=== PATIENT | female | born 1975 | race Caucasian/White ===

== ENCOUNTER 2018-09-11 06:26 | Day surgery (SDC) | payer MEDICAID, SELFPAY ==
--- NOTE | 2018-09-10 23:38 | HP.PCM_ITS ---
History and Physical Date of Admission: 09/11/18 HISTORY OF PRESENT ILLNESS 43 year old woman presents with complaints of recent flare ups of her hidradenitis in her bilateral axillary areas, worse on the right. She has been on Doxycycline recently. She denies any fever. She denies any drainage. She is also concerned about hidradenitis in her abdominal wall skin crease with an overhanging panniculus with panniculitis. She would develop bumps mostly on the right side of the skin crease with spontaneous drainage. She denies trauma. She has had previous excision of hidradenitis in her left inguinal area and right perineal/gluteal area She presents at this time for further evaluation and treatment. PAST MEDICAL HISTORY Arthritis Asthma Back problem Carpal tunnel syndrome Chronic sinus complaints Depression Fibromyalgia Frequent headaches Hidradenitis Multiple allergies Recurrent infections Rheumatoid arthritis Vision problems Vitamin deficiency High blood pressure PAST SURGICAL HISTORY Carpal tunnel surgery on both sides Hidradenitis surgery 3 sections hysterectomy tonsillectomy MEDICATIONS Cholecalciferol (Vitamin D3) Lisinopril/Hydrochlorothiazide [Zestoretic 20/25 Tablet] Metoprolol Tartrate [Lopressor] Montelukast [Singulair] Sertraline HCl [Zoloft] Albuterol IH (ProAir) [Proair Hfa] Cetirizine HCl [Zyrtec] Fluticasone/Salmeterol [Advair 250/50 Mcg Diskus] Ascorbic Acid [Vitamin C] Meloxicam Ranitidine [Zantac] buPROPion tablets [Wellbutrin] doxycycline ALLERGIES Sulfa FAMILY HISTORY Mother - Anxiety, Asthma, Depression (emotion), Diabetes, Heart disease, Hypertension, COPD (chronic obstructive pulmonary disease), Osteoporosis, Cancer Father - Bleeding disorder, Kidney disease, Cancer Grandmother - Ovarian cancer Sister - defect SOCIAL HISTORY Smoking Status: Current some day smoker alcohol intake: current substance use type: does not use REVIEW OF SYSTEMS General - Denies fever and weight loss. Has fatigue. Eyes - Denies cataracts and glaucoma. ENT - Denies nasal congestion and sore throat. Endocrine - Denies excessive thirst and urination. Skin - Has flare ups of hidradenitis in her bilateral axillary areas and abdominal wall skin crease. Has family history of skin cancer. Musculoskeletal - Has joint pain, weakness of muscles and joints, back pain. Denies joint stiffness and arthritis. Neuro - Has headaches. Cardiovascular - Denies chest pain, fatigue, and shortness of breath with exertion. Psych - Denies anxiety. Has depression. Respiratory - Has chronic cough and shortness of breath. Patient is a smoker. Gastrointestinal - Denies nausea, vomiting, diarrhea, and constipation. Hematologic - Denies bleeding. Has abnormal bruising. Has history of blood clot. Genitourinary - Denies hematuria and urinary frequency. PHYSICAL EXAMINATION General - Alert and Oriented HEENT - PERRL. EOMI. Throat is clear. Neck - Supple and nontender. No cervical adenopathy. Lungs - Clear to auscultation. Heart - Regular rate and rhythm. Abdomen - Soft and nondistended. Has abdominal wall panniculus with some panniculitis. There is some overhang of the panniculus. There is evidence of abdominal wall skin crease intertrigo mostly on the right side. No purulent drainage noted. Extremities - FROM. No axillary adenopathy. Hard to palpate because of the pr esence of overlying pain and induration and swelling. No purulent drainage noted. On the right measures 7 cm. On the left measures 5 cm. Just below the left axillary hidradenitis is an isolated lesion that measures 1 cm. Slightly erythematous. Mild tenderness to palpation. No purulent drainage. There is tenderness to palpation on the right axilla. Radial pulses are palpable. Neuro - CN II-XII grossly intact. Psych - Normal mood and affect. ASSESSMENT 1. Painful right axillary hidradenitis. 2. Left axillary hidradenitis, stable. 3. Abdominal wall skin crease intertrigo with hidradenitis. 4. Abdominal panniculus. 5. Abdominal panniculitis. 6. Smoker. 7. History of JURGEN. PLAN Recommend excision of her hidradenitis right axilla since it is more symptomatic than on the left axilla at this time. Will send tissue to Pathology for analysis to rule out carcinoma and to Microbiology for culture. A positive culture will necessitate antibiotic therapy. Will leave the wound open and proceed with wound care with the VAC or with daily Silver dressings. After discharge she can followup at the Wound Center. If there is a plateau in the healing process, can proceed with delayed closure with skin grafting. After healing has occurred, can then address the left axilla if symptomatic in the future. Also an abdominal panniculectomy will need to be done after the axillary hidradenitis has been surgically treated. Patient was informed of the risks and complications of the procedure including alternatives to surgery. These were discussed with the patient personally. Patient voices understanding and wishes to proceed. Some of the risks and complications were included in a form from the [employer]. Surgery would be done under general anesthesia with a surgical observation overnight stat in the hospital. Encouraged patient to stop smoking as it may have deleterious effects on wound healing.
[2018-09-11] VITALS (14 sets, daily range): BP systolic 108–141; BP diastolic 63–91; PULSE 79–111; RESP 14–20; TEMP 36.3–37.4; O2SAT 92–100; BMI 52.3; BMI 40.8
[2018-09-11] MEDS: Cefazolin 2 GM in 0.9% Normal Saline 100 ML IV (07:56)
--- NOTE | 2018-09-11 08:00 | HID_PTH ---
PATIENT: RAVI VALDEZ LOC: [facility] [place] U#:[id number] AGE/SX: 43/F ROOM: RE09/11/[address]: Dr. Rambo Man MD : 1975 BED: DIS: 09/12/2018 SPEC #: [id number] RECD: 09/11/18 09:17 STATUS: CHRISTINE ARISTIDES #: [id number] JANKI: 09/11/18 08:[address]: Rambo Man DEPT: SURGICAL PATHOLOGY RECD BY: Demarcus Ward ENTERED: 09/11/18 09:28 SP TYPE: Darleneenit PRIYANK DR: Dr. Ceasar Okeefe DO Tissues: Axilla, NOS Procedures: Surgery Specimen Level III HEADER OPERATION: Excision hidradenitis, axilla PRE-OP DIAGNOSIS: Painful right axilla hidradenitis TISSUE SUBMITTED: Right axilla hidradenitis MICROSCOPIC DIAGNOSIS Skin and soft tissue of right axilla, excision: Consistent with hidradenitis. AM:brendan 09/12/18 MICROSCOPIC DESCRIPTION Slides are reviewed. GROSS DESCRIPTION Received in fixative is one container labeled with the patient's name and designated right axilla hidradenitis. The specimen consists of a piece of skin with underlying tissue measuring 10.5 x 8 x 2.8 cm. Sections do not reveal any mass lesion. Diesel Motor Mechanic sections are submitted in two cassettes. / SJ:brendan 09/11/18 TC:3 CPT: 80680
--- NOTE | 2018-09-11 08:39 | OP.PN_ITS ---
Immediate Post-Op Note Date of Procedure: 09/11/18 Primary Surgeon/Physician: Rambo Man MD document preparation specialist: None Pre-Operative Diagnosis: 1. Painful right axillary hidradenitis. 2. Smoker. 3. History of MRSE. Post-Operative Diagnosis: Same. Surgery/Procedure Performed:: Surgical preparation right axilla with excision hidradenitis (130 cm2). Description of Surgical Findings:: 43 year old woman presents with complaints of recent flare ups of her hidradenitis in her bilateral axillary areas, worse on the right. She has been on Doxycycline recently. She denies any fever. She denies any drainage. She is also concerned about hidradenitis in her abdominal wall skin crease with an overhanging panniculus with panniculitis. She would develop bumps mostly on the right side of the skin crease with spontaneous drainage. She denies trauma. She has had previous excision of hidradenitis in her left inguinal area and right perineal/gluteal area Today the patient underwent surgical preparation right axilla with excision hidradenitis (130 cm2). Size of defect right axilla - 10 x 13 x 3 cm. Estimated Blood Loss: 50 ml. Specimen's removed: Right axillary hidradenitis tissue to Pathology and Microbiology. Drains: None. Type of Anesthesia:: General - Admit VTE Documentation VTE Present on Admission: No VTE Mechan Device Prophylaxis: SCD's VTE Pharm Prophylaxis ordered?: No
[2018-09-11] MEDS: Lactated Ringers 1,000 ML 60 ML IV (09:40)
[2018-09-11] MEDS: 0.9% NaCl Peripheral Flush Adult/Peds IV ×2 (10:41→14:37)
[2018-09-11] MEDS: HYDROmorphone 1 MG/ML Syringe IV ×3 (10:45→18:19)
[2018-09-11] MEDS: oxyCODONE 5 MG Tablet 10 MG PO ×3 (12:43→21:08)
[2018-09-11] MEDS: buPROPion (XL) 300 MG TABLET.XL PO (12:48)
[2018-09-11] MEDS: hydroCHLOROthiazide 25 MG Tablet PO (12:48)
[2018-09-11] MEDS: Lisinopril 20 MG Tablet PO (12:48)
[2018-09-11] MEDS: Ferrous Sulfate 325 MG Tablet PO (12:49)
[2018-09-11] MEDS: Ascorbic Acid 500 MG Tablet PO (12:49)
[2018-09-11] MEDS: DULoxetine Hcl 60 MG Capsule PO (12:49)
[2018-09-11] MEDS: Loratadine 10 MG Tablet PO (12:49)
--- NOTE | 2018-09-11 12:50 | OP.PCM_ITS ---
Report of Operation Date of Procedure: 09/11/18 Pre-Operative Diagnosis: 1. Painful right axillary hidradenitis. 2. Smoker. 3. History of MRSE. Post-Operative Diagnosis: Same. Surgery/Procedure Performed:: Surgical preparation right axilla with excision hidradenitis (130 cm2). Description of Surgical Findings:: 43 year old woman presents with complaints of recent flare ups of her hidradenitis in her bilateral axillary areas, worse on the right. She has been on Doxycycline recently. She denies any fever. She denies any drainage. She is also concerned about hidradenitis in her abdominal wall skin crease with an overhanging panniculus with panniculitis. She would develop bumps mostly on the right side of the skin crease with spontaneous drainage. She denies trauma. She has had previous excision of hidradenitis in her left inguinal area and right perineal/gluteal area Patient was informed of the risks and complications of the procedure including alternatives to surgery. These were discussed with the patient personally. Patient voices understanding and wishes to proceed. Some of the risks and complications were included in a form from the [employer]. Encouraged patient to stop smoking as it may have deleterious effects on wound healing. Size of defect right axilla - 10 x 13 x 3 cm. clinical lab assistant: None Type of Anesthesia:: General Specimen's removed: Right axillary hidradenitis tissue to Pathology and Microbiology. Drains: None. Estimated Blood Loss (mL): 50 ml. Description of Procedure: Patient was taken to OR in supine position and was placed under general anesthesia. The right axilla was prepped and draped in the usual fashion. SCD's were placed for DVT prophylaxis. Perioperative antibiotics were given intravenously. Using xylocaine with epinephrine, the right axilla was infiltrated. After waiting 5 minutes for the anesthetic to take effect, I proceeded with surgical preparation of the right axilla with excision of her chronic hidradenitis in a circular fashion to encompass the indurated tender areas. Dissection was carried through the subcutaneous tissue until the underlying muscle was seen. A lot of fat necrosis was seen. A lot of scar tissue was seen. No gross pus was seen. Some of the tissue was sent to Microbiology for culture. A positive culture would necessitate antibiotic therapy. The rest of the tissue was sent to Pathology for analysis to rule out carcinoma. Hemostasis was obtained with electrocautery. The wound was irrigated with saline. The dimensions of the right axillary wound after excision of hidradenitis was 10 x 13 x 3 cm. The right axillary wound was then dressed with Mepitel nonadherent dressing followed by Kerlix gauze and Betadine followed by dry Kerlix gauze followed by ABD pads compression dressing. This was followed by a compression zonia wrap. Patient tolerated the procedure well and was sent to PACU in satisfactory condition. Patient will be sent upstairs for continued postop care. She will have the VAC placed tomorrow. Grafts/Implants Used: None. - Complications None. - Admit VTE Documentation VTE Present on Admission: No VTE Mechan Device Prophylaxis: SCD's VTE Pharm Prophylaxis ordered?: No Code Visit Surgery Charges CPT - 10615 ICD-10 - S41.101A, L73.2, Z86.19, F17.200 47902 S41.101A, L73.2, Z86.19, F17.200
--- NOTE | 2018-09-11 12:54 | NURSING ---
Up to bathroom with this nurse assistance. voided and back to bed. had lunch. gave meds that didnt have prior to surgery that she normally takes on a daily basis. pt took lopressor and protonix at home prior to surgery.
[2018-09-11] MEDS: Albuterol 2.5 MG/3 ML VIAL.NEB. INHALATION ×2 (13:58→18:59)
--- NOTE | 2018-09-11 14:45 | CASEMGMT ---
JOSÉ MIGUEL CONNELL ASSESSMENT Face to Face with patient for initial transition planning/care coordination assessment. JOSÉ MIGUEL CONNELL introduced self and role at [facility]. Pt voices understanding and consents to assessment at this time. Pt resting in bed in no distress at this time. Pt is A/O at this time and answers all questions appropriately. Care providers, pharmacy, and demographics verified/updated at this time. PCP: Ceasar Okeefe Specialists: [facility] ([facility] Dr in [place]), Magda Escamilla Pharmacy: [facility], [place]. [facility] Retail on day of d/c only. Insurance: [facility] Prescription Benefit: Yes Living Will/HPOA: does not have LW or HCPOA . Interested in more information but does not want to talk with SW at this time to complete paperwork. Provided information on advanced directives and given Social Service rac card with number to call if chooses in the future to utilize [facility] social work for advanced directive completion. Educated patient that, if patient so chooses, can come back to [facility] and meet with a SW as an outpatient to complete health care advanced directives. Patient expresses understanding. LNOK: 3 sons and a daughter. Living Arrangements: Lives with her significant other, Magdy, and her 17-yr-old daughter. Lives in a 2-story home. 12-14 steps to enter. Ground floor is the basement and this is where the laundry room is located. 2nd floor is the main living area with kitchen, bath, and bedrooms. States able to navigate the stairs, she just takes them slowly. Transportation: Pt states drives self and states no transportation concerns at this time. States her daughter or Magdy can assist with transportation if needed. DME: has the following DME: Shower chair, hand held shower, cane. Pt states no need for further DME at this time. HHC: has used [facility] in the past but that they are no longer in network with [facility]. just recently used [facility] after knee surgery in June and wishes to use them again on discharge. Pt wishes to return home and states has no concerns with going home at time of discharge. CM to follow for any further discharge planning/needs. Pt voices no further concerns/needs at this time. Advised pt to ask for CM if any further questions/concerns/needs arise. Voices understanding. Plan: Home with [facility] for Wound Vac Care/dressing changes. DGiauque BSN RN CM
--- NOTE | 2018-09-11 15:25 | CASEMGMT ---
RN CM NOTE: Call placed to [facility] in [facility] and spoke to Bibi in the Intake Dep't. She states they are in Network with [facility] and they are able to provide retirement for Wound Vac care. Bibi was made aware anticipated discharge is tomorrow 09/12 or 09/13. Referral packet faxed. Awaiting acceptance and approval. [facility] PH: [phone] Chetna SMALL RN CM
[2018-09-11] MEDS: Cefazolin 1 GM/50 ML BAG IV (16:20)
[2018-09-11] MEDS: Budesonide Respules 0.5 MG/2 ML AMPUL.NEB. INHALATION (18:59)
[2018-09-11] MEDS: Metoprolol Tartrate 50 MG Tablet PO (21:07)
[2018-09-11] MEDS: Montelukast 10 MG Tablet PO (21:07)
[2018-09-11] MEDS: Docusate Sodium 100 MG Capsule PO (21:07)
[2018-09-12] MEDS: Lactated Ringers 1,000 ML 60 ML IV (00:34)
[2018-09-12] MEDS: Cefazolin 1 GM/50 ML BAG IV ×3 (00:34→16:06)
[2018-09-12] MEDS: Ondansetron 4 MG/2 ML Vial IV (00:40)
[2018-09-12 03:20] VITALS: BP 140/85; PULSE 97; RESP 16; TEMP 36.4; O2SAT 100
[2018-09-12 06:44] LABS: Anion Gap 10 (5-15); BUN 13 mg/dL (7-18); Calcium,Total 9.2 mg/dL (8.5-10.1); Chloride 102 mmol/L (98-107); Creatinine, Serum 0.81 mg/dL (0.55-1.02); EST Glomerular Filtration Rate 82 mL/min (>60); Est Glom Filt Rate - Afr Amer 100 mL/min (>60); Estimated Creatinine Clearance 94.56 ml/min; Glucose 107 mg/dL (74-106); Potassium 3.6 mmol/L (3.5-5.1); Prealbumin 23.8 mg/dL (20.0-40.0); Sodium Level 138 mmol/L (136-145)
[2018-09-12 06:57] LABS: Hematocrit 34.8 % (37-47); Hemoglobin 11.3 g/dl (12.0-15.0); Mean Corp Hgb Conc 32.5 g/gl (32-36); Mean Corpuscular Hgb 29.5 pg (27.0-32.0); Mean Corpuscular Volume 90.9 fL (81-99); Mean Platelet Vol. 11.3 fl (6.2-12.0); Platelet Count 277 K/mm3 (150-450); RBC Distribution Width CV 13.1 % (11.6-14.6); RBC Distribution Width SD 43.1 fl (35.1-43.9); Red Blood Count 3.83 M/mm3 (4.2-5.4); White Blood Count 15.9 K/mm3 (4.4-11.0)
[2018-09-12 06:58] LABS: Scan Indicated on CBC? Y/N NO
[2018-09-12 07:09] VITALS: PULSE 90; RESP 19
[2018-09-12] MEDS: Budesonide Respules 0.5 MG/2 ML AMPUL.NEB. INHALATION (07:09)
[2018-09-12] MEDS: Albuterol 2.5 MG/3 ML VIAL.NEB. INHALATION ×2 (07:09→13:43)
[2018-09-12] MEDS: oxyCODONE 5 MG Tablet 10 MG PO ×2 (07:26→14:45)
[2018-09-12] MEDS: Ferrous Sulfate 325 MG Tablet PO (07:26)
[2018-09-12] MEDS: Ascorbic Acid 500 MG Tablet PO (07:26)
--- NOTE | 2018-09-12 08:26 | CASEMGMT ---
JOSÉ MIGUEL CONNELL NOTE: Call received from Rowena @ [facility]. She is requesting a signed copy of Dr Man's signature on H/P be faxed to them and states once they receive that, then they are able to take pt. She was made aware plans are for Wound Vac to be placed today and probable d/c is today 09/12. Chetna SMALL RN, CM
[2018-09-12 09:25] VITALS: BP 148/87; PULSE 95; RESP 18; TEMP 36.6; O2SAT 95
[2018-09-12] MEDS: HYDROmorphone 1 MG/ML Syringe IV (09:32)
[2018-09-12 09:35] VITALS: PULSE 95
[2018-09-12] MEDS: Metoprolol Tartrate 50 MG Tablet PO (09:35)
[2018-09-12] MEDS: hydroCHLOROthiazide 25 MG Tablet PO (09:35)
[2018-09-12] MEDS: Pantoprazole Sodium 40 MG Tablet PO (09:36)
[2018-09-12] MEDS: buPROPion (XL) 300 MG TABLET.XL PO (09:36)
[2018-09-12] MEDS: Lisinopril 20 MG Tablet PO (09:36)
[2018-09-12] MEDS: Docusate Sodium 100 MG Capsule PO (09:36)
[2018-09-12] MEDS: Loratadine 10 MG Tablet PO (09:37)
[2018-09-12] MEDS: DULoxetine Hcl 60 MG Capsule PO (09:37)
--- NOTE | 2018-09-12 10:24 | NURSING ---
wound photo: right axilla
[2018-09-12 13:43] VITALS: RESP 18
[2018-09-12 14:50] VITALS: BP 131/74; PULSE 95; RESP 18; TEMP 36.3; O2SAT 99
--- NOTE | 2018-09-12 15:29 | PCM.PN.SRG ---
Subjective: Postop #1 Patient is resting comfortably. VAC applied today. - Physical Exam General: Alert, Oriented x3 HEENT: PERRLA, EOMI Oral: Moist Mucosa Neck: Supple Abdomen: Soft, Non-Distended Skin: Ulcer/ Wound - right axillary wound stable. No active bleeding noted. VAC applied today. Neurological: Cranial nerves II-XII grossly intact Psych/Mental Status: Normal Affect, Appropriate Vital Signs Temp Pulse Resp BP Pulse Ox 97.4 F L 95 18 131/74 H 99 09/12/18 14:50 09/12/18 14:50 09/12/18 14:50 09/12/18 14:50 09/12/18 14:50 Oxygen Flow Rate (L/min) 2 Oxygen Delivery Method Room Air Weight: 276 lb 14.409 oz Body Mass Index (BMI) 40.8 Intake and Output for Last 24 Hours 09/10/18 09/11/18 09/12/18 23:59 23:59 23:59 Intake Total 2120 / 2120 1810 / 1810 Output Total 1100 / 1100 1700 / 1700 Balance 1020 / 1020 110 / 110 Microbiology Past 72 Hours 09/11/18 Unknown Gram Stain - Final Tissue - Other Wound Culture - Preliminary Laboratory Tests Past 24 Hrs 09/12/18 09/12/18 05:48 05:48 WBC 15.9 H RBC 3.83 L Hgb 11.3 L Hct 34.8 L MCV 90.9 MCH 29.5 MCHC 32.5 RDW 13.1 RDW Differential 43.1 Plt Count 277 MPV 11.3 Sodium 138 Potassium 3.6 Chloride 102 Carbon Dioxide 26.0 Anion Gap 10 BUN 13 Creatinine 0.81 Estim Creat Clear Calc 94.56 Est GFR (MDRD) Af Amer 100 Est GFR (MDRD) Non-Af 82 BUN/Creatinine Ratio 16.0 Glucose 107 H Calcium 9.2 Prealbumin 23.8 Medical Necessity - Tobacco Use Smoking Status: Current some day smoker Tobacco Use: Cigarettes Assessment/Plan All Active Problems (Last Updated 06/12/18 @ 10:03 by Arcelia Schmidt) Open wound of right axillary region (Acute) 1. Painful right axillary hidradenitis. 2. Open surgical hidradenitis wound right axilla. 3. Smoker. 4. History of MRSE. 5. s/p surgical preparation right axilla with excision hidradenitis (130 cm2). VAC applied today. Wound is stable. No active bleeding noted. VAC has been approved. Prealbumin 23.8. Encourage nutritional supplementation with protein to help the healing process. Operative culture is pending. Will send home on Doxycycline. A positive culture may necessitate antibiotic modification. Discharge home today. Followup Wound Center in 2-3 weeks. If there is a plateau in the healing process, can proceed with delayed closure with skin grafting. Wrote script for Doxycycline for 30 days and a refill. To also be used for future flare ups. Wrote scripts for Percocet for pain (60 tabs) and for Valium for spasm (30 tabs). Wrote scripts for Phenergan for nausea (30 tabs) and a refill and for Colace for constipation (60 tabs). Encouraged patient to stop smoking as it may have deleterious effects on wound healing. Code Visit Inpatient E&M: 66804 Subs Hosp L1 - ICD-10 -L73.2, S41.101A, Z86.19, F17.200
--- NOTE | 2018-09-12 15:29 | CASEMGMT ---
Updated clinicals sent to [facility]. Patient accepted and updated.
--- NOTE | 2018-09-12 15:38 | DCINST_ITS ---
You will use the following diet at home:: No restrictions, Other - encourage nutritional supplementation with protein to help the healing process. Discharge Activity: May not drive while taking narcotic pain medications., - - no heavy lifting. elevate right arm when sitting. May shower in (days): 2 - may shower on the days the vac is changed. May resume sexual activity in: No Restrictions Weight Bearing Status: Weight bearing as tolerated Lifting Restrictions: 20 lbs. Keep extremity elevated above heart level: Right Arm Call your doctor if your incision/area has: Continuous Slow Oozing, Sudden Increased Bleeding, Increased Pain/ Swelling, Increased Redness, Foul Smelling Discharge, Swelling at the incision site Call your doctor if you observe: Fever of 101 or Higher, Coldness, Increased Pain, Shortness of breath, Chest pain, Calf discomfort, Uncontrolled pain Suture Line Care: - - vac changes three times per week at 150 mmHg continuous suction. Change Dressing in (Days):: 2 - vac changes three times per week. Cleanse incision/area with: Soap & Water - may cleanse the wound with soap and water at the time of the VAC change., - - may take a shower on the days the vac is changed. Additional Dressing/Incision Instructions:: Home Health to assist with the vac to the right axilla three times per week at 150 mmHg continuous suction. May cleanse the wound with soap and water at the time of the vac dressing change. Allergies/Adverse Reactions: Allergies Sulfa (Sulfonamide Antibiotics) Adverse Reaction (Verified 09/11/18 10:44) Nausea Medications to take at Discharge Cholecalciferol (Vitamin D3) [Vitamin D3] 5,000 unit PO DAILY 12/10/14 Lisinopril/Hydrochlorothiazide [Zestoretic 20/25 Tablet] 1 tablet PO DAILY 12/10/14 Metoprolol Tartrate [Lopressor (beta rainer)] 50 mg PO BID 12/10/14 Montelukast [Singulair] 10 mg PO QHS 12/10/14 Albuterol IH (ProAir) [Proair Hfa] 1 puff INHALATION Q6H PRN PRN 11/10/15 Cetirizine HCl [Zyrtec] 10 mg PO DAILY 11/10/15 Ascorbic Acid [Vitamin C] 500 mg PO DAILY@0800 04/04/16 buPROPion tablets [Wellbutrin tablets] 300 mg PO DAILY 05/22/17 Duloxetine Hcl [Cymbalta] 60 mg PO DAILY 09/05/18 Iron Carbonyl [Feosol] 65 mg PO DAILYCM 09/05/18 Mometasone/Formoterol [Dulera 100 Mcg/5 Mcg Inhaler] 2 puff IH BID 09/05/18 Omeprazole 40 mg PO DAILY 09/05/18 Albuterol Aerosols [Ventolin Aerosols] 2.5 mg INHALATION Q4H PRN PRN vial.neb. 09/12/18 Albuterol Aerosols [Ventolin Aerosols] 2.5 mg INHALATION Q6HWA.RT vial.neb. 09/12/18 Budesonide Aerosol [Pulmicort Respules] 0.5 mg INHALATION BID.RT ampul.neb. 09/12/18 Diazepam [Valium] 5 mg PO 4X/DAY PRN PRN #30 tab 09/12/18 Docusate Sodium [Colace] 100 mg PO BID #60 cap 09/12/18 Doxycycline [Vibramycin] 100 mg PO BID #60 cap 09/12/18 Hydrochlorothiazide [Hctz] 25 mg PO DAILY tablet 09/12/18 Lisinopril [Zestril] 20 mg PO DAILY tablet 09/12/18 Oxycodone HCl/Acetaminophen [Percocet 5/325] 1 - 2 tab PO 4X/DAY PRN PRN 7 Days #60 tab 09/12/18 proMETHazine tablet [Phenergan tablet] 25 mg PO 4X/DAY PRN PRN #30 tab 09/12/18 The following prescriptions were given: Diazepam [Valium] 5 mg PO 4X/DAY PRN PRN #30 tab PRN Reason: Spasms Oxycodone HCl/Acetaminophen [Percocet 5/325] 1 - 2 tab PO 4X/DAY PRN PRN 7 Days #60 tab PRN Reason: Pain proMETHazine tablet [Phenergan tablet] 25 mg PO 4X/DAY PRN PRN #30 tab PRN Reason: NAUSEA/VOMITING Docusate Sodium [Colace] 100 mg PO BID #60 cap Doxycycline [Vibramycin] 100 mg PO BID #60 cap Primary Care Physician: Ceasar Okeefe DO [Primary Care Provider] - Test Results: Test results from this visit will be discussed in further detail at your follow- up appointment, if applicable. Please Follow Up With: Rambo Man MD When: 2-3 weeks at the wound center. call [phone] for appt. Proposed Discharge Date: 09/12/18
== END 2018-09-12 17:30 | disposition home or self-care (01) ==
LOC: SDC 06:26 → AC 06:27 → MS3 06:29
PROVIDERS: Family Provider Student in an Organized Health Care Education/Training Program; PCP Student in an Organized Health Care Education/Training Program; Referring Provider Surgery; Visit Provider Surgery
PROC: (CPT 11450; principal; 2018-09-11 07:45)
DX: L73.2 Hidradenitis suppurativa (principal); E65 Localized adiposity; L30.4 Erythema intertrigo; M19.90 Unspecified osteoarthritis, unspecified site; J45.909 Unspecified asthma, uncomplicated; F32.9 Major depressive disorder, single episode, unspecified; M06.9 Rheumatoid arthritis, unspecified; I10 Essential (primary) hypertension; M79.7 Fibromyalgia; E56.9 Vitamin deficiency, unspecified; G47.00 Insomnia, unspecified; K21.9 Gastro-esophageal reflux disease without esophagitis; D64.9 Anemia, unspecified; F41.9 Anxiety disorder, unspecified; F17.200 Nicotine dependence, unspecified, uncomplicated; Z86.19 Personal history of other infectious and parasitic diseases; Z79.51 Long term (current) use of inhaled steroids; Z79.899 Other long term (current) drug therapy
CPT/HCPCS: 11450; 36415; 80048; 84134; 85027; 87070; 87075; 87077; 87102; 87186; 87205; 87206; 88304; 94640; J7120; A4216; J2405

== ENCOUNTER 2018-10-07 11:19 | Outpatient (RCR) | payer MEDICAID, SELFPAY ==
[2018-09-11 10:11] VITALS: BMI 40.8
[2018-10-07 11:31] VITALS: BP 148/96; PULSE 100; RESP 18; TEMP 35.9; BMI 52.7
--- NOTE | 2018-10-07 21:45 | PCM.WC.PN ---
Type of Wound Date of Service: 10/07/18 Chief Complaint: Open surgical hidradenitis wound right axilla. History of Wound: Surgery 09/11/18 - Surgical preparation right axilla with excision hidradenitis (130 cm2). Wound care - Silver. Initially after surgery she tried the VAC and couldn't tolerate it. Operative culture - Coag negative Staph. She was on Doxycycline perioperatively and has finished them. Prealbumin from 09/12/18 was 23.8. Encouraged nutritional supplementation with protein to help the healing process. Today she denies fever. Her appetite is ok. Progress of Wound: Improved. - Physical Exam Vital Signs Temp Pulse Resp BP 96.6 F L 100 18 148/96 H 10/07/18 11:31 10/07/18 11:31 10/07/18 11:31 10/07/18 11:31 Wound Measurements and Assessment WC - Nurse 1 - General Ulcer Measurement Start: 10/07/18 11:27 Freq: Status: Active Protocol: Activity Type Activity Date Activity User E-Sign Co-Sign Detail Recorded Client Recorded Date Recorded By Document 10/07/18 11:31 [id number] 10/07/18 11:38 10/07/18 11:31 Wound Center Nurse 1 [Ulcer Assessment] #3 RIGHT ARMPIT -Combined with other wound No -Current Size (cm) - Length 4.7 -Current Size (cm) - Width 5.5 -Current Size (cm) - Depth 0.1 -Total Square Cm 25.85 -Date of Last Picture (Recall this 10/07/18 field) -Photo Taken Yes -Epithelialization Small 1-33% -Tunneling No -Undermining/Tunneling No -Circular Undermining No -Exudate Amt Small -Exudate Type Yellow/Green -Wound Margin Distinct, Outline Attached -Granulation Amt Large (67-100%) -Granulation Quality Red -Slough/Fibrin Yes -Necrosis Amt None Present (0 %) -Necrotic Tissue Type Adherent Slough -Structure Exposed None/Limited to Skin Breakdown -Texture (Clair-wound Skin Appearance) No Abnormality Assessed -Moisture (Clair-wound Skin Appearance No Abnormality ) Assessed -Color (Clair-wound Skin Appearance) No Abnormality Assessed -Temperature (Clair-wound Skin No Abnormality Appearance) (Pt Warm) -Tenderness on Palpation (Clair-wound Yes Skin Appearance) -Ulcer Cleansing Rinsed/ Irrigated with Saline -Foul Odor after Cleansing No -Anesthetic Used 4% Lidocaine Solution [Edema Assessment] -Lower Limb Edema Present NA - Nurse 2 - General Ulcer CM Notes Start: 10/07/18 11:27 Freq: Status: Active Protocol: Activity Type Activity Date Activity User E-Sign Co-Sign Detail Recorded Client Recorded Date Recorded By Document 10/07/18 12:23 [id number] 10/07/18 12:25 10/07/18 12:23 Wound Center Nurse 2 [Procedure/Treatment] #3 RIGHT ARMPIT -Time 12:24 -Correct Patient Yes -Correct Side, Site, Position Yes -Correct Procedure Yes -Procedure Performed Yes -Type of Procedure Debridement -Clinical Debridement Subcutaneous -Post Debridement Size (cm) - Length 4.8 -Post Debridement Size (cm) - Width 5.5 -Post Debridement Size (cm) - Depth 0.1 -Total Square Cm 26.40 -Wound/Ulcer Outcome Not Healed -Bioengineered Tissue No -Bleeding Controlled with Pressure -Offloading No -Treatment Response Procedure Tolerated Well [See Physician Procedure note for Specifics] Pain Scale: 0-10 Numeric [Pain] -Is Patient Pain Free? Yes Debridement Note Post-Debridement Measurements/Treatment - Nurse 2 - General Ulcer CM Notes Start: 10/07/18 11:27 Freq: Status: Active Protocol: Activity Type Activity Date Activity User E-Sign Co-Sign Detail Recorded Client Recorded Date Recorded By Document 10/07/18 12:23 [id number] 10/07/18 12:25 10/07/18 12:23 Wound Center Nurse 2 #3 RIGHT ARMPIT -Time 12:24 -Correct Patient Yes -Correct Side, Site, Position Yes -Correct Procedure Yes -Procedure Performed Yes -Type of Procedure Debridement -Clinical Debridement Subcutaneous -Post Debridement Size (cm) - Length 4.8 -Post Debridement Size (cm) - Width 5.5 -Post Debridement Size (cm) - Depth 0.1 -Total Square Cm 26.40 -Wound/Ulcer Outcome Not Healed -Bioengineered Tissue No -Bleeding Controlled with Pressure -Offloading No -Treatment Response Procedure Tolerated Well Pain Scale: 0-10 Numeric Is Patient Pain Free? Yes Wound debrided: #3 Right axila. Laterality: Right Wound Grade/Stage: 2. Type of Debridement: Excisional debridement Anesthesia Used: 4% Lidocaine Solution Depth: Down to and including healthy tissue, in the subcutaneous layer Percentage of wound debrided: 100 Instrument Used: 7mm curette Tissue Removed: subcutaneous tissue. Severity: Fat Layer Exposed Amount of bleeding with debridement: Mild Bleeding Controlled with: Pressure Patient tolerated procedure well Assessment/Plan Assessment: 1. Right axillary hidradenitis. 2. Open surgical hidradenitis wound right axillary area. 3. History of MRSE. 4. Family history of skin cancer. 5. Smoker. 6. s/p surgical preparation right axilla with excision hidradenitis (130 cm2). Plan: Continue Silver dressing changes daily to the right axilla. The hidradenitis wound is ready for skin grafting at this time. The patient will think about further surgery and let me know. Right now she wants to continue the wound care. Encourage range of motion exercises to minimize stiffness. Today she shows good range of motion of her right shoulder. Prealbumin from 09/12/18 was 23.8. Encourage nutritional supplementation with protein to help the healing process. She is finished with the Doxycycline that was taken perioperatively. Operative culture showe Coag negative. Renewed her Percocet for pain (30 tabs). Followup one week. Encouraged the patient to stop smoking as it may have deleterious effects on wound healing.
--- OUTSIDE RECORDS SUMMARY | 2018-12-09 22:14 | XMS RPT_ITS | Summary of Care ---
:1975 Author Organization [facility] Address [address] [place] [address] Care Team Providers Name Role Phone [place] Ceasar Glenn HIDALGO Primary Care Provider Manuel Genao MD Unavailable Reason for Visit Reason Comments Knee Pain Auth/Cert Status Reason Specialty Diagnoses / Procedures Referred By Contact Referred To Contact Encounter Details Date Type Department Care Team Description 07/03/2018 Home Care Visit [facility] Kirk Ivan PTA ROUTINE VISIT [address] [place] [address] Allergies No Known Allergiesas of this encounter Medications Prescription Sig. Disp. Refills Start Date End Date Status leg brace (KNEE BRACE 1 Device by 1 each 0 10/04/2016 Active LARGE-XLARGE) Miscellaneous route MiscIndications: daily as needed. Primary osteoarthritis of left knee nystatin (MYCOSTATIN) Apply 1 application 06/29/2018 Active creamIndications: topically 3 (three) skin infection due to times a day as a Jayda yeast needed for irritation. omeprazole (PRILOSEC) Take 1 capsule by 06/29/2018 Active 40 MG mouth daily. capsuleIndications: Heartburn potassium chloride Take 20 mEq by 06/29/2018 Active (K-DUR) 10 MEQ CR mouth 2 (two) times tabletIndications: a day. prevention of low potassium in the blood SUMAtriptan (IMITREX) Take 100 mg by 06/29/2018 Active 100 MG mouth daily as tabletIndications: needed for Migraine Headache migraine. albuterol 90 Inhale 2 puffs 06/29/2018 Active mcg/actuation every 6 (six) hours inhalerIndications: as needed for Asthma Attack shortness of breath. ascorbic acid, Take 500 mg by 06/29/2018 Active vitamin C, (VITAMIN mouth daily. C) 500 MG tabletIndications: Inadequate Vitamin C aspirin 325 MG Take 325 mg by 06/29/2018 Active tabletIndications: mouth 2 (two) times Treatment to Prevent a day. Peripheral Artery Thromboembolism betamethasone Apply 1 application 06/29/2018 Active valerate (VALISONE) topically 2 (two) 0.1 % times a day as creamIndications: needed (itching). itching buPROPion (WELLBUTRIN Take 300 mg by 06/29/2018 Active XL) 300 MG 24 hr mouth daily. tabletIndications: major depressive disorder busPIRone (BUSPAR) 5 Take 5-10 mg by 06/29/2018 Active MG tabletIndications: mouth 3 (three) Repeated Episodes of times a day. Anxiety cetirizine (ZYRTEC) Take 10 mg by mouth 06/29/2018 Active 10 MG daily. tabletIndications: Seasonal Runny Nose cholecalciferol, Take 5,000 Units by 06/29/2018 Active vitamin D3, 5,000 mouth daily. unit capsuleIndications: Prevention of Vitamin D Deficiency dicyclomine (BENTYL) Take 10 mg by mouth 06/29/2018 Active 10 MG 4 (four) times a capsuleIndications: day before meals Irritable Colon and nightly. DULoxetine (CYMBALTA) Take 60 mg by mouth 06/29/2018 Active 20 MG daily. capsuleIndications: major depressive disorder estrogens, Take 0.3 mg by 06/29/2018 Active conjugated, mouth daily. (PREMARIN) 0.3 MG tabletIndications: Post-Menopausal Osteoporosis Prevention lisinopril-hydrochlor Take 1 tablet by 06/29/2018 Active othiazide mouth daily. (PRINZIDE,ZESTORETIC) 20-25 mg per tabletIndications: high blood pressure meloxicam (MOBIC) 15 Take 15 mg by mouth 06/29/2018 Active MG tabletIndications: daily. Joint Damage causing Pain and Loss of Function metoprolol tartrate Take 50 mg by mouth 06/29/2018 Active (LOPRESSOR) 50 MG 2 (two) times a tabletIndications: day. high blood pressure montelukast Take 10 mg by mouth 06/29/2018 Active (SINGULAIR) 10 mg daily. tabletIndications: Inflammation of the Nose due to an Allergy mometasone-formoterol Inhale 2 puffs 2 06/29/2018 Active 100-5 mcg/actuation (two) times a day. HFAAIndications: Controller Medication for Asthma iron,carbonyl (IRON Take 65 mg by mouth 06/29/2018 Active CHEWS daily. ORAL)Indications: anemia acetaminophen Take 650 mg by 06/29/2018 Active (TYLENOL) 325 MG mouth every 4 tabletIndications: (four) hours as Pain needed for pain. oxyCODONE Take 5 mg by mouth 06/29/2018 Active (ROXICODONE) 5 MG every 4 (four) immediate release hours as needed for tabletIndications: pain. Pain oxyCODONE Take one pill every 28 tablet 0 07/02/2018 Active (ROXICODONE) 5 MG 4-6 hours prn pain. immediate release tabletIndications: Status post knee replacement, unspecified laterality as of this encounter Active Problems No known active problems Social History Tobacco Use Types Packs/Day Years Used Date Never Smoker Smokeless Tobacco: Never Used Alcohol Use Drinks/Week oz/Week Comments No Sex Assigned at Date Recorded Not on file as of this encounter Last Filed Vital Signs Vital Sign Reading Time Taken Blood Pressure 134/80 07/03/2018 9:45 AM EDT Pulse 89 07/03/2018 9:45 AM EDT Temperature - - Respiratory Rate 18 07/03/2018 9:45 AM EDT Oxygen Saturation 97% 07/03/2018 9:45 AM EDT Inhaled Oxygen Concentration - - Weight - - Height - - Body Mass Index - - in this encounter Plan of Treatment Upcoming Encounters Date Type Specialty Care Team Description 07/04/2018 Office Visit Home Health Services Kirk Ivan, ENRIQUE 07/05/2018 Office Visit Home Health Services Agus Cardoza RN 07/08/2018 Office Visit Home Health Services Kirk Ivan, ENRIQUE 07/09/2018 Office Visit Home Health Services Agus Cardoza RN 07/10/2018 Office Visit Home Health Services Kirk Ivan, [employer] 07/12/2018 Office Visit Home Health Services Agus Cardoza RN 07/15/2018 Follow-Up Sports Medicine Manuel Genao MD [address] [place] [address] [phone] 07/16/2018 Office Visit Home Health Agus Rhoades, RN 07/19/2018 Office Visit Home Health Services Agus Cardoza, RN 07/23/2018 Office Visit Home Health Agus Rhoades, RN 07/26/2018 Office Visit Home Health Agus Rhoades RN 07/30/2018 Office Visit Home Health Agus Rhoades, RN 08/02/2018 Office Visit Home Health Agus Rhoades, RN 08/06/2018 Office Visit Home Health Agus Rhoades, RN 08/09/2018 Office Visit Home Health Agus Rhoades RN 08/13/2018 Office Visit Home Health Agus Rhoades, RN 08/16/2018 Office Visit Home Health Agus Rhoades, RN 08/20/2018 Office Visit Home Health Agus Rhoades, RN 08/23/2018 Office Visit Home Health Services Agus Cardoza, RN Health Maintenance Due Date Last Done Comments PAP SMEAR 1975 SEQUENTIAL INFLUENZA VACCINE (#1) 2018 TETANUS EVERY 10 YR 12/30/2021 12/31/2011 as of this encounter
--- OUTSIDE RECORDS SUMMARY | 2018-12-09 22:14 | XMS RPT_ITS | Summary of Care ---
:1975 Author Organization [facility] Address [address] [place] [address] Care Team Providers Name Role Phone Ceasar Okeefe DO Primary Care Provider Manuel Genao MD Unavailable Reason for Visit Auth/Cert Status Reason Specialty Diagnoses / Procedures Referred By Contact Referred To Contact Encounter Details Date Type Department Care Team Description 10/04/2018 Home Care Visit [facility] Agus Cardoza ROUTINE VISIT Health E, RN [facility] [place] [address] Allergies Active Allergy Reactions Severity Noted Date Comments Sulfa (Sulfonamide Antibiotics) Rash Low 09/13/2018 as of this encounter Medications Medication Sig Dispensed Refills Start Date End Date Status leg brace (KNEE BRACE 1 Device by 1 each 0 10/04/2016 Active LARGE-XLARGE) Miscellaneous route MiscIndications: daily as needed. Primary osteoarthritis of left knee nystatin (MYCOSTATIN) Apply 1 application 0 06/29/2018 Active creamIndications: topically 3 (three) skin infection due to times a day as a Jayda yeast needed for irritation. omeprazole (PRILOSEC) Take 1 capsule by 0 06/29/2018 Active 40 MG mouth daily. capsuleIndications: Heartburn potassium chloride Take 20 mEq by 0 06/29/2018 Active (K-DUR) 10 MEQ CR mouth 2 (two) times tabletIndications: a day. prevention of low potassium in the blood SUMAtriptan (IMITREX) Take 100 mg by 0 06/29/2018 Active 100 MG mouth daily as tabletIndications: needed for Migraine Headache migraine. albuterol 90 Inhale 2 puffs 0 06/29/2018 Active mcg/actuation every 6 (six) hours inhalerIndications: as needed for Asthma Attack shortness of breath. ascorbic acid, Take 500 mg by 0 06/29/2018 Active vitamin C, (VITAMIN mouth daily. C) 500 MG tabletIndications: Inadequate Vitamin C aspirin 325 MG Take 325 mg by 0 06/29/2018 Active tabletIndications: mouth 2 (two) times Treatment to Prevent a day. Peripheral Artery Thromboembolism betamethasone Apply 1 application 0 06/29/2018 Active valerate (VALISONE) topically 2 (two) 0.1 % times a day as creamIndications: needed (itching). itching buPROPion (WELLBUTRIN Take 300 mg by 0 06/29/2018 Active XL) 300 MG 24 hr mouth daily. tabletIndications: major depressive disorder busPIRone (BUSPAR) 5 Take 5-10 mg by mouth 3 (three) times a day as needed (Anxiety and panic attacks). Take for anxiety and panic attacks 0 06/29/2018 Active MG tabletIndications: Repeated Episodes of Anxiety cetirizine (ZYRTEC) Take 10 mg by mouth 0 06/29/2018 Active 10 MG daily. tabletIndications: Seasonal Runny Nose cholecalciferol, Take 5,000 Units by 0 06/29/2018 Active vitamin D3, 5,000 mouth daily. unit capsuleIndications: Prevention of Vitamin D Deficiency dicyclomine (BENTYL) Take 10 mg by mouth 0 06/29/2018 Active 10 MG 4 (four) times a capsuleIndications: day before meals Irritable Colon and nightly. estrogens, Take 0.3 mg by 0 06/29/2018 Active conjugated, mouth daily. (PREMARIN) 0.3 MG tabletIndications: Post-Menopausal Osteoporosis Prevention lisinopril-hydrochlor Take 1 tablet by 0 06/29/2018 Active othiazide mouth daily. (PRINZIDE,ZESTORETIC) 20-25 mg per tabletIndications: high blood pressure meloxicam (MOBIC) 15 Take 15 mg by mouth 0 06/29/2018 Active MG tabletIndications: daily. Joint Damage causing Pain and Loss of Function metoprolol tartrate Take 50 mg by mouth 0 06/29/2018 Active (LOPRESSOR) 50 MG 2 (two) times a tabletIndications: day. high blood pressure montelukast Take 10 mg by mouth 0 06/29/2018 Active (SINGULAIR) 10 mg daily. tabletIndications: Inflammation of the Nose due to an Allergy mometasone-formoterol Inhale 2 puffs 2 0 06/29/2018 Active 100-5 mcg/actuation (two) times a day. HFAAIndications: Controller Medication for Asthma iron,carbonyl (IRON Take 65 mg by mouth 0 06/29/2018 Active CHEWS daily. ORAL)Indications: anemia acetaminophen Take 650 mg by 0 06/29/2018 Active (TYLENOL) 325 MG mouth every 4 tabletIndications: (four) hours as Pain needed for pain. oxyCODONE Take one pill every 28 tablet 0 07/15/2018 Active (ROXICODONE) 5 MG 4-6 hours prn pain. immediate release tabletIndications: Status post knee replacement, unspecified laterality DULoxetine (CYMBALTA) Take 60 mg by mouth 0 08/10/2018 Active 60 MG capsule daily . doxycycline hyclate Take 100 mg by 0 09/13/2018 Active (VIBRA-TABS) 100 MG mouth 2 (two) times tablet a day. docusate sodium Take 100 mg by 0 09/13/2018 Active (COLACE) 100 MG mouth 2 (two) times capsule a day. diazePAM (VALIUM) 5 Take 5 mg by mouth 0 09/13/2018 Active MG tablet 4 (four) times a day as needed for muscle spasms. as of this encounter Active Problems No known active problemsas of this encounter Social History Tobacco Use Types Packs/Day Years Used Date Never Smoker Smokeless Tobacco: Never Used Alcohol Use Drinks/Week oz/Week Comments No Sex Assigned at Date Recorded Not on file Job Start Date Occupation Industry Not on file Not on file Not on file Travel History Travel Start Travel End No recent travel history available. as of this encounter Last Filed Vital Signs Vital Sign Reading Time Taken Blood Pressure 142/82 10/04/2018 8:59 AM EST Pulse 87 10/04/2018 8:59 AM EST Temperature 36.9 ??C (98.5 ??F) 10/04/2018 8:59 AM EST Respiratory Rate 16 10/04/2018 8:59 AM EST Oxygen Saturation 96% 10/04/2018 8:59 AM EST Inhaled Oxygen Concentration - - Weight - - Height - - Body Mass Index - - in this encounter Plan of Treatment Upcoming Encounters Date Type Specialty Care Team Description 10/07/2018 Home Care Visit Home Health Services Agus Cardoza, RN 10/09/2018 Home Care Visit Home Health Services Agus Cardoza, RN 10/11/2018 Home Care Visit Home Health Services Agus Cardoza, RN 10/14/2018 Home Care Visit Home Health Services Agus Cardoza, RN 10/16/2018 Home Care Visit Home Health Services Agus Cardoza, RN 10/18/2018 Home Care Visit Home Health Services Agus Cardoza, RN 10/21/2018 Home Care Visit Home Health Services Agus Cardoza, RN 10/23/2018 Home Care Visit Home Health Services Agus Cardoza, RN 10/25/2018 Home Care Visit Home Health Services Agus Cardoza, RN 10/28/2018 Home Care Visit Home Health Services Agus Cardoza, RN 10/30/2018 Home Care Visit Home Health Services Agus Cardoza, RN 11/01/2018 Home Care Visit Home Health Services Agus Cardoza, RN 11/04/2018 Home Care Visit Home Health Services Agus Cardoza, RN 11/06/2018 Home Care Visit Home Health Services Agus Cardoza, RN 11/08/2018 Home Care Visit Home Health Services Agus Cardoza, RN Health Maintenance Due Date Last Done Comments PAP SMEAR 1975 SEQUENTIAL INFLUENZA VACCINE (#1) 2018 TETANUS EVERY 10 YR 12/30/2021 12/31/2011 as of this encounter Insurance Payer Benefit Plan / Subscriber ID Effective Dates Phone Address Type Group [facility] MEDICAID xxxxxxxxx 2017-Present MEDICAID COMMUNITY PLAN as of this encounter
--- OUTSIDE RECORDS SUMMARY | 2018-12-09 22:14 | XMS RPT_ITS | Summary of Care ---
:1975 Author Organization [facility] Address [address] [place] [address] Care Team Providers Name Role Phone Ceasar Okeefe Primary Care Provider Reason for Referral Physical Therapy (Routine) Status Reason Specialty Diagnoses / Referred By Referred To Procedures Contact Contact Authorized Physical Therapy / Diagnoses S/P left knee arthroscopy [place] Tara Singh MD [address] [place] [address] Reason for Visit Reason Comments Follow-up Suture / Staple Removal Encounter Details Date Type Department Care Team Description 01/14/2018 Follow-Up [facility] Orthopedic Tara Genao S/P left knee & Sports Medicine MD [place] arthroscopy (Primary Physicians [address] [facility] Dx) [address] [place], [place] [id number] [place] [address] [phone] Allergies No Known Allergiesas of this encounter Medications Prescription Sig. Disp. Refills Start Date End Date Status SUMAtriptan Take 100 mg by 12/06/2015 Active (IMITREX) 100 MG mouth. tablet sertraline (ZOLOFT) 100mg in the 04/18/2016 Active 100 MG tablet morning and 50 mg at night omeprazole Take 1 capsule by 08/15/2016 Active (PriLOSEC) 40 MG mouth. capsule nystatin Apply 1 application 04/18/2016 Active (MYCOSTATIN) cream topically. montelukast Take 10 mg by 04/18/2016 Active (SINGULAIR) 10 mg mouth. tablet metoprolol tartrate Take 50 mg by mouth 04/18/2016 Active (LOPRESSOR) 50 MG 2 (two) times a day tablet . lisinopril-hydrochlo Take 1 tablet by 04/18/2016 Active rothiazide mouth daily . (PRINZIDE,ZESTORETIC ) 20-25 mg per tablet dicyclomine (BENTYL) Take 10 mg by 04/18/2016 Active 10 MG capsule mouth. cholecalciferol, Take 5,000 Units by 08/15/2016 Active vitamin D3, 5,000 mouth. unit capsule cetirizine (ZyrTEC) Take 10 mg by 04/18/2016 Active 10 MG tablet mouth. betamethasone Apply 1 application 04/18/2016 Active valerate (VALISONE) topically. 0.1 % cream ascorbic acid, Take 500 mg by 07/10/2014 Active vitamin C, (ascorbic mouth. acid with germania hips) 500 MG tablet albuterol (PROAIR Inhale 2 puffs 04/18/2016 Active HFA) 90 every 4 (four) mcg/actuation hours as needed . inhaler estrogens, Take 0.3 mg by Active conjugated, mouth daily. (PREMARIN) 0.3 MG tablet leg brace (KNEE 1 Device by 1 each 0 10/04/2016 Active BRACE LARGE-XLARGE) Miscellaneous route MiscIndications: daily as needed. Primary osteoarthritis of left knee busPIRone (BUSPAR) 5 Take 5-10 mg by 10/20/2016 Active MG tablet mouth. mometasone-formotero Inhale 2 puffs. 10/06/2016 Active l 100-5 mcg/actuation HFAA meloxicam (MOBIC) Take 1 tablet (7.5 30 tablet 2 02/16/2017 02/16/2018 Active 7.5 MG tablet mg total) by mouth daily. potassium chloride 11/01/2017 Active (K-DUR) 10 MEQ CR tablet buPROPion 10/22/2017 Active (WELLBUTRIN XL) 300 MG 24 hr tablet DULoxetine Take 20 mg by 10/31/2017 Active (CYMBALTA) 20 MG mouth. capsule IRON,CARBONYL (IRON Take by mouth. Active CHEWS ORAL) aspirin 325 MG 12/27/2017 Active tablet HYDROcodone-acetamin 12/27/2017 Active ophen (NORCO) 5-325 mg per tablet as of this encounter Social History Tobacco Use Types Packs/Day Years Used Date Never Smoker Smokeless Tobacco: Never Used Alcohol Use Drinks/Week oz/Week Comments No Sex Assigned at Date Recorded Not on file as of this encounter Progress Notes Tara Genao MD - 01/14/2018 5:21 PM EDT Dictation on: 01/14/2018 5:22 PM by: TARA GENAO [[id number]] in this encounter Plan of Treatment Scheduled Referrals Name Priority Associated Diagnoses Order Schedule Ambulatory ref to Therapy Routine S/P left knee arthroscopy 1 Occurrences starting (PT/OT/ST) 01/14/2018 until 01/14/2019 Health Maintenance Due Date Last Done Comments PAP SMEAR 1975 SEQUENTIAL INFLUENZA VACCINE (#1) 2017 TETANUS EVERY 10 YR 12/30/2021 12/31/2011 as of this encounter Visit Diagnoses Diagnosis S/P left knee arthroscopy - Primary
--- OUTSIDE RECORDS SUMMARY | 2018-12-09 22:14 | XMS RPT_ITS | Summary of Care ---
:1975 Author Organization [facility] Address [address] [place] [address] Care Team Providers Name Role Phone Okeefe Ceasar Glenn HIDALGO Primary Care Provider Manuel Genao MD Unavailable Reason for Visit Auth/Cert Status Reason Specialty Diagnoses / Procedures Referred By Contact Referred To Contact Encounter Details Date Type Department Care Team Description 07/02/2018 Home Care Visit [facility] Agus Cardoza ROUTINE VISIT Health E, RN [facility] [place] [address] Allergies No Known Allergiesas of this encounter Medications Prescription Sig. Disp. Refills Start Date End Date Status leg brace (KNEE BRACE 1 Device by 1 each 0 10/04/2016 Active LARGE-XLARGE) Miscellaneous route MiscIndications: daily as needed. Primary osteoarthritis of left knee nystatin (MYCOSTATIN) Apply 1 application 06/29/2018 Active creamIndications: skin topically 3 (three) infection due to a times a day as Jayda yeast needed for irritation. omeprazole (PRILOSEC) Take 1 capsule by 06/29/2018 Active 40 MG mouth daily. capsuleIndications: Heartburn potassium chloride Take 20 mEq by mouth 06/29/2018 Active (K-DUR) 10 MEQ CR 2 (two) times a day. tabletIndications: prevention of low potassium in the blood SUMAtriptan (IMITREX) Take 100 mg by mouth 06/29/2018 Active 100 MG daily as needed for tabletIndications: migraine. Migraine Headache albuterol 90 Inhale 2 puffs every 06/29/2018 Active mcg/actuation 6 (six) hours as inhalerIndications: needed for shortness Asthma Attack of breath. ascorbic acid, vitamin Take 500 mg by mouth 06/29/2018 Active C, (VITAMIN C) 500 MG daily. tabletIndications: Inadequate Vitamin C aspirin 325 MG Take 325 mg by mouth 06/29/2018 Active tabletIndications: 2 (two) times a day. Treatment to Prevent Peripheral Artery Thromboembolism betamethasone valerate Apply 1 application 06/29/2018 Active (VALISONE) 0.1 % topically 2 (two) creamIndications: times a day as itching needed (itching). buPROPion (WELLBUTRIN Take 300 mg by mouth 06/29/2018 Active XL) 300 MG 24 hr daily. tabletIndications: major depressive disorder busPIRone (BUSPAR) 5 MG Take 5-10 mg by 06/29/2018 Active tabletIndications: mouth 3 (three) Repeated Episodes of times a day. Anxiety cetirizine (ZYRTEC) 10 Take 10 mg by mouth 06/29/2018 Active MG tabletIndications: daily. Seasonal Runny Nose cholecalciferol, Take 5,000 Units by 06/29/2018 Active vitamin D3, 5,000 unit mouth daily. capsuleIndications: Prevention of Vitamin D Deficiency dicyclomine (BENTYL) 10 Take 10 mg by mouth 06/29/2018 Active MG capsuleIndications: 4 (four) times a day Irritable Colon before meals and nightly. DULoxetine (CYMBALTA) Take 60 mg by mouth 06/29/2018 Active 20 MG daily. capsuleIndications: major depressive disorder estrogens, conjugated, Take 0.3 mg by mouth 06/29/2018 Active (PREMARIN) 0.3 MG daily. tabletIndications: Post-Menopausal Osteoporosis Prevention lisinopril-hydrochlorot Take 1 tablet by 06/29/2018 Active hiazide mouth daily. (PRINZIDE,ZESTORETIC) 20-25 mg per tabletIndications: high blood pressure meloxicam (MOBIC) 15 MG Take 15 mg by mouth 06/29/2018 Active tabletIndications: daily. Joint Damage causing Pain and Loss of Function metoprolol tartrate Take 50 mg by mouth 06/29/2018 Active (LOPRESSOR) 50 MG 2 (two) times a day. tabletIndications: high blood pressure montelukast (SINGULAIR) Take 10 mg by mouth 06/29/2018 Active 10 mg daily. tabletIndications: Inflammation of the Nose due to an Allergy mometasone-formoterol Inhale 2 puffs 2 06/29/2018 Active 100-5 mcg/actuation (two) times a day. HFAAIndications: Controller Medication for Asthma iron,carbonyl (IRON Take 65 mg by mouth 06/29/2018 Active CHEWS ORAL)Indications: daily. anemia acetaminophen (TYLENOL) Take 650 mg by mouth 06/29/2018 Active 325 MG every 4 (four) hours tabletIndications: Pain as needed for pain. oxyCODONE (ROXICODONE) Take 5 mg by mouth 06/29/2018 Active 5 MG immediate release every 4 (four) hours tabletIndications: Pain as needed for pain. as of this encounter Active Problems No known active problems Social History Tobacco Use Types Packs/Day Years Used Date Never Smoker Smokeless Tobacco: Never Used Alcohol Use Drinks/Week oz/Week Comments No Sex Assigned at Date Recorded Not on file as of this encounter Last Filed Vital Signs Vital Sign Reading Time Taken Blood Pressure 164/92 07/02/2018 12:02 PM EDT Pulse 89 07/02/2018 12:02 PM EDT Temperature 36.7 ??C (98 ??F) 07/02/2018 12:02 PM EDT Respiratory Rate 16 07/02/2018 12:02 PM EDT Oxygen Saturation 97% 07/02/2018 12:02 PM EDT Inhaled Oxygen Concentration - - Weight - - Height - - Body Mass Index - - in this encounter Plan of Treatment Upcoming Encounters Date Type Specialty Care Team Description 07/05/2018 Office Visit Home Health Services Agus Cardoza RN 07/09/2018 Office Visit Home Health Services Agus Cardoza RN 07/12/2018 Office Visit Home Health Services Agus Cardoza RN 07/15/2018 Follow-Up Sports Medicine Manuel Genao MD [address] [place] [address] [phone] 07/16/2018 Office Visit Home Health Services Agus Cardoza RN 07/19/2018 Office Visit Home Health Services Agus Cardoza RN 07/23/2018 Office Visit Home Health Services Agus Cardoza RN 07/26/2018 Office Visit Home Health Services Agus Cardoza RN 07/30/2018 Office Visit Home Health Services Agus Cardoza RN 08/02/2018 Office Visit Home Health Services Agus Cardoza RN 08/06/2018 Office Visit Home Health Agus Rhoades RN 08/09/2018 Office Visit Home Health Agus Rhoades RN 08/13/2018 Office Visit Home Health Agus Rhoades RN 08/16/2018 Office Visit Home Health Agus Rhoades RN 08/20/2018 Office Visit Home Health Services Agus Cardoza RN 08/23/2018 Office Visit Home Health Services Agus Cardoza, RN Health Maintenance Due Date Last Done Comments PAP SMEAR 1975 SEQUENTIAL INFLUENZA VACCINE (#1) 2018 TETANUS EVERY 10 YR 12/30/2021 12/31/2011 as of this encounter
--- OUTSIDE RECORDS SUMMARY | 2018-12-09 22:14 | XMS RPT_ITS | Summary of Care ---
:1975 Author Organization [facility] Address [address] [place] [address] Care Team Providers Name Role Phone OkeefeCeasar pop Glenn HIDALGO Primary Care Provider Manuel Genao MD Unavailable Reason for Visit Reason Comments Knee Pain Auth/Cert Status Reason Specialty Diagnoses / Procedures Referred By Contact Referred To Contact Encounter Details Date Type Department Care Team Description 07/11/2018 Home Care Visit [facility] Home Flora Clark, PT PT Health NON-OASIS/DISCIPLINE [address] [phone] Allergies No Known Allergiesas of this encounter [...] Vital Sign Reading Time Taken Blood Pressure 142/84 07/11/2018 9:33 AM EDT Pulse 91 07/11/2018 9:33 AM EDT Temperature 36.5 ??C (97.7 ??F) 07/11/2018 9:33 AM EDT Respiratory Rate - - Oxygen Saturation 95% 07/11/2018 9:33 AM EDT Inhaled Oxygen Concentration - - Weight - - Height - - Body Mass Index - - in this encounter Plan of Treatment Upcoming Encounters Date Type Specialty Care Team Description 07/12/2018 Office Visit Home Health Services Agus Cardoza RN 07/15/2018 Follow-Up Sports Medicine Manuel Genao MD [address] [place] [address] [phone] 07/16/2018 Office Visit Home Health Services Agus Cardoza RN 07/19/2018 Office Visit Home Health Services Agus Cardoza RN 07/23/2018 Office Visit Home Health Services Agus Cardoza RN 07/26/2018 Office Visit Home Health Agus Rhoades RN 07/30/2018 Office Visit Home Health Services Agus Cardoza RN 08/02/2018 Office Visit Home Health Services Agus Cardoza JOSÉ MIGUEL 08/06/2018 Office Visit Home Health Services Agus Cardoza, RN 08/09/2018 Office Visit Home Health Services Agus Cardoza, RN 08/13/2018 Office Visit Home Health Agus Rhoades, JOSÉ MIGUEL 08/16/2018 Office Visit Home Health Services Agus Cardoza, JOSÉ MIGUEL 08/20/2018 Office Visit Home Health Services Agus Cardoza, RN 08/23/2018 Office Visit Home Health Services Agus Cardoza, RN Health Maintenance Due Date Last Done Comments PAP SMEAR 1975 SEQUENTIAL INFLUENZA VACCINE (#1) 2018 TETANUS EVERY 10 YR 12/30/2021 12/31/2011 as of this encounter
--- OUTSIDE RECORDS SUMMARY | 2018-12-09 22:14 | XMS RPT_ITS | Summary of Care ---
:1975 Author Organization [facility] Address [address] [place] [address] Care Team Providers Name Role Phone Ceasar Okeefe DO Primary Care Provider Manuel Genao MD Unavailable Reason for Visit Auth/Cert Status Reason Specialty Diagnoses / Procedures Referred By Contact Referred To Contact Encounter Details Date Type Department Care Team Description 10/02/2018 Home Care Visit [facility] Agus Cardoza ROUTINE VISIT Health E, RN [facility] [place] [address] Allergies Active Allergy Reactions Severity Noted Date [...] Vital Sign Reading Time Taken Blood Pressure 144/88 10/02/2018 9:42 AM EST Pulse 88 10/02/2018 9:42 AM EST Temperature 36.7 ??C (98 ??F) 10/02/2018 9:42 AM EST Respiratory Rate 16 10/02/2018 9:42 AM EST Oxygen Saturation 96% 10/02/2018 9:42 AM EST Inhaled Oxygen Concentration - - Weight - - Height - - Body Mass Index - - in this encounter Plan of Treatment Upcoming Encounters Date Type Specialty Care Team Description 10/04/2018 Home Care Visit Home Health Services Agus Cardoza, RN 10/07/2018 Home Care Visit Home Health Services [...] ID Effective Dates Phone Address Type Group [facility] MEDICAID xxxxxxxxx 2017-Present MEDICAID COMMUNITY PLAN as of this encounter
--- OUTSIDE RECORDS SUMMARY | 2018-12-09 22:14 | XMS RPT_ITS | Summary of Care ---
:1975 Author Organization [facility] Address [address] [place] [address] Care Team Providers Name Role Phone Ceasar Okeefe DO Primary Care Provider Manuel Genao MD Unavailable Reason for Visit Auth/Cert Status Reason Specialty Diagnoses / Procedures Referred By Contact Referred To Contact Encounter Details Date Type Department Care Team Description 06/28/2018 Home Health Admission [facility] [address] [place] [address] Allergies No Known Allergiesas of this encounter Medications Prescription Sig. Disp. Refills Start Date End Date Status leg brace (KNEE BRACE 1 Device by 1 each 0 10/04/2016 Active LARGE-XLARGE) Miscellaneous route MiscIndications: daily as needed. Primary osteoarthritis of left knee as of this encounter Active Problems No known active problems Social History Tobacco Use Types Packs/Day Years Used Date Never Smoker Smokeless Tobacco: Never Used Alcohol Use Drinks/Week oz/Week Comments No Sex Assigned at Date Recorded Not on file as of this encounter Plan of Treatment Upcoming Encounters Date Type Specialty Care Team Description 08/12/2018 Follow-Up Sports Medicine Manuel Genao MD [address] [place] [phone] Health Maintenance Due Date Last Done Comments PAP SMEAR 1975 SEQUENTIAL INFLUENZA VACCINE (#1) 2018 TETANUS EVERY 10 YR 12/30/2021 12/31/2011 as of this encounter
--- OUTSIDE RECORDS SUMMARY | 2018-12-09 22:14 | XMS RPT_ITS | Summary of Care ---
:1975 Author Organization [facility] Address [address] [place] [address] Care Team Providers Name Role Phone Okeefe Ceasar Glenn HIDALGO Primary Care Provider Tara Genao MD Unavailable Reason for Referral Physical Therapy (Routine) Status Reason Specialty Diagnoses / Referred By Referred To Procedures Contact Contact Authorized Rehabilitation Diagnoses Status post total left knee replacement Tara Genao MD [address] [place] [address] Reason for Visit Reason Comments Suture / Staple Removal Wound Check Encounter Details Date Type Department Care Team Description 07/15/2018 Follow-Up [facility] Orthopedic Tara Genao Status post total left knee replacement (Primary Dx); & Sports Medicine MD Francisco Status post knee replacement, unspecified laterality Physicians [address] [facility] [address] [place] [address] [place] [address] [phone] Allergies No Known Allergiesas of this encounter Medications Prescription Sig. Disp. Refills Start End Date Status Date leg brace (KNEE 1 Device by 1 each 0 Active BRACE LARGE-XLARGE) Miscellaneous 7 MiscIndications: route daily as Primary needed. osteoarthritis of left knee nystatin Apply 1 Active (MYCOSTATIN) application 8 creamIndications: topically 3 skin infection due (three) times a to a Jayda yeast day as needed for irritation. omeprazole Take 1 capsule by Active (PRILOSEC) 40 MG mouth daily. 8 capsuleIndications: Heartburn potassium chloride Take 20 mEq by Active (K-DUR) 10 MEQ CR mouth 2 (two) 8 tabletIndications: times a day. prevention of low potassium in the blood SUMAtriptan Take 100 mg by Active (IMITREX) 100 MG mouth daily as 8 tabletIndications: needed for Migraine Headache migraine. albuterol 90 Inhale 2 puffs Active mcg/actuation every 6 (six) 8 inhalerIndications: hours as needed Asthma Attack for shortness of breath. ascorbic acid, Take 500 mg by Active vitamin C, (VITAMIN mouth daily. 8 C) 500 MG tabletIndications: Inadequate Vitamin C aspirin 325 MG Take 325 mg by Active tabletIndications: mouth 2 (two) 8 Treatment to Prevent times a day. Peripheral Artery Thromboembolism betamethasone Apply 1 Active valerate (VALISONE) application 8 0.1 % topically 2 (two) creamIndications: times a day as itching needed (itching). buPROPion Take 300 mg by Active (WELLBUTRIN XL) 300 mouth daily. 8 MG 24 hr tabletIndications: major depressive disorder busPIRone (BUSPAR) 5 Take 5-10 mg by Active MG mouth 3 (three) 8 tabletIndications: times a day. Repeated Episodes of Anxiety cetirizine (ZYRTEC) Take 10 mg by Active 10 MG mouth daily. 8 tabletIndications: Seasonal Runny Nose cholecalciferol, Take 5,000 Units Active vitamin D3, 5,000 by mouth daily. 8 unit capsuleIndications: Prevention of Vitamin D Deficiency dicyclomine (BENTYL) Take 10 mg by Active 10 MG mouth 4 (four) 8 capsuleIndications: times a day Irritable Colon before meals and nightly. DULoxetine Take 60 mg by Active (CYMBALTA) 20 MG mouth daily. 8 capsuleIndications: major depressive disorder estrogens, Take 0.3 mg by Active conjugated, mouth daily. 8 (PREMARIN) 0.3 MG tabletIndications: Post-Menopausal Osteoporosis Prevention lisinopril-hydrochlo Take 1 tablet by Active rothiazide mouth daily. 8 (PRINZIDE,ZESTORETIC ) 20-25 mg per tabletIndications: high blood pressure meloxicam (MOBIC) 15 Take 15 mg by Active MG mouth daily. 8 tabletIndications: Joint Damage causing Pain and Loss of Function metoprolol tartrate Take 50 mg by Active (LOPRESSOR) 50 MG mouth 2 (two) 8 tabletIndications: times a day. high blood pressure montelukast Take 10 mg by Active (SINGULAIR) 10 mg mouth daily. 8 tabletIndications: Inflammation of the Nose due to an Allergy mometasone-formotero Inhale 2 puffs 2 Active l 100-5 (two) times a 8 mcg/actuation day. HFAAIndications: Controller Medication for Asthma iron,carbonyl (IRON Take 65 mg by Active CHEWS mouth daily. 8 ORAL)Indications: anemia acetaminophen Take 650 mg by Active (TYLENOL) 325 MG mouth every 4 8 tabletIndications: (four) hours as Pain needed for pain. oxyCODONE Take one pill 28 tablet 0 Active (ROXICODONE) 5 MG every 4-6 hours 8 immediate release prn pain. tabletIndications: Status post knee replacement, unspecified laterality oxyCODONE Take one pill 28 tablet 0 07/15/20 Discontinued (ROXICODONE) 5 MG every 4-6 hours 8 18 immediate release prn pain. tabletIndications: Status post knee replacement, unspecified laterality as of this encounter Active Problems No known active problems Social History Tobacco Use Types Packs/Day Years Used Date Never Smoker Smokeless Tobacco: Never Used Alcohol Use Drinks/Week oz/Week Comments No Sex Assigned at Date Recorded Not on file as of this encounter Progress Notes Tara Genao MD - 07/15/2018 11:03 AM EDT Dictation on: 07/15/2018 11:04 AM by: TARA GENAO [[id number]] in this encounter Plan of Treatment Upcoming Encounters Date Type Specialty Care Team Description 08/12/2018 Follow-Up Sports Medicine Tara Genao MD [address] [place] [address] [phone] Scheduled Referrals Name Priority Associated Diagnoses Order Schedule Ambulatory ref to Therapy Routine Status post total left 1 Occurrences starting (PT/OT/ST) knee replacement 07/15/2018 until 07/15/2019 Health Maintenance Due Date Last Done Comments PAP SMEAR 1975 SEQUENTIAL INFLUENZA VACCINE (#1) 2018 TETANUS EVERY 10 YR 12/30/2021 12/31/2011 as of this encounter Visit Diagnoses Diagnosis Status post total left knee replacement - Primary Status post knee replacement, unspecified laterality
--- OUTSIDE RECORDS SUMMARY | 2018-12-09 22:15 | XMS RPT_ITS | Summary of Care ---
:1975 Author Organization [facility] Address [address] [place] [address] Care Team Providers Name Role Phone Ceasar Okeefe DO Primary Care Provider Manuel Genao MD Unavailable Reason for Visit Auth/Cert Status Reason Specialty Diagnoses / Procedures Referred By Contact Referred To Contact Encounter Details Date Type Department Care Team Description 09/30/2018 Home Care Visit [facility] Agus Cardoza ROUTINE VISIT Health E, RN [facility] [place] [address] Allergies Active Allergy Reactions Severity Noted Date [...] Vital Sign Reading Time Taken Blood Pressure 128/70 09/30/2018 8:47 AM EST Pulse - - Temperature 36.4 ??C (97.5 ??F) 09/30/2018 8:47 AM EST Respiratory Rate 16 09/30/2018 8:47 AM EST Oxygen Saturation - - Inhaled Oxygen Concentration - - Weight - - Height - - Body Mass Index - - in this encounter Plan of Treatment Upcoming Encounters Date Type Specialty Care Team Description 10/02/2018 Home Care Visit Home Health Services Agus Cardoza, RN 10/04/2018 Home Care Visit Home Health Services [...] ID Effective Dates Phone Address Type Group [facility] MEDICAID xxxxxxxxx 2017-Present MEDICAID COMMUNITY PLAN as of this encounter
--- OUTSIDE RECORDS SUMMARY | 2018-12-09 22:15 | XMS RPT_ITS | Summary of Care ---
:[address] [facility] Address [address] [place] [address] Care Team Providers Name Role Phone Ceasar Okeefe DO Primary Care Provider Manuel Genao MD Unavailable Reason for Visit Auth/Cert Status Reason Specialty Diagnoses / Procedures Referred By Contact Referred To Contact Encounter Details Date Type Department Care Team Description 09/18/2018 Home Care Visit [facility] Agus Cardoza ROUTINE VISIT Health E, RN [facility] [place] [address] Allergies Active Allergy Reactions Severity Noted Date Comments Sulfa (Sulfonamide Antibiotics) Rash Low 09/13/2018 as of this encounter Medications Prescription Sig. Disp. [...] attacks). Take for anxiety and panic attacks 06/29/2018 Active MG tabletIndications: Repeated Episodes of [...] and nightly. estrogens, Take 0.3 mg by 06/29/2018 Active [...] DULoxetine (CYMBALTA) Take 60 mg by mouth 08/10/2018 Active 60 MG capsule daily . doxycycline hyclate Take 100 mg by 09/13/2018 Active (VIBRA-TABS) 100 MG mouth 2 (two) times tablet a day. docusate sodium Take 100 mg by 09/13/2018 Active (COLACE) 100 MG mouth 2 (two) times capsule a day. diazePAM (VALIUM) 5 Take 5 mg by mouth 09/13/2018 Active MG tablet 4 (four) times [...] Vital Sign Reading Time Taken Blood Pressure 142/86 09/18/2018 10:27 AM EST Pulse 97 09/18/2018 10:27 AM EST Temperature 36.9 ??C (98.4 ??F) 09/18/2018 10:27 AM EST Respiratory Rate 16 09/18/2018 10:27 AM EST Oxygen Saturation 97% 09/18/2018 10:27 AM EST Inhaled Oxygen Concentration - - Weight - - Height - - Body Mass Index - - in this encounter Plan of Treatment Upcoming Encounters Date Type Specialty Care Team Description 09/20/2018 Office Visit Home Health Services Agus Cardoza RN 09/23/2018 Office Visit Home Health Services Agus Cardoza RN 09/25/2018 Office Visit Home Health Services Agus Cardoza, RN 09/27/2018 Office Visit Home Health Services Agus Cardoza, RN 09/30/2018 Office Visit Home Health Services Agus Cardoza, RN 10/02/2018 Office Visit Home Health Services Agus Cardoza, RN 10/04/2018 Office Visit Home Health Services Agus Cardoza, RN 10/07/2018 Office Visit Home Health Services Agus Cardoza, RN 10/09/2018 Office Visit Home Health Services Agus Cardoza, RN 10/11/2018 Office Visit Home Health Services Agus Cardoza, RN 10/14/2018 Office Visit Home Health Services Agus Cardoza, RN 10/16/2018 Office Visit Home Health Services Agus Cardoza, RN 10/18/2018 Office Visit Home Health Agus Rhoades, RN 10/21/2018 Office Visit Home Health Services Agus Cardoza, RN 10/23/2018 Office Visit Home Health Services Agus Cardoza, RN 10/25/2018 Office Visit Home Health Agus Rhoades, RN 10/28/2018 Office Visit Home Health Services Agus Cardoza, RN 10/30/2018 Office Visit Home Health Services Agus Cardoza, RN 11/01/2018 Office Visit Home Health Services Agus Cardoza, RN 11/04/2018 Office Visit Home Health Agus Rhoades, RN 11/06/2018 Office Visit Home Health Services Agus Cardoza, RN 11/08/2018 Office Visit Home Health Services Agus Cardoza, RN Health Maintenance Due Date Last Done Comments PAP SMEAR 1975 SEQUENTIAL INFLUENZA VACCINE (#1) 2018 TETANUS EVERY 10 YR 12/30/2021 12/31/2011 as of this encounter
--- OUTSIDE RECORDS SUMMARY | 2018-12-09 22:15 | XMS RPT_ITS | Summary of Care ---
:1975 Author Organization [facility] Address [address] [place] [address] Care Team Providers Name Role Phone Ceasar Okeefe DO Primary Care Provider Manuel Genao MD Unavailable Reason for Visit Auth/Cert Status Reason Specialty Diagnoses / Procedures Referred By Contact Referred To Contact Encounter Details Date Type Department Care Team Description 09/27/2018 Home Care Visit [facility] Agus Cardoza ROUTINE VISIT Health E, RN [facility] [place] [address] Allergies Active Allergy Reactions Severity Noted Date [...] Vital Sign Reading Time Taken Blood Pressure 152/86 09/27/2018 9:08 AM EST Pulse 101 09/27/2018 9:08 AM EST Temperature 36.9 ??C (98.4 ??F) 09/27/2018 9:08 AM EST Respiratory Rate 16 09/27/2018 9:08 AM EST Oxygen Saturation 99% 09/27/2018 9:08 AM EST Inhaled Oxygen Concentration - - Weight - - Height - - Body Mass Index - - in this encounter Plan of Treatment Upcoming Encounters Date Type Specialty Care Team Description 09/30/2018 Office Visit Home Health Services Agus Cardoza RN 10/02/2018 Office Visit Home Health Services Agus Cardoza RN 10/04/2018 Office Visit Home Health Services Nani, Agus E, RN 10/07/2018 Office Visit Home Health Services Agus Cardoza, RN 10/09/2018 Office Visit Home Health Services Agus Cardoza, RN 10/11/2018 Office Visit Home Health Agus Rhoades, RN 10/14/2018 Office Visit Home Health Agus Rhoades, RN 10/16/2018 Office Visit Home Health Agus Rhoades, RN 10/18/2018 Office Visit Home Health Services Agus Cardoza, JOSÉ MIGUEL 10/21/2018 Office Visit Home Health Services Agus Cardoza, JOSÉ MIGUEL 10/23/2018 Office Visit Home Health Services Agus Cardoza, RN 10/25/2018 Office Visit Home Health Agus Rhoades, RN 10/28/2018 Office Visit Home Health Agus Rhoades, RN 10/30/2018 Office Visit Home Health Services Agus Cardoza, RN 11/01/2018 Office Visit Home Health Agus Rhoades, RN 11/04/2018 Office Visit Home Health Agus Rhoades, RN 11/06/2018 Office Visit Home Health Services Agus Cardoza, RN 11/08/2018 Office Visit Home Health Services Agus Cardoza, RN Health Maintenance Due Date Last Done Comments PAP SMEAR 1975 SEQUENTIAL INFLUENZA VACCINE (#1) 2018 TETANUS EVERY 10 YR 12/30/2021 12/31/2011 as of this encounter
--- OUTSIDE RECORDS SUMMARY | 2018-12-09 22:15 | XMS RPT_ITS | Summary of Care ---
:1975 Author Organization [facility] Address [address] [place] [address] Care Team Providers Name Role Phone Ceasar Okeefe DO Primary Care Provider Manuel Genao MD Unavailable Reason for Visit Auth/Cert Status Reason Specialty Diagnoses / Procedures Referred By Contact Referred To Contact Encounter Details Date Type Department Care Team Description 10/07/2018 Home Care Visit [facility] Agus Cardoza SN MISSED VISIT [address] [place] [address] Allergies Active Allergy Reactions Severity Noted Date [...] travel history available. as of this encounter Plan of Treatment Upcoming Encounters Date Type Specialty Care Team Description 10/09/2018 Home Care Visit Home Health Services Agus Cardoza RN 10/11/2018 Home Care Visit Home Health Services Agus Cardoza RN 10/14/2018 Home Care Visit Home Health Services Agus Cardoza RN 10/16/2018 Home Care Visit Home Health Services Agus Cardoza RN 10/18/2018 Home Care Visit Home Health Services Agus Cardoza RN 10/21/2018 Home Care Visit Home Health Services Agus Cardoza, JOSÉ MIGUEL 10/23/2018 Home Care Visit Home Health Services Agus Cardoza, RN 10/25/2018 Home Care Visit Home Health Services Agus Cardoza, RN 10/28/2018 Home Care Visit Home Health Services Agus Cardoza, RN 10/30/2018 Home Care Visit Home Health Services Agus Cardoza, RN 11/01/2018 Home Care Visit Home Health Services Agus Cardoza, RN 11/04/2018 Home Care Visit Home Health Services Agus Cardoza, JOSÉ MIGUEL 11/06/2018 Home Care Visit Home Health Services Agus Cardoza RN 11/08/2018 Home Care Visit Home Health Services Agus Cardoza, RN Health Maintenance Due Date Last Done Comments PAP SMEAR 1975 SEQUENTIAL INFLUENZA VACCINE (#1) 2018 TETANUS EVERY 10 YR 12/30/2021 12/31/2011 as of this encounter Insurance Payer Benefit Plan / Subscriber ID Effective Dates Phone Address Type Group [facility] MEDICAID xxxxxxxxx 2017-Present MEDICAID COMMUNITY PLAN as of this encounter
--- OUTSIDE RECORDS SUMMARY | 2018-12-09 22:15 | XMS RPT_ITS | Summary of Care ---
:1975 Author Organization [facility] Address [address] [place] [address] Care Team Providers Name Role Phone Okeefe Ceasar Glenn HIDALGO Primary Care Provider Manuel Genao MD Unavailable Reason for Visit Auth/Cert Status Reason Specialty Diagnoses / Procedures Referred By Contact Referred To Contact Encounter Details Date Type Department Care Team Description 09/23/2018 Home Care Visit [facility] Ester Lundberg LPN ROUTINE [address] [place] [address] Allergies Active Allergy Reactions Severity Noted Date [...] Vital Sign Reading Time Taken Blood Pressure 128/82 09/23/2018 12:48 PM EST Pulse 98 09/23/2018 12:48 PM EST Temperature 36.4 ??C (97.5 ??F) 09/23/2018 12:48 PM EST Respiratory Rate - - Oxygen Saturation 98% 09/23/2018 12:48 PM EST Inhaled Oxygen Concentration - - Weight - - Height - - Body Mass Index - - in this encounter Plan of Treatment Upcoming Encounters Date Type Specialty Care Team Description 09/25/2018 Office Visit Home Health Services Agus Cardoza RN 09/27/2018 Office Visit Home Health Services Agus Cardoza RN 09/30/2018 Office Visit Home Health Services Agus Cardoza RN 10/02/2018 Office Visit Home Health Services Agus Cardoza, RN 10/04/2018 Office Visit Home Health Services Agus Cardoza, RN 10/07/2018 Office Visit Home Health Agus Rhoades, RN 10/09/2018 Office Visit Home Health Services Agus Cardoza, RN 10/11/2018 Office Visit Home Health Services Agus Cardoza, RN 10/14/2018 Office Visit Home Health Services Agus Cardoza, RN 10/16/2018 Office Visit Home Health Agus Rhoades, RN 10/18/2018 Office Visit Home Health Services Agus Cardoza, RN 10/21/2018 Office Visit Home Health Services Agus Cardoza, RN 10/23/2018 Office Visit Home Health Agus Rhoades, RN 10/25/2018 Office Visit Home Health Services Agus Cardoza, RN 10/28/2018 Office Visit Home Health Services Agus Cardoza, RN 10/30/2018 Office Visit Home Health Agus Rhoades, RN 11/01/2018 Office Visit Home Health Agus [...]
--- OUTSIDE RECORDS SUMMARY | 2018-12-09 22:15 | XMS RPT_ITS | Summary of Care ---
:1975 Author Organization [facility] Address [address] [place] [address] Care Team Providers Name Role Phone Ceasar Okeefe DO Primary Care Provider Manuel Genao MD Unavailable Reason for Visit Auth/Cert Status Reason Specialty Diagnoses / Procedures Referred By Contact Referred To Contact Encounter Details Date Type Department Care Team Description 09/20/2018 Home Care Visit [facility] Agus Cardoza ROUTINE VISIT Health E, RN [facility] [place] [address] Allergies Active Allergy Reactions Severity Noted Date [...] Vital Sign Reading Time Taken Blood Pressure 124/82 09/20/2018 9:04 AM EST Pulse 96 09/20/2018 9:04 AM EST Temperature 36.7 ??C (98 ??F) 09/20/2018 9:04 AM EST Respiratory Rate 165 09/20/2018 9:04 AM EST Oxygen Saturation 97% 09/20/2018 9:04 AM EST Inhaled Oxygen Concentration - - Weight - - Height - - Body Mass Index - - in this encounter Plan of Treatment Upcoming Encounters Date Type Specialty Care Team Description 09/23/2018 Office Visit Home Health Services Agus Cardoza RN 09/25/2018 Office Visit Home Health Services Agus Cardoza RN 09/27/2018 Office Visit Home Health Services Nani Agus E, RN 09/30/2018 Office Visit Home Health Services Agus Cardoza, RN 10/02/2018 Office Visit Home Health Services Agus Cardoza, RN 10/04/2018 Office Visit Home Health Services Agus Cardoza, RN 10/07/2018 Office Visit Home Health Services Agus Cardoza, RN 10/09/2018 Office Visit Home Health Agus Rhoades, RN 10/11/2018 Office Visit Home Health Services Agus Cardoza, RN 10/14/2018 Office Visit Home Health Services Agus Cardoza, RN 10/16/2018 Office Visit Home Health Services Agus Cardoza, RN 10/18/2018 Office Visit Home Health Services Agus Cardoza, RN 10/21/2018 Office Visit Home Health Agus Rhoades, RN 10/23/2018 Office Visit Home Health Services Agus Cardoza, RN 10/25/2018 Office Visit Home Health Agus Rhoades, RN 10/28/2018 Office Visit Home Health Agus Rhoades, RN 10/30/2018 Office Visit Home Health Agus Rhoades, RN 11/01/2018 Office Visit Home Health Services Agus Cardoza, RN 11/04/2018 Office Visit Home Health Services Agus Cardoza, RN 11/06/2018 Office Visit Home Health Services Agus Cardoza, RN 11/08/2018 Office Visit Home Health Services Agus Cardoza, RN Health Maintenance Due Date Last Done Comments PAP SMEAR 1975 SEQUENTIAL INFLUENZA VACCINE (#1) 2018 TETANUS EVERY 10 YR 12/30/2021 12/31/2011 as of this encounter
--- OUTSIDE RECORDS SUMMARY | 2018-12-09 22:15 | XMS RPT_ITS | Summary of Care ---
:1975 Author Organization [facility] Address [address] [place] [address] Care Team Providers Name Role Phone Ceasar Okeefe DO Primary Care Provider Manuel Genao MD Unavailable Reason for Visit Auth/Cert Status Reason Specialty Diagnoses / Procedures Referred By Contact Referred To Contact Encounter Details Date Type Department Care Team Description 09/25/2018 Home Care Visit [facility] Agus Cardoza ROUTINE VISIT Health E, RN [facility] [place] [address] Allergies Active Allergy Reactions Severity Noted Date [...] Vital Sign Reading Time Taken Blood Pressure 156/88 09/25/2018 10:42 AM EST Pulse 100 09/25/2018 10:42 AM EST Temperature 36.4 ??C (97.6 ??F) 09/25/2018 10:42 AM EST Respiratory Rate 18 09/25/2018 10:42 AM EST Oxygen Saturation 96% 09/25/2018 10:42 AM EST Inhaled Oxygen Concentration - - Weight - - Height - - Body Mass Index - - in this encounter Plan of Treatment Upcoming Encounters Date Type Specialty Care Team Description 09/27/2018 Office Visit Home Health Services Agus Cardoza RN 09/30/2018 Office Visit Home Health Services Agus Cardoza RN 10/02/2018 Office Visit Home Health Services Nani, Agus E, RN 10/04/2018 Office Visit Home Health Services Agus Cardoza, RN 10/07/2018 Office Visit Home Health Services Agus Cardoza, RN 10/09/2018 Office Visit Home Health Agus Rhoades, RN 10/11/2018 Office Visit Home Health Agus Rhoades, RN 10/14/2018 Office Visit Home Health Agus Rhoades, RN 10/16/2018 Office Visit Home Health Services [...]
--- OUTSIDE RECORDS SUMMARY | 2018-12-09 22:15 | XMS RPT_ITS | Summary of Care ---
:1975 Author Organization [facility] Address [address] [place] [address] Care Team Providers Name Role Phone Ceasar Okeefe DO Primary Care Provider Manuel Genao MD Unavailable Encounter Details Date Type Department Care Team Description 09/12/2018 Home Health Admission [facility] [place] Day Glenn, [facility] [place] [id number] Allergies No Known Allergiesas of this encounter [...] post knee replacement, unspecified laterality DULoxetine (CYMBALTA) 08/10/2018 Active 60 MG capsule as of this encounter Active Problems No known active problems Social History Tobacco Use Types Packs/Day Years Used Date Never Smoker Smokeless Tobacco: Never Used Alcohol Use Drinks/Week oz/Week Comments No Sex Assigned at Date Recorded Not on file as of this encounter Plan of Treatment Health Maintenance Due Date Last Done Comments PAP SMEAR 1975 SEQUENTIAL INFLUENZA VACCINE (#1) 2018 TETANUS EVERY 10 YR 12/30/2021 12/31/2011 as of this encounter
--- OUTSIDE RECORDS SUMMARY | 2018-12-09 22:15 | XMS RPT_ITS | Summary of Care ---
:1975 Author Organization [facility] Address [address] [place] [address] Care Team Providers Name Role Phone Ceasar Okeefe Primary Care Provider Reason for Visit Reason Comments Follow-up Encounter Details Date Type Department Care Team Description 11/12/2017 Office Visit [facility] [place] Tara Chondromalacia patellae, left knee (Primary Dx); Orthopedic & Sports MD Francisco Meniscus degeneration, left Medicine Physicians [address] [place] [address] [place] [address] [phone] Allergies No Known Allergiesas of this encounter [...] (IRON Take by mouth. Active CHEWS ORAL) as of this encounter Social History Tobacco Use Types Packs/Day Years Used Date Never Smoker Smokeless Tobacco: Never Used Alcohol Use Drinks/Week oz/Week Comments No Sex Assigned at Date Recorded Not on file as of this encounter Progress Notes Tara Genao MD - 11/12/2017 10:23 AM EST Dictation on: 11/12/2017 10:24 AM by: TARA GENAO [[id number]] in this encounter Plan of Treatment Health Maintenance Due Date Last Done Comments PAP SMEAR 1975 SEQUENTIAL INFLUENZA VACCINE (#1) 2017 TETANUS EVERY 10 YR 12/30/2021 12/31/2011 as of this encounter Visit Diagnoses Diagnosis Chondromalacia patellae, left knee - Primary Meniscus degeneration, left
--- OUTSIDE RECORDS SUMMARY | 2018-12-09 22:15 | XMS RPT_ITS | Summary of Care ---
:1975 Author Organization [facility] Address [address] [place] [address] Care Team Providers Name Role Phone OkeefeCeasar pop Glenn HIDALGO Primary Care Provider Manuel Genao MD Unavailable Reason for Visit Auth/Cert Status Reason Specialty Diagnoses / Procedures Referred By Contact Referred To Contact Encounter Details Date Type Department Care Team Description 09/13/2018 Home Care Visit [facility] Diane Faustin SN [facility] [place] [id number] Allergies Active Allergy Reactions Severity Noted Date [...] Vital Sign Reading Time Taken Blood Pressure 146/90 09/13/2018 2:48 PM EST Pulse 84 09/13/2018 2:48 PM EST Temperature 36.7 ??C (98 ??F) 09/13/2018 2:48 PM EST Respiratory Rate 16 09/13/2018 2:48 PM EST Oxygen Saturation 98% 09/13/2018 2:48 PM EST Inhaled Oxygen Concentration - - Weight 125.2 kg (276 lb) 09/13/2018 2:48 PM EST Height 154.9 cm (5' 1) 09/13/2018 2:48 PM EST Body Mass Index 52.15 09/13/2018 2:48 PM EST in this encounter Plan of Treatment Upcoming Encounters Date Type Specialty Care Team Description 09/16/2018 Office Visit Home Health Agus Rhoades, RN 09/18/2018 Office Visit Home Health Services Agus Cardoza, RN 09/20/2018 Office Visit Home Health Agus Rhoades, RN 09/23/2018 Office Visit Home Health Services Agus Cardoza, RN 09/25/2018 Office Visit Home Health Services [...] Cardoza, RN 10/25/2018 Office Visit Home Health Services [...]
--- OUTSIDE RECORDS SUMMARY | 2018-12-09 22:15 | XMS RPT_ITS | Summary of Care ---
:1975 Author Organization [facility] Address [address] [place] [address] Care Team Providers Name Role Phone Ceasar Okeefe DO Primary Care Provider Manuel Genao MD Unavailable Reason for Visit Auth/Cert Status Reason Specialty Diagnoses / Procedures Referred By Contact Referred To Contact Encounter Details Date Type Department Care Team Description 09/16/2018 Home Care Visit [facility] Agus Cardoza ROUTINE VISIT Health E, RN [facility] [place] [address] Allergies Active Allergy Reactions Severity Noted Date [...] Vital Sign Reading Time Taken Blood Pressure 138/86 09/16/2018 12:01 PM EST Pulse 78 09/16/2018 12:01 PM EST Temperature 37.1 ??C (98.7 ??F) 09/16/2018 12:01 PM EST Respiratory Rate 16 09/16/2018 12:01 PM EST Oxygen Saturation 97% 09/16/2018 12:01 PM EST Inhaled Oxygen Concentration - - Weight - - Height - - Body Mass Index - - in this encounter Plan of Treatment Upcoming Encounters Date Type Specialty Care Team Description 09/18/2018 Office Visit Home Health Services Agus Cardoza RN 09/20/2018 Office Visit Home Health Services Agus [...] Rhoades, RN 11/04/2018 Office Visit Home Health Services Agus Cardoza, RN 11/06/2018 Office Visit Home Health Services Agus Cardoza, RN 11/08/2018 Office Visit Home Health Services Agus Cardoza, RN Health Maintenance Due Date Last Done Comments PAP SMEAR 1975 SEQUENTIAL INFLUENZA VACCINE (#1) 2018 TETANUS EVERY 10 YR 12/30/2021 12/31/2011 as of this encounter
--- OUTSIDE RECORDS SUMMARY | 2018-12-09 22:15 | XMS RPT_ITS | Summary of Care ---
:1975 Author Organization [facility] Address [address] [place] [address] Care Team Providers Name Role Phone Ceasar Okeefe DO Primary Care Provider Manuel Genao MD Unavailable Reason for Visit Auth/Cert Status Reason Specialty Diagnoses / Procedures Referred By Contact Referred To Contact Encounter Details Date Type Department Care Team Description 09/17/2018 Home Care Visit [facility] Ester Lundberg LPN PRN VISIT [address] [place] [address] Allergies Active Allergy Reactions Severity Noted Date [...] Vital Sign Reading Time Taken Blood Pressure 146/80 09/17/2018 1:03 PM EST Pulse 84 09/17/2018 1:03 PM EST Temperature 36.6 ??C (97.9 ??F) 09/17/2018 1:03 PM EST Respiratory Rate - - Oxygen Saturation 98% 09/17/2018 1:03 PM EST Inhaled Oxygen Concentration - - [...]
--- OUTSIDE RECORDS SUMMARY | 2018-12-09 22:16 | XMS RPT_ITS | Summary of Care ---
:1975 Author Organization [facility] Address [address] [place] [address] Care Team Providers Name Role Phone Ceasar Okeefe Glenn DO Primary Care Provider Manuel Genao MD Unavailable Encounter Details Date Type Department Care Team Description 07/04/2018 Documentation [facility] Orthopedic & Carley Ritchie, Sports Medicine Physicians [employer] [address] [place] [address] Allergies No Known Allergiesas of this encounter [...] file as of this encounter Progress Notes Carley Ritchie LPN - 07/04/2018 11:24 AM EDTI spoke w Jony today and she says she is doing ok, she has good days and bad days. The swelling is going down w elevation and ice. She denies any constipation/n but does have some loose stools and shetells me she needs to drink more. She is taking her ASA bid and her Prilosec qd. Therapy is helping but causes increased pain, then the pain pill helps thatin this encounter Plan of Treatment Upcoming Encounters Date Type Specialty Care Team Description 07/05/2018 Office Visit Home Health Services Agus Cardoza, JOSÉ MIGUEL 07/08/2018 Office Visit Home Health Services Kirk Ivan, PHOSPHORIC ACID OPERATOR 07/09/2018 Office Visit Home Health Services Agus Cardoza RN 07/10/2018 Office Visit Home Health Services Kirk Ivan, ENRIQUE 07/12/2018 Office Visit Home Health Services Agus Cardoza, RN 07/15/2018 Follow-Up Sports Medicine Manuel Genao MD [address] [place] [address] [phone] 07/16/2018 Office Visit Home Health Services Nani, Agus E, RN 07/19/2018 Office Visit Home Health Services Agus Cardoza, RN 07/23/2018 Office Visit Home Health Agus Rhoades, RN 07/26/2018 Office Visit Home Health Agus Rhoades, RN 07/30/2018 Office Visit Home Health Agus Rhoades, RN 08/02/2018 Office Visit Home Health Agus Rhoades, JOSÉ MIGUEL 08/06/2018 Office Visit Home Health Agus Rhoades RN 08/09/2018 Office Visit Home Health Agus Rhoades, JOSÉ MIGUEL 08/13/2018 Office Visit Home Health Agus Rhoades, [...]
--- OUTSIDE RECORDS SUMMARY | 2018-12-09 22:16 | XMS RPT_ITS | Summary of Care ---
:1975 [address] [facility] Address [address] [place] [address] Care Team Providers Name Role Phone OkeefeCeasar pop Glenn HIDALGO Primary Care Provider Manuel Genao MD Unavailable Reason for Visit Auth/Cert Status Reason Specialty Diagnoses / Procedures Referred By Contact Referred To Contact Encounter Details Date Type Department Care Team Description 07/09/2018 Home Care Visit [facility] Agus Cardoza ROUTINE VISIT Health E, RN [facility] [place] [address] Allergies No Known Allergiesas of this encounter [...] Vital Sign Reading Time Taken Blood Pressure 140/78 07/09/2018 12:52 PM EDT Pulse 96 07/09/2018 12:52 PM EDT Temperature 36.7 ??C (98 ??F) 07/09/2018 12:52 PM EDT Respiratory Rate 16 07/09/2018 12:52 PM EDT Oxygen Saturation 98% 07/09/2018 12:52 PM EDT Inhaled Oxygen Concentration - - Weight - - Height - - Body Mass Index - - in this encounter Plan of Treatment Upcoming Encounters Date Type Specialty Care Team Description 07/10/2018 Office Visit Home Health Services Kirk Ivan, AUTO CUSTOMIZE PAINTER 07/11/2018 Office Visit Home Health Services Flora Clark, PT 07/12/2018 Office Visit Home Health Services Agus Cardoza, RN 07/15/2018 Follow-Up Sports Medicine Manuel Genao MD [address] [place] [address] [phone] 07/16/2018 Office Visit Home Health Services Agus Cardoza, RN 07/19/2018 Office Visit Home Health Services Agus Cardoza, RN 07/23/2018 Office Visit Home Health Services Agus Cardoza RN 07/26/2018 Office Visit Home Health Services Agus Cardoza, RN 07/30/2018 Office Visit Home Health Services Agus Cardoza, RN 08/02/2018 Office Visit Home Health Agus Rhoades, RN 08/06/2018 Office Visit Home Health Agus Rhoades, JOSÉ MIGUEL 08/09/2018 Office Visit Home Health Agus Rhoades, JOSÉ MIGUEL 08/13/2018 Office Visit Home Health Agus Rhoades, RN 08/16/2018 Office Visit Home Health Agus Rhoades, RN 08/20/2018 Office Visit Home Health Services Agus Cardoza, RN 08/23/2018 Office Visit Home Health Services Agus Cardoza, RN Health Maintenance Due Date Last Done Comments PAP SMEAR 1975 SEQUENTIAL INFLUENZA VACCINE (#1) 2018 TETANUS EVERY 10 YR 12/30/2021 12/31/2011 as of this encounter
--- OUTSIDE RECORDS SUMMARY | 2018-12-09 22:16 | XMS RPT_ITS | Summary of Care ---
:1975 Author Organization [facility] Address [address] [place] [address] Care Team Providers Name Role Phone Ceasar Okeefe Primary Care Provider Encounter Details Date Type Department Care Team Description 06/07/2018 Documentation [facility] Orthopedic Carley Ritchie, Surgeons TOBACCO BALER [address] [place] [address] Allergies No Known Allergiesas of this encounter Medications Prescription Sig. Disp. Refills Start Date End Date Status SUMAtriptan (IMITREX) Take 100 mg by mouth. 12/06/2015 Active 100 MG tablet sertraline (ZOLOFT) 100mg in the morning 04/18/2016 Active 100 MG tablet and 50 mg at night omeprazole (PriLOSEC) Take 1 capsule by 08/15/2016 Active 40 MG capsule mouth. nystatin (MYCOSTATIN) Apply 1 application 04/18/2016 Active cream topically. montelukast Take 10 mg by mouth. 04/18/2016 Active (SINGULAIR) 10 mg tablet metoprolol tartrate Take 50 mg by mouth 2 04/18/2016 Active (LOPRESSOR) 50 MG (two) times a day . tablet lisinopril-hydrochloro Take 1 tablet by 04/18/2016 Active thiazide mouth daily . (PRINZIDE,ZESTORETIC) 20-25 mg per tablet dicyclomine (BENTYL) Take 10 mg by mouth. 04/18/2016 Active 10 MG capsule cholecalciferol, Take 5,000 Units by 08/15/2016 Active vitamin D3, 5,000 unit mouth. capsule cetirizine (ZyrTEC) 10 Take 10 mg by mouth. 04/18/2016 Active MG tablet betamethasone valerate Apply 1 application 04/18/2016 Active (VALISONE) 0.1 % cream topically. ascorbic acid, vitamin Take 500 mg by mouth. 07/10/2014 Active C, (ascorbic acid with germania hips) 500 MG tablet albuterol (PROAIR HFA) Inhale 2 puffs every 04/18/2016 Active 90 mcg/actuation 4 (four) hours as inhaler needed . estrogens, conjugated, Take 0.3 mg by mouth Active (PREMARIN) 0.3 MG daily. tablet leg brace (KNEE BRACE 1 Device by 1 each 0 10/04/2016 Active LARGE-XLARGE) Miscellaneous route MiscIndications: daily as needed. Primary osteoarthritis of left knee busPIRone (BUSPAR) 5 Take 5-10 mg by 10/20/2016 Active MG tablet mouth. mometasone-formoterol Inhale 2 puffs. 10/06/2016 Active 100-5 mcg/actuation HFAA potassium chloride 11/01/2017 Active (K-DUR) 10 MEQ CR tablet buPROPion (WELLBUTRIN 10/22/2017 Active XL) 300 MG 24 hr tablet DULoxetine (CYMBALTA) Take 20 mg by mouth. 10/31/2017 Active 20 MG capsule IRON,CARBONYL (IRON Take by mouth. Active CHEWS ORAL) aspirin 325 MG tablet 12/27/2017 Active HYDROcodone-acetaminop 12/27/2017 Active hen (NORCO) 5-325 mg per tablet as of this encounter Social History Tobacco Use Types Packs/Day Years Used Date Never Smoker Smokeless Tobacco: Never Used Alcohol Use Drinks/Week oz/Week Comments No Sex Assigned at Date Recorded Not on file as of this encounter Progress Notes Carley Ritchie LPN - 06/07/2018 4:24 PM Robbie had a low potassium level of 3.3. I did speak w Jony does take 10meq of potassium qd and will increase this to bid per Dr Genao.in this encounter Plan of Treatment Upcoming Encounters Date Type Specialty Care Team Description 06/18/2018 Surgical Consult Sports Medicine Manuel Genao MD [address] [place], [place] [id number] 06/27/2018 Scanned Document Sports Medicine Manuel Genao MD [address] [place] [address] [phone] 06/28/2018 Hospital Encounter Manuel Genao MD [address] [place], [place] [id number] Health Maintenance Due Date Last Done Comments PAP SMEAR 1975 SEQUENTIAL INFLUENZA VACCINE (#1) 2018 TETANUS EVERY 10 YR 12/30/2021 12/31/2011 as of this encounter
--- OUTSIDE RECORDS SUMMARY | 2018-12-09 22:16 | XMS RPT_ITS | Summary of Care ---
:1975 Author Organization [facility] Address [address] [place] [address] Care Team Providers Name Role Phone Okeefe Ceasar Glenn HIDALGO Primary Care Provider Manuel Genao MD Unavailable Reason for Visit Reason Comments Knee Pain Auth/Cert Status Reason Specialty Diagnoses / Procedures Referred By Contact Referred To Contact Encounter Details Date Type Department Care Team Description 07/08/2018 Home Care Visit [facility] Kirk Iavn PTA ROUTINE VISIT [address] [place] [address] Allergies No Known Allergiesas of this encounter [...] Vital Sign Reading Time Taken Blood Pressure 143/83 07/08/2018 11:31 AM EDT Pulse 87 07/08/2018 11:31 AM EDT Temperature - - Respiratory Rate 18 07/08/2018 11:31 AM EDT Oxygen Saturation 96% 07/08/2018 11:31 AM EDT Inhaled Oxygen Concentration - - Weight - - Height - - Body Mass Index - - in this encounter Plan of Treatment Upcoming Encounters Date Type Specialty Care Team Description 07/09/2018 Office Visit Home Health Services Agus Cardoza RN 07/10/2018 Office Visit Home Health Services Kirk Ivan, ADJUNCT PHILOSOPHY FACULTY 07/11/2018 Office Visit Home Health Services Flora Clark, PT 07/12/2018 Office Visit Home Health Services Agus Cardoza, RN 07/15/2018 Follow-Up Sports Medicine Manuel Genao MD [address] [place] [address] [phone] 07/16/2018 Office Visit Home Health Services Agus [...] JOSÉ MIGUEL 08/16/2018 Office Visit Home Health Agus Rhoades RN 08/20/2018 Office Visit Home Health Services Agus Cardoza RN 08/23/2018 Office Visit Home Health Services Agsu Cardoza, RN Health Maintenance Due Date Last Done Comments PAP SMEAR 1975 SEQUENTIAL INFLUENZA VACCINE (#1) 2018 TETANUS EVERY 10 YR 12/30/2021 12/31/2011 as of this encounter
--- OUTSIDE RECORDS SUMMARY | 2018-12-09 22:16 | XMS RPT_ITS | Summary of Care ---
:1975 Author Organization [facility] Address [address] [place] [address] Care Team Providers Name Role Phone Ceasar Okeefe Glenn HIDALGO Primary Care Provider Manuel Genao MD Unavailable Reason for Visit Auth/Cert Status Reason Specialty Diagnoses / Procedures Referred By Contact Referred To Contact Encounter Details Date Type Department Care Team Description 07/12/2018 Home Care Visit [facility] Agus Cardoza [facility], RN [facility] [place] [address] Allergies No Known Allergiesas of this encounter [...] Vital Sign Reading Time Taken Blood Pressure 150/86 07/12/2018 9:03 AM EDT Pulse 90 07/12/2018 9:03 AM EDT Temperature 37 ??C (98.6 ??F) 07/12/2018 9:03 AM EDT Respiratory Rate 16 07/12/2018 9:03 AM EDT Oxygen Saturation 95% 07/12/2018 9:03 AM EDT Inhaled Oxygen Concentration - - Weight - - Height - - Body Mass Index - - in this encounter Plan of Treatment Upcoming Encounters Date Type Specialty Care Team Description 07/15/2018 Follow-Up Sports Medicine Manuel Genao MD [address] [place] [address] [phone] Health Maintenance Due Date Last Done Comments PAP SMEAR 1975 SEQUENTIAL INFLUENZA VACCINE (#1) 2018 TETANUS EVERY 10 YR 12/30/2021 12/31/2011 as of this encounter
--- OUTSIDE RECORDS SUMMARY | 2018-12-09 22:16 | XMS RPT_ITS | Summary of Care ---
:1975 Author Organization [facility] Address [address] [place] [address] Care Team Providers Name Role Phone Okeefe Ceasar Glenn HIDALGO Primary Care Provider Manuel Genao MD Unavailable Reason for Visit Reason Comments Knee Pain Auth/Cert Status Reason Specialty Diagnoses / Procedures Referred By Contact Referred To Contact Encounter Details Date Type Department Care Team Description 07/04/2018 Home Care Visit [facility] Kirk Ivan PTA ROUTINE VISIT [address] [place] [address] Allergies No Known Allergiesas of this encounter [...] Sign Reading Time Taken Blood Pressure 140/78 07/04/2018 9:57 PM EDT Pulse 78 07/04/2018 9:57 PM EDT Temperature - - Respiratory Rate 16 07/04/2018 9:57 PM EDT Oxygen Saturation 94% 07/04/2018 9:57 PM EDT Inhaled Oxygen Concentration - - Weight - - Height - - Body Mass Index - - in this encounter Plan of Treatment Upcoming Encounters Date Type Specialty Care Team Description 07/05/2018 Office Visit Home Health Services Agus Cardoza, JOSÉ MIGUEL 07/08/2018 Office Visit Home Health Services Kirk Ivan, PALLIATIVE SENIOR NP 07/09/2018 Office Visit Home Health Services Agus Cardoza RN 07/10/2018 Office Visit Home Health Services Kirk Ivan, PALLIATIVE SENIOR NP 07/11/2018 Office Visit Home Health Services Flora Clark, PT 07/12/2018 Office Visit Home Health Services Agus Cardoza, RN 07/15/2018 Follow-Up Sports Medicine Manuel Genao MD [address] [place] [address] [phone] 07/16/2018 Office Visit Home Health Agus Rhoades, RN 07/19/2018 Office Visit Home Health Services Agus Cardoza, RN 07/23/2018 Office Visit Home Health Agus Rhoades, RN 07/26/2018 Office Visit Home Health Agus Rhoades, RN 07/30/2018 Office Visit Home Health Agus Rhoades, JOSÉ MIGUEL 08/02/2018 Office Visit Home Health Agus Rhoades, RN 08/06/2018 Office Visit Home Health Agus Rhoades, JOSÉ MIGUEL 08/09/2018 Office Visit Home Health Services Agus Cardoza RN 08/13/2018 Office Visit Home Health Agus [...]
--- OUTSIDE RECORDS SUMMARY | 2018-12-09 22:16 | XMS RPT_ITS | Summary of Care ---
:1975 Author Organization [facility] Address [address] [place] [address] Care Team Providers Name Role Phone Ceasar Okeefe DO Primary Care Provider Manuel Genao MD Unavailable Reason for Visit Auth/Cert Status Reason Specialty Diagnoses / Procedures Referred By Contact Referred To Contact Encounter Details Date Type Department Care Team Description 07/05/[address] [facility] Agus Cardoza ROUTINE VISIT Health E, RN [facility] [place] [address] Allergies No Known Allergiesas of this encounter [...] post knee replacement, unspecified laterality oxyCODONE Take 5 mg by 07/05/20 Discontinued (ROXICODONE) 5 MG mouth every 4 8 18 immediate release (four) hours as tabletIndications: needed for pain. Pain as of this encounter Active Problems No known active problems Social History Tobacco Use Types Packs/Day Years Used Date Never Smoker Smokeless Tobacco: Never Used Alcohol Use Drinks/Week oz/Week Comments No Sex Assigned at Date Recorded Not on file as of this encounter Last Filed Vital Signs Vital Sign Reading Time Taken Blood Pressure 164/92 07/05/2018 9:53 AM EDT Pulse 82 07/05/2018 9:53 AM EDT Temperature 36.8 ??C (98.2 ??F) 07/05/2018 9:53 AM EDT Respiratory Rate 16 07/05/2018 9:53 AM EDT Oxygen Saturation 98% 07/05/2018 9:53 AM EDT Inhaled Oxygen Concentration - - Weight - - Height - - Body Mass Index - - in this encounter Plan of Treatment Upcoming Encounters Date Type Specialty Care Team Description 07/08/2018 Office Visit Home Health Services Kirk Ivan, HOME CARE NURSE 07/09/2018 Office Visit Home Health Services Agus Cardoaz RN 07/10/2018 Office Visit Home Health Services Kirk Ivan, HOME CARE NURSE 07/11/2018 Office Visit Home Health Services Flora Clakr, PT 07/12/2018 Office Visit Home Health Services Agus Cardoza RN 07/15/2018 Follow-Up Sports Medicine Manuel Genao MD [address] [place] [address] [phone] 07/16/2018 Office Visit Home Health Agus Rhoades, JOSÉ MIGUEL 07/19/2018 Office Visit Home Health Agus Rhoades RN 07/23/2018 Office Visit Home Health Agus Rhoades RN 07/26/2018 Office Visit Home Health Agus Rhoades RN 07/30/2018 Office Visit Home Health Services Agus Cardoza RN 08/02/2018 Office Visit Home Health Agus Rhoades RN 08/06/2018 Office Visit Home Health Agus Rhoades, JOSÉ MIGUEL 08/09/2018 Office Visit Home Health Agus Rhoades, JOSÉ MIGUEL 08/13/2018 Office Visit Home Health Agus Rhoades RN 08/16/2018 Office Visit Home Health Agus Rhoades, RN 08/20/2018 Office Visit Home Health Agus Rhoades, JOSÉ MIGUEL 08/23/2018 Office Visit Home Health Services Agus Cardoza, RN Health Maintenance Due Date Last Done Comments PAP SMEAR 1975 SEQUENTIAL INFLUENZA VACCINE (#1) 2018 TETANUS EVERY 10 YR 12/30/2021 12/31/2011 as of this encounter
--- OUTSIDE RECORDS SUMMARY | 2018-12-09 22:16 | XMS RPT_ITS | Summary of Care ---
:1975 Author Organization [facility] Address [address] [place] [address] Care Team Providers Name Role Phone Maldonado Ceasar Glenn HIDALGO Primary Care Provider Tara Genao MD Unavailable Reason for Visit Reason Comments Follow-up Encounter Details Date Type Department Care Team Description 08/19/2018 Follow-Up [facility] Orthopedic Tara Genao Status post total left & Sports Medicine MD [place] knee replacement Physicians [address] (Primary Dx) [address] [place] [address] [place] [address] [phone] Allergies No Known Allergiesas of this encounter [...] day Irritable Colon before meals and nightly. estrogens, Take 0.3 mg by Active conjugated, [...] Status post knee replacement, unspecified laterality DULoxetine Active (CYMBALTA) 60 MG 8 capsule DULoxetine Take 60 mg by 08/19/20 Discontinued (CYMBALTA) 20 MG mouth daily. 8 18 capsuleIndications: major depressive disorder as of this encounter Active Problems No known active problems Social History Tobacco Use Types Packs/Day Years Used Date Never Smoker Smokeless Tobacco: Never Used Alcohol Use Drinks/Week oz/Week Comments No Sex Assigned at Date Recorded Not on file as of this encounter Progress Notes Tara Genao MD - 08/19/2018 5:32 PM EST Dictation on: 08/19/2018 5:32 PM by: TARA GENAO [[id number]] in this encounter Plan of Treatment Health Maintenance Due Date Last Done Comments PAP SMEAR 1975 SEQUENTIAL INFLUENZA VACCINE (#1) 2018 TETANUS EVERY 10 YR 12/30/2021 12/31/2011 as of this encounter Procedures Procedure Name Priority Date/Time Associated Diagnosis Comments XR KNEE LEFT 3 Routine 08/19/2018 5:32 PM Status post total Results for this VIEWS (SPECIFY EST left knee procedure are in VIEWS IN COMMENTS) replacement the results section. in this encounter Results XR Knee Left 3 Views (Specify Views in Comments) (08/19/2018 5:32 PM) Narrative Performed At X-ray of the left knee 3 views for postop reveals normal-appearing left GE RIS total knee replacement Performing Organization Address City/State/Zipcode Phone Number [facility] in this encounter Visit Diagnoses Diagnosis Status post total left knee replacement - Primary
--- OUTSIDE RECORDS SUMMARY | 2018-12-09 22:16 | XMS RPT_ITS | Summary of Care ---
:1975 Author Organization [facility] Address [address] [place] [address] Care Team Providers Name Role Phone Ceasar Okeefe Primary Care Provider Encounter Details Date Type Department Care Team Description 06/04/2018 Hospital Encounter [facility] Manuel Genao [address] MD [place], [place] [address] [facility] [facility] [address] [address] [place] [address] Allergies No Known Allergiesas of this encounter [...] Consult Sports Medicine Manuel Genao MD [address] [place] [id number] 06/28/2018 Hospital Encounter Manuel Genao MD [address] [place], [place] [id number] 06/28/2018 Scanned Document Sports Medicine Manuel Genao MD [address] [place] [address] [phone] Health Maintenance Due Date Last Done Comments PAP SMEAR 1975 SEQUENTIAL INFLUENZA VACCINE (#1) 2018 TETANUS EVERY 10 YR 12/30/2021 12/31/2011 as of this encounter Procedures Procedure Name Priority Date/Time Associated Comments Diagnosis CBC AND DIFFERENTIAL Routine 06/04/2018 10:45 Results for this AM EDT procedure are in the results section. BASIC METABOLIC PANEL Routine 06/04/2018 10:45 Results for this AM EDT procedure are in the results section. in this encounter Results Basic Metabolic Panel (06/04/2018 10:45 AM) Glucose 82 70 - 99 mg/dL [facility] Comment: HOSPITAL This test result might be falsely depressed or falsely elevated on samples drawn from patients taking Sulfasalazine and Sulfapyridine. Venipuncture should occur prior to taking either of these drugs. BUN 12 8 - 25 mg/dL [facility] Creatinine 0.78 0.40 - 1.10 mg/dL [facility] eGFR >=60 ml/min/1.73sq.m [facility] Comment: [facility] Non- GFR Calc eGFR is an estimated Glomerular Filtration Rate based on the value of the patient's serum creatinine. In outpatients, eGFR should be used as a helpful tool in screening for CKD. In inpatients or patients with acute renal failure, eGFR represents the GFR at the moment of the draw and should be used with caution. eGFR >=60Comment: ml/min/1.73sq.m [facility] Palauan GFR Calc [facility] Calcium 9.2 8.4 - 10.2 mg/dL [facility] Sodium 137 135 - 145 mmol/L [facility] Potassium 3.3 (L) 3.5 - 5.1 mmol/L [facility] Chloride 98 98 - 108 mmol/L [facility] CO2 31 21 - 32 mmol/L [facility] Specimen Blood Performing Organization Address City/State/Zipcode Phone Number [facility] [address] [place] [address] CBC and Differential (06/04/2018 10:45 AM) WBC 10.4 3.4 - 10.6 K/mcL [facility] RBC 4.26 3.7 - 5.0 M/[facility] Hemoglobin 12.8 11.6 - 15.4 g/dL [facility] Hematocrit 38.5 34.4 - 44.8 % [facility] MCV 90.4 82.6 - 98.9 [facility] MCH 30.1 27.9 - 33.9 pg [facility] MCHC 33.3 33.1 - 35.1 g/dL [facility] RDW 13.3 10.0 - 14.4 % [facility] Platelets 329 162 - 402 K/[facility] MPV 10.2 7.0 - 10.6 [facility] Absolute Neutrophils 6.8 1.2 - 6.9 /[facility] Absolute Lymphocytes 2.7 1.0 - 3.7 [facility] Absolute Monocytes 0.5 0.1 - 0.6 [facility] Absolute Eosinophils 0.3 0 - 0.5 [facility] Absolute Basophils 0.1 0 - 0.2 /[facility] Segmented Neut 65.3 % [facility] Lymphocytes 25.8 % [facility] Monocytes 5.0 % [facility] Eosinophils 2.8 % [facility] Basophils 1.1 % [facility] Specimen Blood Performing Organization Address City/State/Zipcode Phone Number [facility] [address] [place] [address] in this encounter
--- OUTSIDE RECORDS SUMMARY | 2018-12-09 22:16 | XMS RPT_ITS | Summary of Care ---
:1975 Author Organization [facility] Address [address] [place] [address] Care Team Providers Name Role Phone OkeefeCeasar pop Glenn HIDALGO Primary Care Provider Manuel Genao MD Unavailable Reason for Visit Reason Comments Wound Check Auth/Cert Status Reason Specialty Diagnoses / Procedures Referred By Contact Referred To Contact Encounter Details Date Type Department Care Team Description 06/29/[address] [facility] Eulogio Garza [facility] D, RN CARE [address] [place] [address] Allergies No Known Allergiesas of this encounter Medications Prescription Sig. Disp. Refills Start Date End Date Status leg brace (KNEE 1 Device by 1 each 0 10/04/2016 Active BRACE LARGE-XLARGE) Miscellaneous MiscIndications: route daily as Primary needed. osteoarthritis of left knee nystatin Apply 1 06/29/2018 Active (MYCOSTATIN) application creamIndications: topically 3 skin infection due (three) times a to a Jayda yeast day as needed for irritation. omeprazole Take 1 capsule by 06/29/2018 Active (PRILOSEC) 40 MG mouth daily. capsuleIndications: Heartburn potassium chloride Take 20 mEq by 06/29/2018 Active (K-DUR) 10 MEQ CR mouth 2 (two) tabletIndications: times a day. prevention of low potassium in the blood SUMAtriptan Take 100 mg by 06/29/2018 Active (IMITREX) 100 MG mouth daily as tabletIndications: needed for Migraine Headache migraine. albuterol 90 Inhale 2 puffs 06/29/2018 Active mcg/actuation every 6 (six) inhalerIndications: hours as needed Asthma Attack for shortness of breath. ascorbic acid, Take 500 mg by 06/29/2018 Active vitamin C, (VITAMIN mouth daily. C) 500 MG tabletIndications: Inadequate Vitamin C aspirin 325 MG Take 325 mg by 06/29/2018 Active tabletIndications: mouth 2 (two) Treatment to Prevent times a day. Peripheral Artery Thromboembolism betamethasone Apply 1 06/29/2018 Active valerate (VALISONE) application 0.1 % topically 2 (two) creamIndications: times a day as itching needed (itching). buPROPion Take 300 mg by 06/29/2018 Active (WELLBUTRIN XL) 300 mouth daily. MG 24 hr tabletIndications: major depressive disorder busPIRone (BUSPAR) 5 Take 5-10 mg by 06/29/2018 Active MG mouth 3 (three) tabletIndications: times a day. Repeated Episodes of Anxiety cetirizine (ZYRTEC) Take 10 mg by 06/29/2018 Active 10 MG mouth daily. tabletIndications: Seasonal Runny Nose cholecalciferol, Take 5,000 Units 06/29/2018 Active vitamin D3, 5,000 by mouth daily. unit capsuleIndications: Prevention of Vitamin D Deficiency dicyclomine (BENTYL) Take 10 mg by 06/29/2018 Active 10 MG mouth 4 (four) capsuleIndications: times a day before Irritable Colon meals and nightly. DULoxetine Take 60 mg by 06/29/2018 Active (CYMBALTA) 20 MG mouth daily. capsuleIndications: major depressive disorder estrogens, Take 0.3 mg by 06/29/2018 Active conjugated, mouth daily. (PREMARIN) 0.3 MG tabletIndications: Post-Menopausal Osteoporosis Prevention lisinopril-hydrochlo Take 1 tablet by 06/29/2018 Active rothiazide mouth daily. (PRINZIDE,ZESTORETIC ) 20-25 mg per tabletIndications: high blood pressure meloxicam (MOBIC) 15 Take 15 mg by 06/29/2018 Active MG mouth daily. tabletIndications: Joint Damage causing Pain and Loss of Function metoprolol tartrate Take 50 mg by 06/29/2018 Active (LOPRESSOR) 50 MG mouth 2 (two) tabletIndications: times a day. high blood pressure montelukast Take 10 mg by 06/29/2018 Active (SINGULAIR) 10 mg mouth daily. tabletIndications: Inflammation of the Nose due to an Allergy mometasone-formotero Inhale 2 puffs 2 06/29/2018 Active l 100-5 (two) times a day. mcg/actuation HFAAIndications: Controller Medication for Asthma iron,carbonyl (IRON Take 65 mg by 06/29/2018 Active CHEWS mouth daily. ORAL)Indications: anemia acetaminophen Take 650 mg by 06/29/2018 Active (TYLENOL) 325 MG mouth every 4 tabletIndications: (four) hours as Pain needed for pain. oxyCODONE Take 5 mg by mouth 06/29/2018 Active (ROXICODONE) 5 MG every 4 (four) immediate release hours as needed tabletIndications: for pain. Pain SUMAtriptan Take 100 mg by 12/06/2015 Discontinued (IMITREX) 100 MG mouth. 8 tablet omeprazole Take 1 capsule by 08/15/2016 Discontinued (PriLOSEC) 40 MG mouth. 8 capsule nystatin Apply 1 04/18/2016 Discontinued (MYCOSTATIN) cream application 8 topically. montelukast Take 10 mg by 04/18/2016 Discontinued (SINGULAIR) 10 mg mouth. 8 tablet metoprolol tartrate Take 50 mg by 04/18/2016 Discontinued (LOPRESSOR) 50 MG mouth 2 (two) 8 tablet times a day . lisinopril-hydrochlo Take 1 tablet by 04/18/2016 Discontinued rothiazide mouth daily . 8 (PRINZIDE,ZESTORETIC ) 20-25 mg per tablet dicyclomine (BENTYL) Take 10 mg by 04/18/2016 Discontinued 10 MG capsule mouth. 8 cholecalciferol, Take 5,000 Units 08/15/2016 Discontinued vitamin D3, 5,000 by mouth. 8 unit capsule cetirizine (ZyrTEC) Take 10 mg by 04/18/2016 Discontinued 10 MG tablet mouth. 8 betamethasone Apply 1 04/18/2016 Discontinued valerate (VALISONE) application 8 0.1 % cream topically. ascorbic acid, Take 500 mg by 07/10/2014 Discontinued vitamin C, (ascorbic mouth. 8 acid with germania hips) 500 MG tablet albuterol (PROAIR Inhale 2 puffs 04/18/2016 Discontinued HFA) 90 every 4 (four) 8 mcg/actuation hours as needed . inhaler estrogens, Take 0.3 mg by Discontinued conjugated, mouth daily. 8 (PREMARIN) 0.3 MG tablet busPIRone (BUSPAR) 5 Take 5-10 mg by 10/20/2016 Discontinued MG tablet mouth. 8 mometasone-formotero Inhale 2 puffs. 10/06/2016 Discontinued l 100-5 8 mcg/actuation HFAA potassium chloride 11/01/2017 Discontinued (K-DUR) 10 MEQ CR 8 tablet buPROPion 10/22/2017 Discontinued (WELLBUTRIN XL) 300 8 MG 24 hr tablet DULoxetine Take 60 mg by 10/31/2017 Discontinued (CYMBALTA) 20 MG mouth daily . 8 capsule IRON,CARBONYL (IRON Take by mouth. Discontinued CHEWS ORAL) 8 aspirin 325 MG 12/27/2017 Discontinued tablet 8 HYDROcodone-acetamin 12/27/2017 Discontinued ophen (NORCO) 5-325 8 mg per tablet meloxicam (MOBIC) 15 04/09/2018 Discontinued MG tablet 8 as of this encounter Social History Tobacco Use Types Packs/Day Years Used Date Never Smoker Smokeless Tobacco: Never Used Alcohol Use Drinks/Week oz/Week Comments No Sex Assigned at Date Recorded Not on file as of this encounter Last Filed Vital Signs Vital Sign Reading Time Taken Blood Pressure 122/80 06/29/2018 2:47 PM EDT Pulse 85 06/29/2018 2:47 PM EDT Temperature 36.4 ??C (97.5 ??F) 06/29/2018 2:47 PM EDT Respiratory Rate 10 06/29/2018 2:47 PM EDT Oxygen Saturation 97% 06/29/2018 2:47 PM EDT Inhaled Oxygen Concentration - - Weight 122.9 kg (271 lb) 06/29/2018 2:47 PM EDT Height 154.9 cm (5' 1) 06/29/2018 2:47 PM EDT Body Mass Index 51.21 06/29/2018 2:47 PM EDT in this encounter Plan of Treatment Upcoming Encounters Date Type Specialty Care Team Description 07/01/2018 Office Visit Home Health Services Eduardo Flora, PT 07/02/2018 Office Visit Home Health Services Agus Cardoza, JOSÉ MIGUEL 07/05/2018 Office Visit Home Health Services Agus Cardoza, RN 07/09/2018 Office Visit Home Health Services Agus Cardoza, RN 07/12/2018 Office Visit Home Health Services Agus Cardoza, RN 07/15/2018 Follow-Up Sports Medicine Manuel Genao MD [address] [place] [address] [phone] 07/16/2018 Office Visit Home Health Agus Rhoades RN 07/19/2018 Office Visit Home Health Agus Rhoades RN 07/23/2018 Office Visit Home Health Agus Rhoades RN 07/26/2018 Office Visit Home Health Agus Rhoades RN 07/30/2018 Office Visit Home Health Agus Rhoades RN 08/02/2018 Office Visit Home Health Agus Rhoades, RN 08/06/2018 Office Visit Home Health Agus Rhoades RN 08/09/2018 Office Visit Home Health Agus Rhoades, JOSÉ MIGUEL 08/13/2018 Office Visit Home Health Agus Rhoades, RN 08/16/2018 Office Visit Home Health Agus Rhoades, RN 08/20/2018 Office Visit Home Health Agus Rhoades RN 08/23/2018 Office Visit Home Health Services Agus Cardoza, RN Health Maintenance Due Date Last Done Comments PAP SMEAR 1975 SEQUENTIAL INFLUENZA VACCINE (#1) 2018 TETANUS EVERY 10 YR 12/30/2021 12/31/2011 as of this encounter
--- OUTSIDE RECORDS SUMMARY | 2018-12-09 22:16 | XMS RPT_ITS | Summary of Care ---
:1975 Author Organization [facility] Address [address] [place] [address] Care Team Providers Name Role Phone Ceasar Okeefe Primary Care Provider Encounter Details Date Type Department Care Team Description 06/04/2018 Hospital Encounter [facility] Manuel Genao [address] Yan[address] Singh MD [place], [place] [address] [id number] [place] [address] Allergies No Known Allergiesas of [...] Consult Sports Medicine Manuel Genao MD [address] [place] [id number] 06/28/2018 Hospital Encounter Manuel Genao MD [address] [place], [place] [id number] 06/28/2018 Scanned Document Sports Medicine Manuel Genao MD [address] [address] [phone] Health Maintenance Due Date Last Done Comments PAP SMEAR 1975 SEQUENTIAL INFLUENZA VACCINE (#1) 2018 TETANUS EVERY 10 YR 12/30/2021 12/31/2011 as of this encounter
--- OUTSIDE RECORDS SUMMARY | 2018-12-09 22:16 | XMS RPT_ITS | Summary of Care ---
:1975 Author Organization [facility] Address [address] [place] [address] Care Team Providers Name Role Phone Ceasar Okeefe Glenn HIDALGO Primary Care Provider Manuel Genao MD Unavailable Reason for Visit Reason Comments Knee Pain Auth/Cert Status Reason Specialty Diagnoses / Procedures Referred By Contact Referred To Contact Encounter Details Date Type Department Care Team Description 07/01/2018 Home Care Visit [facility] Flora Clark, PT [place] [address] Allergies No Known Allergiesas of this encounter [...] Vital Sign Reading Time Taken Blood Pressure 144/84 07/01/2018 10:52 AM EDT Pulse 98 07/01/2018 10:52 AM EDT Temperature 36.6 ??C (97.9 ??F) 07/01/2018 10:52 AM EDT Respiratory Rate - - Oxygen Saturation 97% 07/01/2018 10:52 AM EDT Inhaled Oxygen Concentration - - Weight - - Height - - Body Mass Index - - in this encounter Plan of Treatment Upcoming Encounters Date Type Specialty Care Team Description 07/02/2018 Office Visit Home Health Services Agus Cardoza RN 07/05/2018 Office Visit Home Health Services Agus Cardoza RN 07/09/2018 Office Visit Home Health Services Agus Cardoza RN 07/12/2018 Office Visit Home Health Services Agus Cardoza RN 07/15/2018 Follow-Up Sports Medicine Manuel Genao MD [address] [place] [address] [phone] 07/16/2018 Office Visit Home Health Services Agus Cardoza RN 07/19/2018 Office Visit Home Health Services Agus Cardoza RN 07/23/2018 Office Visit Home Health Services Agus Cardoza RN 07/26/2018 Office Visit Home Health Services Agus Cardoza RN 07/30/2018 Office Visit Home Health Services Agus Cardoza, JOSÉ MIGUEL 08/02/2018 Office Visit Home Health Agus Rhoades, JOSÉ MIGUEL 08/06/2018 Office Visit Home Health Agus Rhoades, JOSÉ MIGUEL 08/09/2018 Office Visit Home Health Agus Rhoades RN 08/13/2018 Office Visit Home Health Agus Rhoades, JOSÉ MIGUEL 08/16/2018 Office Visit Home Health Agus Rhoades RN 08/20/2018 Office Visit Home Health Agus Rhoades RN 08/23/2018 Office Visit Home Health Services Agus Cardoza, RN Health Maintenance Due Date Last Done Comments PAP SMEAR 1975 SEQUENTIAL INFLUENZA VACCINE (#1) 2018 TETANUS EVERY 10 YR 12/30/2021 12/31/2011 as of this encounter
--- OUTSIDE RECORDS SUMMARY | 2018-12-09 22:17 | XMS RPT_ITS ---
:1975 Author Organization OHIP Support Name Relationship Address Phone LIONEL EVANS Unavailable [address] + [place] [address] UE Unavailable Unavailable Unavailable SHANEL, TEMITOPE Unavailable [address] [place] [address] LIONEL EVANS Unavailable Unavailable Unavailable SHANEL, TEMITOPE Unavailable Unavailable Unavailable SHANEL, TEMITOPE Unavailable Unavailable Unavailable LIONEL EVANS Unavailable [address] + [place] [address] UE Unavailable Unavailable Unavailable SHANEL, TEMITOPE Unavailable [address] [place] [address] LIONEL EVANS Unavailable Unavailable Unavailable SHANEL, TEMITOPE Unavailable Unavailable Unavailable SHANEL, TEMITOPE Unavailable Unavailable Unavailable LIONEL EVANS Unavailable [address] + [place] [address] UE Unavailable Unavailable Unavailable SHANEL, TEMITOPE Unavailable [address] [place] [address] LIONEL EVANS Unavailable [address] + [place] [address] UE Unavailable Unavailable Unavailable SHANEL, TEMITOPE Unavailable [address] [place] [address] LIONEL EVANS Unavailable [address] + [place] [address] UE Unavailable Unavailable Unavailable SHANEL, TEMITOPE Unavailable [address] [place] [address] LIONEL EVANS Unavailable Unavailable Unavailable SHANEL, TEMITOPE Unavailable Unavailable Unavailable SHANEL, TEMITOPE Unavailable Unavailable Unavailable LIONEL EVANS Unavailable Unavailable Unavailable SHANEL, TEMITOPE Unavailable Unavailable Unavailable SHANEL, TEMITOPE Unavailable Unavailable Unavailable CRISTINA, LIONEL Unavailable Unavailable Unavailable SHANEL, TEMITOPE Unavailable Unavailable Unavailable HSANEL, TEMITOPE Unavailable Unavailable Unavailable CRISTINA, LIONEL Unavailable Unavailable Unavailable SHANEL, TEMITOPE Unavailable Unavailable Unavailable SHANEL, TEMITOPE Unavailable Unavailable Unavailable CRISTINA, LIONEL Unavailable Unavailable + SHANEL, TEMITOPE Unavailable Unavailable + SHANEL, TEMITOPE Unavailable Unavailable Unavailable SHANEL, TEMITOPE Unavailable Unavailable Unavailable CRISTINA, LIONEL Unavailable [address] [facility] + [place] [address] [employer] Unavailable . + [place] [address] SHANEL, TEMITOPE Unavailable [address] [place] [address] CRISTINA, LIONEL Unavailable Unavailable + SHANEL, TEMITOPE Unavailable Unavailable + CRISTINA, LIONEL Unavailable Unavailable + SHANEL, TEMITOPE Unavailable Unavailable + SHANEL, TEMITOPE Unavailable Unavailable Unavailable SHANEL, TEMITOPE Unavailable Unavailable Unavailable SHANEL, TEMITOPE Unavailable Unavailable Unavailable SHANEL, TEMITOPE Unavailable Unavailable Unavailable [employer] Unavailable . + [place] [address] SHANEL, TEMITOPE Unavailable [address] [place] [address] SHANEL, TEMITOPE Unavailable Unavailable Unavailable SHANEL, TEMITOPE Unavailable Unavailable Unavailable SHANEL, TEMITOPE Unavailable Unavailable + SHANEL, TEMITOPE Unavailable Unavailable Unavailable SHANEL, TEMITOPE Unavailable Unavailable Unavailable SHANEL, TEMITOPE Unavailable Unavailable Unavailable SHANEL, TEMITOPE Unavailable Unavailable Unavailable SHANEL, TEMITOPE Unavailable Unavailable Unavailable SHANEL, TEMITOPE Unavailable Unavailable Unavailable Care Team Providers Name Role Phone Rambo Man Attending Unavailable Rambo Man Referring Unavailable Baez, Ceasar Primary Care Unavailable Rambo Man Attending Unavailable Baez, Ceasar Primary Care Unavailable Rambo Man Consulting Unavailable Baez, Ceasar Referring Unavailable Rambo Man Attending Unavailable Baez, Ceasar Primary Care Unavailable Rambo Man Consulting Unavailable Baez, Ceasar Referring Unavailable Slaby, Rambo Attending Unavailable Baez, Ceasar Primary Care Unavailable Slaby, Rambo Consulting Unavailable Baez, Ceasar Referring Unavailable Slaby, Rambo Attending Unavailable Baez, Ceasar Primary Care Unavailable Slaby, Rambo Attending Unavailable Baez, Ceasar Referring Unavailable Slaby, Rambo Attending Unavailable Baez, Ceasar Referring Unavailable CORNIELLO, CHLOE L (ESCALATOR CONSTRUCTOR) Attending Unavailable BAEZ, CEASAR L Referring Unavailable BAEZ, CEASAR L Referring Unavailable BAEZ, CEASAR L Referring Unavailable BAEZ, CEASAR L Referring Unavailable CORNIELLO, CHLOE L (ESCALATOR CONSTRUCTOR) Referring Unavailable CORNIELLO, CHLOE L (ESCALATOR CONSTRUCTOR) Attending Unavailable CORNIELLO, CHLOE L (ESCALATOR CONSTRUCTOR) Referring Unavailable CORNIELLO, CHLOE L (ESCALATOR CONSTRUCTOR) Referring Unavailable JERED ARCEO (CARLOS) Attending Unavailable JERED ARCEO (PA) Referring Unavailable BAEZ, CEASAR L Referring Unavailable BAEZ, CEASAR L Attending Unavailable BAEZ, CEASAR L Referring Unavailable CORNIELLO, CHLOE L (ESCALATOR CONSTRUCTOR) Referring Unavailable CORNIELLO, CHLOE L (ESCALATOR CONSTRUCTOR) Referring Unavailable TARA GENAO Attending Unavailable BAEZ, CEASAR L Primary Care Unavailable TARA GENAO Attending Unavailable BAEZ, CEASAR L Primary Care Unavailable TARA GENAO Attending Unavailable BAEZ, CEASAR L Primary Care Unavailable TARA GENAO Attending Unavailable BAEZ, CEASAR L Primary Care Unavailable TARA GENAO Attending Unavailable BAEZ, CEASAR L Primary Care Unavailable TARA GENAO Attending Unavailable BAEZ, CEASAR L Primary Care Unavailable TARA GENAO Referring Unavailable BAEZ, CEASAR L Primary Care Unavailable BAEZ, CEASAR L Referring Unavailable BAEZ, CEASAR L Primary Care Unavailable ANABELLA OLSEN Attending Unavailable BAEZ, CEASAR L Primary Care Unavailable TARA GENAO Attending Unavailable BAEZ, CEASAR L Primary Care Unavailable TARA GENAO Attending Unavailable BAEZ, CEASAR L Primary Care Unavailable TARA GENAO Attending Unavailable BAEZ, CESAAR L Primary Care Unavailable TARA GENAO Attending Unavailable BAEZ, CEASAR L Primary Care Unavailable Tara Genao Admitting Unavailable Tara Genao Attending Unavailable Baez, Ceasar L Primary Care Unavailable Dr. Tara Genao Admitting Unavailable Franci, Dr. Tara Carrero Attending Unavailable Franci, Dr. Tara Carrero Admitting Unavailable Franci, Dr. Tara Carrero Attending Unavailable Franci, Dr. Tara Carrero Admitting Unavailable Franci, Dr. Tara Carrero Attending Unavailable Franci, Dr. Tara Carrero Admitting Unavailable Franci, Dr. Tara Carrero Attending Unavailable PROBLEMS PROBLEMS DATE TYPE CONDITION / CODE ATTENDING STATUS SOURCE 09/12/2018 Admitting Hidradenitis Active [facility] diagnosis suppurativa / Three L73.2(ICD-10) Repository 09/23/2018 Unknown S41.101A - Rambo Man Active [place] Unspecified open [facility] wound of right upper Hospital arm, initial Repository encounter / S41.101A(ICD-10) 09/23/2018 Unknown L73.2 - Hidradenitis Rambo Man Active [facility] suppurativa / Community L73.2(ICD-10) Hospital Repository 09/23/2018 Unknown Z86.19 - Personal Rambo Man Active [facility] history of other Community infectious and Hospital parasitic diseases / Repository Z86.19(ICD-10) 09/23/2018 Unknown F17.200 - Nicotine Rambo Man Active [facility] dependence, Community unspecified, Hospital uncomplicated / Repository F17.200(ICD-10) 09/23/2018 Unknown G89.18 - Other acute Rambo Man Active [facility] postprocedural pain Community / G89.18(ICD-10) Hospital Repository 07/23/2018 Active Other abnormal and NA Active [place] inconclusive [facility] Main findings on [place] diagnostic imaging Repository of breast / R92.8(ICD-10) 07/15/2018 Admitting Presence of left FRANCI, Active [facility] diagnosis artificial knee TARA SOPHIA Three joint / Repository Z96.652(ICD-10) 06/28/2018 Admitting Unilateral primary NA [facility] diagnosis osteoarthritis, left Three knee / Repository M17.12(ICD-10) 07/10/2014 Active Impaired fasting NA [facility] glucose / Clinic Main R73.01(ICD-10) [place] Repository 06/21/2018 Active Encounter for NA Active [place] screening mammogram Clinic Main for malignant [place] neoplasm of breast / Repository Z12.31(ICD-10) 05/29/2018 Active Fibromyalgia / NA Active [place] M79.7(ICD-10) Clinic Main [place] Repository 05/29/2018 Active Other fatigue / NA Active [facility] R53.83(ICD-10) Clinic Main [place] Repository 01/14/2018 Admitting Other specified FRANCI, Active [facility] diagnosis postprocedural TARA Head states / Repository Z98.890(ICD-10) 12/24/2017 Admitting Other meniscus FRANCI, Active [facility] diagnosis derangements, TARA Head unspecified Repository meniscus, left knee / M23.307(ICD-10) 11/20/2017 Active Hypokalemia / NA Active [facility] E87.6(ICD-10) Clinic Main [place] Repository 11/20/2017 Active Unknown / NA Active [facility] UNK(Unknown) Clinic Main [place] Repository 11/12/2017 Admitting Chondromalacia FRANCI, 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, left knee TARA Head / M22.42(ICD-10) Repository 04/13/2015 Active Essential (primary) NA Active [place] hypertension / Clinic Main I10(ICD-10) [place] Repository 10/31/2017 Active Iron deficiency NA Active [place] anemia, unspecified Clinic Main / D50.9(ICD-10) [place] Repository 10/31/2017 Active Generalized NA Active [facility] abdominal pain / Clinic Main R10.84(ICD-10) [place] Repository 10/31/2017 Active Diarrhea, NA Active [facility] unspecified / Clinic Main R19.7(ICD-10) [place] Repository 10/31/2017 Active Nausea / NA Active [facility] R11.0(ICD-10) Clinic Main [place] Repository 10/31/2017 Active Other roasterman NA Active [place] (current) drug Clinic Main therapy / [place] Z79.899(ICD-10) Repository 10/31/2017 Active Irritable bowel NA Active [facility] syndrome with Clinic Main diarrhea / [place] K58.0(ICD-10) Repository 10/31/2017 Active Generalized anxiety NA Active [facility] disorder / [facility] Main F41.1(ICD-10) [place] Repository PROCEDURES PROCEDURES No Procedure Records FoundRESULTS RESULTS OPERATIVE REPORT Observed: 09/14/2018 Status: F Source: [facility] 7:04 PM [facility] REPOSITORY [facility] Medical Records Department [address] [place] [address] Operative Report 09/11/18 1250 MR#: [id number] Acct: [id number] Name: RAVI VALDEZ Rep #: [id number] : 1975 43 From: Rambo Man MD PCP: Ceasar Persaud, DO Status: [facility] Y Location: [facility] Report of Operation Date of Procedure: 09/11/18 Pre-Operative Diagnosis: 1. Painful right axillary hidradenitis. 2. Smoker. 3. History of MRSE. Post-Operative Diagnosis: Same. Surgery/Procedure Performed:: Surgical preparation right axilla with excision hidradenitis (130 cm2). Description of Surgical Findings:: 43 year old woman presents with complaints of recent flare ups of her hidradenitis in her bilateral axillary areas, worse on the right. She has been on Doxycycline recently. She denies any fever. She denies any drainage. She is also concerned about hidradenitis in her abdominal wall skin crease with an overhanging panniculus with panniculitis. She would develop bumps mostly on the right side of the skin crease with spontaneous drainage. She denies trauma. She has had previous excision of hidradenitis in her left inguinal area and right perineal/gluteal area Patient was informed of the risks and complications of the procedure including alternatives to surgery. These were discussed with the patient personally. Patient voices understanding and wishes to proceed. Some of the risks and complications were included in a form from the [employer]. Encouraged patient to stop smoking as it may have deleterious effects on wound healing. Size of defect right axilla - 10 x 13 x 3 cm. tentering machine off bearer: None Type of Anesthesia:: General Specimen's removed: Right axillary hidradenitis tissue to Pathology and Microbiology. Drains: None. Estimated Blood Loss (mL): 50 ml. Description of Procedure: Patient was taken to OR in supine position and was placed under general anesthesia. The right axilla was prepped and draped in the usual fashion. SCD's were placed for DVT prophylaxis. Perioperative antibiotics were given intravenously. Using xylocaine with epinephrine, the right axilla was infiltrated. After waiting 5 minutes for the anesthetic to take effect, I proceeded with surgical preparation of the right axilla with excision of her chronic hidradenitis in a circular fashion to encompass the indurated tender areas. Dissection was carried through the subcutaneous tissue until the underlying muscle was seen. A lot of fat necrosis was seen. A lot of scar tissue was seen. No gross pus was seen. Some of the tissue was sent to Microbiology for culture. A positive culture would necessitate antibiotic therapy. The rest of the tissue was sent to Pathology for analysis to rule out carcinoma. Hemostasis was obtained with electrocautery. The wound was irrigated with saline. The dimensions of the right axillary wound after excision of hidradenitis was 10 x 13 x 3 cm. The right axillary wound was then dressed with Mepitel nonadherent dressing followed by Kerlix gauze and Betadine followed by dry Kerlix gauze followed by ABD pads compression dressing. This was followed by a compression zonia wrap. Patient tolerated the procedure well and was sent to PACU in satisfactory condition. Patient will be sent upstairs for continued postop care. She will have the VAC placed tomorrow. Grafts/Implants Used: None. - Complications None. - Admit VTE Documentation VTE Present on Admission: No VTE Mechan Device Prophylaxis: SCD's VTE Pharm Prophylaxis ordered?: No Code Visit Surgery Charges CPT - 07839 ICD-10 - S41.101A, L73.2, Z86.19, F17.200 06194 S41.101A, L73.2, Z86.19, F17.200 09/14/18 1904 <Electronically signed by Rambo Man MD> Date Rambo Man MD CC: Rambo Man MD; Ceasar Persaud DO; [facility] Signed HISTORY AND PHYSICAL Observed: 09/13/2018 Status: F Source: [place] EXAM 10:53 PM [facility] REPOSITORY [facility] Medical Records Department [address] [place] [address] History and Physical 09/10/18 2337 MR#: [id number] Acct: [id number] Name: JOSÉ MIGUELRAVI Glenn Rep #: [id number] : 1975 43 From: Rambo Man MD PCP: Ceasar Persaud DO Status: [facility] Y Location: [facility] History and Physical Date of Admission: 09/11/18 HISTORY OF PRESENT ILLNESS 43 year old woman presents with complaints of recent flare ups of her hidradenitis in her bilateral axillary areas, worse on the right. She has been on Doxycycline recently. She denies any fever. She denies any drainage. She is also concerned about hidradenitis in her abdominal wall skin crease with an overhanging panniculus with panniculitis. She would develop bumps mostly on the right side of the skin crease with spontaneous drainage. She denies trauma. She has had previous excision of hidradenitis in her left inguinal area and right perineal/gluteal area She presents at this time for further evaluation and treatment. PAST MEDICAL HISTORY Arthritis Asthma Back problem Carpal tunnel syndrome Chronic sinus complaints Depression Fibromyalgia Frequent headaches Hidradenitis Multiple allergies Recurrent infections Rheumatoid arthritis Vision problems Vitamin deficiency High blood pressure PAST SURGICAL HISTORY Carpal tunnel surgery on both sides Hidradenitis surgery 3 sections hysterectomy tonsillectomy MEDICATIONS Cholecalciferol (Vitamin D3) Lisinopril/Hydrochlorothiazide [Zestoretic 20/25 Tablet] Metoprolol Tartrate [Lopressor] Montelukast [Singulair] Sertraline HCl [Zoloft] Albuterol IH (ProAir) [Proair Hfa] Cetirizine HCl [Zyrtec] Fluticasone/Salmeterol [Advair 250/50 Mcg Diskus] Ascorbic Acid [Vitamin C] Meloxicam Ranitidine [Zantac] buPROPion tablets [Wellbutrin] doxycycline ALLERGIES Sulfa FAMILY HISTORY Mother - Anxiety, Asthma, Depression (emotion), Diabetes, Heart disease, Hypertension, COPD (chronic obstructive pulmonary disease), Osteoporosis, Cancer Father - Bleeding disorder, Kidney disease, Cancer Grandmother - Ovarian cancer Sister - defect SOCIAL HISTORY Smoking Status: Current some day smoker alcohol intake: current substance use type: does not use REVIEW OF SYSTEMS General - Denies fever and weight loss. Has fatigue. Eyes - Denies cataracts and glaucoma. ENT - Denies nasal congestion and sore throat. Endocrine - Denies excessive thirst and urination. Skin - Has flare ups of hidradenitis in her bilateral axillary areas and abdominal wall skin crease. Has family history of skin cancer. Musculoskeletal - Has joint pain, weakness of muscles and joints, back pain. Denies joint stiffness and arthritis. Neuro - Has headaches. Cardiovascular - Denies chest pain, fatigue, and shortness of breath with exertion. Psych - Denies anxiety. Has depression. Respiratory - Has chronic cough and shortness of breath. Patient is a smoker. Gastrointestinal - Denies nausea, vomiting, diarrhea, and constipation. Hematologic - Denies bleeding. Has abnormal bruising. Has history of blood clot. Genitourinary - Denies hematuria and urinary frequency. PHYSICAL EXAMINATION General - Alert and Oriented HEENT - PERRL. EOMI. Throat is clear. Neck - Supple and nontender. No cervical adenopathy. Lungs - Clear to auscultation. Heart - Regular rate and rhythm. Abdomen - Soft and nondistended. Has abdominal wall panniculus with some panniculitis. There is some overhang of the panniculus. There is evidence of abdominal wall skin crease intertrigo mostly on the right side. No purulent drainage noted. Extremities - FROM. No axillary adenopathy. Hard to palpate because of the presence of overlying pain and induration and swelling. No purulent drainage noted. On the right measures 7 cm. On the left measures 5 cm. Just below the left axillary hidradenitis is an isolated lesion that measures 1 cm. Slightly erythematous. Mild tenderness to palpation. No purulent drainage. There is tenderness to palpation on the right axilla. Radial pulses are palpable. Neuro - CN II-XII grossly intact. Psych - Normal mood and affect. ASSESSMENT 1. Painful right axillary hidradenitis. 2. Left axillary hidradenitis, stable. 3. Abdominal wall skin crease intertrigo with hidradenitis. 4. Abdominal panniculus. 5. Abdominal panniculitis. 6. Smoker. 7. History of JURGEN. PLAN Recommend excision of her hidradenitis right axilla since it is more symptomatic than on the left axilla at this time. Will send tissue to Pathology for analysis to rule out carcinoma and to Microbiology for culture. A positive culture will necessitate antibiotic therapy. Will leave the wound open and proceed with wound care with the VAC or with daily Silver dressings. After discharge she can followup at the Wound Center. If there is a plateau in the healing process, can proceed with delayed closure with skin grafting. After healing has occurred, can then address the left axilla if symptomatic in the future. Also an abdominal panniculectomy will need to be done after the axillary hidradenitis has been surgically treated. Patient was informed of the risks and complications of the procedure including alternatives to surgery. These were discussed with the patient personally. Patient voices understanding and wishes to proceed. Some of the risks and complications were included in a form from the [employer] [employer]. Surgery would be done under general anesthesia with a surgical observation overnight stat in the hospital. Encouraged patient to stop smoking as it may have deleterious effects on wound healing. 09/13/18 2253 <Electronically signed by Rambo Man MD> Date Rambo Man MD Cosigner Signature: Date (if applicable) CC: Rambo Man MD; Ceasar Persaud DO; [facility] Signed DISCHARGE INSTRUCTION Observed: 09/12/2018 Status: F Source: [place] 3:39 PM [facility] REPOSITORY [facility] Medical Records Department [address] [place] [id number] Instructions for Home/Discharge Instructions 09/12/18 1534 MR#: [id number] Acct: [id number] Name: RAVI VALDEZ Glenn Rep #: [id number] : 1975 43 From: Rambo Man MD PCP: Ceasar Persaud DO Status: [facility] You will use the following diet at home:: No restrictions, Other - encourage nutritional supplementation with protein to help the healing process. Discharge Activity: May not drive while taking narcotic pain medications., - - no heavy lifting. elevate right arm when sitting. May shower in (days): 2 - may shower on the days the vac is changed. May resume sexual activity in: No Restrictions Weight Bearing Status: Weight bearing as tolerated Lifting Restrictions: 20 lbs. Keep extremity elevated above heart level: Right Arm Call your doctor if your incision/area has: Continuous Slow Oozing, Sudden Increased Bleeding, Increased Pain/ Swelling, Increased Redness, Foul Smelling Discharge, Swelling at the incision site Call your doctor if you observe: Fever of 101 or Higher, Coldness, Increased Pain, Shortness of breath, Chest pain, Calf discomfort, Uncontrolled pain Suture Line Care: - - vac changes three times per week at 150 mmHg continuous suction. Change Dressing in (Days):: 2 - vac changes three times per week. Cleanse incision/area with: Soap AND Water - may cleanse the wound with soap and water at the time of the VAC change., - - may take a shower on the days the vac is changed. Additional Dressing/Incision Instructions:: Home Health to assist with the vac to the right axilla three times per week at 150 mmHg continuous suction. May cleanse the wound with soap and water at the time of the vac dressing change. Allergies/Adverse Reactions: Allergies Sulfa (Sulfonamide Antibiotics) Adverse Reaction (Verified 09/11/18 10:44) Nausea Medications to take at Discharge Cholecalciferol (Vitamin D3) [Vitamin D3] 5,000 unit PO DAILY 12/10/14 Lisinopril/Hydrochlorothiazide [Zestoretic Tablet] 1 tablet PO DAILY 12/10/14 Metoprolol Tartrate [Lopressor (beta rainer)] 50 mg PO BID 12/10/14 Montelukast [Singulair] 10 mg PO QHS 12/10/14 Albuterol IH (ProAir) [Proair Hfa] 1 puff INHALATION Q6H PRN PRN 11/10/15 Cetirizine HCl [Zyrtec] 10 mg PO DAILY 11/10/15 Ascorbic Acid [Vitamin C] 500 mg PO DAILY@0800 04/04/16 buPROPion tablets [Wellbutrin tablets] 300 mg PO DAILY 05/22/17 Duloxetine Hcl [Cymbalta] 60 mg PO DAILY 09/05/18 Iron Carbonyl [Feosol] 65 mg PO DAILYCM 09/05/18 Mometasone/Formoterol [Dulera 100 Mcg/5 Mcg Inhaler] 2 puff IH BID 09/05/18 Omeprazole 40 mg PO DAILY 09/05/18 Albuterol Aerosols [Ventolin Aerosols] 2.5 mg INHALATION Q4H PRN PRN vial.neb. 09/12/18 Albuterol Aerosols [Ventolin Aerosols] 2.5 mg INHALATION Q6HWA.RT vial.neb. 09/12/18 Budesonide Aerosol [Pulmicort Respules] 0.5 mg INHALATION BID.RT ampul.neb. 09/12/18 Diazepam [Valium] 5 mg PO 4X/DAY PRN PRN #30 tab 09/12/18 Docusate Sodium [Colace] 100 mg PO BID #60 cap 09/12/18 Doxycycline [Vibramycin] 100 mg PO BID #60 cap 09/12/18 Hydrochlorothiazide [Hctz] 25 mg PO DAILY tablet 09/12/18 Lisinopril [Zestril] 20 mg PO DAILY tablet 09/12/18 Oxycodone HCl/Acetaminophen [Percocet 5/325] 1 - 2 tab PO 4X/DAY PRN PRN 7 Days #60 tab 09/12/18 proMETHazine tablet [Phenergan tablet] 25 mg PO 4X/DAY PRN PRN #30 tab 09/12/18 The following prescriptions were given: Diazepam [Valium] 5 mg PO 4X/DAY PRN PRN #30 tab PRN Reason: Spasms Oxycodone HCl/Acetaminophen [Percocet 5/325] 1 - 2 tab PO 4X/DAY PRN PRN 7 Days #60 tab PRN Reason: Pain proMETHazine tablet [Phenergan tablet] 25 mg PO 4X/DAY PRN PRN #30 tab PRN Reason: NAUSEA/VOMITING Docusate Sodium [Colace] 100 mg PO BID #60 cap Doxycycline [Vibramycin] 100 mg PO BID #60 cap Primary Care Physician: Ceasar Baez DO [Primary Care Provider] - Test Results: Test results from this visit will be discussed in further detail at your follow-up appointment, if applicable. Please Follow Up With: Rambo Man MD When: 2-3 weeks at the wound center. call [phone] for appt. Proposed Discharge Date: 09/12/18 09/12/18 1539 <Electronically signed by Rambo Man MD> Date Rambo Man MD CC: Ceasar Persaud DO; [facility] Signed BASIC METABOLIC Collected: 09/12/2018 Status: F Source: [place] PROFILE (BMP) 5:48 AM [facility] REPOSITORY TYPE CODE TESTS RESULT OUT OF RANGE REFERENCE UNITS LAB L501.0100 74-106 mg/dL High GLU 107 Result Comment: Fasting Glucose result from 100 to 125 mg/dL suggests IMPAIRED HOMEOSTASIS per A.D.A. criteria. Please note revised GLUCOSE reference range effective 2017. LAB L501.1000 7-18 mg/dL Normal BUN 13 LAB L501.1100 0.55-1.02 mg/dL Normal CREAT,SERUM 0.81 Result Comment: The validity of the calculated GFR AND GFRAA in patients over 70 years has not been determined. Clinical correlation is essential. LAB L501.1110 >60 mL/min Normal EST GFR 82 Result Comment: Non- GFR Calc LAB L501.1115 >60 mL/min Normal EST GFR - AA 100 Result Comment: GFR Calc LAB L501.1255 ml/min Normal Estimated CRCL 94.56 LAB L501.1300 10-20 RATIO Normal BUN/CRE 16.0 LAB L501.2200 8.5-10 mg/dL Normal .1 CA 9.2 LAB L501.5300 136-14 mmol/L Normal 5 NA 138 LAB L501.5600 3.5-5. mmol/L Normal 1 K 3.6 Result Comment: Slight Hemolysis, Result may be falsely increased. LAB L501.5900 98-107 mmol/L Normal CL 102 LAB L501.6100 21.0-32.0 mmol/L Normal CO2 26.0 LAB L501.6200 5-15 Normal GAP 10 Performed By: #### L500.2500, L506.0500 #### [facility] [address] [place], [place], [address] PREALBUMIN Collected: 09/12/2018 Status: F Source: NICOL 5:48 AM [facility] REPOSITORY TYPE CODE TESTS RESULT OUT OF RANGE REFERENCE UNITS LAB L506.0500 20.0-40.0 mg/dL Normal PREALBUMIN 23.8 Performed By: #### L500.2500, L506.0500 #### [facility] [address] [place], [place], [address] CBC-COMPLETE BLOOD CNT Collected: 09/12/2018 Status: F Source: [place] NO DIFF 5:48 AM [facility] REPOSITORY TYPE CODE TESTS RESULT OUT OF RANGE REFERENCE UNITS LAB L100.1000 4.4-11.0 K/mm3 High WBC 15.9 LAB L100.1200 4.2-5.4 M/mm3 Low RBC 3.83 LAB L100.1300 12.0-15.0 g/dl Low HGB 11.3 LAB L100.1400 37-47 % Low HCT 34.8 LAB L100.1500 81-99 fL Normal MCV 90.9 LAB L100.1600 27.0-32.0 pg Normal MCH 29.5 LAB L100.1700 32-36 g/gl Normal MCHC 32.5 LAB L100.1810 11.6-14.6 % Normal RDW CV 13.1 LAB L100.1820 35.1-43.9 fl Normal RDW SD 43.1 LAB L100.1900 150-450 K/mm3 Normal PLT 277 LAB L100.2000 6.2-12.0 fl Normal MPV 11.3 Performed By: #### L100.0500 #### [facility] [address] [place], [address] HIDRADENITIS (CHOOSE Observed: 09/11/2018 Status: F Source: [facility]) 8:00 [facility] REPOSITORY Patient: RAVI VALDEZ : 1975 (43/F) Acct Num: [id number] Phys: Rambo Man MD Unit Num: [id number] Loc: MS3 [id number] Specimen: [id number] Received: 09/11/18916 Spec Type: Hidradenit TISSUES 1 TISSUES: Axilla, NOS GROSS DESCRIPTION Received in fixative is one container labeled with the patient's name and designated right axilla hidradenitis. The specimen consists of a piece of skin with underlying tissue measuring 10.5 x 8 x 2.8 cm. Sections do not reveal any mass lesion. Rental Car Deliverer sections are submitted in two cassettes. / SALVADOR cardona 09/11/18 TC:3 CPT: 52613 HEADER OPERATION: Excision hidradenitis, axilla PRE-OP DIAGNOSIS: Painful right axilla hidradenitis TISSUE SUBMITTED: Right axilla hidradenitis MICROSCOPIC DESCRIPTION Slides are reviewed. MICROSCOPIC DIAGNOSIS Skin and soft tissue of right axilla, excision: Consistent with hidradenitis. AM:rg 09/12/18 Signed Brain Fair, DO 09/12/18 <signature on file> Performed By: #### PHID #### [facility] [address] [place], [place], [address] Observed: 09/11/2018 Status: F Source: [place] CULTURE, DEEP WOUND 12:00 AM [facility] REPOSITORY Order Date: 04/18/17 List Antibiotics Last 48 Hours? CEFAZOLIN, DOXICYCLINE Has pt arrived? Y Comments: RIGHT AXILLA HYDRADENITIS Gram Stain Gram Stain 4+ Red Blood Cells 1+ White Blood Cells Rare Gram positive cocci Wound Culture ORGANISM 1: Coag Negative Staph Amount Growth Rare Coag Negative Staph: REACTION Benzylpenicillin NF >=0.5 R Cefoxitin *NF - Clindamycin $$ <=0.25 S Inducable Clindamycin Resistan - Erythromycin $ <=0.25 S Gentamicin $ <=0.5 S Levofloxacin $ 0.25 S Oxacillin NF 0.5 S Tigecycline $$$$ <=0.12 S Rifampin $$ <=0.5 S Tetracycline NF <=1 S Vancomycin $ <=0.5 S (NF) indicates non-formulary drug at [facility]. Approval by Infectious Disease Specialist required before non-formulary drugs may be ordered and/or dispensed. * CLSI guidelines does not recommend testing of cephalosporins. This interpretation is deduced from Beta-lactam/penicillin results. Cult, Anaerobic No anaerobic bacteria isolated. Performed By: #### M100.1500 #### [facility] [address] [place], [place], [address] Observed: 09/11/2018 Status: P Source: [place] CULTURE, FUNGUS W/ 12:00 AM [facility] [id number] REPOSITORY Comments: RIGHT AXILLA HYDRADENITIS Has pt arrived? Y Is this test to exclude patient from TB Isolation? [address] TESTING PERFORMED AT [facility]. ORIGINAL REPORT ON FILE IN LAB CONTAINS ADDITIONAL TEST SITE INFORMATION. Fungus Stain No yeast or mold observed. Performed By: #### M600.1900 #### [facility] [address] [place], [address] XR KNEE LEFT 3 VIEWS Observed: 08/19/2018 Status: F Source: [facility] (SPECIFY VIEWS IN 12:00 AM THREE REPOSITORY COMMENTS) X-ray of the left knee 3 views for postop reveals normal-appearing left total knee replacement Dictated by: TARA GENAO on SunAug 19, 2018 5:32:33 PM EST Transcribed by: TARA GENAO on SunAug 19, 2018 5:32:33 PM EST Finalized by: TARA GENAO on SunAug 19, 2018 5:32:33 PM EST CNCO Observed: 07/30/2018 Status: COMPLETED Source: [place] 4:59 PM [facility] REPOSITORY HNO ID: [id number] Author: Mammography Coordinator Service: (none) Author Type: Physician Type: Letter Filed: 07/31/2018 11:33 PM Note Text: July 30, 2018 PID: [id number] Ravi Valdez [address] [place] [address] Dear Ms. Valdez, We are pleased to inform you that the results of your recent breast imaging exam on 07/30/2018 are normal and we recommend that you return to your annual screening Mammography schedule. Early detection of cancer is very important. We also understand recommendations regarding breast cancer screening are controversial. Please discuss with your primary care provider which strategy is best for you and whether a mammogram is right for you. Your imaging studies and report will be kept on file at [facility] as part of your permanent medical record and are available for your continuing care. Thank you for allowing us to help in meeting your health care needs. Sincerely, Dr. Gilbert Interpreting Radiologist [facility] (Return to Annual Mammogram schedule) [facility] Observed: 07/30/2018 Status: F Source: [place] 9:56 AM [facility] REPOSITORY * * *Final Report* * * DATE OF EXAM: Jul 30 2018 9:56AM WRW 0621 - [facility] / PROCEDURE REASON: Abnormal mammogram * * * * Physician Interpretation * * * * RESULT: #[id number] - [facility] UNILATERAL LEFT DIGITAL DIAGNOSTIC MAMMOGRAM WITH CAD: 07/30/2018 HISTORY: Abnormal Mammogram/call back left /priors available for comparison. RESULT: TECHNIQUE: The study was acquired using full field digital technology and interpreted from soft copy. Current study was also evaluated with a Computer Aided Detection (CAD). Comparison is made to exams dated: 06/21/2018 mammogram, 05/22/2017 ultrasound - [facility], and 05/03/2017 mammogram - [facility]. There are scattered fibroglandular elements in left breast. Prior asymmetry is no longer seen in the left breast. No significant masses, calcifications, or other findings are seen in the breast. IMPRESSION: There is no mammographic evidence of malignancy. A 1 year screening mammogram is recommended. Salazar gan/ita:07/30/2018 16:59:45 Operating Table Assembler(s): RT Jayson(R)(M), [facility] letter sent: Return to Annual Mammogram BI-RADS: 1 Negative Multiple national specialty organizations have released breast cancer screening guidelines for women at average risk for developing breast cancer - guidelines that are based on both evidence and opinion, yet differ on when to start and how often to screen for breast cancer. With representation from Breast Imaging, Internal Medicine, Women's Health, Family Medicine, and Medical/Surgical Oncology, the [facility] has carefully reviewed the data and reached the following consensus: 1) All women should engage in shared decision-making with their providers to decide when to start and how often to screen; 2) All women should have the opportunity to start screening mammography at age 40; 3) For women ages 45-55, we recommend annual screening mammograms; 4) For women ages 55 and over, we support both the transition from an annual to a biennial interval if this aligns more with patient's values and preferences, or continuation with annual screening; 5) All women should discuss with their providers when to stop screening mammograms. Bereavement Program Coordinator: Ita Transcribe Date/Time: Jul 30 2018 9:41A Dictated by: SALAZAR GILBERT DO This examination was interpreted and the report reviewed and electronically signed by: SALAZAR GILBERT DO on Jul 30 2018 4:59PM EST [id number] Observed: 07/30/2018 Status: COMPLETED Source: [place] 9:41 AM [facility] [place] REPOSITORY [facility] ID: [id number] Author: Camila Wakefield Service: (none) Author Type: (none) Type: Progress Notes Filed: 07/30/2018 10:08 AM Note Text: Radiology Service Progress Note PATIENT NAME: Ravi Valdez DATE OF SERVICE: July 30, 2018 TIME: 9:41 AM PATIENT IDENTITY VERIFICATION COMPLETED USING TWO (2) METHODS: Patient confirmed name verbally and Date of . PATIENT GENDER DATA: Female. status: : No status: NO. PATIENT RELEVANT IMPLANT DATA REVIEWED: Not Applicable RADIOLOGY DEPARTMENT: [facility] diag mammogram PERIPHERAL IV DATA: Not applicable SIGNED BY: Camila Wakefield July 30, 2018 9:41 AM HISTORY AND Observed: 06/28/2018 Status: F Source: [facility] PHYSICAL-DICTATED 11:56 AM [facility] REPOSITORY [address] [place] [address] NAME RAVI VALDEZ [facility] [id number] 1975 DATE PRE-SURGICAL HISTORY AND PHYSICAL HISTORY Ravi is a 43-year-old patient with severe left knee degenerative arthrosis presenting for a left total knee replacement. Ravi is a patient who already had a previous left knee arthroscopy, lateral release. At that time, we found severe tricompartmental degenerative arthritic changes, severe degenerative changes throughout the patellofemoral articulation, and despite arthroscopy with lateral release, she has had recurrent effusions, pain, discomfort, popping, cracking, swelling, giving out on her to the point where she cannot do the simplest activities of daily living. She has been battling this for over 3 years now and she is now presenting for a left total knee replacement. ALLERGIES None. MEDICATIONS Include ProAir, vitamin C, aspirin, Valisone cream, Wellbutrin, BuSpar, Zyrtec, vitamins, Bentyl, Cymbalta, Premarin, iron, lisinopril/hydrochlorothiazide p.r.n., Mobic, Lopressor, mometasone, formoterol, nystatin, Prilosec, potassium p.r.n., Imitrex. ILLNESSES Hypertension, fibromyalgia, depression, asthma, anxiety. SURGERIES Tonsillectomy, hysterectomy, excisional hydradenitis, bilateral carpal tunnel release. FAMILY HISTORY Heart disease, diabetes, asthma, cancer, kidney disease. SOCIAL HISTORY Does not smoke, does not drink. ALLERGIES None. X-ray examination shows significant medial joint narrowing. Patellofemoral joint arthritic changes are noted. Arthroscopy findings as above. PHYSICAL EXAM General: She is awake, alert and oriented x3. Chest: Clear. Heart: Regular rate and rhythm. Abdomen: Benign. Neck: No carotid bruits are noted. Extremities: Left lower extremity grossly neurologically intact with 2+ pulses. Full range of motion of the ankle and hip. Left knee full extension and 10 degrees of flexion. Severe crepitus, mild knee effusion. No ligamentous instability. Arthroscopic portals well-healed with no signs of infection. Skin: Intact without lesions. Head: Normocephalic. IMPRESSION Left knee degenerative arthrosis. PLAN We will proceed with left total knee replacement. All risks and complications were discussed including the potential addictive nature of postoperative narcotic use as well as the potential need to exceed a 7-day supply 30 morphine equivalency dose. Last presurgical visit: 06/18/2018. MD Vibha DIETZ 06/25/2018 06:41 [id number] T 06/25/2018 07:16 MCB/MODL Electronically Signed By Tara Genao M.D. on 26 Jun 2018 12:49:04 GMT HISTORY AND Observed: 06/28/2018 Status: F Source: [facility] PHYSICAL-DICTATED 11:56 AM [facility] REPOSITORY [facility] [address] [place] [address] NAME RAVI VALDEZ [facility] [id number] N [id number] 1975 DATE 06/27/2018 OPERATIVE REPORT / PROCEDURE NOTE SURGEON TARA GENAO MD PREOPERATIVE DIAGNOSIS Left knee degenerative arthrosis. POSTOPERATIVE DIAGNOSIS Left knee degenerative arthrosis. PROCEDURE Minimally-invasive robotic-assisted left total knee replacement. ANESTHESIA Spinal anesthetic. COMPLICATIONS No intraoperative complications. SPECIMENS Bone, aerobic and anaerobic cultures x2, synovium for WBCs per high-powered field. TOURNIQUET Was not used. ESTIMATED BLOOD LOSS 250 cc. SPECIMENS Bone. HISTORY Ravi is a patient with severe left knee degenerative arthrosis unresponsive to conservative measures including knee arthroscopy. Explained all the risks and complications of surgery including, but not limited to, the risks of infection, bleeding, neurologic or vascular injury, possibility of deep venous thrombosis, pulmonary embolism, myocardial infarction, stroke, or even with surgery. Explained the possibility of continued pain, stiffness, loss of range of motion, as well as the need for future surgery. Given all the options of anesthetic per the anesthesia team and elected for a general anesthetic. PROCEDURE IN DETAIL The patient was met in the preoperative holding where the left knee was confirmed to be the appropriate site and marked by myself. Patient was taken to the operative suite and given preoperative Kefzol per protocol, as well as a general anesthetic. At this point in time, the left lower extremity was then sterilely prepped and draped using ChloraPrep solution as well as InteguSeal. After sterilization of the left lower extremity, we did our final time-out to confirm that the left knee was in fact the appropriate site and marked by myself. At this time, we then went ahead and proceeded forward with elevation of the left leg tourniquet. A 10 cm incision was made along the medial border of the patella, medial arthrotomy was performed, suprapatellar synovectomy was performed, patella fat pad was debulked. The tourniquet was nonfunctional; we therefore let the tourniquet down. At this point time, we then proceeded forward with placing our distal femoral checkpoints and proximal tibial checkpoints. We placed our distal femoral array and our proximal tibial array. We then went ahead and proceeded forward with doing mapping of the distal femur and the proximal tibia in the usual and standard fashion. After the mapping was completed, I removed osteophytes from the medial compartment. We then proceeded with flexion-extension gap balancing. After this, we then did robotic-assisted distal femoral and proximal tibial cuts. We then removed medial and lateral redundant menisci, posterior femoral capsule, posterior femoral osteophytes, and sized the proximal tibia to be a size 2 proximal tibial baseplate. After the size 2 proximal tibial baseplate was felt to be the appropriate size, we then went ahead and proceeded forward with sequential reductions and settled on a size 2 femoral component, a size 9 mm cruciate-retaining tibial insert. After all components were in fact selected, we then went ahead and injected our local anesthetic around the distal femur and the proximal tibia in the usual standard fashion. We then went ahead and proceeded forward with doing antibiotic impregnated irrigation. We then placed a 2 proximal tibial component, 9 mm cruciate- retaining tibial insert, a 2 femoral component, A29 patella. After all components were in, we then ranged the knee throughout a range of motion, there was full extension, full flexion, with excellent varus and valgus stability, good patellar tracking. No lateral release was performed. After this, we then went ahead and proceeded forward with final copious amounts of antibiotic-impregnated irrigation throughout the left knee. Medial arthrotomy was closed using #2 Vicryl, 2-0 Vicryl and skin ivy used on skin. Exofin was placed on the wound as well as a sterile Mepilex dressing. Patient was then extubated and taken to PACU without intraoperative complications. MD Vibha DIETZ 06/27/2018 14:37 [id number] T 06/27/2018 15:17 MCB/MODL Electronically Signed By Tara Genao M.D. on 27 Jun 2018 21:01:21 GMT HISTORY AND Observed: 06/28/2018 Status: F Source: [facility] PHYSICAL-DICTATED 11:56 AM [facility] REPOSITORY [place] [address] [place] [address] NAME RAVI VALDEZ [facility] [id number] 1975 ADMIT 06/27/2018 DISCH 06/28/2018 DISCHARGE SUMMARY ADMITTING DIAGNOSIS Left knee degenerative arthrosis. DISCHARGE DIAGNOSIS Status post left total knee replacement. HISTORY Ravi is a patient with significant history of severe left knee degenerative arthrosis unresponsive to conservative measures. On the day of admission, underwent left total knee replacement. Postoperatively, an uncomplicated postoperative course. [place] stable and ready for discharge to home on postoperative day #1. She was to have home therapy, home nursing. Instructed on wound care, aspirin protocol, and to see me 2 weeks after discharge. For further detailed discharge instructions and departure procedure, see [facility] Departure Procedure. MD Vibha DIETZ 06/28/2018 11:56 [id number] T 06/28/2018 12:12 MCB/MODL Electronically Signed By Tara Genao M.D. on 28 Jun 2018 16:35:39 GMT HGB AND HCT Collected: 06/28/2018 Status: F Source: [facility] 3:53 [facility] REPOSITORY TYPE CODE TESTS RESULT OUT OF REFERENCE UNITS RANGE LAB HGB 11.6-15.4 g/dL Low Hemoglobin 10.1 LAB HCT 34.4-44.8 % Low Hematocrit 31.0 Performed By: #### CHEM8, #### Unless otherwise noted, all testing performed by [place] [address] [facility] [address] [place], [place] [address] CLIA: [id number] Social Service Worker: Rizwan Redding M.D. BASIC METABOLIC PANEL Collected: 06/28/2018 Status: F Source: [facility] 3:[address] [facility] TYPE CODE TESTS RESULT OUT OF REFERENCE UNITS RANGE LAB GLU 70-99 mg/dL High Glucose 100 Result Comment: This test result might be falsely depressed or falsely elevated on samples drawn from patients taking Sulfasalazine and Sulfapyridine. Venipuncture should occur prior to taking either of these drugs. LAB BUN 8-25 mg/dL BUN 10 LAB CREA 0.40-1.10 mg/dL Creatinine 0.88 LAB eGFR ml/min/1.73sq .m eGFR,NonAfrican-Am erican >=60 Result Comment: Non- GFR Calc eGFR is an estimated Glomerular Filtration Rate based on the value of the patient's serum creatinine. In outpatients, eGFR should be used as a helpful tool in screening for CKD. In inpatients or patients with acute renal failure, eGFR represents the GFR at the moment of the draw and should be used with caution. LAB eGFRB ml/min/1.73sq.m eGFR, -Andorran >=60 Result Comment: GFR Calc LAB CALCM 8.4-10.2 mg/dL Calcium 8.7 LAB NA 135-145 mmol/L Sodium 137 LAB K 3.5-5.1 mmol/L Low Potassium 3.2 LAB CL 98-108 mmol/L Chloride 100 LAB CO2 21-32 mmol/L CO2 28 Performed By: #### CHEM8, #### Unless otherwise noted, all testing performed by [place] [address] CLIA: [id number] Social Service Worker: Rizwan Redding M.D. HGB AND HCT Collected: 06/27/2018 Status: F Source: [facility] 11:15 AM [facility] REPOSITORY TYPE CODE TESTS RESULT OUT OF RANGE REFERENCE UNITS LAB HGB 11.6-15.4 g/dL Normal Hemoglobin 11.7 LAB HCT 34.4-44.8 % Normal Hematocrit 34.7 Performed By: #### HH #### Unless otherwise noted, all testing performed by [place] [address] CLIA: [id number] Social Service Worker: Rizwan Redding M.D. KNEE, 1 OR 2 VIEWS Observed: 06/27/2018 Status: F Source: [facility] 11:12 AM [facility] REPOSITORY Final Report Accession No: [id number] Performed: Jun 27 2018 11:12AM Examination: LEFT KNEE, 1 OR 2 VIEWS ONLY EXAM TYPE: KNEE, 1 OR 2 VIEWS ONLY LEFT EXAM DATE AND TIME: 06/27/2018 11:12 AM EDT INDICATION: 43-year-old female with knee arthroplasty. COMPARISON: None. TECHNIQUE: 2 views of the left knee. FINDINGS: Postoperative changes of total knee arthroplasty. Patellar, tibial and femoral components are well seated with appropriate alignment. Surrounding osseous structures are intact. Expected postoperative changes of joint effusion and interarticular emphysema. Superficial surgical ivy are in place at the anterior knee. IMPRESSION: Left total knee arthroplasty without apparent complications. Interpreting Physician: SHANTHAN TUMU, D.O. Trans: dw : cc: Observed: 06/27/2018 Status: F Source: [facility] CULTURE,BACTERIAL 9:35 AM [facility] REPOSITORY Test Name: Culture,Bacterial Site: Left Knee #1 Culture Status: Final Culture Report: No Growth - Day 5 Gram Stain: Rare WBC's No Organisms Seen Micro Source: Synovial Fluid Performed By: #### CULT #### Unless otherwise noted, all testing performed by [place] [address] CLIA: [id number] Social Service Worker: Rizwan Redding M.D. Observed: 06/27/2018 Status: F Source: [facility] CULTURE,BACTERIAL 9:35 AM [facility] REPOSITORY Test Name: Culture,Bacterial Site: Left Knee #2 Culture Status: Final Culture Report: No Growth - Day 5 Gram Stain: No WBC's No Organisms Seen Micro Source: Synovial Fluid Performed By: #### CULT #### Unless otherwise noted, all testing performed by [place] [address] CLIA: [id number] Social Service Worker: Rizwan Redding M.D. Observed: 06/27/2018 Status: F Source: [facility] CULTURE, ANAEROBIC 9:35 AM [facility] REPOSITORY Test Name: Culture, Anaerobic Site: CMT: Left Knee #1 Culture Status: Final Culture Report: No anaerobes isolated. Micro Source: Synovial Fluid Performed By: #### ANCUL #### Unless otherwise noted, all testing performed by [place] [address] CLIA: [id number] Social Service Worker: Rizwan Redding M.D. Observed: 06/27/2018 Status: F Source: [facility] CULTURE, ANAEROBIC 9:35 AM [facility] REPOSITORY Test Name: Culture, Anaerobic Site: CMT: Left Knee #2 Culture Status: Final Culture Report: No anaerobes isolated. Micro Source: Synovial Fluid Performed By: #### ANCUL #### Unless otherwise noted, all testing performed by [facility] [address] [place], [place] [address] CLIA: [id number] Social Service Worker: Rizwan Redding M.D. SURG Observed: 06/27/2018 Status: F Source: [facility] 12:00 AM [facility] REPOSITORY Patient Name: RAVI VALDEZ Source A. Synovium, Left B. Total Arthroplasty, Knee, Left Clinical History Left knee arthrosis Diagnosis A. 1. Synovium with non-specific degenerative changes. 2. No evidence of significant acute inflammation, favor not infected. B. Total knee arthroplasty with pathologic findings consistent with degenerative joint disease. HW Gross Description A. The specimen is received fresh designated lt knee synovium and consists of two fragments of rubbery, [id number] tissue measuring 2.7 x 1.9 x 0.7 cm in aggregate. Rental [employer]ive[employer] sections are submitted in cassette 1 for frozen section. B. The specimen is received in formalin designated lt knee bone and soft tissue and consists of pieces of kuhn hyperemic bone and soft tissue measuring 9.7 x 7.6 x 3.2 cm in aggregate. A portion of tibial plateau is identified, and the articular surface is coarsely granular. A portion of femoral condyle is identified, and the articular surface is diffusely granular and focally eroded. Numerous osteophytes are present. The underlying cancellous bone appears unremarkable. The specimen is submitted for decalcification. Cassettes 1 and 2 contain sales representative malt liquors sections. (ICT/arj) Frozen Section Diagnosis No neutrophils seen. Results reported to Dr. Genao. One block submitted for frozen section. The frozen section diagnosis is written and signed on the original requisition. IT/arj Electronically Signed By Raji Bull MD , Pathologist (Case signed 06/28/2018) PROGRESS Observed: 06/22/2018 Status: COMPLETED Source: [place] 9:27 AM [facility] [place] REPOSITORY HNO ID: [id number] Author: Cesaar Baez Service: (none) Author Type: Physician Type: Progress Notes Filed: 06/22/2018 9:38 AM Note Text: CC: Ravi Valdez is a 43 year old female who presents to the office for 6 months follow up HPI: Allergies, taking singulair medication, use of Flonase in the past, has had some left >right ear pressure. No fevers or chills or drainage Asthma, stable, no new wheezing or chronic change in cough. Anxiety, improved with Cymbalta and prn Buspirone medications, no SI or HI. Denies depressed mood. PAST MEDICAL HISTORY Diagnosis Date - Allergic rhinitis - Anxiety - Arthritis - Asthma - Depression - Fibromyalgia - GERD (gastroesophageal reflux disease) - Hidradenitis suppurativa Dr. Man, skin excision - Hypercholesteremia - Hypertension - Irritable bowel syndrome - Migraine - JAN (obstructive sleep apnea) 07/2016 - Vitamin D deficiency PAST SURGICAL HISTORY Procedure Laterality Date - SECTION HX x2 - EX SKIN HIDRA/PERIANL SMPLE/INTERMED 03/2016, 10/2015 right abdomen/groin - HYSTERECTOMY HX only uterus/cervix - REVISE MEDIAN N/CARPAL TUNNEL SURG Bilateral 2011 Carpal tunnel decomp - TONSILLECTOMY AND ADENOIDECTOMY HX - TUBAL LIGATION HX Current Outpatient Prescriptions: montelukast (SINGULAIR) 10 mg tablet Take 1 tablet by mouth daily at bedtime. metoprolol tartrate, short acting, (LOPRESSOR) 50 mg tablet Take 1 tablet by mouth twice daily. lisinopril-hydrochlorothiazide (PRINZIDE, ZESTORETIC) 20-25 mg per tablet Take 1 tablet by mouth once daily. DULoxetine (CYMBALTA) 60 mg capsule Take 1 capsule by mouth once daily. busPIRone (BUSPAR) 5 mg tablet Take 1-2 tablets by mouth three times daily as needed. fluticasone-salmeterol HFA (ADVAIR) 45-21 mcg/actuation inhaler Inhale 2 Puffs as instructed twice daily. buPROPion XL (WELLBUTRIN XL) 300 mg 24 hr tablet Take 1 tablet by mouth once daily. potassium chloride ER (K-DUR, KLOR-CON) 20 mEq tablet Take 1 tablet by mouth twice daily. SUMAtriptan (IMITREX) 100 mg tablet Take 1 tablet by mouth as needed. cetirizine (ZYRTEC) 10 mg tablet Take 1 tablet by mouth once daily. Cholecalciferol, Vitamin D3, 5,000 unit cap Take 1 capsule by mouth once daily. Omeprazole (PRILOSEC) 40 mg capsule Take 1 capsule by mouth once daily. albuterol HFA (PROAIR HFA) 90 mcg/actuation inhaler Inhale 2 Puffs as instructed every 4 hours as needed for Wheezing/Shortness of Breath. dicyclomine (BENTYL) 10 mg capsule Take 1 capsule by mouth before meals and at bedtime. meloxicam (MOBIC) 15 mg tablet Take 1 tablet by mouth once daily. estrogens conjugated (PREMARIN) 0.625 mg tablet Take 0.625 mg by mouth once daily. betamethasone valerate 0.1 % cream Apply 1 application to affected area twice daily as needed. nystatin (MYCOSTATIN) cream Apply 1 application to affected area twice daily as needed. nystatin, bulk, 100 million unit powd 1 application three times daily as needed. ascorbic acid (VITAMIN C) 500 mg tablet Take 1 tablet by mouth once daily. Blood Pressure Monitor (BLOOD PRESSURE KIT) kit 1 Device as directed. fluticasone (FLONASE) 50 mcg/actuation nasal spray Use 2 Sprays in each nostril once daily. No current facility-administered medications for this visit. ALLERGIES Allergen Reactions - Seasonal Allergies Other: See Comments Sneezing, runny nose Social History Marital status: Legally Spouse name: Years of education: Number of children: 3 Social History Main Topics Smoking status: Former Smoker Packs/day: 0.10 Years: 0.00 Smokeless tobacco: Never Used Comment: intermittently for years Alcohol use: Yes Comment: Occasionally Drug use: No ROS: See HPI PE: BP 134/80 Pulse 64 Resp 16 Wt 274 lb (124.3kg) Gen: AANDOX3, NAD, non-toxic appearing HEENT: PERRLA, EOMs intact b/l, nares without drainage, pharynx without erythema, exudate, lesions, or drainage. Uvula midline. Neck: No LAD, no thyromegaly, no meningismus. CV: RRR, no murmur Lungs: CTA b/l, no wheezing Skin: No rashes, lesions, or wounds on exposed skin. No edema, normal pulses ASSESSMENT/PLAN: 1. Impaired fasting glucose - ICD9: 790.21, ICD10: R73.01 (primary diagnosis) - recheck labs as ordered, need to lose weight and work on decrease carbs - HGB A1C - CBC 2. Need for vaccination - ICD9: V05.9, ICD10: Z23 - INFLUENZA VACCINE QUADRIVALENT AGE 3 YRS PLUS + IM 3. Screening for breast cancer - ICD9: V76.10, ICD10: Z12.31 - Set up for mammogram, yearly mammogram recommended - Encouraged monthly BSE - GIUSEPPE SCREENING 4. Essential hypertension - ICD9: 401.9, ICD10: I10 - good control - Continue current medication(s) - Check BMP - Recommended regular aerobic exercise. - Recommend home blood pressure monitoring, to bring results in on next visit - Goal of BP <130/80 - BLOOD PRESSURE MONITOR KIT 5. Primary osteoarthritis of left knee - ICD9: 715.16, ICD10: M17.12 - f/u with Orthopedics 6. Hypokalemia - ICD9: 276.8, ICD10: E87.6 - recheck labs - BASIC METABOLIC PNL 7. Bilateral acute serous otitis media, recurrence not specified - ICD9: 381.01, ICD10: H65.03 - continue Singulair medication, add on Flonase - FLUTICASONE 50 MCG/ACTUATION NASAL SPRAY,SUSPENSION 8. Chronic seasonal allergic rhinitis due to pollen - ICD9: 477.0, ICD10: J30.1 - see above Ceasar Baez DO Return if no improvement. Follow up with Ceasar Baez DO. Discussed risks, benefits, alternatives, and potential side effects of medications. Patient/Guardian expressed understanding and agreed with the plan. See patient instructions. Ceasar Baez DO [address] [place] [address] CNCO Observed: 06/21/2018 Status: COMPLETED Source: [place] 11:40 AM [facility] REPOSITORY HNO ID: [id number] Author: Mammography Coordinator Service: (none) Author Type: Physician Type: Letter Filed: 06/24/2018 11:32 PM Note Text: June 21, 2018 PID: [id number] Ravi Valdez [address] [place] [address] Dear Ms. Valdez, Your recent breast imaging exam on 06/21/2018 showed a possible finding that requires additional imaging studies for a complete evaluation. Most such findings are probably benign (not cancer). Please call [phone] or [phone]: [phone] to schedule an appointment for your additional imaging if you have not already done so. Your breast images and report will be kept on file here as part of your permanent medical record and are available for your continuing care. Thank you for allowing us to help in meeting your health care needs. Sincerely, Dr. Mckeon Interpreting Radiologist [facility] (Additional imaging) CBC Collected: 06/21/2018 Status: F Source: [place] 10:25 AM [facility] REPOSITORY TYPE CODE TESTS RESULT OUT OF REFERENCE UNITS RANGE LAB WBC 3.70-11.00 k/uL WBC 10.11 LAB RBC 3.90-5.20 m/uL RBC 4.25 LAB HGB 11.5-15.5 g/dL Hemoglobin 12.8 LAB HCT 36.0-46.0 % Hematocrit 40.0 LAB MCV 80.0-100.0 fL MCV 94.1 LAB MCH 26.0-34.0 pG MCH 30.1 LAB MCHC 30.5-36.0 g/dL MCHC 32.0 LAB RDWCV 11.5-15.0 % RDW-CV 13.0 LAB PLTCT 150-400 k/uL Platelet Count 298 LAB MPV 9.0-12.7 fL MPV 11.7 LAB ABSNUC <0.01 k/uL Absolute nRBC <0.01 Performed By: #### CBC, BMP #### [facility] [address] [place], [place] [address] BASIC METABOLIC PANL Collected: 06/21/2018 Status: F Source: [place] 10:25 AM [facility] REPOSITORY TYPE CODE TESTS RESULT OUT OF REFERENCE UNITS RANGE LAB GLU 74-99 mg/dL Glucose 76 Result Comment: The [place] Diabetes Association (ADA) provides guidance for cutoff values for fasting glucose and random glucose. The ADA defines fasting as no caloric intake for at least 8 hours. Fas ting plasma glucose results between 100 to 125 mg/dL indicate increased risk for diabetes (prediabetes). Fasting plasma glucose results greater than or equal to 126 mg/dL meet the criteria for diagnosis of diabetes. In the absence of unequivocal hyperglycemia, results should be confirmed by repeat testing. In a patient with classic symptoms of hyperglycemia or hyperglycemic crisis, random plasma glucose results greater than or equal to 200 mg/dL meet the criteria for diagnosis of diabetes. Reference: Standards of Medical Care in Diabetes 2016, [place] Diabetes Association. Diabetes Care. 2016.39(Suppl 1). LAB BUN 7-21 mg/dL BUN 12 LAB CRET 0.58-0.96 mg/dL Creatinine 0.73 LAB NA 136-144 mmol/L Sodium 138 LAB K 3.7-5.1 mmol/L Potassium 3.8 LAB CL 97-105 mmol/L Chloride 100 LAB CO2 22-30 mmol/L CO2 26 LAB AGAP 9-18 mmol/L Anion Gap 12 LAB CA 8.5-10.2 mg/dL Calcium, Total 9.8 LAB GFRAA eGFR- Amer. >60 LAB GFRNAA . eGFR-All Other Races >60 Result Comment: eGFR (Estimated GFR) Units of measure: mL/min/1.73 meters squared eGFR is derived from the reexpressed MDRD Study equation using the following parameters: serum creatinine, age, gender and race. The creatinine assay has been calibrated to be traceable to IDMS. An eGFR <60 mL/min/1.73m2 for >3 months is consistent with chronic kidney disease. Refer to KDOQI guidelines for clinical interpretation. In patients with unstable renal function, e.g. those with acute kidney injury, the eGFR may not accurately reflect actual GFR. Performed By: #### CBC, BMP #### [facility] [address] [place] [id number] HEMOGLOBIN A1C Collected: 06/21/2018 Status: F Source: [place] 10:25 [facility] REPOSITORY TYPE CODE TESTS RESULT OUT OF REFERENCE UNITS RANGE LAB HGBA1C 4.3-5.6 % Hemoglobin A1c 4.8 LAB HBA0 mg/dL Est. Average Glucose 91 Result Comment: eAG: (Estimated average glucose) is a calculated value from HgbA1c and is sales representative malt liquors of the average blood glucose level in the last 2-3 month period. Performed By: #### HBA1C, LIPB #### [facility] [address] [place], [place] [address] LIPID PANEL, BASIC Collected: 06/21/2018 Status: F Source: [place] 10:25 AM [facility] REPOSITORY TYPE CODE TESTS RESULT OUT OF REFERENCE UNITS RANGE LAB CHOL <200 mg/dL Cholesterol 168 Result Comment: <200 mg/dL, Desirable 200-239 mg/dL, Borderline high >239 mg/dL, High LAB TRIGLY <150 mg/dL Triglyceride 138 Result Comment: <150 mg/dL, Normal 150-199 mg/dL, Borderline high 200-499 mg/dL, High >499 mg/dL, Very high LAB HDL >39 mg/dL HDL-Cholesterol 49 Result Comment: 40-59 mg/dL, Acceptable >59 mg/dL, High: Negative risk factor for coronary heart disease <40 mg/dL, Low: Positive risk factor for coronary heart disease LAB LDL <100 mg/dL LDL-Cholesterol 91 Result Comment: <100 mg/dL, Optimal 100-129 mg/dL, Near optimal/above optimal 130-159 mg/dL, Borderline high 160-189 mg/dL, High >189 mg/dL, Very high Secondary prevention optimal LDL Cholesterol levels are recommended to be < 70 mg/dL LAB NONHDL <130 mg/dL Non HDL Cholesterol 119 Result Comment: <130 mg/dL, Optimal 130-159 mg/dL, Near optimal/above optimal 160-189 mg/dL, Borderline high 190-219 mg/dL, High >219 mg/dL, Very high Secondary prevention optimal non HDL Cholesterol levels are recommended to be < 100 mg/dL LAB FT hrs Fasting Time 12 LAB VLDL <30 mg/dL VLDL Cholesterol 28 LAB TCHDL <5.10 TC:HDL Ratio 3.43 LAB LDLHDL <2.54 LDL:HDL Ratio 1.86 Result Comment: Reference: 1. National Cholesterol Education Program ATP III Guideline At-A-Glance Quick Desk Reference: National Heart, Lung, and Blood [place]. National Institutes of Health. 2001: NIH Publication No. 01-3305. 2. An International Atherosclerosis Society position paper: global recommendations for the management of dyslipidemia: executive summary, Atherosclerosis. 2014: 232(2):410-413. Performed By: #### HBA1C, LIPB #### [facility] [address] [place] [address] JAMES Observed: 06/21/2018 Status: COMPLETED Source: [place] 9:40 AM [facility] REPOSITORY Office Visit (FAMPWS) RAVI VALDEZ ([id number]) 1975 F Date Time Provider Department 06/21/18 9:40 AM CEASAR BAEZ During your visit today, we recorded the following information about you: Pulse Respiration Blood pressure Weight 64/minute 16/minute 134/80 124.3 kg Arcelia Davidson LPN, LPN 06/22/2018 9:38 AM Signed 43 year old female here for INACTIVATED INFLUENZA VACCINE. 2941-7303 Season Patient is identified by name and date of : Yes [] CONTRAINDICATIONS color enhanced section Age less than 6 months? No Allergy to eggs, chicken, chicken feathers, or chicken dander? No Allergy to thimerosal (a preservative) or formaldehyde, gelatin? No History of severe reaction to any vaccine component or a previous dose of influenza vaccination? No History of Guillain-[place] Syndrome within 6 weeks after a previous influenza vaccine? No Patient is not moderately or severely ill? No Current temperature greater or equal to 100.4F? No History of Bone Marrow Transplant prior 6 months or solid organ transplant in the past 3 months ? No History of fainting after a prior injection or medical procedure? No- ? If patient has fainted in the past, the CDC recommends sitting or lying down for 15 minutes after the vaccination. [] VERIFICATION color enhanced section Was the answer Yes for any of the above contraindications? No contraindications present. Acceptable to proceed with vaccine. Patient/guardian agrees the above answers are true to the best of their knowledge? Yes Flu vaccine information sheet given? Yes See immunization activity in [facility] for details of immunizations adminstered today. Patient age: [age] year old For The 8766-1389 Flu Season 6-35 months old: Fluzone 0.25 ml - IM (Preservative Free) 3 years of age: Fluzone 0.5 ml - IM (Preservative Free) 3 years and older: Fluzone 0.5 ml- IM-(with Preservatives) 65+ years old: 2-49 years old Fluzone High-Dose 0.5 ml - IM (Preservative Free) FLUMIST- intranasal REMEMBER: If patient is less than 9 years of age and this is the first vaccine of Influenza to be received in any flu season, they should receive a second dose in one months time. Ceasar Baez DO 06/22/2018 9:38 AM Signed CC: Ravi Valdez is a 43 year old female who presents to the office for 6 months follow up HPI: Allergies, taking singulair medication, use of Flonase in the past, has had some left >right ear pressure. No fevers or chills or drainage Asthma, stable, no new wheezing or chronic change in cough. Anxiety, improved with Cymbalta and prn Buspirone medications, no SI or HI. Denies depressed mood. PAST MEDICAL HISTORY Diagnosis Date - Allergic rhinitis - Anxiety - Arthritis - Asthma - Depression - Fibromyalgia - GERD (gastroesophageal reflux disease) - Hidradenitis suppurativa Dr. Man, skin excision - Hypercholesteremia - Hypertension - Irritable bowel syndrome - Migraine - JAN (obstructive sleep apnea) 07/2016 - Vitamin D deficiency PAST SURGICAL HISTORY Procedure Laterality Date - SECTION HX x2 - EX SKIN HIDRA/PERIANL SMPLE/INTERMED 03/2016, 10/2015 right abdomen/groin - HYSTERECTOMY HX only uterus/cervix - REVISE MEDIAN N/CARPAL TUNNEL SURG Bilateral 2011 Carpal tunnel decomp - TONSILLECTOMY AND ADENOIDECTOMY HX - TUBAL LIGATION HX Current Outpatient Prescriptions: montelukast (SINGULAIR) 10 mg tablet Take 1 tablet by mouth daily at bedtime. metoprolol tartrate, short acting, (LOPRESSOR) 50 mg tablet Take 1 tablet by mouth twice daily. lisinopril-hydrochlorothiazide (PRINZIDE, ZESTORETIC) 20-25 mg per tablet Take 1 tablet by mouth once daily. DULoxetine (CYMBALTA) 60 mg capsule Take 1 capsule by mouth once daily. busPIRone (BUSPAR) 5 mg tablet Take 1-2 tablets by mouth three times daily as needed. fluticasone-salmeterol HFA (ADVAIR) 45-21 mcg/actuation inhaler Inhale 2 Puffs as instructed twice daily. buPROPion XL (WELLBUTRIN XL) 300 mg 24 hr tablet Take 1 tablet by mouth once daily. potassium chloride ER (K-DUR, KLOR-CON) 20 mEq tablet Take 1 tablet by mouth twice daily. SUMAtriptan (IMITREX) 100 mg tablet Take 1 tablet by mouth as needed. cetirizine (ZYRTEC) 10 mg tablet Take 1 tablet by mouth once daily. Cholecalciferol, Vitamin D3, 5,000 unit cap Take 1 capsule by mouth once daily. Omeprazole (PRILOSEC) 40 mg capsule Take 1 capsule by mouth once daily. albuterol HFA (PROAIR HFA) 90 mcg/actuation inhaler Inhale 2 Puffs as instructed every 4 hours as needed for Wheezing/Shortness of Breath. dicyclomine (BENTYL) 10 mg capsule Take 1 capsule by mouth before meals and at bedtime. meloxicam (MOBIC) 15 mg tablet Take 1 tablet by mouth once daily. estrogens conjugated (PREMARIN) 0.625 mg tablet Take 0.625 mg by mouth once daily. betamethasone valerate 0.1 % cream Apply 1 application to affected area twice daily as needed. nystatin (MYCOSTATIN) cream Apply 1 application to affected area twice daily as needed. nystatin, bulk, 100 million unit powd 1 application three times daily as needed. ascorbic acid (VITAMIN C) 500 mg tablet Take 1 tablet by mouth once daily. Blood Pressure Monitor (BLOOD PRESSURE KIT) kit 1 Device as directed. fluticasone (FLONASE) 50 mcg/actuation nasal spray Use 2 Sprays in each nostril once daily. No current facility-administered medications for this visit. ALLERGIES Allergen Reactions - Seasonal Allergies Other: See Comments Sneezing, runny nose Social History Marital status: Legally Spouse name: Years of education: Number of children: 3 Social History Main Topics Smoking status: Former Smoker Packs/day: 0.10 Years: 0.00 Smokeless tobacco: Never Used Comment: intermittently for years Alcohol use: Yes Comment: Occasionally Drug use: No ROS: See HPI PE: BP 134/80 Pulse 64 Resp 16 Wt 274 lb (124.3kg) Gen: AANDOX3, NAD, non-toxic appearing HEENT: PERRLA, EOMs intact b/l, nares without drainage, pharynx without erythema, exudate, lesions, or drainage. Uvula midline. Neck: No LAD, no thyromegaly, no meningismus. CV: RRR, no murmur Lungs: CTA b/l, no wheezing Skin: No rashes, lesions, or wounds on exposed skin. No edema, normal pulses ASSESSMENT/PLAN: 1. Impaired fasting glucose - ICD9: 790.21, ICD10: R73.01 (primary diagnosis) - recheck labs as ordered, need to lose weight and work on decrease carbs - HGB A1C - CBC 2. Need for vaccination - ICD9: V05.9, ICD10: Z23 - INFLUENZA VACCINE QUADRIVALENT AGE 3 YRS PLUS + IM 3. Screening for breast cancer - ICD9: V76.10, ICD10: Z12.31 - Set up for mammogram, yearly mammogram recommended - Encouraged monthly BSE - GIUSEPPE SCREENING 4. Essential hypertension - ICD9: 401.9, ICD10: I10 - good control - Continue current medication(s) - Check BMP - Recommended regular aerobic exercise. - Recommend home blood pressure monitoring, to bring results in on next visit - Goal of BP <130/80 - BLOOD PRESSURE MONITOR KIT 5. Primary osteoarthritis of left knee - ICD9: 715.16, ICD10: M17.12 - f/u with Orthopedics 6. Hypokalemia - ICD9: 276.8, ICD10: E87.6 - recheck labs - BASIC METABOLIC PNL 7. Bilateral acute serous otitis media, recurrence not specified - ICD9: 381.01, ICD10: H65.03 - continue Singulair medication, add on Flonase - FLUTICASONE 50 MCG/ACTUATION NASAL SPRAY,SUSPENSION 8. Chronic seasonal allergic rhinitis due to pollen - ICD9: 477.0, ICD10: J30.1 - see above Ceasar Baez DO Return if no improvement. Follow up with Ceasar Baez DO. Discussed risks, benefits, alternatives, and potential side effects of medications. Patient/Guardian expressed understanding and agreed with the plan. See patient instructions. Ceasar Baez DO [address] [place] [address] Referring Provider: CEASAR BAEZ [[id number]] Allergies As of Date: 06/21/2018 Noted Allergy Reaction SEASONAL ALLERGIES 10/15/2014 14 - Other: See Comments Comments: Sneezing, runny nose Date Reviewed: 06/21/2018 Reviewed by: Arcelia Burnett (Ashvin) ASHVIN Davidson - Fully Assessed Reason for Visit: Recheck [92] Cmt: 6 month Imm/Inj [58] Cmt: Flu Vaccine Reason For Visit History Recorded Primary Visit Diagnosis:Impaired fasting glucose [R73.01] Other Visit Diagnoses:Need for vaccination [Z23] Screening for breast cancer [Z12.31] Essential hypertension [I10] Primary osteoarthritis of left knee [M17.12] Hypokalemia [E87.6] Bilateral acute serous otitis media, recurrence not specified [H65.03] Chronic seasonal allergic rhinitis due to pollen [J30.1] Order(s):INFLUENZA VACCINE QUADRIVALENT AGE 3 YRS PLUS + IM [[id number]] Order #: [id number] GIUSEPPE SCREENING [[id number]] Order #: [id number] FUTURE HGB A1C [[id number]] Order #: [id number] FUTURE BASIC METABOLIC PNL [SQBMP] Order #: [id number] FUTURE CBC [SQCBC] Order #: [id number] FUTURE Blood Pressure Monitor (BLOOD PRESSURE KIT) kit1 Device as directed.Disp: 1 KitRfl: 0 fluticasone (FLONASE) 50 mcg/actuation nasal sprayUse 2 Sprays in each nostril once daily.Disp: 1 BottleRfl: 0 Prescriptions as of 06/21/2018 Sig: MONTELUKAST 10 MG TABLET Take 1 tablet by mouth daily * METOPROLOL TARTRATE 50 MG TAB* Take 1 tablet by mouth twice * LISINOPRIL 20 MG-HYDROCHLOROT* Take 1 tablet by mouth once d* DULOXETINE 60 MG CAPSULE,ERNESTO* Take 1 capsule by mouth once * BUSPIRONE 5 MG TABLET Take 1-2 tablets by mouth thr* FLUTICASONE-SALMETEROL 45 MCG* Inhale 2 Puffs as instructed * BUPROPION XL 300 MG 24 HR TAB Take 1 tablet by mouth once d* POTASSIUM CHLORIDE ER 20 MEQ * Take 1 tablet by mouth twice * SUMATRIPTAN 100 MG TABLET Take 1 tablet by mouth as nee* CETIRIZINE 10 MG TABLET Take 1 tablet by mouth once d* CHOLECALCIFEROL (VITAMIN D3) * Take 1 capsule by mouth once * OMEPRAZOLE 40 MG CAPSULE,ERNESTO* Take 1 capsule by mouth once * ALBUTEROL SULFATE HFA 90 MCG/* Inhale 2 Puffs as instructed * DICYCLOMINE 10 MG CAPSULE Take 1 capsule by mouth befor* MELOXICAM 15 MG TABLET Take 1 tablet by mouth once d* CONJUGATED ESTROGENS 0.625 MG* Take 0.625 mg by mouth once d* BETAMETHASONE VALERATE 0.1 % * Apply 1 application to affect* NYSTATIN 100,000 UNIT/GRAM TO* Apply 1 application to affect* NYSTATIN (BULK) 100 MILLION U* 1 application three times idalia* ASCORBIC ACID (VITAMIN C) 500* Take 1 tablet by mouth once d* BLOOD PRESSURE MONITOR KIT 1 Device as directed. FLUTICASONE 50 MCG/ACTUATION * Use 2 Sprays in each nostril * Problem List As Of Date 06/21/2018 Noted Resolved Hypertension [I10] INVALID FOR* Impaired fasting glucose [R73.01] INVALID FOR* Obesity, Class III, BMI 40-49.9 (morbid obesity*INVALID FOR* Vitamin D deficiency [E55.9] INVALID FOR* Pure hypercholesterolemia [E78.00] INVALID FOR* Essential hypertension [I10] INVALID FOR* Obstructive sleep apnea syndrome [G47.33] INVALID FOR* Fibromyalgia [M79.7] INVALID FOR* Prescriptions ordered this encounter Disp Refills Start End BLOOD PRESSURE MONITOR KIT 1 Kit 0 06/21/2018 Class: Print RX Route: Misc Si Device as directed. FLUTICASONE 50 MCG/ACTUATION NASAL S* 1 Héctor* 0 06/21/2018 Route: EACH NOSTRIL Sig: Use 2 Sprays in each nostril once daily. Medications Discontinued During This Encounter potassium chloride 20 mEq/15 mL solu* 473 * 0 03/26/2018 06/21/2018 Route: ORAL Sig: Take 15 mL by mouth twice daily. Disc: Reason for discontinue is not on file. Encounter Status:Closed by CEASAR BAEZ DO on 06/22/18 PROGRESS Observed: 06/21/2018 Status: COMPLETED Source: [place] 9:12 AM [facility] [place] REPOSITORY O ID: [id number] Author: Arcelia Burnett (Ashvin) ASHVIN Davidson Service: (none) Author Type: LICENSED NURSE Type: Progress Notes Filed: 06/22/2018 9:38 AM Note Text: 43 year old female here for INACTIVATED INFLUENZA VACCINE. 8935-7927 Season Patient is identified by name and date of : Yes [] CONTRAINDICATIONS color enhanced section Age less than 6 months? No Allergy to eggs, chicken, chicken feathers, or chicken dander? No Allergy to thimerosal (a preservative) or formaldehyde, gelatin? No History of severe reaction to any vaccine component or a previous dose of influenza vaccination? No History of Guillain-[place] Syndrome within 6 weeks after a previous influenza vaccine? No Patient is not moderately or severely ill? No Current temperature greater or equal to 100.4F? No History of Bone Marrow Transplant prior 6 months or solid organ transplant in the past 3 months ? No History of fainting after a prior injection or medical procedure? No- ? If patient has fainted in the past, the CDC recommends sitting or lying down for 15 minutes after the vaccination. [] VERIFICATION color enhanced section Was the answer Yes for any of the above contraindications? No contraindications present. Acceptable to proceed with vaccine. Patient/guardian agrees the above answers are true to the best of their knowledge? Yes Flu vaccine information sheet given? Yes See immunization activity in [facility] for details of immunizations adminstered today. Patient age: [age] year old For The 3671-2665 Flu Season 6-35 months old: Fluzone 0.25 ml - IM (Preservative Free) 3 years of age: Fluzone 0.5 ml - IM (Preservative Free) 3 years and older: Fluzone 0.5 ml- IM-(with Preservatives) 65+ years old: 2-49 years old Fluzone High-Dose 0.5 ml - IM (Preservative Free) FLUMIST- intranasal REMEMBER: If patient is less than 9 years of age and this is the first vaccine of Influenza to be received in any flu season, they should receive a second dose in one months time. [facility] SCREENING Observed: 06/21/2018 Status: F Source: [place] 8:25 AM [facility] REPOSITORY * * *Final Report* * * DATE OF EXAM: Jun 21 2018 8:25AM [facility] [id number] - [facility] SCREENING / PROCEDURE REASON: Encounter for screening mammogram for malignant neoplasm of breast * * * * Physician Interpretation * * * * RESULT: #[id number] - [facility] SCREENING BILATERAL DIGITAL SCREENING MAMMOGRAM WITH CAD: 06/21/2018 HISTORY: Screening Mammogram - patient reports NO breast symptoms /priors available for comparison. RESULT: TECHNIQUE: The study was acquired using full field digital technology and interpreted from soft copy. Current study was also evaluated with a Computer Aided Detection (CAD). Comparison is made to exams dated: 11/20/2017 mammogram, 05/22/2017 mammogram - [facility], 05/03/2017 mammogram - [facility], 11/16/2016 mammogram, 05/09/2016 mammogram, and 05/01/2016 mammogram - [facility]. There are scattered fibroglandular elements in both breasts. There is a biopsy clip in the left breast. There is a focal asymmetry in the left breast upper outer aspect middle depth. No other significant masses, calcifications, or other findings are seen in either breast. IMPRESSION: INCOMPLETE: NEEDS ADDITIONAL IMAGING EVALUATION The focal asymmetry in the left breast is indeterminate. Additional views are recommended. Noreen gorman/ita:06/21/2018 11:40:15 Operating Table Assembler: Nicole KRISHNAMURTHY)(Lex), [facility] letter sent: Additional Imaging Needed Mammogram BI-RADS: 0 Incomplete: needs additional imaging evaluation If this report indicates you need additional imaging, and it has NOT yet been performed, please call , to schedule. We sincerely thank you for choosing the [facility] for your breast imaging needs. Multiple national specialty organizations have released breast cancer screening guidelines for women at average risk for developing breast cancer - guidelines that are based on both evidence and opinion, yet differ on when to start and how often to screen for breast cancer. With representation from Breast Imaging, Internal Medicine, Women's Health, Family Medicine, and Medical/Surgical Oncology, the [facility] has carefully reviewed the data and reached the following consensus: 1) All women should engage in shared decision-making with their providers to decide when to start and how often to screen; 2) All women should have the opportunity to start screening mammography at age 40; 3) For women ages 45-55, we recommend annual screening mammograms; 4) For women ages 55 and over, we support both the transition from an annual to a biennial interval if this aligns more with patient's values and preferences, or continuation with annual screening; 5) All women should discuss with their providers when to stop screening mammograms. Bereavement Program Coordinator: Ita Transcribe Date/Time: Jun 21 2018 8:07A Dictated by: NOREEN MCKEON MD This examination was interpreted and the report reviewed and electronically signed by: NOREEN MCKEON MD on Jun 21 2018 11:40AM EST [id number] Observed: 06/21/2018 Status: COMPLETED Source: [place] 8:02 AM [facility] REPOSITORY HNO ID: [id number] Author: Meliza Wakefield Service: (none) Author Type: (none) Type: Progress Notes Filed: 06/21/2018 8:03 AM Note Text: Radiology Service Progress Note PATIENT NAME: Ravi Valdez DATE OF SERVICE: June 21, 2018 TIME: 8:02 AM PATIENT IDENTITY VERIFICATION COMPLETED USING TWO (2) METHODS: Patient confirmed name verbally and Date of . PATIENT GENDER DATA: Female. status: : No status: NO. PATIENT RELEVANT IMPLANT DATA REVIEWED: Not Applicable RADIOLOGY DEPARTMENT: [facility] DATA: Not applicable SIGNED BY: Meliza Wakefield June 21, 2018 8:02 AM PLASTIC SURGERY Observed: 06/14/2018 Status: F Source: [place] VISIT REPORT 2:18 PM [facility] REPOSITORY [facility] [address] [place] [address] OFFICE VISIT Date of Service: 06/12/18 MR#: [id number] Acct: [id number] Name: RAVI VALDEZ Rep #: [id number] : 1975 Provider: Rambo Man MD Age/Sex: 43/F Location: [facility] Status: Signed Intake Vital Signs06/12/18 Height 5 ft 1 in 06/12/18 Weight: 273 lb 6 oz Intake Visit Reasons: evaluation hidradenitis Sack Keeper Required: No Accompanied by: Is patient in pain?: No Allergies Sulfa (Sulfonamide Antibiotics) Adverse Reaction (Verified 06/12/18 10:16) Nausea Medications Cholecalciferol (Vitamin D3) [Vitamin D3] 5,000 unit PO DAILY 12/10/14 [History Confirmed 05/22/17] Lisinopril/Hydrochlorothiazide [Zestoretic 20/25 Tablet] 1 tab PO DAILY 12/10/14 [History Confirmed 05/22/17] Metoprolol Tartrate [Lopressor (beta rainer)] 50 mg PO BID 12/10/14 [History Confirmed 05/22/17] Montelukast [Singulair] 10 mg PO QHS 12/10/14 [History Confirmed 04/04/16] Sertraline HCl [Zoloft] 50 mg PO DAILY 12/10/14 [History Confirmed 05/22/17] Sertraline HCl [Zoloft] 100 mg PO QHS 11/02/15 [History Confirmed 04/04/16] Albuterol IH (ProAir) [Proair Hfa] 1 puff INHALATION Q6H PRN PRN 11/10/15 [History Confirmed 05/22/17] Cetirizine HCl [Zyrtec] 10 mg PO DAILY 11/10/15 [History Confirmed 05/22/17] Fluticasone/Salmeterol [Advair 250/50 Mcg Diskus] 1 puff INHALATION DAILY 11/10/15 [History Confirmed 05/22/17] Ascorbic Acid [Vitamin C] 500 mg PO DAILY@0800 04/04/16 [History Confirmed 05/22/17] Meloxicam 15 mg PO DAILY #30 tab 05/22/17 [Rx] Ranitidine [Zantac] 75 mg PO DAILY 05/22/17 [History Confirmed 05/22/17] buPROPion tablets [Wellbutrin] 75 mg PO DAILY 05/22/17 [History Confirmed 05/22/17] doxycycline hyclate 100 mg capsule 100 mg PO BID #28 cap 05/01/18 [Rx] Is last menstrual period known: No Post menopausal: Yes Patient : No PFSH Medical History Arthritis (Acute) Asthma (Acute) Back problem (Acute) Carpal tunnel syndrome (Acute) Chronic sinus complaints (Acute) Depression (emotion) (Acute) Fibromyalgia (Acute) Frequent headaches (Acute) Hidradenitis (Acute) Multiple allergies (Acute) Recurrent infections (Acute) Rheumatoid arthritis (Acute) Vision problems (Acute) Vitamin deficiency (Acute) High blood pressure (Chronic) Surgical History Carpal tunnel syndrome on both sides (Acute) Hidradenitis (Acute) History of 3 sections (Acute) History of hysterectomy (Acute) History of tonsillectomy (Acute) Family History Mother Anxiety Asthma Depression (emotion) Diabetes Heart disease Hypertension COPD (chronic obstructive pulmonary disease) Osteoporosis Cancer Father Bleeding disorder Kidney disease Cancer Grandmother Ovarian cancer Sister defect Social History Smoking Status: Current some day smoker alcohol intake: current substance use type: does not use additional social history: DOES NOT USE ASPIRIN DOES NOT USE IBUPROFEN HPI evaluation hidradenitis: Details: HISTORY OF PRESENT ILLNESS 43 year old woman presents with complaints of recent flare ups of her hidradenitis in her bilateral axillary areas, worse on the right. She has been on Doxycycline recently. She denies any fever. She denies any drainage. She is also concerned about hidradenitis in her abdominal wall skin crease with an overhanging panniculus with panniculitis. She would develop bumps mostly on the right side of the skin crease with spontaneous drainage. She denies trauma. She has had previous excision of hidradenitis in her left inguinal area and right perineal/gluteal area She presents at this time for further evaluation and treatment. REVIEW OF SYSTEMS General - Denies fever and weight loss. Has fatigue. Eyes - Denies cataracts and glaucoma. ENT - Denies nasal congestion and sore throat. Endocrine - Denies excessive thirst and urination. Skin - Has flare ups of hidradenitis in her bilateral axillary areas and abdominal wall skin crease. Has family history of skin cancer. Musculoskeletal - Has joint pain, weakness of muscles and joints, back pain. Denies joint stiffness and arthritis. Neuro - Has headaches. Cardiovascular - Denies chest pain, fatigue, and shortness of breath with exertion. Psych - Denies anxiety. Has depression. Respiratory - Has chronic cough and shortness of breath. Patient is a smoker. Gastrointestinal - Denies nausea, vomiting, diarrhea, and constipation. Hematologic - Denies bleeding. Has abnormal bruising. Has history of blood clot. Genitourinary - Denies hematuria and urinary frequency. PHYSICAL EXAMINATION General - Alert and Oriented HEENT - PERRL. EOMI. Throat is clear. Neck - Supple and nontender. No cervical adenopathy. Lungs - Clear to auscultation. Heart - Regular rate and rhythm. Abdomen - Soft and nondistended. Has abdominal wall panniculus with some panniculitis. There is some overhang of the panniculus. There is evidence of abdominal wall skin crease intertrigo mostly on the right side. No purulent drainage noted. Extremities - FROM. No axillary adenopathy. Hard to palpate because of the presence of overlying pain and induration and swelling. No purulent drainage noted. On the right measures 7 cm. On the left measures 5 cm. Just below the left axillary hidradenitis is an isolated lesion that measures 1 cm. Slightly erythematous. Mild tenderness to palpation. No purulent drainage. There is tenderness to palpation on the right axilla. Radial pulses are palpable. Neuro - CN II-XII grossly intact. Psych - Normal mood and affect. ASSESSMENT 1. Painful right axillary hidradenitis. 2. Left axillary hidradenitis, stable. 3. Abdominal wall skin crease intertrigo with hidradenitis. 4. Abdominal panniculus. 5. Abdominal panniculitis. 6. Smoker. 7. History of JURGEN. PLAN Recommend excision of her hidradenitis right axilla since it is more symptomatic than on the left axilla at this time. Will send tissue to Pathology for analysis to rule out carcinoma and to Microbiology for culture. A positive culture will necessitate antibiotic therapy. Will leave the wound open and proceed with wound care with the VAC or with daily Silver dressings. After discharge she can followup at the [facility]. If there is a plateau in the healing process, can proceed with delayed closure with skin grafting. After healing has occurred, can then address the left axilla if symptomatic in the future. Also an abdominal panniculectomy will need to be done after the axillary hidradenitis has been surgically treated. Patient was informed of the risks and complications of the procedure including alternatives to surgery. These were discussed with the patient personally. Patient voices understanding and wishes to proceed. Some of the risks and complications were included in a form from the [place] [employer]. Surgery would be done under general anesthesia with a surgical observation overnight stat in the hospital. Encouraged patient to stop smoking as it may have deleterious effects on wound healing. In the meantime, she is scheduled for a left knee replacement on 06/27/18. Her hidradenitis at the present time is stable, and she should be able to proceed with her knee surgery. In the meantime, I recommend she continue her Doxycycline until her knee surgery to minimize a flare up. Told her that if there are any issues with her hidradenitis on the day of surgery, it will be cancelled until a later date when the flare up has been treated. Also after her knee surgery, she will check with her Orthopedic Surgeon to see how many weeks we need to wait until they are comfortable with us proceeding with her hidradenitis surgery. Assessment AND Plan Problems 1. Hidradenitis L73.2 2. Abdominal panniculus E65 3. Panniculitis M79.3 4. Intertrigo L30.4 5. Smoker F17.200 6. History of staph infection Z86.19 Coding Level of Care Code Off vis,est,level 3 Diagnoses Hidradenitis L73.2 Abdominal panniculus E65 Panniculitis M79.3 Intertrigo L30.4 Smoker F17.200 History of staph infection Z86.19 06/14/18 1418 <Electronically signed by Rambo Man MD> Date Rambo Man MD Cosigner Signature: Date (if applicable) CC: Ceasar Persaud, DO CT LOWER EXT W/O Observed: 06/04/2018 Status: F Source: [facility] CONTRAST 1:48 PM [facility] REPOSITORY Final Report Accession No: [id number] Performed: Jun 04 2018 1:48PM Examination: LEFT CT LOWER EXT W/O CONTRAST EXAM TYPE: CT LOWER EXT W/O CONTRAST LEFT EXAM DATE AND TIME: 06/04/2018 1:48 PM EDT INDICATION: 43-year-old female with osteoarthritis. Robotic preoperative planning. COMPARISON: MRI knee 12/07/2016. TECHNIQUE: Axial CT imaging of the left hip, knee and ankle without contrast. Dose reduction techniques were achieved by using automated exposure control and/or adjustment of mA and/or kV according to patient size and/or use of iterative reconstruction technique. FINDINGS: KNEE: No acute osseous abnormality. Tricompartmental joint space narrowing with subchondral sclerosis, subchondral cystic changes and marginal osteophytes, most significant within the medial knee and patellofemoral compartments. Small joint effusion. Normal surrounding muscle bulk. HIP: No acute osseous abnormality. Small ischial tuberosity enthesophyte at the hamstring tendon origin. No CT evidence of avascular necrosis of the femoral head. Normal alignment. No significant osteoarthritis. No significant joint effusion. ANKLE: No acute osseous abnormality. Normal joint alignment. No significant osteoarthritis. Surrounding soft tissues appear unremarkable IMPRESSION: 1. Left knee tricompartmental osteoarthritis, most significant in the medial knee and patellofemoral compartments. 2. Small joint effusion. 3. No significant degenerative changes of the left hip and ankle. Interpreting Physician: BILLY MAYES D.O. Trans: dw : cc: CBC WITH DIFF Collected: 06/04/2018 Status: F Source: [facility] 10:45 AM [facility] REPOSITORY TYPE CODE TESTS RESULT OUT OF RANGE REFERENCE UNITS LAB WBC 3.4-10.6 K/mcL WBC Normal 10.4 LAB RBC 3.7-5.0 M/mcL RBC Normal 4.26 LAB HGB 11.6-15.4 g/dL Normal Hemoglobin 12.8 LAB HCT 34.4-44.8 % Normal Hematocrit 38.5 LAB MCV 82.6-98.9 FL MCV Normal 90.4 LAB MCH 27.9-33.9 pg MCH Normal 30.1 LAB MCHC 33.1-35.1 g/dL MCHC Normal 33.3 LAB RDW 10.0-14.4 % RDW Normal 13.3 LAB PLT 162-402 K/mcL Platelet Normal Count 329 LAB MPV 7.0-10.6 FL MPV Normal 10.2 LAB NEUT# 1.2-6.9 K/mcL Normal Neutrophil # 6.8 LAB LYMPH# 1.0-3.7 K/mcL Normal Lymphocyte # 2.7 LAB MONO# 0.1-0.6 K/mcL Monocyte Normal # 0.5 LAB EOS# 0-0.5 K/mcL Normal Eosinophil # 0.3 LAB BASO# 0-0.2 K/mcL Basophil Normal # 0.1 LAB SEGNEU% % Normal Segmented Neut % 65.3 LAB LYMP% % Normal Lymphocyte% 25.8 LAB MO% % Monocyte Normal % 5.0 LAB EO% % Normal Eosinophil % 2.8 LAB BA% % Basophil Normal % 1.1 Performed By: #### CHEM8, CBCDIF #### Unless otherwise noted, all testing performed by [place] [id number] CLIA: [id number] Social Service Worker: Rizwan Redding M.D. BASIC METABOLIC PANEL Collected: 06/04/2018 Status: F Source: [facility] 10:45 AM [facility] REPOSITORY TYPE CODE TESTS RESULT OUT OF RANGE REFERENCE UNITS LAB GLU 70-99 mg/dL Normal Glucose 82 Result Comment: This test result might be falsely depressed or falsely elevated on samples drawn from patients taking Sulfasalazine and Sulfapyridine. Venipuncture should occur prior to taking either of these drugs. LAB BUN 8-25 mg/dL Normal BUN 12 LAB CREA 0.40-1.10 mg/dL Normal Creatinine 0.78 LAB eGFR ml/min/1.73s Normal q.m eGFR,NonAfrican-A merican >=60 Result Comment: Non- GFR Calc eGFR is an estimated Glomerular Filtration Rate based on the value of the patient's serum creatinine. In outpatients, eGFR should be used as a helpful tool in screening for CKD. In inpatients or patients with acute renal failure, eGFR represents the GFR at the moment of the draw and should be used with caution. LAB eGFRB ml/min/1.73sq.m eGFR, Normal -[place] >=60 Result Comment: GFR Calc LAB CALCM 8.4-10.2 mg/dL Calcium Normal 9.2 LAB NA 135-145 mmol/L Sodium Normal 137 LAB K 3.5-5.1 mmol/L Low Potassium 3.3 LAB CL 98-108 mmol/L Chloride Normal 98 LAB CO2 21-32 mmol/L CO2 Normal 31 Performed By: #### CHEM8, CBCDIF #### Unless otherwise noted, all testing performed by [place] [id number] CLIA: [id number] Social Service Worker: Rizwan Redding M.D. Observed: 06/04/2018 Status: F Source: [facility] MRSA SCREEN 10:45 AM [facility] REPOSITORY Test Name: MRSA Screen Culture Status: Final MRSA Screen: Negative Performed By: #### MRSASCR #### Unless otherwise noted, all testing performed by [place] [id number] CLIA: [id number] Social Service Worker: Rizwan Redding M.D. CNPTOUTREACH Observed: 06/04/2018 Status: COMPLETED Source: [place] 12:00 AM [facility] REPOSITORY Patient Outreach (FAMPST) RAVI VALDEZ ([id number]) 1975 F Date Time Provider Department 06/04/18 CEASAR BAEZ FAMPST During your visit today, we recorded the following information about you: Allergies As of Date: 06/04/2018 Noted Allergy Reaction SEASONAL ALLERGIES 10/15/2014 14 - Other: See Comments Comments: Sneezing, runny nose Date Reviewed: 05/29/2018 Reviewed by: Mackenzie Arceo - Fully Assessed Visit Diagnosis:Medication management [Z79.899] Order(s):HGB A1C [ALJJN4A] Order #: [id number] FUTURE LIPID PANEL BASIC [SQLIPB] Order #: [id number] FUTURE Prescriptions as of 06/04/2018 Sig: X DULOXETINE 60 MG CAPSULE,ERNESTO* Take 1 capsule by mouth once * BUSPIRONE 5 MG TABLET Take 1-2 tablets by mouth thr* X POTASSIUM CHLORIDE 20 MEQ/15 * Take 15 mL by mouth twice idalia* FLUTICASONE-SALMETEROL 45 MCG* Inhale 2 Puffs as instructed * BUPROPION XL 300 MG 24 HR TAB Take 1 tablet by mouth once d* POTASSIUM CHLORIDE ER 20 MEQ * Take 1 tablet by mouth twice * SUMATRIPTAN 100 MG TABLET Take 1 tablet by mouth as nee* CETIRIZINE 10 MG TABLET Take 1 tablet by mouth once d* CHOLECALCIFEROL (VITAMIN D3) * Take 1 capsule by mouth once * OMEPRAZOLE 40 MG CAPSULE,ERNESTO* Take 1 capsule by mouth once * ALBUTEROL SULFATE HFA 90 MCG/* Inhale 2 Puffs as instructed * DICYCLOMINE 10 MG CAPSULE Take 1 capsule by mouth befor* MELOXICAM 15 MG TABLET Take 1 tablet by mouth once d* X LISINOPRIL 20 MG-HYDROCHLOROT* Take 1 tablet by mouth once d* X METOPROLOL TARTRATE 50 MG TAB* Take 1 tablet by mouth twice * X MONTELUKAST 10 MG TABLET Take 1 tablet by mouth daily * CONJUGATED ESTROGENS 0.625 MG* Take 0.625 mg by mouth once d* BETAMETHASONE VALERATE 0.1 % * Apply 1 application to affect* NYSTATIN 100,000 UNIT/GRAM TO* Apply 1 application to affect* NYSTATIN (BULK) 100 MILLION U* 1 application three times idalia* ASCORBIC ACID (VITAMIN C) 500* Take 1 tablet by mouth once d* Problem List As Of Date 06/04/2018 Noted Resolved Hypertension [I10] INVALID FOR* Impaired fasting glucose [R73.01] INVALID FOR* Obesity, Class III, BMI 40-49.9 (morbid obesity*INVALID FOR* Vitamin D deficiency [E55.9] INVALID FOR* Pure hypercholesterolemia [E78.00] INVALID FOR* Essential hypertension [I10] INVALID FOR* Obstructive sleep apnea syndrome [G47.33] INVALID FOR* Fibromyalgia [M79.7] INVALID FOR* Encounter Status:Closed by CHRISTIAN DAVILAUSETammy on 07/05/18 CBC AND DIFFERENTIAL Collected: 05/29/2018 Status: F Source: [place] 11:37 AM [facility] REPOSITORY TYPE CODE TESTS RESULT OUT OF REFERENCE UNITS RANGE LAB WBC 3.70-11.00 k/uL WBC 9.43 LAB RBC 3.90-5.20 m/uL RBC 4.13 LAB HGB 11.5-15.5 g/dL Hemoglobin 12.5 LAB HCT 36.0-46.0 % Hematocrit 39.3 LAB MCV 80.0-100.0 fL MCV 95.2 LAB MCH 26.0-34.0 pG MCH 30.3 LAB MCHC 30.5-36.0 g/dL MCHC 31.8 LAB RDWCV 11.5-15.0 % RDW-CV 12.9 LAB PLTCT 150-400 k/uL Platelet Count 319 LAB MPV 9.0-12.7 fL MPV 12.2 LAB ANEUT % Neut% 67.1 LAB AANEUT 1.45-7.50 k/uL Abs Neut 6.32 LAB ALYMP % Lymph% 23.5 LAB AALYMP 1.00-4.00 k/uL Abs Lymph 2.22 LAB AMONO % Mills% 6.6 LAB AAMONO <0.87 k/uL Abs Mills 0.62 LAB AEOS % Eosin% 2.0 LAB AAEOS <0.46 k/uL Abs Eosin 0.19 LAB ABASO % Baso% 0.8 LAB AABASO <0.11 k/uL Abs Baso 0.08 LAB AUNRBC 0 /100 WBC NRBCs 0.0 LAB ABNRBC <0.01 k/uL Absolute nRBC <0.01 LAB DTYP DTYPE Auto Diff Performed By: #### CBCDIF, FT4, BMP, TSH #### [facility] [address] [place], [place] [address] FREE T4 Collected: 05/29/2018 Status: F Source: [place] 11:37 AM [facility] REPOSITORY TYPE CODE TESTS RESULT OUT OF RANGE REFERENCE UNITS LAB FT4 0.9-1.7 ng/dL Free T4 1.0 Performed By: #### CBCDIF, FT4, BMP, TSH #### [facility] [address] [place], [place] [address] BASIC METABOLIC PANL Collected: 05/29/2018 Status: F Source: [place] 11:37 AM [facility] REPOSITORY TYPE CODE TESTS RESULT OUT OF REFERENCE UNITS RANGE LAB GLU 74-99 mg/dL Glucose 92 Result Comment: The [place] Diabetes Association (ADA) provides guidance for cutoff values for fasting glucose and random glucose. The ADA defines fasting as no caloric intake for at least 8 hours. Fas ting plasma glucose results between 100 to 125 mg/dL indicate increased risk for diabetes (prediabetes). Fasting plasma glucose results greater than or equal to 126 mg/dL meet the criteria for diagnosis of diabetes. In the absence of unequivocal hyperglycemia, results should be confirmed by repeat testing. In a patient with classic symptoms of hyperglycemia or hyperglycemic crisis, random plasma glucose results greater than or equal to 200 mg/dL meet the criteria for diagnosis of diabetes. Reference: Standards of Medical Care in Diabetes 2016, [place] [employer] Association. Diabetes Care. 2016.39(Suppl 1). LAB BUN 7-21 mg/dL BUN 10 LAB CRET 0.58-0.96 mg/dL Creatinine 0.70 LAB NA 136-144 mmol/L Sodium 138 LAB K 3.7-5.1 mmol/L Potassium Low 3.5 LAB CL 97-105 mmol/L Chloride 98 LAB CO2 22-30 mmol/L CO2 23 LAB AGAP 9-18 mmol/L Anion Gap 17 LAB CA 8.5-10.2 mg/dL Calcium, Total 9.2 LAB GFRAA eGFR- Amer. >60 LAB GFRNAA . eGFR-All Other Races >60 Result Comment: eGFR (Estimated GFR) Units of measure: mL/min/1.73 meters squared eGFR is derived from the reexpressed MDRD Study equation using the following parameters: serum creatinine, age, gender and race. The creatinine assay has been calibrated to be traceable to IDMS. An eGFR <60 mL/min/1.73m2 for >3 months is consistent with chronic kidney disease. Refer to KDOQI guidelines for clinical interpretation. In patients with unstable renal function, e.g. those with acute kidney injury, the eGFR may not accurately reflect actual GFR. Performed By: #### CBCDIF, FT4, BMP, TSH #### [facility] [address] [place], [place] [address] TSH Collected: 05/29/2018 Status: F Source: [place] 11:37 AM [facility] REPOSITORY TYPE CODE TESTS RESULT OUT OF RANGE REFERENCE UNITS LAB TSH 0.400-5.500 uU/mL TSH 2.740 Result Comment: If the patient is , TSH reference range varies by gestational period: First Trimester 0.100-2.500 uU/mL Second Trimester 0.200-3.000 uU/mL Third Trimester 0.300-3.000 uU/mL References: 1. Almonte L, Radha M, Leonel WANG, et al. Management of Thyroid Dysfunction during and : An Endocrine Society Clinical Practice Guideline. J Clin Endocrinol Metab, 2012:97:0958-5340. 2. Gabriel STEIN. Overview of thyroid disease in . UpToDate. 2016. Accessed on March 03, 2016. Performed By: #### CBCDIF, FT4, BMP, TSH #### [facility] [address] [place], [place] [address] PROGRESS Observed: 05/29/2018 Status: COMPLETED Source: [place] 11:05 AM [facility] REPOSITORY HNO ID: [id number] Author: Mackenzie Arceo Service: (none) Author Type: Physician Insulation Manager Type: Progress Notes Filed: 05/29/2018 11:38 AM Note Text: Chief Complaint Patient presents with: Pain: patient is here for Fibromyalgia flare up Sinusitis HPI Ravi Valdez is a 43 year old female who presents here today for Above Complaints.. Patient with PMH of fibromyalgia that has been relatively well managed. In the past couple weeks she is feeling really tired and sore. States that she was dx with years ago. Doesn't feel like she is sleeping well. Has dx of JAN but not currently using CPAP. States insurance took it away because she wasn't utilizing it. Anxiety is worse Doesn't feel like depression is worse but not necessarily controlled. She reports feeling very overwhelmed. Since starting the Cymbalta had initial improvement but doesn't seem to help much now. Seeing ortho for knee pain. Is scheduled for knee surgery next month Last 3 Encounter Wt Readings: Date: Wt: 05/29/2018 123.8 kg (273 lb) 12/18/2017 126.1 kg (278 lb) 11/12/2017 125.2 kg (276 lb) Sinus symptoms started yesterday No fevers Mild cough and ST Denies ear pain. Past medical history, appointments, medications, allergies reviewed. Previous Medical History PAST MEDICAL HISTORY Diagnosis Date - Allergic rhinitis - Anxiety - Arthritis - Asthma - Depression - Fibromyalgia - GERD (gastroesophageal reflux disease) - Hidradenitis suppurativa Dr. Man, skin excision - Hypercholesteremia - Hypertension - Irritable bowel syndrome - Migraine - JAN (obstructive sleep apnea) 07/2016 - Vitamin D deficiency Previous Surgical History PAST SURGICAL HISTORY Procedure Laterality Date - SECTION HX x2 - EX SKIN HIDRA/PERIANL SMPLE/INTERMED 03/2016, 10/2015 right abdomen/groin - HYSTERECTOMY HX only uterus/cervix - REVISE MEDIAN N/CARPAL TUNNEL SURG Bilateral 2011 Carpal tunnel decomp - TONSILLECTOMY AND ADENOIDECTOMY HX - TUBAL LIGATION HX Family History FAMILY HISTORY Problem Relation Age of Onset - Diabetes Mother - COPD Mother - Hypertension Mother - Asthma Mother - Osteoporosis Mother - Kidney Disease Father ? - Cancer Father Leukemia 50 - Hypertension Maternal Grandmother - Cancer Maternal Grandmother unknown - Cancer Paternal Grandmother Ovarian Patient Allergies ALLERGIES Allergen Reactions - Seasonal Allergies Other: See Comments Sneezing, runny nose Current Medications Current Outpatient Prescriptions on File Prior to Visit: busPIRone (BUSPAR) 5 mg tablet Take 1-2 tablets by mouth three times daily as needed. potassium chloride 20 mEq/15 mL solution Take 15 mL by mouth twice daily. buPROPion XL (WELLBUTRIN XL) 300 mg 24 hr tablet Take 1 tablet by mouth once daily. DULoxetine (CYMBALTA) 20 mg capsule Take 1 capsule by mouth once daily. lisinopril-hydrochlorothiazide (PRINZIDE, ZESTORETIC) 20-25 mg per tablet Take 1 tablet by mouth once daily. metoprolol tartrate, short acting, (LOPRESSOR) 50 mg tablet Take 1 tablet by mouth twice daily. montelukast (SINGULAIR) 10 mg tablet Take 1 tablet by mouth daily at bedtime. SUMAtriptan (IMITREX) 100 mg tablet Take 1 tablet by mouth as needed. cetirizine (ZYRTEC) 10 mg tablet Take 1 tablet by mouth once daily. Cholecalciferol, Vitamin D3, 5,000 unit cap Take 1 capsule by mouth once daily. Omeprazole (PRILOSEC) 40 mg capsule Take 1 capsule by mouth once daily. albuterol HFA (PROAIR HFA) 90 mcg/actuation inhaler Inhale 2 Puffs as instructed every 4 hours as needed for Wheezing/Shortness of Breath. meloxicam (MOBIC) 15 mg tablet Take 1 tablet by mouth once daily. betamethasone valerate 0.1 % cream Apply 1 application to affected area twice daily as needed. nystatin (MYCOSTATIN) cream Apply 1 application to affected area twice daily as needed. nystatin, bulk, 100 million unit powd 1 application three times daily as needed. ascorbic acid (VITAMIN C) 500 mg tablet Take 1 tablet by mouth once daily. fluticasone-salmeterol HFA (ADVAIR) 45-21 mcg/actuation inhaler Inhale 2 Puffs as instructed twice daily. potassium chloride ER (K-DUR, KLOR-CON) 20 mEq tablet Take 1 tablet by mouth twice daily. dicyclomine (BENTYL) 10 mg capsule Take 1 capsule by mouth before meals and at bedtime. estrogens conjugated (PREMARIN) 0.625 mg tablet Take 0.625 mg by mouth once daily. No current facility-administered medications on file prior to visit. Social History Social History Marital status: Legally Spouse name: Years of education: Number of children: 3 Social History Main Topics Smoking status: Former Smoker Packs/day: 0.10 Years: 0.00 Smokeless tobacco: Never Used Comment: intermittently for years Alcohol use: Yes Comment: Occasionally Drug use: No Review of Symptoms REVIEW OF SYSTEMS See HPI EXAM: BP 130/98 (BP Site: Right Arm, BP Position: Sitting, BP Cuff Size: Large Adult) Pulse 76 Resp 12 Wt 123.8 kg (273 lb) BMI 51.58 kg/m? BP 122/96 Pulse 76 Resp 12 Wt 123.8 kg (273 lb) BMI 51.58 kg/m? General Appearance: Well appearing, alert, in no acute distress, well-hydrated, well nourished. Morbid obesity Ears: External ears normal, canals clear, TMs pearly jenkins. Nose/Sinuses: Positive findings: mucosa erythematous and swollen. Sinus pressure to palp Oropharynx: Lips, mucosa, and tongue normal, teeth and gums normal, oropharynx normal. Neck: Supple, no adenopathy; thyroid symmetric, normal size, no bruits. Lungs: Lungs clear to auscultation. No wheezing, rhonchi, rales. Heart: RRR without murmur, gallop, or rubs. No ectopy. Extremities: No deformities, edema, skin discoloration, clubbing or cyanosis. Good capillary refill. . Peripheral Pulses: Normal. Health Maintenance List BP CONTROLLED (<130/80) due on 02/18/1994 MAMMOGRAM due on 05/03/2018 INFLUENZA(1) due on 05/18/2018 STEROID INHALER PRESCRIBED due on 06/17/2018 STEROID INHALER ADHERENCE due on 06/17/2018 ANNUAL PCP TEAM CHRONIC DISEASE VISIT due on 12/18/2018 DTAP,TDAP,TD(2 - Td) due on 12/30/2021 Data reviewed Component Latest Ref Rng AND Units 10/31/2017 11/20/2017 12/18/2017 01/14/2018 WBC 3.70 - 11.00 k/uL 9.94 RBC 3.90 - 5.20 m/uL 4.23 Hemoglobin 11.5 - 15.5 g/dL 12.2 Hematocrit 36.0 - 46.0 % 39.0 MCV 80.0 - 100.0 fL 92.2 MCH 26.0 - 34.0 pG 28.8 MCHC 30.5 - 36.0 g/dL 31.3 RDW-CV 11.5 - 15.0 % 13.6 Platelet Count 150 - 400 k/uL 323 MPV 9.0 - 12.7 fL 12.5 Neut% % 67.1 Abs Neut (ANC) 1.45 - 7.50 k/uL 6.66 Lymph% % 22.6 Abs Lymph 1.00 - 4.00 k/uL 2.25 Mills% % 6.6 Abs Mills <0.87 k/uL 0.66 Eosin% % 2.9 Abs Eosin <0.46 k/uL 0.29 Baso% % 0.8 Abs Baso <0.11 k/uL 0.08 Nucleated Reds 0 /100 WBC 0.0 Absolute nRBC <0.01 k/uL <0.01 Diff Type Auto Diff Protein, Total 6.3 - 8.0 g/dL 7.5 7.8 Albumin 3.9 - 4.9 g/dL 3.8 (L) 3.8 (L) Calcium 8.5 - 10.2 mg/dL 9.6 9.3 Bilirubin, Total 0.2 - 1.3 mg/dL 0.3 0.3 Alkaline Phosphatase 32 - 117 U/L 136 (H) 141 (H) AST 13 - 35 U/L 18 15 Glucose 74 - 99 mg/dL 86 90 BUN 7 - 21 mg/dL 14 12 Creatinine 0.58 - 0.96 mg/dL 0.92 0.76 Sodium 136 - 144 mmol/L 137 137 Potassium 3.7 - 5.1 mmol/L 3.6 (L) 3.6 (L) 3.5 (L) 3.7 Chloride 97 - 105 mmol/L 98 95 (L) CO2 22 - 30 mmol/L 24 27 Anion Gap 9 - 18 mmol/L 15 15 ALT 7 - 38 U/L 16 15 eGFR- >60 >60 eGFR-All Other Races . >60 >60 Iron 41 - 186 ug/dL 62 TIBC 232 - 386 ug/dL 325 Transferrin Saturation 15 - 57 % 19 IgA 78 - 391 mg/dL 307 Transglutaminase Ab, IgA <20 Units 4 Interpretation (Celiac Screen) No serologic evidence of celiac disease. No serologic evidence of celiac disease. Ferritin 14.7 - 205.1 ng/mL 149.9 ASSESSMENT/PLAN: 1. Fibromyalgia - ICD9: 729.1, ICD10: M79.7 (primary diagnosis) Increase cymbalta to 60mg daily Check labs - TSH BLD - T4 FREE/FREE THYROX 2. Fatigue, unspecified type - ICD9: 780.79, ICD10: R53.83 Consider worsening JAN vs SE of depression/anxiety and fibro Check labs - CBC + DIFF - TSH BLD - T4 FREE/FREE THYROX - BASIC METABOLIC PNL 3. Essential hypertension - ICD9: 401.9, ICD10: I10 - suboptimal control - Continue current medication(s) - Recommended regular aerobic exercise. - Recommend home blood pressure monitoring, to bring results in on next visit - Recheck at next office visit - Goal of BP <130/80 4. Severe single current episode of major depressive disorder, without psychotic features ([facility]) - ICD9: 296.23, ICD10: F32.2 Increase cymbalta to 60mg daily Continue buspar and wellbutrin - DULOXETINE 60 MG CAPSULE,DELAYED RELEASE 5. Anxiety neurosis - ICD9: 300.00, ICD10: F41.1 See above - DULOXETINE 60 MG CAPSULE,DELAYED RELEASE 6. Obstructive sleep apnea syndrome - ICD9: 327.23, ICD10: G47.33 Consider restarting CPAP 7. URI, acute - ICD9: 465.9, ICD10: J06.9 - Discussed viral etiology and rationale for treatment. - Symptomatic treatment with prn analgesia - Supportive care with fluids and rest - Follow up in one week if symptoms persist or sooner if worsening of symptoms 8. Obesity, Class III, BMI 40-49.9 (morbid obesity) ([facility]) - ICD9: 278.01, ICD10: E66.01 Discussed how patient's weight and lack of exercise can contribute chronic fatigue and pain. Recommend daily exercise- low impact or water aerobics. Keep follow up as scheduled in June. Check labs Time with patient face to face was 25 min JERED ARCEO PA-C CNOV Observed: 05/29/2018 Status: COMPLETED Source: [place] 11:00 AM [facility] REPOSITORY Office Visit (FAMPWS) RAVI VALDEZ ([id number]) 1975 F Date Time Provider Department 05/29/18 11:00 AM BO ARCEO) FAMGARETH During your visit today, we recorded the following information about you: Pulse Respiration Blood pressure Weight 76/minute 12/minute 122/96 123.8 kg JERED ARCEO PA-C 05/29/2018 11:38 AM Signed Chief Complaint Patient presents with: Pain: patient is here for Fibromyalgia flare up Sinusitis HPI Ravi Poseyall is a 43 year old female who presents here today for Above Complaints.. Patient with PMH of fibromyalgia that has been relatively well managed. In the past couple weeks she is feeling really tired and sore. States that she was dx with years ago. Doesn't feel like she is sleeping well. Has dx of JAN but not currently using CPAP. States insurance took it away because she wasn't utilizing it. Anxiety is worse Doesn't feel like depression is worse but not necessarily controlled. She reports feeling very overwhelmed. Since starting the Cymbalta had initial improvement but doesn't seem to help much now. Seeing ortho for knee pain. Is scheduled for knee surgery next month Last 3 Encounter Wt Readings: Date: Wt: 05/29/2018 123.8 kg (273 lb) 12/18/2017 126.1 kg (278 lb) 11/12/2017 125.2 kg (276 lb) Sinus symptoms started yesterday No fevers Mild cough and ST Denies ear pain. Past medical history, appointments, medications, allergies reviewed. Previous Medical History PAST MEDICAL HISTORY Diagnosis Date - Allergic rhinitis - Anxiety - Arthritis - Asthma - Depression - Fibromyalgia - GERD (gastroesophageal reflux disease) - Hidradenitis suppurativa Dr. Man, skin excision - Hypercholesteremia - Hypertension - Irritable bowel syndrome - Migraine - JAN (obstructive sleep apnea) 07/2016 - Vitamin D deficiency Previous Surgical History PAST SURGICAL HISTORY Procedure Laterality Date - SECTION HX x2 - EX SKIN HIDRA/PERIANL SMPLE/INTERMED 03/2016, 10/2015 right abdomen/groin - HYSTERECTOMY HX only uterus/cervix - REVISE MEDIAN N/CARPAL TUNNEL SURG Bilateral 2011 Carpal tunnel decomp - TONSILLECTOMY AND ADENOIDECTOMY HX - TUBAL LIGATION HX Family History FAMILY HISTORY Problem Relation Age of Onset - Diabetes Mother - COPD Mother - Hypertension Mother - Asthma Mother - Osteoporosis Mother - Kidney Disease Father ? - Cancer Father Leukemia 50 - Hypertension Maternal Grandmother - Cancer Maternal Grandmother unknown - Cancer Paternal Grandmother Ovarian Patient Allergies ALLERGIES Allergen Reactions - Seasonal Allergies Other: See Comments Sneezing, runny nose Current Medications Current Outpatient Prescriptions on File Prior to Visit: busPIRone (BUSPAR) 5 mg tablet Take 1-2 tablets by mouth three times daily as needed. potassium chloride 20 mEq/15 mL solution Take 15 mL by mouth twice daily. buPROPion XL (WELLBUTRIN XL) 300 mg 24 hr tablet Take 1 tablet by mouth once daily. DULoxetine (CYMBALTA) 20 mg capsule Take 1 capsule by mouth once daily. lisinopril-hydrochlorothiazide (PRINZIDE, ZESTORETIC) 20-25 mg per tablet Take 1 tablet by mouth once daily. metoprolol tartrate, short acting, (LOPRESSOR) 50 mg tablet Take 1 tablet by mouth twice daily. montelukast (SINGULAIR) 10 mg tablet Take 1 tablet by mouth daily at bedtime. SUMAtriptan (IMITREX) 100 mg tablet Take 1 tablet by mouth as needed. cetirizine (ZYRTEC) 10 mg tablet Take 1 tablet by mouth once daily. Cholecalciferol, Vitamin D3, 5,000 unit cap Take 1 capsule by mouth once daily. Omeprazole (PRILOSEC) 40 mg capsule Take 1 capsule by mouth once daily. albuterol HFA (PROAIR HFA) 90 mcg/actuation inhaler Inhale 2 Puffs as instructed every 4 hours as needed for Wheezing/Shortness of Breath. meloxicam (MOBIC) 15 mg tablet Take 1 tablet by mouth once daily. betamethasone valerate 0.1 % cream Apply 1 application to affected area twice daily as needed. nystatin (MYCOSTATIN) cream Apply 1 application to affected area twice daily as needed. nystatin, bulk, 100 million unit powd 1 application three times daily as needed. ascorbic acid (VITAMIN C) 500 mg tablet Take 1 tablet by mouth once daily. fluticasone-salmeterol HFA (ADVAIR) 45-21 mcg/actuation inhaler Inhale 2 Puffs as instructed twice daily. potassium chloride ER (K-DUR, KLOR-CON) 20 mEq tablet Take 1 tablet by mouth twice daily. dicyclomine (BENTYL) 10 mg capsule Take 1 capsule by mouth before meals and at bedtime. estrogens conjugated (PREMARIN) 0.625 mg tablet Take 0.625 mg by mouth once daily. No current facility-administered medications on file prior to visit. Social History Social History Marital status: Legally Spouse name: Years of education: Number of children: 3 Social History Main Topics Smoking status: Former Smoker Packs/day: 0.10 Years: 0.00 Smokeless tobacco: Never Used Comment: intermittently for years Alcohol use: Yes Comment: Occasionally Drug use: No Review of Symptoms REVIEW OF SYSTEMS See HPI EXAM: BP 130/98 (BP Site: Right Arm, BP Position: Sitting, BP Cuff Size: Large Adult) Pulse 76 Resp 12 Wt 123.8 kg (273 lb) BMI 51.58 kg/m? BP 122/96 Pulse 76 Resp 12 Wt 123.8 kg (273 lb) BMI 51.58 kg/m? General Appearance: Well appearing, alert, in no acute distress, well-hydrated, well nourished. Morbid obesity Ears: External ears normal, canals clear, TMs pearly jenkins. Nose/Sinuses: Positive findings: mucosa erythematous and swollen. Sinus pressure to palp Oropharynx: Lips, mucosa, and tongue normal, teeth and gums normal, oropharynx normal. Neck: Supple, no adenopathy; thyroid symmetric, normal size, no bruits. Lungs: Lungs clear to auscultation. No wheezing, rhonchi, rales. Heart: RRR without murmur, gallop, or rubs. No ectopy. Extremities: No deformities, edema, skin discoloration, clubbing or cyanosis. Good capillary refill. . Peripheral Pulses: Normal. Health Maintenance List BP CONTROLLED (<130/80) due on 02/18/1994 MAMMOGRAM due on 05/03/2018 INFLUENZA(1) due on 05/18/2018 STEROID INHALER PRESCRIBED due on 06/17/2018 STEROID INHALER ADHERENCE due on 06/17/2018 ANNUAL PCP TEAM CHRONIC DISEASE VISIT due on 12/18/2018 DTAP,TDAP,TD(2 - Td) due on 12/30/2021 Data reviewed Component Latest Ref Rng AND Units 10/31/2017 11/20/2017 12/18/2017 01/14/2018 WBC 3.70 - 11.00 k/uL 9.94 RBC 3.90 - 5.20 m/uL 4.23 Hemoglobin 11.5 - 15.5 g/dL 12.2 Hematocrit 36.0 - 46.0 % 39.0 MCV 80.0 - 100.0 fL 92.2 MCH 26.0 - 34.0 pG 28.8 MCHC 30.5 - 36.0 g/dL 31.3 RDW-CV 11.5 - 15.0 % 13.6 Platelet Count 150 - 400 k/uL 323 MPV 9.0 - 12.7 fL 12.5 Neut% % 67.1 Abs Neut (ANC) 1.45 - 7.50 k/uL 6.66 Lymph% % 22.6 Abs Lymph 1.00 - 4.00 k/uL 2.25 Mills% % 6.6 Abs Mills <0.87 k/uL 0.66 Eosin% % 2.9 Abs Eosin <0.46 k/uL 0.29 Baso% % 0.8 Abs Baso <0.11 k/uL 0.08 Nucleated Reds 0 /100 WBC 0.0 Absolute nRBC <0.01 k/uL <0.01 Diff Type Auto Diff Protein, Total 6.3 - 8.0 g/dL 7.5 7.8 Albumin 3.9 - 4.9 g/dL 3.8 (L) 3.8 (L) Calcium 8.5 - 10.2 mg/dL 9.6 9.3 Bilirubin, Total 0.2 - 1.3 mg/dL 0.3 0.3 Alkaline Phosphatase 32 - 117 U/L 136 (H) 141 (H) AST 13 - 35 U/L 18 15 Glucose 74 - 99 mg/dL 86 90 BUN 7 - 21 mg/dL 14 12 Creatinine 0.58 - 0.96 mg/dL 0.92 0.76 Sodium 136 - 144 mmol/L 137 137 Potassium 3.7 - 5.1 mmol/L 3.6 (L) 3.6 (L) 3.5 (L) 3.7 Chloride 97 - 105 mmol/L 98 95 (L) CO2 22 - 30 mmol/L 24 27 Anion Gap 9 - 18 mmol/L 15 15 ALT 7 - 38 U/L 16 15 eGFR- >60 >60 eGFR-All Other Races . >60 >60 Iron 41 - 186 ug/dL 62 TIBC 232 - 386 ug/dL 325 Transferrin Saturation 15 - 57 % 19 IgA 78 - 391 mg/dL 307 Transglutaminase Ab, IgA <20 Units 4 Interpretation (Celiac Screen) No serologic evidence of celiac disease. No serologic evidence of celiac disease. Ferritin 14.7 - 205.1 ng/mL 149.9 ASSESSMENT/PLAN: 1. Fibromyalgia - ICD9: 729.1, ICD10: M79.7 (primary diagnosis) Increase cymbalta to 60mg daily Check labs - TSH BLD - T4 FREE/FREE THYROX 2. Fatigue, unspecified type - ICD9: 780.79, ICD10: R53.83 Consider worsening JAN vs SE of depression/anxiety and fibro Check labs - CBC + DIFF - TSH BLD - T4 FREE/FREE THYROX - BASIC METABOLIC PNL 3. Essential hypertension - ICD9: 401.9, ICD10: I10 - suboptimal control - Continue current medication(s) - Recommended regular aerobic exercise. - Recommend home blood pressure monitoring, to bring results in on next visit - Recheck at next office visit - Goal of BP <130/80 4. Severe single current episode of major depressive disorder, without psychotic features ([facility]) - ICD9: 296.23, ICD10: F32.2 Increase cymbalta to 60mg daily Continue buspar and wellbutrin - DULOXETINE 60 MG CAPSULE,DELAYED RELEASE 5. Anxiety neurosis - ICD9: 300.00, ICD10: F41.1 See above - DULOXETINE 60 MG CAPSULE,DELAYED RELEASE 6. Obstructive sleep apnea syndrome - ICD9: 327.23, ICD10: G47.33 Consider restarting CPAP 7. URI, acute - ICD9: 465.9, ICD10: J06.9 - Discussed viral etiology and rationale for treatment. - Symptomatic treatment with prn analgesia - Supportive care with fluids and rest - Follow up in one week if symptoms persist or sooner if worsening of symptoms 8. Obesity, Class III, BMI 40-49.9 (morbid obesity) ([facility]) - ICD9: 278.01, ICD10: E66.01 Discussed how patient's weight and lack of exercise can contribute chronic fatigue and pain. Recommend daily exercise- low impact or water aerobics. Keep follow up as scheduled in June. Check labs Time with patient face to face was 25 min SANDIP SHABAZZ PA-C 05/29/2018 11:25 AM Signed If no improvement in URI symptoms in 7-10 days. Please call in and let me know Otherwise follow up as scheduled in June. Referring Provider: SELF [[id number]] Allergies As of Date: 05/29/2018 Noted Allergy Reaction SEASONAL ALLERGIES 10/15/2014 14 - Other: See Comments Comments: Sneezing, runny nose Date Reviewed: 05/29/2018 Reviewed by: Bo) Adis - Fully Assessed Reason for Visit: Pain [78] Cmt: patient is here for Fibromyalgia flare up Sinusitis [127] Primary Visit Diagnosis:Fibromyalgia [M79.7] Other Visit Diagnoses:Fatigue, unspecified type [R53.83] Essential hypertension [I10] Severe single current episode of major depressive disorder, without psychotic features ([facility]) [F32.2] Anxiety neurosis [F41.1] Obstructive sleep apnea syndrome [G47.33] URI, acute [J06.9] Obesity, Class III, BMI 40-49.9 (morbid obesity) ([facility]) [E66.01] Order(s):DULoxetine (CYMBALTA) 60 mg capsuleTake 1 capsule by mouth once daily.Disp: Rfl: CBC + DIFF [SQCBCDIF] Order #: [id number] FUTURE TSH BLD [SQTSH] Order #: [id number] FUTURE T4 FREE/FREE THYROX [SQFT4] Order #: [id number] FUTURE BASIC METABOLIC PNL [SQBMP] Order #: [id number] FUTURE Prescriptions as of 05/29/2018 Sig: DULOXETINE 60 MG CAPSULE,ERNESTO* Take 1 capsule by mouth once * BUSPIRONE 5 MG TABLET Take 1-2 tablets by mouth thr* POTASSIUM CHLORIDE 20 MEQ/15 * Take 15 mL by mouth twice idalia* BUPROPION XL 300 MG 24 HR TAB Take 1 tablet by mouth once d* LISINOPRIL 20 MG-HYDROCHLOROT* Take 1 tablet by mouth once d* METOPROLOL TARTRATE 50 MG TAB* Take 1 tablet by mouth twice * MONTELUKAST 10 MG TABLET Take 1 tablet by mouth daily * SUMATRIPTAN 100 MG TABLET Take 1 tablet by mouth as nee* CETIRIZINE 10 MG TABLET Take 1 tablet by mouth once d* CHOLECALCIFEROL (VITAMIN D3) * Take 1 capsule by mouth once * OMEPRAZOLE 40 MG CAPSULE,ERNESTO* Take 1 capsule by mouth once * ALBUTEROL SULFATE HFA 90 MCG/* Inhale 2 Puffs as instructed * MELOXICAM 15 MG TABLET Take 1 tablet by mouth once d* BETAMETHASONE VALERATE 0.1 % * Apply 1 application to affect* NYSTATIN 100,000 UNIT/GRAM TO* Apply 1 application to affect* NYSTATIN (BULK) 100 MILLION U* 1 application three times idalia* ASCORBIC ACID (VITAMIN C) 500* Take 1 tablet by mouth once d* FLUTICASONE-SALMETEROL 45 MCG* Inhale 2 Puffs as instructed * POTASSIUM CHLORIDE ER 20 MEQ * Take 1 tablet by mouth twice * DICYCLOMINE 10 MG CAPSULE Take 1 capsule by mouth befor* CONJUGATED ESTROGENS 0.625 MG* Take 0.625 mg by mouth once d* Problem List As Of Date 05/29/2018 Noted Resolved Hypertension [I10] INVALID FOR* Impaired fasting glucose [R73.01] INVALID FOR* Obesity, Class III, BMI 40-49.9 (morbid obesity*INVALID FOR* Vitamin D deficiency [E55.9] INVALID FOR* Pure hypercholesterolemia [E78.00] INVALID FOR* Essential hypertension [I10] INVALID FOR* Obstructive sleep apnea syndrome [G47.33] INVALID FOR* Fibromyalgia [M79.7] INVALID FOR* Other instructions from your clinician: If no improvement in URI symptoms in 7-10 days. Please call in and let me know Otherwise follow up as scheduled in June. Prescriptions ordered this encounter Disp Refills Start End DULOXETINE 60 MG CAPSULE,DELAYED REL* 05/29/2018 Class: Med Update Route: ORAL Sig: Take 1 capsule by mouth once daily. Medications Discontinued During This Encounter DULoxetine (CYMBALTA) 20 mg capsule 30 c* 5 12/18/2017 05/29/2018 Route: ORAL Sig: Take 1 capsule by mouth once daily. Disc: Reason for discontinue is not on file. Encounter Status:Closed by JERED RODRIGUEZ on 05/29/18 XR KNEE COMPLETE LEFT Observed: 05/21/2018 Status: F Source: [facility] 11:25 AM [facility] REPOSITORY Exam Date/Time: 05/21/2018 11:32 EDT Reason for Exam: left knee pain Report STUDY: XR Knee Complete Left; 05/21/2018 11:32 am INDICATION: left knee pain. COMPARISON: 02/06/2014 ACCESSION NUMBER(S): [id number] ORDERING CLINICIAN: Tara Genao FINDINGS: Severe narrowing of the medial tibiofemoral joint is present with osteophyte formation medially. Widening of the lateral aspect of the lateral tibiofemoral joint is present, with an osteophyte from the lateral margin of the lateral tibial plateau. Moderately severe degenerative changes are present at the patellofemoral joint. No joint effusion is seen. The density of the bones is normal. 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 No joint effusion. FINAL REPORT Dictated: 05/21/2018 4:15 pm Ant Franco MD Signed (Electronic Signature): 05/21/2018 4:15 pm Signed by: Ant Franco MD Technologist: GLP POTASSIUM Collected: 01/14/2018 Status: F Source: [place] 12:00 PM [facility] REPOSITORY TYPE CODE TESTS RESULT OUT OF REFERENCE UNITS RANGE LAB K 3.7-5.1 mmol/L Potassium 3.7 Performed By: #### K1 #### [facility] [address] [place], [place] [address] HISTORY AND Observed: 12/27/2017 Status: F Source: [facility] PHYSICAL-DICTATED 4:46 PM [facility] REPOSITORY [facility] [address] [place] [address] NAME RAVI VALDEZ [facility] [id number] 1975 DATE PRE-SURGICAL HISTORY AND PHYSICAL HISTORY Ravi is a patient with significant history of left knee pain and discomfort that has been unrelenting. Ravi is a patient that we had scheduled. Quite some period of time ago due to some other issues, the patient had to cancel surgery, but now it has gotten to the point where the left knee has become unrelenting with its pain and its discomfort. She said she has had pain for about 15 years. Her MRI scan has shown medial meniscal pathology and chondromalacia of the patella. The patient has exhausted conservative measures including pills, shots, and therapy and is presenting for surgical arthroscopy. ALLERGIES None. ILLNESSES Hypertension, fibromyalgia, depression, anxiety, and asthma. SURGERIES Tonsillectomy, hysterectomy, carpal tunnel release. FAMILY HISTORY Heart disease, asthma, diabetes, osteoporosis, and cancer. SOCIAL HISTORY She does not smoke, does not drink. CURRENT MEDICATIONS Extensive and includes ProAir, vitamins, Wellbutrin, BuSpar, Zyrtec, Bentyl, Cymbalta, Premarin, iron, lisinopril/hydrochlorothiazide, metoprolol, Singulair, Prilosec, K-Dur, Zoloft, and as needed Imitrex. PHYSICAL EXAM General: She is awake, alert, and oriented x3. Ambulates without assistive device. Chest: Clear. Heart: Regular rate and rhythm. Abdomen: Benign. No carotid bruits are noted. Extremities: At this time, the left lower extremity is grossly neurologically intact with 2+ pulses. The left knee has 5 degrees short of full extension. She has 120 degrees of left knee flexion. She has a tight lateral patellofemoral retinaculum with less than 1-1/2 quadrants of medial excursion. The patient has tenderness on the medial and lateral joint line and tenderness over the medial meniscus. She has a positive Damaris sign. Negative anterior-posterior drawer. Negative Rafiq. IMPRESSION 1. Left knee medial meniscus tear. 2. Left knee chondromalacia patella. PLAN We will proceed with left knee arthroscopy, partial medial meniscectomy, and lateral release. All risks and complications were discussed. Last presurgical visit 12/24/2017. TARA GENAO MD D 12/27/2017 06:05 [id number] T 12/27/2017 06:33 MCB/MODL Electronically Signed By Tara Genao M.D. on 27 Dec 2017 12:58:35 GMT HISTORY AND Observed: 12/27/2017 Status: F Source: [facility] PHYSICAL-DICTATED 4:46 PM [facility] REPOSITORY [address] [place] [address] NAME RAVI VALDEZ [facility] [id number] 1975 DATE 12/27/2017 OPERATIVE REPORT / PROCEDURE NOTE SURGEON TARA GENAO MD PREOPERATIVE DIAGNOSIS 1. Left knee medial meniscus tear. 2. Left knee patellofemoral degenerative arthrosis. POSTOPERATIVE DIAGNOSIS 1. Posterior horn medial meniscus tear, left knee. 2. 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 3. Grade 3 chondromalacia left knee medial tibial plateau. 4. Grade 4 chondromalacia lateral tibial plateau. 5. Grade 4 chondromalacia femoral trochlear groove. 6. Grade 3 chondromalacia medial and lateral facet patella. PROCEDURE 1. Left knee arthroscopy with chondroplasty medial femoral condyle, medial tibial plateau, lateral femoral condyle, femoral trochlear groove, and patella. 2. Partial medial meniscectomy. 3. Arthroscopic lateral release left knee. ANESTHESIA General anesthetic. COMPLICATIONS No intraoperative complications. TOURNIQUET TIME 22 minutes. SPECIMENS None. ESTIMATED BLOOD LOSS 1 cc. HISTORY Ravi Ag is a 42-year-old patient with significant severe left knee pain unresponsive to conservative measures. Explained all the risks complications of surgery including, but not limited to the risk of infection, bleeding, neurologic or vascular injury, possibility of deep venous thrombosis, pulmonary embolism, myocardial infarction, stroke, or even with surgery. Explained the possibilities of continued pain, stiffness, loss of range of motion, as well as the need for future surgery, given all the options of anesthetic per the anesthesia team and at this point time elected for a general anesthetic. I also explained to her that this was not a permanent fix most likely and we were trying to buy time since her young age of 42. We talked about potential future surgery including partial knee, total knee, uneven cartilage transplant. She understood this, consented for surgery. PROCEDURE IN DETAIL The patient met in the preoperative holding where the left knee was confirmed to be the appropriate site and marked by myself. The patient taken to the operative suite, given preoperative Kefzol per protocol, as well as a general anesthetic. Left lower extremity placed in proximal thigh tourniquet. Left leg was sterilely prepped and draped using ChloraPrep solution. After sterilization left lower extremity, we did our final time- out to confirm that the left knee was in fact the appropriate site that had been marked by myself. At this time, we then went ahead and proceeded forward with elevation of left leg tourniquet. Systematic arthroscopy revealed that in the medial compartment, there was a complex posterior horn medial meniscus tear with paired beak and flap tears. At this time after the partial medial meniscectomy was completed, we did an evaluation of the medial compartment and unfortunately there was global grade 3 chondromalacia throughout the weightbearing surface of the medial femoral condyle and chondroplasty was performed. There was also 2 x 1.5 cm area of grade 3 chondromalacia in the medial tibial plateau that was stabilized. After the work in the medial compartment was completed, the ACL, PCL was found to be normal. Lateral femoral condyle, tibial plateau, and lateral meniscus were evaluated. The lateral femoral condyle appeared to be intact as did the lateral meniscus with minor fraying at the margins. However, there was an area that measured 1.5 x 1.5 cm of exposed raw bone with marginal chondromalacia, which was stabilized via chondroplasty. In the patellofemoral articulation, unfortunately the entire lateral femoral condyle and central portion of femoral trochlear groove had exposed raw bone with some marginal chondromalacia, which was debrided to stable rims. The patella had global grade 3 chondromalacia throughout the medial lateral facet of the patella with a large lateral overhanging osteophyte, which at this time we stabilized via chondroplasty and at this time, I then went ahead and proceeded an arthroscopic lateral release from the vastus lateralis to the patellar tendon, thus creating about fourfold increased distance between the lateral facet of the patella in the lateral trochlear groove. Knee was then irrigated, injected 20 mL of 0.5% Marcaine without epinephrine. Portals were closed using 4-0 black nylon suture. The patient was placed in sterile dressing, taken to PACU without intraoperative complication. MD Vibha DIETZ 12/27/2017 16:46 [id number] T 12/27/2017 19:47 MCB/MODL Electronically Signed By Tara Genao M.D. on 28 Dec 2017 14:35:47 GMT COMP METABOLIC PANEL Collected: 12/18/2017 Status: F Source: [place] 3:16 PM [facility] REPOSITORY TYPE CODE TESTS RESULT OUT OF REFERENCE UNITS RANGE LAB TP 6.3-8.0 g/dL Protein, Total 7.8 LAB ALB 3.9-4.9 g/dL Low Albumin 3.8 LAB CA 8.5-10.2 mg/dL Calcium, Total 9.3 LAB TBIL 0.2-1.3 mg/dL Bilirubin, Total 0.3 LAB ALKP 32-117 U/L Alkaline High Phosphatase 141 LAB AST 13-35 U/L AST 15 LAB GLU 74-99 mg/dL Glucose 90 Result Comment: The [place] Diabetes Association (ADA) provides guidance for cutoff values for fasting glucose and random glucose. The ADA defines fasting as no caloric intake for at least 8 hours. Fas ting plasma glucose results between 100 to 125 mg/dL indicate increased risk for diabetes (prediabetes). Fasting plasma glucose results greater than or equal to 126 mg/dL meet the criteria for diagnosis of diabetes. In the absence of unequivocal hyperglycemia, results should be confirmed by repeat testing. In a patient with classic symptoms of hyperglycemia or hyperglycemic crisis, random plasma glucose results greater than or equal to 200 mg/dL meet the criteria for diagnosis of diabetes. Reference: Standards of Medical Care in Diabetes 2016, [place] [employer] Association. Diabetes Care. 2016.39(Suppl 1). LAB BUN 7-21 mg/dL BUN 12 LAB CRET 0.58-0.96 mg/dL Creatinine 0.76 LAB NA 136-144 mmol/L Sodium 137 LAB K 3.7-5.1 mmol/L Potassium Low 3.5 LAB CL 97-105 mmol/L Chloride Low 95 LAB CO2 22-30 mmol/L CO2 27 LAB AGAP 9-18 mmol/L Anion Gap 15 LAB ALT 7-38 U/L ALT 15 LAB GFRAA eGFR- Amer. >60 LAB GFRNAA . eGFR-All Other Races >60 Result Comment: eGFR (Estimated GFR) Units of measure: mL/min/1.73 meters squared eGFR is derived from the reexpressed MDRD Study equation using the following parameters: serum creatinine, age, gender and race. The creatinine assay has been calibrated to be traceable to IDMS. An eGFR <60 mL/min/1.73m2 for >3 months is consistent with chronic kidney disease. Refer to KDOQI guidelines for clinical interpretation. In patients with unstable renal function, e.g. those with acute kidney injury, the eGFR may not accurately reflect actual GFR. Performed By: #### CMP #### [facility] [address] [place], [place] [address] PROGRESS Observed: 12/18/2017 Status: COMPLETED Source: [place] 3:07 PM [facility] REPOSITORY O ID: [id number] Author: Chloe Elizabeth (Restaurant Kitchen ManagerMicheline Stanford Service: (none) Author Type: Nurse Practitioner Type: Progress Notes Filed: 12/18/2017 3:11 PM Note Text: HPI/CC: Ravi Valdez is a 42 year old female who presents for Recheck (Follow up). Overall patient reports urbano is much better. Denies SE of medications. Denies SI/HI. Can not remember the last time she had to use Buspar for her anxiety. ROS as above, otherwise non-contributory. Reviewed PMHx, PSHx, social Hx, medications and allergies. PHYSICAL EXAMINATION: BP 130/94 Pulse 84 Resp 16 Wt 126.1 kg (278 lb) BMI 52.53 kg/m2 General appearance: Well appearing, alert, in no acute distress, well-hydrated, well nourished., Morbidly obese Skin: Skin color, texture, turgor normal, no suspicious rashes or lesions Lungs: Lungs clear to auscultation. No wheezing, rhonchi, rales Heart: RRR without murmur, gallop, or rubs. No ectopy Appearance: well dressed well groomed, cooperative and pleasant Behavior: good eye contact Speech: normal and fluent and coherent Mood: euthymic Affect: appropriate Perceptions: none Thought process: goal directed Thought Content: normal Intelligence level: normal Insight: good Judgment: good ASSESSMENT/PLAN: 1. Severe single current episode of major depressive disorder, without psychotic features (HCC) - ICD9: 296.23, ICD10: F32.2 2. Anxiety neurosis - ICD9: 300.00, ICD10: F41.1 - continue current regimen with Celexa and Wellbutrin. Buspar PRN - DULOXETINE 20 MG CAPSULE,DELAYED RELEASE 3. Hypopotassemia - ICD9: 276.8, ICD10: E87.6 - K today, if normal check again in 3-6 months - POTASSIUM CHLORIDE ER 10 MEQ TABLET,EXTENDED RELEASE RAYMOND Arias Observed: 12/18/2017 Status: COMPLETED Source: [place] 2:40 PM [facility] REPOSITORY Office Visit (FAMPWS) RAVI VALDEZ ([id number]) 1975 F Date Time Provider Department 12/18/17 2:40 PM [facility] During your visit today, we recorded the following information about you: Pulse Respiration Blood pressure Weight 84/minute 16/minute 130/94 126.1 kg Chloe Stanford APRN.CNP 12/18/2017 3:11 PM Signed HPI/CC: Ravi Valdez is a 42 year old female who presents for Recheck (Follow up). Overall patient reports urbano is much better. Denies SE of medications. Denies SI/HI. Can not remember the last time she had to use Buspar for her anxiety. ROS as above, otherwise non-contributory. Reviewed PMHx, PSHx, social Hx, medications and allergies. PHYSICAL EXAMINATION: BP 130/94 Pulse 84 Resp 16 Wt 126.1 kg (278 lb) BMI 52.53 kg/m2 General appearance: Well appearing, alert, in no acute distress, well-hydrated, well nourished., Morbidly obese Skin: Skin color, texture, turgor normal, no suspicious rashes or lesions Lungs: Lungs clear to auscultation. No wheezing, rhonchi, rales Heart: RRR without murmur, gallop, or rubs. No ectopy Appearance: well dressed well groomed, cooperative and pleasant Behavior: good eye contact Speech: normal and fluent and coherent Mood: euthymic Affect: appropriate Perceptions: none Thought process: goal directed Thought Content: normal Intelligence level: normal Insight: good Judgment: good ASSESSMENT/PLAN: 1. Severe single current episode of major depressive disorder, without psychotic features (HCC) - ICD9: 296.23, ICD10: F32.2 2. Anxiety neurosis - ICD9: 300.00, ICD10: F41.1 - continue current regimen with Celexa and Wellbutrin. Buspar PRN - DULOXETINE 20 MG CAPSULE,DELAYED RELEASE 3. Hypopotassemia - ICD9: 276.8, ICD10: E87.6 - K today, if normal check again in 3-6 months - POTASSIUM CHLORIDE ER 10 MEQ TABLET,EXTENDED RELEASE Chloe Stanford APRN.ESCALATOR CONSTRUCTOR Referring Provider: SELF [200] Allergies As of Date: 12/18/2017 Noted Allergy Reaction SEASONAL ALLERGIES 10/15/2014 14 - Other: See Comments Comments: Sneezing, runny nose Date Reviewed: 12/18/2017 Reviewed by: Angelique Mac LPN - Fully Assessed Reason for Visit: Recheck [92] Cmt: Follow up Visit Diagnoses:Severe single current episode of major depressive disorder, without psychotic features (HCC) [F32.2] Anxiety neurosis [F41.1] Hypopotassemia [E87.6] Order(s):potassium chloride (K-TAB) 10 mEq tabletTake 2 tablets by mouth daily with breakfast.Disp: 60 tabletRfl: 11 DULoxetine (CYMBALTA) 20 mg capsuleTake 1 capsule by mouth once daily.Disp: 30 capsuleRfl: 5 Prescriptions as of 12/18/2017 Sig: BUPROPION XL 300 MG 24 HR TAB Take 1 tablet by mouth once d* LISINOPRIL 20 MG-HYDROCHLOROT* Take 1 tablet by mouth once d* METOPROLOL TARTRATE 50 MG TAB* Take 1 tablet by mouth twice * MONTELUKAST 10 MG TABLET Take 1 tablet by mouth daily * SUMATRIPTAN 100 MG TABLET Take 1 tablet by mouth as nee* CETIRIZINE 10 MG TABLET Take 1 tablet by mouth once d* MOMETASONE-FORMOTEROL HFA 100* Inhale 2 Puffs as instructed * CHOLECALCIFEROL (VITAMIN D3) * Take 1 capsule by mouth once * OMEPRAZOLE 40 MG CAPSULE,ERNESTO* Take 1 capsule by mouth once * ALBUTEROL SULFATE HFA 90 MCG/* Inhale 2 Puffs as instructed * DICYCLOMINE 10 MG CAPSULE Take 1 capsule by mouth befor* BUSPIRONE 5 MG TABLET Take 1-2 tablets by mouth thr* MELOXICAM 15 MG TABLET Take 1 tablet by mouth once d* CONJUGATED ESTROGENS 0.625 MG* Take 0.625 mg by mouth once d* BETAMETHASONE VALERATE 0.1 % * Apply 1 application to affect* NYSTATIN 100,000 UNIT/GRAM TO* Apply 1 application to affect* NYSTATIN (BULK) 100 MILLION U* 1 application three times idalia* ASCORBIC ACID (VITAMIN C) 500* Take 1 tablet by mouth once d* POTASSIUM CHLORIDE ER 10 MEQ * Take 2 tablets by mouth daily* DULOXETINE 20 MG CAPSULE,ERNESTO* Take 1 capsule by mouth once * Problem List As Of Date 12/18/2017 Noted Resolved Hypertension [I10] INVALID FOR* Impaired fasting glucose [R73.01] INVALID FOR* Obesity [E66.9] INVALID FOR* Vitamin D deficiency [E55.9] INVALID FOR* Pure hypercholesterolemia [E78.00] INVALID FOR* Essential hypertension [I10] INVALID FOR* Obstructive sleep apnea syndrome [G47.33] INVALID FOR* Prescriptions ordered this encounter Disp Refills Start End POTASSIUM CHLORIDE ER 10 MEQ TABLET,* 60 t* 11 12/18/2017 Route: ORAL Sig: Take 2 tablets by mouth daily with breakfast. DULOXETINE 20 MG CAPSULE,DELAYED REL* 30 c* 5 12/18/2017 Route: ORAL Sig: Take 1 capsule by mouth once daily. Medications Discontinued During This Encounter potassium chloride (K-TAB) 10 mEq ta* 30 t* 0 11/21/2017 12/18/2017 Route: ORAL Sig: Take 2 tablets by mouth daily with breakfast. Disc: Reason for discontinue is not on file. DULoxetine (CYMBALTA) 20 mg capsule 30 c* 1 10/31/2017 12/18/2017 Route: ORAL Sig: Take 1 capsule by mouth once daily. Disc: Reason for discontinue is not on file. Encounter Status:Closed by CHLOE STANFORD CNP on 12/18/17 CNCO Observed: 11/20/2017 Status: COMPLETED Source: [place] 11:49 [facility] REPOSITORY HNO ID: [id number] Author: Mammography Coordinator Service: (none) Author Type: Physician Type: Letter Filed: 11/21/2017 11:31 PM Note Text: November 20, 2017 PID: [id number] Ravi Valdez [address] [place] [address] Dear Ms. Valdez, We are pleased to inform you that the results of your recent breast imaging exam on 11/20/2017 are normal and we recommend that you return to your annual screening Mammography schedule. Early detection of cancer is very important. We also understand recommendations regarding breast cancer screening are controversial. Please discuss with your primary care provider which strategy is best for you and whether a mammogram is right for you. Your imaging studies and report will be kept on file at [facility] as part of your permanent medical record and are available for your continuing care. Thank you for allowing us to help in meeting your health care needs. Sincerely, Dr. Gilbert Interpreting Radiologist [facility] (Return to Annual Mammogram schedule) CNCO Observed: 11/20/2017 Status: COMPLETED Source: [place] 11:49 [facility] REPOSITORY HNO ID: [id number] Author: Mammography Coordinator Service: (none) Author Type: Physician Type: Letter Filed: 11/21/2017 11:31 PM Note Text: November 20, 2017 PID: [id number] Ravi Moran José Miguel [address] [place] [address] Dear Buddy José Miguel, We are pleased to inform you that the results of your recent breast imaging exam on 11/20/2017 are normal and we recommend that you return to your annual screening Mammography schedule. Early detection of cancer is very important. We also understand recommendations regarding breast cancer screening are controversial. Please discuss with your primary care provider which strategy is best for you and whether a mammogram is right for you. Your imaging studies and report will be kept on file at [facility] as part of your permanent medical record and are available for your continuing care. Thank you for allowing us to help in meeting your health care needs. Sincerely, Dr. Gilbert Interpreting Radiologist [facility] (Return to Annual Mammogram schedule) POTASSIUM Collected: 11/20/2017 Status: F Source: [place] 11:47 AM [facility] REPOSITORY TYPE CODE TESTS RESULT OUT OF REFERENCE UNITS RANGE LAB K 3.7-5.1 mmol/L Low Potassium 3.6 Performed By: #### K1 #### [facility] [address] [place], [place] [address] [facility] [employer] BREAST LTD Observed: 11/20/2017 Status: F Source: [place] RT 11:32 AM [facility] REPOSITORY * * *Final Report* * * DATE OF EXAM: Nov 20 2017 11:32AM WRU [id number] - GIUSEPPE US BREAST LTD RT / PROCEDURE REASON: 6 month right breast/ abnormal mammogram * * * * Physician Interpretation * * * * #[id number] - [facility] DIAGNOSTIC RT UNILATERAL RIGHT DIGITAL DIAGNOSTIC MAMMOGRAM WITH CAD: 11/20/2017 HISTORY: 6 Month Right Breast/ Abnormal Mammogram. RESULT: TECHNIQUE: The study was acquired using full field digital technology and interpreted from soft copy. Current study was also evaluated with a Computer Aided Detection (CAD). Comparison is made to exams dated: 05/22/2017 mammogram - [facility], 05/03/2017 mammogram - [facility], 11/16/2016 mammogram, 05/09/2016 mammogram, and 05/01/2016 mammogram - [facility]. There are scattered fibroglandular elements in the right breast. There is a stable benign asymmetry in the right axillary tail. No other significant masses or calcifications are seen in the breast. BENIGN FINDING There is no mammographic evidence of malignancy. #[id number] - GIUSEPPE US BREAST LTD RT ULTRASOUND OF RIGHT BREAST: 11/20/2017 RESULT: Comparison is made to exams dated: 05/22/2017 mammogram - [facility], 05/03/2017 mammogram - [facility], 11/16/2016 mammogram, 05/09/2016 mammogram, and 05/01/2016 mammogram - [facility]. Ultrasound of the right breast was performed. Tripp scale images of the real-time examination were reviewed. There is a benign 6 mm x 1 mm x 5 mm oval lesion in the right axillary tail. This oval lesion is of mixed echogenicity. This abnormality is decreased in size. IMPRESSION: BENIGN FINDING There is no sonographic evidence of malignancy. The 6 mm x 1 mm x 5 mm oval lesion is benign. Return to annual mammogram screening schedule is recommended. SUMMARY: Patient is known to have Hidradenitis suppurativa . ?She's had multiple similar lesions in the axilla and groin areas. ?Therefore this most likely is secondary to that condition. Salazar gan/ita:11/20/2017 11:49:10 Operating Table Assembler: Jovana WAKEFIELD(R)(M), [facility] letter sent: Return to Annual OVERALL STUDY BIRADS: 2 Benign finding Bereavement Program Coordinator: Ita Transcribe Date/Time: Nov 20 2017 10:51A Dictated by : SALAZAR GILBERT DO This examination was interpreted and the report reviewed and electronically signed by: SALAZAR GILBERT DO on Nov 20 2017 11:49AM EST [id number] Observed: 11/20/2017 Status: COMPLETED Source: [place] 11:25 AM [facility] REPOSITORY HNO ID: [id number] Author: Jovana Wakefield Service: (none) Author Type: (none) Type: Progress Notes Filed: 11/20/2017 11:26 AM Note Text: Radiology Service Progress Note PATIENT NAME: Ravi Valdez DATE OF SERVICE: November 20, 2017 TIME: 11:25 AM PATIENT IDENTITY VERIFICATION COMPLETED USING TWO (2) METHODS: Patient confirmed name verbally and Date of . PATIENT GENDER DATA: Female. status: : No status: NO. PATIENT RELEVANT IMPLANT DATA REVIEWED: Not Applicable RADIOLOGY DEPARTMENT: [facility] PERIPHERAL IV DATA: Not applicable SIGNED BY: Jovana Wakefield November 20, 2017 11:25 AM PROGRESS Observed: 11/20/2017 Status: COMPLETED Source: [place] 11:20 AM [facility] REPOSITORY HNO ID: [id number] Author: Bessie Daniels Rdms Service: (none) Author Type: (none) Type: Progress Notes Filed: 11/20/2017 11:41 AM Note Text: Radiology Service Progress Note PATIENT NAME: Ravi Valdez DATE OF SERVICE: November 20, 2017 TIME: 11:20 AM PATIENT IDENTITY VERIFICATION COMPLETED USING TWO (2) METHODS: Patient confirmed name verbally and Date of . PATIENT GENDER DATA: Female. status: : No status: NO. PATIENT RELEVANT IMPLANT DATA REVIEWED: Not Applicable RADIOLOGY DEPARTMENT: Ultrasound PERIPHERAL IV DATA: Not applicable SIGNED BY: Bessie Daniels Rdms November 20, 2017 11:20 AM CNCO Observed: 11/20/2017 Status: COMPLETED Source: [place] 11:18 AM [facility] REPOSITORY HNO ID: [id number] Author: Mammography Coordinator Service: (none) Author Type: Physician Type: Letter Filed: 11/21/2017 11:31 PM Note Text: May 22, 2017 PID: [id number] Ravi Valdez [address] [facility] [address] [place] [id number] Dear Ms. Valdez, Your recent breast imaging examination performed on 05/22/2017 showed an area that we believe is probably benign (not cancer). A six month follow-up is recommended to ensure your breast health. Please call [phone] to schedule an appointment for these tests if you have not already done so. Early detection of cancer is very important. We also understand recommendations regarding breast cancer screening are controversial. Please discuss with your primary care provider which strategy is best for you and whether a mammogram is right for you. Your breast images and report will be kept on file here as part of your permanent medical record and are available for your continuing care. Thank you for allowing us to help in meeting your health care needs. Sincerely, Dr. Gilbert Interpreting Radiologist [facility] (# mo Follow-up) CNCO Observed: 11/20/2017 Status: COMPLETED Source: [place] 11:18 AM [facility] REPOSITORY HNO ID: [id number] Author: Mammography Coordinator Service: (none) Author Type: Physician Type: Letter Filed: 11/21/2017 11:31 PM Note Text: May 22, 2017 PID: [id number] Ravi Valdez [address] [place] [address] Dear Ms. Valdez, Your recent breast imaging examination performed on 05/22/2017 showed an area that we believe is probably benign (not cancer). A six month follow-up is recommended to ensure your breast health. Please call [phone] to schedule an appointment for these tests if you have not already done so. Early detection of cancer is very important. We also understand recommendations regarding breast cancer screening are controversial. Please discuss with your primary care provider which strategy is best for you and whether a mammogram is right for you. Your breast images and report will be kept on file here as part of your permanent medical record and are available for your continuing care. Thank you for allowing us to help in meeting your health care needs. Sincerely, Dr. Gilbert Interpreting Radiologist [facility] (# mo Follow-up) [facility] RT Observed: 11/20/2017 Status: F Source: [place] 11:06 AM [facility] REPOSITORY * * *Final Report* * * DATE OF EXAM: Nov 20 2017 11:06AM [facility] 0626 - [facility] DI[facility] RT / PROCEDURE REASON: 6 month right breast/ abnormal mammogram * * * * Physician Interpretation * * * * RESULT: #[id number] - [facility] DI[facility] RT UNILATERAL RIGHT DIGITAL DIAGNOSTIC MAMMOGRAM WITH CAD: 11/20/2017 HISTORY: 6 Month Right Breast/ Abnormal Mammogram. RESULT: TECHNIQUE: The study was acquired using full field digital technology and interpreted from soft copy. Current study was also evaluated with a Computer Aided Detection (CAD). Comparison is made to exams dated: 05/22/2017 mammogram - [facility], 05/03/2017 mammogram - [facility], 11/16/2016 mammogram, 05/09/2016 mammogram, and 05/01/2016 mammogram - [facility]. There are scattered fibroglandular elements in the right breast. There is a stable benign asymmetry in the right axillary tail. No other significant masses or calcifications are seen in the breast. BENIGN FINDING There is no mammographic evidence of malignancy. #[id number] - [facility] RT ULTRASOUND OF RIGHT BREAST: 11/20/2017 RESULT: Comparison is made to exams dated: 05/22/2017 mammogram - [facility], 05/03/2017 mammogram - [facility], 11/16/2016 mammogram, 05/09/2016 mammogram, and 05/01/2016 mammogram - [facility]. Ultrasound of the right breast was performed. Tripp scale images of the real-time examination were reviewed. There is a benign 6 mm x 1 mm x 5 mm oval lesion in the right axillary tail. This oval lesion is of mixed echogenicity. This abnormality is decreased in size. IMPRESSION: BENIGN FINDING There is no sonographic evidence of malignancy. The 6 mm x 1 mm x 5 mm oval lesion is benign. Return to annual mammogram screening schedule is recommended. SUMMARY: Patient is known to have Hidradenitis suppurativa . ?She's had multiple similar lesions in the axilla and groin areas. ?Therefore this most likely is secondary to that condition. Salazar gan/ita:11/20/2017 11:49:10 Operating Table Assembler: Jovana Tovar RT(R)(M), [facility] letter sent: Return to Annual OVERALL STUDY BIRADS: 2 Benign finding Bereavement Program Coordinator: Ita Transcribe Date/Time: Nov 20 2017 10:51A Dictated by: SALAZAR GILBERT DO This examination was interpreted and the report reviewed and electronically signed by: SALAZAR GILBERT DO on Nov 20 2017 11:49AM EST [id number] PROGRESS Observed: 11/12/2017 Status: COMPLETED Source: [place] 9:44 AM [facility] REPOSITORY [facility] ID: [id number] Author: Michoacano Mcmanus Service: (none) Author Type: Physician Type: Progress Notes Filed: 11/12/2017 8:26 PM Note Text: Patient presents with: Nasal Congestion: with cough and body aches HPI: Feeling sick for 4-5 days Positive symptoms: Cough, Sore throat, Nasal Congestion, Body Aches, Headache (mostly frontal), Rhinorrhea, Hot/Chills, Negative symptoms: Fever, OTC: Ibuprofen MEDICATIONS: Current Outpatient Prescriptions: potassium chloride (K-TAB) 10 mEq tablet Take 1 tablet by mouth daily with breakfast. DULoxetine (CYMBALTA) 20 mg capsule Take 1 capsule by mouth once daily. buPROPion XL (WELLBUTRIN XL) 300 mg 24 hr tablet Take 1 tablet by mouth once daily. lisinopril-hydrochlorothiazide (PRINZIDE, ZESTORETIC) 20-25 mg per tablet Take 1 tablet by mouth once daily. metoprolol tartrate, short acting, (LOPRESSOR) 50 mg tablet Take 1 tablet by mouth twice daily. montelukast (SINGULAIR) 10 mg tablet Take 1 tablet by mouth daily at bedtime. SUMAtriptan (IMITREX) 100 mg tablet Take 1 tablet by mouth as needed. cetirizine (ZYRTEC) 10 mg tablet Take 1 tablet by mouth once daily. mometasone-formoterol (DULERA) 100-5 mcg/actuation inhaler Inhale 2 Puffs as instructed twice daily. Cholecalciferol, Vitamin D3, 5,000 unit cap Take 1 capsule by mouth once daily. Omeprazole (PRILOSEC) 40 mg capsule Take 1 capsule by mouth once daily. albuterol HFA (PROAIR HFA) 90 mcg/actuation inhaler Inhale 2 Puffs as instructed every 4 hours as needed for Wheezing/Shortness of Breath. dicyclomine (BENTYL) 10 mg capsule Take 1 capsule by mouth before meals and at bedtime. busPIRone (BUSPAR) 5 mg tablet Take 1-2 tablets by mouth three times daily as needed. meloxicam (MOBIC) 15 mg tablet Take 1 tablet by mouth once daily. estrogens conjugated (PREMARIN) 0.625 mg tablet Take 0.625 mg by mouth once daily. betamethasone valerate 0.1 % cream Apply 1 application to affected area twice daily as needed. nystatin (MYCOSTATIN) cream Apply 1 application to affected area twice daily as needed. nystatin, bulk, 100 million unit powd 1 application three times daily as needed. ascorbic acid (VITAMIN C) 500 mg tablet Take 1 tablet by mouth once daily. No current facility-administered medications for this visit. ALLERGIES: ALLERGIES Allergen Reactions - Seasonal Allergies Other: See Comments Sneezing, runny nose VITALS: BP 120/84 Pulse 76 Temp 37.1 ?C (98.7 ?F) (Tympanic) Resp 18 Wt 125.2 kg (276 lb) BMI 52.15 kg/m2 PHYSICAL EXAM: GEN: mildly ill appearing HEENT: PERRL, EOMI, conjunctiva clear Ears: canals clear, TMs without erythema, bulge, or effusion Sinuses: non-tender frontal sinus, non-tender maxillary sinuses Throat: moist mucous membranes, mild erythema, no exudate Neck: supple, no thyromegaly, no lymphadenopathy HEART: regular rate and rhythm, no murmurs LUNGS: clear to auscultation, no wheezes or crackles, no increased WOB ASSESSMENT/PLAN: 1. URI, acute - ICD9: 465.9, ICD10: J06.9 - Symptomatic treatment with prn OTC cough and cold medicine. - BENZONATATE 100 MG CAPSULE Michoacano Mcmanus MD PROGRESS Observed: 10/31/2017 Status: COMPLETED Source: [place] 12:17 PM [facility] REPOSITORY HNO ID: [id number] Author: Chloe Elizabeth (Restaurant Kitchen Manager) UBALDO Stanford Service: (none) Author Type: Nurse Practitioner Type: Progress Notes Filed: 10/31/2017 1:16 PM Note Text: HPI/CC: Ravi Valdez is an 42 year old female who presents for followup of depression and anxiety treatment. Since last visit patient depressed mood, anxious feelings and fatigue. Symptoms have occurred daily. Panic hx: No Sleep Problems: Yes Reports occasional CP with activity,SOB, fatigue. Denies edema, palpitations and syncope PHQ9 and MONA-7: Little interest or pleasure in doing things 3 - Nearly every day Feeling down, depressed, or hopeless 3 - Nearly every day Trouble falling or staying asleep, or sleeping too much 3 - nearly every day Feeling tired or having little energy 3 - Nearly every day Poor appetite or overeating 3 - Nearly every day Feeling bad about yourself - or that you are a failure or have let yourself or your family down 3 - Nearly every day Trouble concentrating on things, such as reading the newspaper or watching television 3 - Nearly every day Moving or speaking so slowly that other people could have noticed. Or the opposite - being so fidgety or restless that you have been moving around a lot more than usual 3 - Nearly every day Thoughts that you would be better off , or of hurting yourself in some way 2 - More than half the days If you checked off ANY problems, how DIFFICULT have these problems made it for you to do your work, take care of things at home, or get along with other people? Extremely difficult Interpretation of Total Score 20-27 Severe depression SCORE OF 26 Feeling nervous, anxious, or on edge 3 Nearly every day Not being able to stop or control worrying 3 Nearly every day Worrying too much about different things 3 Nearly every day Trouble relaxing 3 Nearly every day Being so restless that it's hard to sit still 2 Over half the days Being easily annoyed or irritable 3 Nearly every day Feeling afraid as if something awful might happen 3 Nearly every day MONA-7 Anxiety Score 20 severe If you checked off any problems, how difficult have these problems made it for you to do your work, take care of things at home, or get along with other people? Extremely difficult ROS as above, otherwise non-contributory. Reviewed PMHx, PSHx, social Hx, medications and allergies. PHYSICAL EXAMINATION: BP 114/82 Pulse 72 Resp 16 Wt 126.1 kg (278 lb) BMI 52.53 kg/m2 Appearance: well dressed well groomed, cooperative and pleasant Behavior: good eye contact and agitated Speech: fluent and coherent, slow and hesitant Mood: anxious Affect: appropriate Perceptions: none Thought process: goal directed Thought Content: normal Intelligence level: normal Insight: fair Judgment: fair Lungs: Lungs clear to auscultation. No wheezing, rhonchi, rales Heart: RRR without murmur, gallop, or rubs. No ectopy ASSESSMENT/PLAN: 1. Severe single current episode of major depressive disorder, without psychotic features (HCC) - ICD9: 296.23, ICD10: F32.2 (primary diagnosis) - BUPROPION XL 300 MG 24 HR TAB - Cymbalta 2. Anxiety neurosis - ICD9: 300.00, ICD10: F41.1 Cymbalta - BUSPIRONE 5 MG TABLET - COMP METABOLIC PANEL 3. Essential hypertension - ICD9: 401.9, ICD10: I10 - good control - Recommended regular aerobic exercise. - Recommend home blood pressure monitoring, to bring results in on next visit - Goal of BP <140/90 - LISINOPRIL 20 MG-HYDROCHLOROTHIAZIDE 25 MG TABLET - METOPROLOL TARTRATE 50 MG TABLET - COMP METABOLIC PANEL 4. Chronic seasonal allergic rhinitis due to pollen - ICD9: 477.0, ICD10: J30.1 - MONTELUKAST 10 MG TABLET 5. Intractable migraine, unspecified migraine type - ICD9: 346.91, ICD10: G43.919 - SUMATRIPTAN 100 MG TABLET 6. Vitamin D deficiency - ICD9: 268.9, ICD10: E55.9 - CHOLECALCIFEROL (VITAMIN D3) 5,000 UNIT CAPSULE 7. Gastroesophageal reflux disease with esophagitis - ICD9: 530.11, ICD10: K21.0 - OMEPRAZOLE 40 MG CAPSULE,DELAYED RELEASE 8. Moderate persistent asthma without complication - ICD9: 493.90, ICD10: J45.40 - ALBUTEROL SULFATE HFA 90 MCG/ACTUATION AEROSOL INHALER 9. Irritable bowel syndrome with diarrhea - ICD9: 564.1, ICD10: K58.0 - DICYCLOMINE 10 MG CAPSULE - COMP METABOLIC PANEL 10. Chest pain, unspecified type - ICD9: 786.50, ICD10: R07.9 Atypical chest pain, symptoms are not consistent with cardiac ischemia due to pleuritic nature of pain possible etiology include Costochondritis/chest wall pain - Electrocardiogram: An ECG today showed normal sinus rhythm - ECG COMPLETE W INTERPRETATION Signed Prescriptions Disp Refills DULoxetine (CYMBALTA) 20 mg capsule 30 capsule 1 Sig: Take 1 capsule by mouth once daily. buPROPion XL (WELLBUTRIN XL) 300 mg 24 hr tablet 30 tablet 5 Sig: Take 1 tablet by mouth once daily. PEDRO: No lisinopril-hydrochlorothiazide (PRINZIDE, ZESTORETIC) 20- 25 mg per tablet 30 tablet 5 Sig: Take 1 tablet by mouth once daily. PEDRO: No metoprolol tartrate, short acting, (LOPRESSOR) 50 mg tablet 60 tablet 5 Sig: Take 1 tablet by mouth twice daily. PEDRO: No montelukast (SINGULAIR) 10 mg tablet 30 tablet 5 Sig: Take 1 tablet by mouth daily at bedtime. PEDRO: No SUMAtriptan (IMITREX) 100 mg tablet 12 tablet 5 Sig: Take 1 tablet by mouth as needed. PEDRO: No cetirizine (ZYRTEC) 10 mg tablet 90 tablet 3 Sig: Take 1 tablet by mouth once daily. PEDRO: No mometasone-formoterol (DULERA) 100-5 mcg/actuation inhaler 1 Inhaler 1 Sig: Inhale 2 Puffs as instructed twice daily. PEDRO: No Cholecalciferol, Vitamin D3, 5,000 unit cap 90 capsule 4 Sig: Take 1 capsule by mouth once daily. PEDRO: No Omeprazole (PRILOSEC) 40 mg capsule 90 capsule 4 Sig: Take 1 capsule by mouth once daily. PEDRO: No albuterol HFA (PROAIR HFA) 90 mcg/actuation inhaler 1 Inhaler 5 Sig: Inhale 2 Puffs as instructed every 4 hours as needed for Wheezing/Shortness of Breath. PEDRO: No dicyclomine (BENTYL) 10 mg capsule 60 capsule 5 Sig: Take 1 capsule by mouth before meals and at bedtime. PEDRO: No busPIRone (BUSPAR) 5 mg tablet 60 tablet 2 Sig: Take 1-2 tablets by mouth three times daily as needed. PEDRO: No meloxicam (MOBIC) 15 mg tablet 30 tablet 1 Sig: Take 1 tablet by mouth once daily. PEDRO: No Chloe Stanford CNP IRON AND TIBC Collected: 10/31/2017 Status: F Source: [place] 11:55 AM [facility] REPOSITORY TYPE CODE TESTS RESULT OUT OF REFERENCE UNITS RANGE LAB IRN 41-186 ug/dL Iron 62 LAB TIBC 232-386 ug/dL TIBC 325 LAB SAT 15-57 % Transferrin Saturatn 19 Performed By: #### IRON, CMP, FERR, CBCDIF, CELSCR #### [facility] [address] [place] [id number] COMP METABOLIC PANEL Collected: 10/31/2017 Status: F Source: [place] 11:55 AM [facility] REPOSITORY TYPE CODE TESTS RESULT OUT OF REFERENCE UNITS RANGE LAB TP 6.3-8.0 g/dL Protein, Total 7.5 LAB ALB 3.9-4.9 g/dL Low Albumin 3.8 LAB CA 8.5-10.2 mg/dL Calcium, Total 9.6 LAB TBIL 0.2-1.3 mg/dL Bilirubin, Total 0.3 LAB ALKP 32-117 U/L Alkaline High Phosphatase 136 LAB AST 13-35 U/L AST 18 LAB GLU 74-99 mg/dL Glucose 86 Result Comment: The [place] Diabetes Association (ADA) provides guidance for cutoff values for fasting glucose and random glucose. The ADA defines fasting as no caloric intake for at least 8 hours. Fas ting plasma glucose results between 100 to 125 mg/dL indicate increased risk for diabetes (prediabetes). Fasting plasma glucose results greater than or equal to 126 mg/dL meet the criteria for diagnosis of diabetes. In the absence of unequivocal hyperglycemia, results should be confirmed by repeat testing. In a patient with classic symptoms of hyperglycemia or hyperglycemic crisis, random plasma glucose results greater than or equal to 200 mg/dL meet the criteria for diagnosis of diabetes. Reference: Standards of Medical Care in Diabetes 2016, [place] Diabetes Association. Diabetes Care. 2016.39(Suppl 1). LAB BUN 7-21 mg/dL BUN 14 LAB CRET 0.58-0.96 mg/dL Creatinine 0.92 LAB NA 136-144 mmol/L Sodium 137 LAB K 3.7-5.1 mmol/L Potassium Low 3.6 LAB CL 97-105 mmol/L Chloride 98 LAB CO2 22-30 mmol/L CO2 24 LAB AGAP 9-18 mmol/L Anion Gap 15 LAB ALT 7-38 U/L ALT 16 LAB GFRAA eGFR- Amer. >60 LAB GFRNAA . eGFR-All Other Races >60 Result Comment: eGFR (Estimated GFR) Units of measure: mL/min/1.73 meters squared eGFR is derived from the reexpressed MDRD Study equation using the following parameters: serum creatinine, age, gender and race. The creatinine assay has been calibrated to be traceable to IDMS. An eGFR <60 mL/min/1.73m2 for >3 months is consistent with chronic kidney disease. Refer to KDOQI guidelines for clinical interpretation. In patients with unstable renal function, e.g. those with acute kidney injury, the eGFR may not accurately reflect actual GFR. Performed By: #### IRON, CMP, FERR, CBCDIF, CELSCR #### [facility] [address] [place], [place] [address] FERRITIN Collected: 10/31/2017 Status: F Source: [place] 11:55 AM [facility] REPOSITORY TYPE CODE TESTS RESULT OUT OF REFERENCE UNITS RANGE LAB FERR 14.7-205.1 ng/mL Ferritin 149.9 Performed By: #### IRON, CMP, FERR, CBCDIF, CELSCR #### [facility] [address] [place] [id number] CBC AND DIFFERENTIAL Collected: 10/31/2017 Status: F Source: [place] 11:55 AM [facility] REPOSITORY TYPE CODE TESTS RESULT OUT OF REFERENCE UNITS RANGE LAB WBC 3.70-11.00 k/uL WBC 9.94 LAB RBC 3.90-5.20 m/uL RBC 4.23 LAB HGB 11.5-15.5 g/dL Hemoglobin 12.2 LAB HCT 36.0-46.0 % Hematocrit 39.0 LAB MCV 80.0-100.0 fL MCV 92.2 LAB MCH 26.0-34.0 pG MCH 28.8 LAB MCHC 30.5-36.0 g/dL MCHC 31.3 LAB RDWCV 11.5-15.0 % RDW-CV 13.6 LAB PLTCT 150-400 k/uL Platelet Count 323 LAB MPV 9.0-12.7 fL MPV 12.5 LAB ANEUT % Neut% 67.1 LAB AANEUT 1.45-7.50 k/uL Abs Neut 6.66 LAB ALYMP % Lymph% 22.6 LAB AALYMP 1.00-4.00 k/uL Abs Lymph 2.25 LAB AMONO % Mills% 6.6 LAB AAMONO <0.87 k/uL Abs Mills 0.66 LAB AEOS % Eosin% 2.9 LAB AAEOS <0.46 k/uL Abs Eosin 0.29 LAB ABASO % Baso% 0.8 LAB AABASO <0.11 k/uL Abs Baso 0.08 LAB AUNRBC 0 /100 WBC NRBCs 0.0 LAB ABNRBC <0.01 k/uL Absolute nRBC <0.01 LAB DTYP DTYPE Auto Diff Performed By: #### IRON, CMP, FERR, CBCDIF, CELSCR #### [facility] [address] [place], [place] [address] CELIAC SCR W REFLEX Collected: 10/31/2017 Status: F Source: [place] 11:55 AM [facility] REPOSITORY TYPE CODE TESTS RESULT OUT OF REFERENCE UNITS RANGE LAB IGA 78-391 mg/dL IgA 307 LAB TGLUTA <20 Units Transglutaminase IgA 4 Result Comment: Negative : < 20 Units Weak Positive : 20 - 30 Units Moderate Pos to Strong Pos: >30 Units The following results were obtained with the [employer] QUANTA Lite h-tTG IgA BRANDO. h-tTG IgA values obtained with different manufacturers' assay methods may not be used interchangeably. The magnitude of th e reported IgA levels cannot be correlated to an endpoint titer. LAB CINTER No serologic evidence of Interpretation No celiac disease. serologic evidence of celiac disease. Performed By: #### IRON, CMP, FERR, CBCDIF, CELSCR #### [facility] [address] [place] [id number] PROGRESS Observed: 10/18/2017 Status: COMPLETED Source: [place] 4:27 PM [facility] REPOSITORY HNO ID: [id number] Author: Dot Acharya (Sw) Service: (none) Author Type: Drainman Type: Progress Notes Filed: 10/18/2017 4:30 PM Note Text: Karla called patient to follow up in regards to [employer] application for cymbalta. Karla has not received forms yet and Karla called to see if patient had questions about forms and follow up. Patient said that she still has forms and will work on them to get them complete and send back to KARLA. She has contact information and will work on completing them and sending them back. CNPTOUTREACH Observed: 10/16/2017 Status: COMPLETED Source: [place] 12:00 AM [facility] REPOSITORY Patient Outreach ([facility]) RAVI VALDEZ ([id number]) 1975 F Date Time Provider Department 10/16/17 CEASAR BAEZ [facility] During your visit today, we recorded the following information about you: Allergies As of Date: 10/16/2017 Noted Allergy Reaction SEASONAL ALLERGIES 10/15/2014 14 - Other: See Comments Comments: Sneezing, runny nose Date Reviewed: 10/11/2017 Reviewed by: Arcelia Smith Ma - Fully Assessed Visit Diagnosis:Medication management [Z79.899] Order(s):BASIC METABOLIC PNL [SQBMP] Order #: [id number] FUTURE Prescriptions as of 10/16/2017 Sig: X CITALOPRAM 40 MG TABLET Take 1 tablet by mouth once d* Patient not taking: Reported on 10/11/2017 X BUPROPION XL 300 MG 24 HR TAB Take 1 tablet by mouth once d* X LISINOPRIL 20 MG-HYDROCHLOROT* Take 1 tablet by mouth once d* X METOPROLOL TARTRATE 50 MG TAB* Take 1 tablet by mouth twice * X MONTELUKAST 10 MG TABLET Take 1 tablet by mouth daily * CONJUGATED ESTROGENS 0.625 MG* Take 0.625 mg by mouth once d* X MELOXICAM 15 MG TABLET Take 15 mg by mouth once eugenia* X SUMATRIPTAN 100 MG TABLET Take 1 tablet by mouth as nee* X BUSPIRONE 5 MG TABLET Take 1-2 tablets by mouth thr* X CETIRIZINE 10 MG TABLET Take 1 tablet by mouth once d* X MOMETASONE-FORMOTEROL HFA 100* Inhale 2 Puffs as instructed * X CHOLECALCIFEROL (VITAMIN D3) * Take 1 capsule by mouth once * X OMEPRAZOLE 40 MG CAPSULE,ERNESTO* Take 1 capsule by mouth once * BETAMETHASONE VALERATE 0.1 % * Apply 1 application to affect* NYSTATIN 100,000 UNIT/GRAM TO* Apply 1 application to affect* X ALBUTEROL SULFATE HFA 90 MCG/* Inhale 2 Puffs as instructed * X DICYCLOMINE 10 MG CAPSULE Take 1 capsule by mouth befor* NYSTATIN (BULK) 100 MILLION U* 1 application three times idalia* ASCORBIC ACID (VITAMIN C) 500* Take 1 tablet by mouth once d* Problem List As Of Date 10/16/2017 Noted Resolved Hypertension [I10] INVALID FOR* Impaired fasting glucose [R73.01] INVALID FOR* Obesity [E66.9] INVALID FOR* Vitamin D deficiency [E55.9] INVALID FOR* Pure hypercholesterolemia [E78.00] INVALID FOR* Essential hypertension [I10] INVALID FOR* Obstructive sleep apnea syndrome [G47.33] INVALID FOR* Encounter Status:Closed by ELLA DAVILA on 11/04/17 PROGRESS Observed: 09/25/2017 Status: COMPLETED Source: [place] 11:09 AM [facility] REPOSITORY HNO ID: [id number] Author: Dot Acharya (Sw) Service: (none) Author Type: Drainman Type: Progress Notes Filed: 10/18/2017 4:30 PM Note Text: Karla met with patient to discuss prescription, medicaid, disability, and social service help with youth that she has living with her. Patient requested help with cymbalta that ALEX Corona was looking at for patient. Karla printed off [employer] [facility] application for patient to work on her section of application and then send back to Karla for help with prescriber portion. Patient reports that she lost her job last week and is now looking for help with medical and financial help. Karla printed off [facility] Resource number guide for patient. Patient reports that she also has 17 year old living with her and has been trying to work on obtaining custody. Children services stated they could not assist her. Karla gave patient number for Director Translation for [place] and [facility] for direction on how to go about with obtaining custody. Karla also gave patient number for [place] for employment assistance. Patient reports that she needs to have knee surgery. She is asking how to go about seeing ortho for consult. Karla noted that she would send note to ALEX Corona and Dr. Baez to address question. ALLERGIES ALLERGIES DATE TYPE / CODE NAME / CODE REACTION SEVERITY SOURCE 09/13/2018 Drug SULFA Rash Low [facility] [place] [facility] Class/90724 (SULFONAMIDE Three Repository 1003(SNOMED ANTIBIOTICS) CT) 09/11/2018 Drug Sulfa Nausea Unknown [place] Allergy/416 (Sulfonamide Community 681721(SNOM Antibiotics)/F[address] [facility] [address] [facility]) [id number](RXNORM) Repository 10/15/2014 Environ/420 SEASONAL OTHER: SEE C [facility] 328713(SNOM ALLERGIES [place] ED CT) Repository Drug/411733 sulfa drugs [id number] Mormon 003([facility] Repository Drug NO KNOWN [place] [facility] Class/30331 ALLERGIES Three Repository 1003(SNOMED CT) ENCOUNTERS ENCOUNTERS ADMIT/DISCHARGE ACCOUNT NUMBER ADMITTING ENCOUNTER LOCATION SOURCE CLASS 10/07/2018 [id number] Ambulatory Nicol [facility] Hospital ding:WC Repository 10/07/2018 [id number] Ambulatory Building:[facility] Three Repository 09/12/2018 [id number] [facility] 09/12/2018 [id number] Ambulatory Building:[facility] Three Repository 09/11/2018 [id number] Ambulatory [facility]MSBuilding: [facility] 09/11/2018/09/12/20 [id number] Ambulatory Nicol [address] ding:SDCRoo Repository : MS317 09/10/2018 [id number] Ambulatory BMSBuilding: Nicol BMS.formerly [facility] Repository 08/19/2018/08/19/20 [id number] Ambulatory Building:[place] [address] SP[facility]TS[facility] Three ER Repository 07/30/2018/07/30/20 [id number] Ambulatory [address] Repository 07/23/2018/07/23/20 [id number] Ambulatory [address] Repository 07/15/2018/07/15/20 [id number] Ambulatory Building:[place] [address] SP[facility]TSMED[facility]B Three ER Repository 06/28/2018/07/12/20 [id number] Ambulatory Building:[place] [address] C Three Repository 06/27/2018/07/05/20 [id number] Ambulatory Building:[place] [address] [place] Three ER Repository 06/27/2018/06/28/20 [id number] [place] [address] [address] Jackson lding:B41 [facility] OrthoRoom: [place] B41 4129Bed: [facility] B41 595197 Repository 06/21/2018/06/21/20 [id number] Ambulatory [address] Repository 06/21/2018/06/24/20 [id number] Ambulatory [address] Repository 06/21/2018/06/21/20 [id number] Ambulatory [address] Repository 06/18/2018/06/18/20 [id number] Ambulatory Building:[place] [address] SPORTSMEDSTU Three MBO Repository 06/12/2018/06/12/20 [id number] Ambulatory BMSBuilding: Nicol 18 BMS.[facility] Repository 06/04/2018 [id number] Franci, [facility] 06/04/2018 [id number] Franci, [facility] Toure and Alise [facility] Repository 05/29/2018/05/29/20 [id number] Ambulatory [address] Repository 05/29/2018/05/31/20 [id number] Ambulatory [address] Repository 05/21/2018/05/21/20 [id number] Franci, Ambulatory [address] Regional ding:[facility] Repository 05/21/2018 [id number] Ambulatory [address] [place] [address] Repository 05/15/2018 [id number] Ambulatory Building:[facility] SPORTSMEDSTU Three MBO Repository 04/08/2018/04/08/20 [id number] Ambulatory Building:[place] [address] [place] Three ER Repository 03/06/2018 [id number] Ambulatory BMSBuilding: [place] BMS.[facility] Repository 01/14/2018/01/15/20 [id number] Ambulatory Building:[place] [address] [place] Three ER Repository 01/14/2018/01/15/20 [id number] Ambulatory [address] Repository 12/27/2017/12/28/19 [id number] Franci, Ambulatory [place] [address] [address] Jackson lding:A10A [place] SurgRoom: [facility] A10A Repository N20UQtz: A10A A10A07 12/27/2017/12/28/19 [id number] Ambulatory Building:[place] [address] [place] Three ER Repository 12/24/2017/12/25/19 [id number] Ambulatory Building:[place] [address] [facility] Three ER Repository 12/18/2017/12/19/19 [id number] Ambulatory [address] Repository 12/18/2017/12/20/19 [id number] Ambulatory [address] Repository 11/20/2017/11/21/19 [id number] Ambulatory [address] [place] Repository 11/20/2017/11/21/19 [id number] Ambulatory [address] Repository 11/20/2017/11/21/19 [id number] Ambulatory [address] Repository 11/12/2017/11/20/19 [id number] Ambulatory [address] [place] Repository 11/12/2017/11/12/19 [id number] Ambulatory Building:[address] Repository 10/31/2017 [id number] Ambulatory [facility] Repository 10/31/2017/11/01/19 [id number] Ambulatory [address] Repository PAYERS PAYERS ENCOUNTER GUARANTOR PAYER SUBSCRIBER SOURCE 10/07/2018 RAVI Elizabeth Primary Insurance:[facility] RAVI VALDEZ244 [facility] HospitalB: [facility] Number: [id number]. [facility]'s [facility] [id number] [place]ository [place] [address]Yyv: Date:7790-15-01HO [facility] [address] [place] [address] () 397[address]LD: 10/07/2018 Secondary NOT GIVENUNK Nicol Insurance:SELF PAY [facility] Number: Effective Repository Date:2018-09-20 10/07/2018 RAVI Elizabeth Primary Insurance:[facility] RAVI Elizabeth [facility] RANDKAISER HAYWARDDOB: Three Repository S Number: [id number] [place] [id number] S [facility], Date:5596-00-09[address] [place], [place] [address]Fwz: [address] [place], [place] [phone]: ([phone]) (BQ) [phone] 09/12/2018 RAVI Elizabeth Primary Insurance:[facility] RAVI VALDEZ244 [facility] HospitalB: [facility] Number: [id number]. Joseph's Hospital [id number] [place]ository [place] [address]Jcp: Date:7166-82-71UO [facility] [address] [place] [address] () 817[address]GO: 09/12/2018 Secondary NOT GIVENUNK [place] Insurance:SELF PAY [facility] Number: Effective Repository Date:2018-09-12 09/12/2018 RAVI Elizabeth Primary Insurance:[facility] RAVI L [facility] RANDKAISER HAYWARDDOB: MANAGED MEDICAIDPolicy RANDALLDOB: Three Repository S Number: [id number] [place] [id number] S [facility], Date:7945-20-48[address] [place], [place] [address]Paj: [address] [place], [place] [address]KZ: [phone]) (HP) [phone] 09/11/2018 RAVI Elizabeth Primary Insurance:[facility] RAVI Camarena [id number] [facility] HospitalB: [facility] Number: [id number]. Joseph's Hospital [id number] [place]ository [place] [address]Bxu: Date:2151-00-34MB [address] [place] [address] () 957[address]YA: 09/11/2018 Secondary NOT GIVENUNK Nicol Insurance:SELF PAY [facility] Number: Effective Repository Date:2018-09-11 09/11/2018 RAVI Elizabeth Primary Insurance:[facility] RAVI Elizabeth Nicol [id number] [facility] HospitalB: [facility] Number: [id number]. Joseph's Hospital [id number] Repository [place] [address]Slz: Date:2416-16-82EU [address] [place] [address] () [address]CA: 09/11/2018 Secondary NOT GIVENUNK [place] Insurance:SELF PAY [facility] Number: Effective Repository Date:2018-09-05 09/10/2018 RAVI Elizabeth Primary Insurance:[facility] RAVI Glenn Camarena [id number] [facility] HospitalB: [facility] Number: [id number]. Joseph's Hospital [id number] Repository [place] [address]Qmm: Date:0792-07-71CM [facility] [address] [place] [address] () 33070XA: 09/10/2018 Secondary NOT GIVENUNK [place] Insurance:SELF PAY [facility] Number: Effective Repository Date:2018-09-10 08/19/2018 RAVI Elizabeth Primary Insurance:[facility] RAVI Glenn [facility] MADELAINEB: MANAGED MEDICAIDPolclarinda regional health center RANDKAISER HAYWARDDOB: Three Repository S Number: [id number] [place] [id number] S [facility], Date:3273-53-96NG [place], [place] [address]Yoy: [address] [place] [address]WP: ([phone]) (HP) [phone] 07/15/2018 RAVI Elizabeth Primary Insurance:[facility]AVI [facility] MADELAINEB: MANAGED MEDICAIDPolclarinda regional health center RANDKAISER HAYWARDB: Three Repository S Number: [id number] [place] [id number] S [facility], Date:4825-78-87UQ [place], [place] [address]Aae: [address] [place] [address] [place] [phone]: ([phone]) (HP) [phone] 06/28/2018 RAVI Elizabeth Primary Insurance:[facility] RAVI [facility] MADELAINEB: MANAGED MEDICAIDPolclarinda regional health center RANDALLB: Three Repository S Number: [id number] [place] [id number] S [facility], Date:9170-65-20EW [place], [place] [address]Hjl: [address] [place] [address] [place] [address]WP: ([phone]) (HP) [phone] 06/27/2018 RAVI Elizabeth Primary Insurance:[facility]I [facility] MADELAINEB: MANAGED MEDICAIDLehigh [facility] RANDALLB: Three Repository S Number: [id number] [facility] EDILBERTO [id number] S [facility], Date:6850-34-47TU [place], [place] [address]Ykd: [address] [place] [address] [place] [phone]: ([phone]) (HP) [phone] 06/27/2018 Primary RAVI L [facility] Insurance:[facility] RANDKAISER HAYWARDDOB: [place] and [address] [id number] Number: S [facility] EDILBERTO Repository [id number] [facility], Date:[place] [address] Name:[address] [address]TE: 06/18/2018 RAVI L Primary Insurance:[facility] L [facility] MANAGED MEDICAIDPolicy RANDALLDOB: Three Repository S Number: [id number] [facility] EDILBERTO [id number] S [facility], Date:7361-05-25GL [place], [place] [address]Nma: [address] [place] [address] [place] [address]LQ: ([phone]) (HP) [phone] 06/12/2018 RAVI Primary Insurance:[facility] RAVI VALDEZ[address] [place], [place] [address]B: [facility] Number: [id number] Regional Hospital South, [id number] [place]ository [place] [address]Pii: Date:0678-01-58KW [address] [place] [address] (HP) [phone]: 06/12/2018 Secondary NOT GIVENUNK Nicol Insurance:SELF PAY [facility] Number: Effective Repository Date:2018-06-12 06/04/2018 Primary RAVI L [facility] Insurance:[facility] RANDALLDOB: [place] and [address] [id number] Number: S [facility] EDILBERTO Repository [id number] [facility], Date:[place] [address] Name:[address] [address]UU: 06/04/2018 Primary RAVI Elizabeth [facility] Insurance:[facility] RANDALLDOB: [place] and [address] [place] [address] [id number] [facility] Number: S [facility] EDILBERTO Repository [id number] [place], [place] [address] Name:[address] [address]LX: 05/21/2018 RAVI Elizabeth Primary RAVI Elizabeth [place] RANDOSORIODOB: Insurance:GLENNIE RANDKAISER HAYWARDDOB: [facility] [id number] System [place] Number: Effective S [facility], Date:2018-05-21 [place], [place] 2604-33-23Qfas [place] [address]Uau: Name:CD:[id number] [address]Vnq: [address] [place] [address] (HP) [phone]: (800) (HP) [phone] (WP) 05/21/2018 RAVI Elizabeth Primary RAVI Elizabeth [facility]: Insurance:[place] RANDKAISER HAYWARDDOB: [facility] [id number] [facility] Number: S [facility], [id number], [place] Date:Plan Name:[facility] [id number]: [id number]: [address] [address]QY: (800) (HP) (HP) [phone] 05/15/2018 RAVI Elizabeth Primary Insurance:[facility] RANDALLDOB: MANAGED MEDICAIDPolicy RANDALLDOB: [facility] Repository S Number: [id number] [facility] EDILBERTO [id number] [facility], Date:9674-13-92WQPEORIA, [place] [address]Tmg: [address] [place] [address] [place] [address]WP: (800) (HP) [phone] 05/15/2018 Secondary RAVI Elizabeth [facility] Insurance:[facility] RANDKAISER HAYWARDDOB: Three Repository MANAGED MEDICAIDPolicy [id number] Number: S [facility] EDILBERTO [id number] [place], Date:2017-11-12 - [place] [address] 1766-85-87DW [address] [address]PO: 04/08/2018 RAVI Elizabeth Primary Insurance:[facility] RAVI L [facility] MADELAINEB: MANAGED MEDICAIDLehigh [facility] RANDDARYNB: Three Repository S Number: [id number] [facility] EDILBERTO [id number] S [facility], Date:1723-41-96CI [place], [place] [address]Gsi: [address] [place] [address] [place] [phone]: ([phone]) (HP) [phone] 03/06/2018 Ravi Primary Insurance:SELF NOT GIVENUNK Nicol [id number] Number: Effective [facility], Date:2018-02-07 [place]ository [place] [address]Dpq: (HP) 01/14/2018 RAVI Elizabeth Primary Insurance:[facility] RAVI L [facility] MADELAINEB: MANAGED MEDICAIDLehigh [facility] RANDDARYNB: Three Repository S Number: [id number] [facility] EDILBERTO [id number] S [facility], Date:0797-56-86VI [place], [place] [address]Fok: [address] [place] [address] [place] [address]XD: (800) (HP) [phone] 12/27/2017 Primary RAVI Elizabeth [facility] Insurance:[facility] MADELAINEB: [address] [id number] [facility] Number: S DAWIT ALEXANDER Repository [id number] [facility], Date:[place] [address] Name:[address] [address]JH: 12/27/2017 RAVI Elizabeth Primary Insurance:[facility] RAVI L [facility] RANDALLDOB: MANAGED MEDICAIDPolicy RANDALLDOB: Three Repository S Number: [id number] DAWIT ALEXANDER [id number] S [facility], Date:2480-03-02NWPEORIA, [place] [address]Xdg: [address] [place] [address] [place] [address]WP: ([phone]) (OJ) [phone] 12/24/2017 RAVI Elizabeth Primary Insurance[facility] RAVI [facility] RANDALLDOB: MANAGED MEDICAIDPolicy RANDALLDOB: Three Repository S Number: [id number] DAWIT ALEXANDER [id number] S [facility], Date:1326-44-69KCPEORIA, [place] [address]Gmv: [address] [place] [address] [place] [phone]: ([phone]) (VL) [phone] 12/24/2017 Secondary RAVI L [place] [facility] Insurance:[place] RANDALLDOB: Three Repository MANAGED MEDICAIDPolicy [id number] Number: S DAWIT ALEXANDER [id number] [place], [place]:2017[place]12 [place] [address] [id number] [address]BX: 11/12/2017 RAVI Elizabeth Primary Insurance:[facility] RAVI [facility] RANDALLDOB: MANAGED MEDICAIDPolicy RANDALLDOB: Three Repository S Number: [id number] DAWIT ALEXANDER [id number] S [facility], Date:2016-09-17 [place], [place] [address]Byx: 9919-85-81[place] [address] [place], [place] () [address]TI: 11/12/2017 Secondary RAVI Elizabeth [place] [facility] Insurance:POOJA [place]: Three [facility] MANAGED MEDICAIDPolicy [id number] Number: S DAWIT ALEXANDER [id number] [facility], Date:5313-79-62[place] [address], [place] [address]KF:
--- OUTSIDE RECORDS SUMMARY | 2018-12-09 22:17 | XMS RPT_ITS | Summary of Care ---
:1975 Author Organization [facility] Address [address] [place] [address] Care Team Providers Name Role Phone Ceasar Okeefe Primary Care Provider Reason for Visit Reason Comments Follow-up Encounter Details Date Type Department Care Team Description 04/08/2018 Office Visit [facility] Orthopedic Tara Genao S/P left knee arthroscopy (Primary Dx); & Sports Medicine MD Francisco Arthritis of knee, left Physicians [address] [place] [address] [place] [address] [phone] Allergies No Known Allergiesas of this encounter [...] encounter Progress Notes Tara Genao MD - 04/08/2018 11:24 AM EDT Dictation on: 04/08/2018 11:24 AM by: TARA GENAO [[id number]] in this encounter Plan of Treatment Health Maintenance Due Date Last Done Comments PAP SMEAR 1975 SEQUENTIAL INFLUENZA VACCINE (#1) 2018 TETANUS EVERY 10 YR 12/30/2021 12/31/2011 as of this encounter Visit Diagnoses Diagnosis S/P left knee arthroscopy - Primary Arthritis of knee, left
--- OUTSIDE RECORDS SUMMARY | 2018-12-09 22:17 | XMS RPT_ITS | Summary of Care ---
:1975 Author Organization [facility] Address [address] [place] [address] Care Team Providers Name Role Phone Ceasar Okeefe DO Primary Care Provider Encounter Details Date Type Department Care Team Description 06/03/2018 Documentation [facility] Orthopedic & Yesi Yung, Sports Medicine Physicians GREASE WORKER [address] [place], [place] [id number] Allergies No Known Allergiesas of this encounter [...] file as of this encounter Progress Notes Yesi Yung LPN - 06/03/2018 9:33 AM EDTCT Approval [id number] this encounter Plan of Treatment Upcoming Encounters Date Type Specialty Care Team Description 06/04/2018 Hospital Encounter Manuel Genao MD [address] [place], [place] [id number] 06/18/2018 Surgical Consult Sports Medicine Manuel Genao MD [address] [place], [place] [id number] 06/28/2018 Scanned Document Sports Medicine Manuel Genao MD [address] [place] [address] [phone] Health Maintenance Due Date Last Done Comments PAP SMEAR 1975 SEQUENTIAL INFLUENZA VACCINE (#1) 2018 TETANUS EVERY 10 YR 12/30/2021 12/31/2011 as of this encounter
== END 2018-10-17 23:59 ==
LOC: WC 11:19
PROVIDERS: Family Provider Student in an Organized Health Care Education/Training Program; PCP Student in an Organized Health Care Education/Training Program; Visit Provider Surgery
DX: L73.2 Hidradenitis suppurativa (principal); F17.200 Nicotine dependence, unspecified, uncomplicated; L98.492 Non-pressure chronic ulcer of skin of other sites with fat layer exposed
CPT/HCPCS: 11042; 11045; 99213; G0463

== ENCOUNTER 2018-11-12 14:15 | Outpatient (RCR) | payer MEDICAID, SELFPAY ==
[2018-10-18 01:40] VITALS: BP 148/96; PULSE 100; RESP 18; TEMP 35.9
[2018-10-22 14:43] VITALS: BP 135/86; PULSE 79; RESP 18; TEMP 36.7; BMI 52.7
--- NOTE | 2018-10-22 16:16 | PCM.WC.PN ---
(1) Open wound of right axillary region Status: Acute Current Visit: Yes Code(s): S41.101A - Unspecified open wound of right upper arm, initial encounter Comment: open surgical hidradenitis wound right axilla (2) Personal history of Methicillin resistant Staphylococcus aureus infection Status: Chronic Current Visit: Yes Code(s): Z86.14 - Personal history of Methicillin resistant Staphylococcus aureus infection Comment: Z86.14 (3) Hidradenitis Status: Chronic Current Visit: Yes Code(s): L73.2 - Hidradenitis suppurativa Comment: right axillary hidradenitis left axillary hidradenitis hidradenitis right inguinal/upper medial thigh area hidradenitis abscess right perineal/gluteal area Type of Wound Date of Service: 10/22/18 Chief Complaint: Open surgical hidradenitis wound right axilla. History of Wound: Surgery 09/11/18 - Surgical preparation right axilla with excision hidradenitis (130 cm2). Wound care - Silver. Initially after surgery she tried the VAC and couldn't tolerate it. Operative culture - Coag negative Staph. She was on Doxycycline perioperatively and has finished them. Prealbumin from 09/12/18 was 23.8. Encouraged nutritional supplementation with protein to help the healing process. Today she denies fever. Her appetite is ok. Progress of Wound: Improved. - Physical Exam Vital Signs Temp Pulse Resp BP 98.0 F 79 18 135/86 H 10/22/18 14:43 10/22/18 14:43 10/22/18 14:43 10/22/18 14:43 General: Alert, Oriented x3, Cooperative HEENT: Atraumatic Oral: Moist Mucosa Lungs: Normal air movement Cardiovascular: Regular rate Extremities: No edema, Capillary Refill Less than 3 Seconds Skin: Ulcer/ Wound - Right axilla opened area Wound Measurements and Assessment WC - Nurse 1 - General Ulcer Measurement Start: 10/22/18 14:43 Freq: Status: Active Protocol: Activity Type Activity Date Activity User E-Sign Co-Sign Detail Recorded Client Recorded Date Recorded By Document 10/22/18 14:43 AN [id number] 10/22/18 15:01 AN 10/22/18 14:43 Wound Center Nurse 1 [Ulcer Assessment] #3 RIGHT ARMPIT -Current Size (cm) - Length 2.7 -Current Size (cm) - Width 5.0 -Current Size (cm) - Depth 0.1 -Total Square Cm 13.50 -Photo Taken No -Epithelialization None Present -Tunneling No -Undermining/Tunneling No -Circular Undermining No -Classification - Thickness Full Thickness without Exposed Support Structure -Exudate Amt Medium -Exudate Type Serosanguineous -Wound Margin Flat & Intact -Granulation Amt Large (67-100%) -Granulation Quality Red -Slough/Fibrin Yes -Necrosis Amt Small (1-33%) -Necrotic Tissue Type Adherent Slough -Structure Exposed None/Limited to Skin Breakdown -Texture (Clair-wound Skin Appearance) Assessed Scarring -Moisture (Clair-wound Skin Appearance Assessed ) -Color (Clair-wound Skin Appearance) Assessed Erythema -Temperature (Clair-wound Skin No Abnormality Appearance) (Pt Warm) -Tenderness on Palpation (Clair-wound Yes Skin Appearance) -Ulcer Cleansing Rinsed/ Irrigated with Saline -Foul Odor after Cleansing No -Anesthetic Used 4% Lidocaine Solution 5% Lidocaine Gel WC - Nurse 2 - General Ulcer CM Notes Start: 10/22/18 14:43 Freq: Status: Active Protocol: Activity Type Activity Date Activity User E-Sign Co-Sign Detail Recorded Client Recorded Date Recorded By Document 10/22/18 15:32 CHRISTEN [id number] 10/22/18 15:33 CHRISTEN 10/22/18 15:32 Wound Center Nurse 2 [Procedure/Treatment] -Time 15:33 -Correct Patient Yes -Correct Side, Site, Position Yes -Correct Procedure Yes -Procedure Performed Yes -Type of Procedure Debridement -Clinical Debridement Subcutaneous -Post Debridement Size (cm) - Length 1.8 -Post Debridement Size (cm) - Width 5.3 -Post Debridement Size (cm) - Depth 0.3 -Total Square Cm 9.54 -Wound/Ulcer Outcome Not Healed -Ulcer Cleansing Rinsed/ Irrigated with Saline -Foul Odor after Cleansing No -Bioengineered Tissue No -Bleeding Controlled with Pressure -Offloading No -Treatment Response Procedure Tolerated Well [See Physician Procedure note for Specifics] Pain Scale: 0-10 Numeric [Pain] -Is Patient Pain Free? Yes Musculoskeletal: No Tenderness to Palpation of Joints or Extremities Neurological: Neuro grossly intact Psych/Mental Status: Normal Affect, Appropriate Debridement Note Post-Debridement Measurements/Treatment WC - Nurse 2 - General Ulcer CM Notes Start: 10/22/18 14:43 Freq: Status: Active Protocol: Activity Type Activity Date Activity User E-Sign Co-Sign Detail Recorded Client Recorded Date Recorded By Document 10/22/18 15:32 CHRISTEN [id number] 10/22/18 15:33 CHRISTEN 10/22/18 15:32 Wound Center Nurse 2 #3 RIGHT ARMPIT -Time 15:33 -Correct Patient Yes -Correct Side, Site, Position Yes -Correct Procedure Yes -Procedure Performed Yes -Type of Procedure Debridement -Clinical Debridement Subcutaneous -Post Debridement Size (cm) - Length 1.8 -Post Debridement Size (cm) - Width 5.3 -Post Debridement Size (cm) - Depth 0.3 -Total Square Cm 9.54 -Wound/Ulcer Outcome Not Healed -Ulcer Cleansing Rinsed/ Irrigated with Saline -Foul Odor after Cleansing No -Bioengineered Tissue No -Bleeding Controlled with Pressure -Offloading No -Treatment Response Procedure Tolerated Well Pain Scale: 0-10 Numeric Is Patient Pain Free? Yes Wound debrided: Axilla Laterality: Right Type of Debridement: Excisional debridement Anesthesia Used: 4% Lidocaine Solution Depth: Down to and including healthy tissue, in the subcutaneous layer Percentage of wound debrided: 100 Instrument Used: 3mm curette Tissue Removed: Subcutaneous tissue and slough Severity: Fat Layer Exposed Amount of bleeding with debridement: Mild Bleeding Controlled with: Pressure Patient tolerated procedure well Assessment/Plan Active Problems (Last Updated 06/12/18 @ 10:03 by Arcelia Schmidt) Open wound of right axillary region (Acute) open surgical hidradenitis wound right axilla Personal history of Methicillin resistant Staphylococcus aureus infection (Chronic) Z86.14 Hidradenitis (Chronic) right axillary hidradenitis left axillary hidradenitis hidradenitis right inguinal/upper medial thigh area hidradenitis abscess right perineal/gluteal area Assessment: 1. Right axillary hidradenitis. 2. Open surgical hidradenitis wound right axillary area. 3. History of MRSE. 4. Family history of skin cancer. 5. Smoker. 6. s/p surgical preparation right axilla with excision hidradenitis (130 cm2). Plan: Continue Silver dressing changes daily to the right axilla. The hidradenitis wound is ready for skin grafting at this time. The patient will think about further surgery and let me know. Right now she wants to continue the wound care. Encourage range of motion exercises to minimize stiffness. Today she shows good range of motion of her right shoulder. Prealbumin from 09/12/18 was 23.8. Encourage nutritional supplementation with protein to help the healing process. She is finished with the Doxycycline that was taken perioperatively. Operative culture showe Coag negative. Renewed her Percocet for pain, OARRS checked. Followup one week. Encouraged the patient to stop smoking as it may have deleterious effects on wound healing. Code Visit 111xxx-113xx: [id number] [place] subq tissue 20 sq cm/<
[2018-10-29 14:30] VITALS: BP 154/82; PULSE 83; RESP 16; TEMP 36.3; BMI 52.7
--- NOTE | 2018-10-29 16:04 | PCM.WC.PN ---
(1) Open wound of right axillary region Status: Acute Current Visit: Yes Code(s): S41.101A - Unspecified open wound of right upper arm, initial encounter Comment: open surgical hidradenitis wound right axilla (2) Personal history of Methicillin resistant Staphylococcus aureus infection Status: Chronic Current Visit: Yes Code(s): Z86.14 - Personal history of Methicillin resistant Staphylococcus aureus infection Comment: Z86.14 (3) Hidradenitis Status: Chronic Current Visit: Yes Code(s): L73.2 - Hidradenitis suppurativa Comment: right axillary hidradenitis left axillary hidradenitis hidradenitis right inguinal/upper medial thigh area hidradenitis abscess right perineal/gluteal area Type of Wound Date of Service: 10/29/18 Chief Complaint: Open surgical hidradenitis wound right axilla. History of Wound: Surgery 09/11/18 - Surgical preparation right axilla with excision hidradenitis (130 cm2). Wound care - Silver. Initially after surgery she tried the VAC and couldn't tolerate it. Operative culture - Coag negative Staph. She was on Doxycycline perioperatively and has finished them. Prealbumin from 09/12/18 was 23.8. Encouraged nutritional supplementation with protein to help the healing process. Today she denies fever. Her appetite is ok. Progress of Wound: Improved. - Physical Exam Vital Signs Temp Pulse Resp BP 97.3 F L 83 16 154/82 H 10/29/18 14:30 10/29/18 14:30 10/29/18 14:30 10/29/18 14:30 General: Alert, Oriented x3, Cooperative HEENT: Atraumatic, PERRLA Oral: Moist Mucosa Lungs: Normal air movement Cardiovascular: Regular rate Extremities: No edema, Capillary Refill Less than 3 Seconds, Peripheral Pulses Normal Skin: Ulcer/ Wound - right axilla wound Wound Measurements and Assessment WC - Nurse 1 - General Ulcer Measurement Start: 10/22/18 14:43 Freq: Status: Active Protocol: Activity Type Activity Date Activity User E-Sign Co-Sign Detail Recorded Client Recorded Date Recorded By Document 10/29/18 14:30 [id number] 10/29/18 14:31 CHRISTEN 10/29/18 14:30 Wound Center Nurse 1 [Ulcer Assessment] #3 RIGHT ARMPIT -Combined with other wound No -Current Size (cm) - Length 2.7 -Current Size (cm) - Width 4.8 -Current Size (cm) - Depth 0.2 -Total Square Cm 12.96 -Photo Taken No -Epithelialization Small 1-33% -Tunneling No -Undermining/Tunneling No -Circular Undermining No -Exudate Amt Medium -Exudate Type Serosanguineous -Wound Margin Flat & Intact -Granulation Amt Large (67-100%) -Granulation Quality Red -Slough/Fibrin Yes -Necrosis Amt Small (1-33%) -Necrotic Tissue Type Adherent Slough -Structure Exposed N/A -Texture (Clair-wound Skin Appearance) Assessed Scarring -Moisture (Clair-wound Skin Appearance Assessed ) Dry/Scaly -Color (Clair-wound Skin Appearance) Assessed -Temperature (Clair-wound Skin No Abnormality Appearance) (Pt Warm) -Tenderness on Palpation (Clair-wound No Skin Appearance) -Ulcer Cleansing Rinsed/ Irrigated with Saline -Foul Odor after Cleansing No -Anesthetic Used 4% Lidocaine Solution [Edema Assessment] -Lower Limb Edema Present NA - Nurse 2 - General Ulcer CM Notes Start: 10/22/18 14:43 Freq: Status: Active Protocol: Activity Type Activity Date Activity User E-Sign Co-Sign Detail Recorded Client Recorded Date Recorded By Document 10/29/18 14:50 CHRISTEN [id number] 10/29/18 14:52 CHRISTEN 10/29/18 14:50 Wound Center Nurse 2 [Procedure/Treatment] #3 RIGHT ARMPIT -Time 14:51 -Correct Patient Yes -Correct Side, Site, Position Yes -Correct Procedure Yes -Procedure Performed Yes -Type of Procedure Debridement -Clinical Debridement Subcutaneous -Post Debridement Size (cm) - Length 2.3 -Post Debridement Size (cm) - Width 5 -Post Debridement Size (cm) - Depth 0.2 -Total Square Cm 11.5 -Wound/Ulcer Outcome Not Healed -Ulcer Cleansing Rinsed/ Irrigated with Saline -Foul Odor after Cleansing No -Bioengineered Tissue No -Bleeding Controlled with Pressure -Offloading No -Treatment Response Procedure Tolerated Well [See Physician Procedure note for Specifics] Pain Scale: 0-10 Numeric [Pain] -Is Patient Pain Free? Yes Musculoskeletal: No Tenderness to Palpation of Joints or Extremities, No Muscle Wasting Neurological: Neuro grossly intact Psych/Mental Status: Normal Affect, Appropriate Debridement Note Post-Debridement Measurements/Treatment - Nurse 2 - General Ulcer CM Notes Start: 10/22/18 14:43 Freq: Status: Active Protocol: Activity Type Activity Date Activity User E-Sign Co-Sign Detail Recorded Client Recorded Date Recorded By Document 10/22/18 15:32 [id number] 10/22/18 15:33 Document 10/29/18 14:50 [id number] 10/29/18 14:52 10/22/18 10/29/18 15:32 14:50 Wound Center Nurse 2 #3 RIGHT ARMPIT -Time 15:33 14:51 -Correct Patient Yes Yes -Correct Side, Site, Position Yes Yes -Correct Procedure Yes Yes -Procedure Performed Yes Yes -Type of Procedure Debridement Debridement -Clinical Debridement Subcutaneous Subcutaneous -Post Debridement Size (cm) - Length 1.8 2.3 -Post Debridement Size (cm) - Width 5.3 5 -Post Debridement Size (cm) - Depth 0.3 0.2 -Total Square Cm 9.54 11.5 -Wound/Ulcer Outcome Not Healed Not Healed -Ulcer Cleansing Rinsed/ Rinsed/ Irrigated with Irrigated with Saline Saline -Foul Odor after Cleansing No No -Bioengineered Tissue No No -Bleeding Controlled with Pressure Pressure -Offloading No No -Treatment Response Procedure Procedure Tolerated Well Tolerated Well Pain Scale: 0-10 Numeric Is Patient Pain Free? Yes Yes Wound debrided: Right axilla wound Laterality: Right Type of Debridement: Excisional debridement Anesthesia Used: 5% Lidocaine Gel Depth: Down to and including healthy tissue, in the subcutaneous layer Percentage of wound debrided: 100 Instrument Used: 5mm curette Tissue Removed: Subcutaneous tissue and slough Severity: Limited To Skin Breakdown Amount of bleeding with debridement: Mild Bleeding Controlled with: Pressure, Compression and gauze Patient tolerated procedure well Assessment/Plan Active Problems (Last Updated 06/12/18 @ 10:03 by Arcelia Schmidt) Open wound of right axillary region (Acute) open surgical hidradenitis wound right axilla Personal history of Methicillin resistant Staphylococcus aureus infection (Chronic) Z86.14 Hidradenitis (Chronic) right axillary hidradenitis left axillary hidradenitis hidradenitis right inguinal/upper medial thigh area hidradenitis abscess right perineal/gluteal area Assessment: 1. Right axillary hidradenitis. 2. Open surgical hidradenitis wound right axillary area. 3. History of MRSE. 4. Family history of skin cancer. 5. Smoker. 6. s/p surgical preparation right axilla with excision hidradenitis (130 cm2). Plan: Continue Silver dressing changes daily to the right axilla. The hidradenitis wound is ready for skin grafting at this time. The patient will think about further surgery and let me know. Right now she wants to continue the wound care. Encourage range of motion exercises to minimize stiffness. Today she shows good range of motion of her right shoulder. Prealbumin from 09/12/18 was 23.8. Encourage nutritional supplementation with protein to help the healing process. She is finished with the Doxycycline that was taken perioperatively. Operative culture showe Coag negative. Followup one week. Encouraged the patient to stop smoking as it may have deleterious effects on wound healing. Code Visit 111xxx-113xx: [id number] [place] subq tissue 20 sq cm/<
[2018-11-12 14:16] VITALS: BP 126/75; PULSE 82; RESP 18; TEMP 36.6; BMI 52.7
--- NOTE | 2018-11-12 16:22 | PCM.WC.PN ---
(1) Open wound of right axillary region Status: Acute Current Visit: Yes Code(s): S41.101A - Unspecified open wound of right upper arm, initial encounter Comment: open surgical hidradenitis wound right axilla (2) Personal history of Methicillin resistant Staphylococcus aureus infection Status: Chronic Current Visit: Yes Code(s): Z86.14 - Personal history of Methicillin resistant Staphylococcus aureus infection Comment: Z86.14 (3) Hidradenitis Status: Chronic Current Visit: Yes Code(s): L73.2 - Hidradenitis suppurativa Comment: right axillary hidradenitis left axillary hidradenitis hidradenitis right inguinal/upper medial thigh area hidradenitis abscess right perineal/gluteal area Type of Wound Date of Service: 11/12/18 Chief Complaint: Open surgical hidradenitis wound right axilla. History of Wound: Surgery 09/11/18 - Surgical preparation right axilla with excision hidradenitis (130 cm2). Wound care - Silver. Initially after surgery she tried the VAC and couldn't tolerate it. Operative culture - Coag negative Staph. She was on Doxycycline perioperatively and has finished them. Prealbumin from 09/12/18 was 23.8. Encouraged nutritional supplementation with protein to help the healing process. Today she denies fever. Her appetite is ok. Progress of Wound: Improved. - Physical Exam Vital Signs Temp Pulse Resp BP 98 F 82 18 126/75 H 11/12/18 14:16 11/12/18 14:16 11/12/18 14:16 11/12/18 14:16 General: Alert, Oriented x3, Cooperative HEENT: Atraumatic, PERRLA Oral: Moist Mucosa Lungs: Normal air movement Cardiovascular: Regular rate Extremities: No edema, Capillary Refill Less than 3 Seconds, Peripheral Pulses Normal Skin: Ulcer/ Wound - Right axilla wound is healing well Wound Measurements and Assessment WC - Nurse 1 - General Ulcer Measurement Start: 10/22/18 14:43 Freq: Status: Active Protocol: Activity Type Activity Date Activity User E-Sign Co-Sign Detail Recorded Client Recorded Date Recorded By Document 11/12/18 14:16 LA [id number] 11/12/18 14:24 LA 11/12/18 14:16 Wound Center Nurse 1 [Ulcer Assessment] #3 RIGHT ARMPIT -Combined with other wound No -Current Size (cm) - Length 1.0 -Current Size (cm) - Width 1.9 -Current Size (cm) - Depth 0.1 -Total Square Cm 1.90 -Photo Taken No -Tunneling No -Undermining/Tunneling No -Circular Undermining No -Exudate Amt Small -Exudate Type Serosanguineous -Wound Margin Flat & Intact -Granulation Amt Large (67-100%) -Granulation Quality [place] -Slough/Fibrin No -Texture (Clair-wound Skin Appearance) Assessed Scarring -Moisture (Clair-wound Skin Appearance Assessed ) -Color (Clair-wound Skin Appearance) Assessed -Temperature (Clair-wound Skin No Abnormality Appearance) (Pt Warm) -Tenderness on Palpation (Clair-wound No Skin Appearance) -Ulcer Cleansing Rinsed/ Irrigated with Saline -Foul Odor after Cleansing No -Anesthetic Used 4% Lidocaine Solution WC - Nurse 2 - General Ulcer CM Notes Start: 10/22/18 14:43 Freq: Status: Active Protocol: Activity Type Activity Date Activity User E-Sign Co-Sign Detail Recorded Client Recorded Date Recorded By Document 11/12/18 14:57 [id number] 11/12/18 14:58 11/12/18 14:57 Wound Center Nurse 2 [Procedure/Treatment] -Time 14:57 -Correct Patient Yes -Correct Side, Site, Position Yes -Correct Procedure Yes -Procedure Performed Yes -Type of Procedure Debridement -Clinical Debridement Subcutaneous -Post Debridement Size (cm) - Length 0.9 -Post Debridement Size (cm) - Width 2.0 -Post Debridement Size (cm) - Depth 0.1 -Total Square Cm 1.80 -Wound/Ulcer Outcome Not Healed -Ulcer Cleansing Rinsed/ Irrigated with Saline -Foul Odor after Cleansing No -Bioengineered Tissue No -Bleeding Controlled with Pressure -Offloading No -Treatment Response Procedure Tolerated Well [See Physician Procedure note for Specifics] Pain Scale: 0-10 Numeric [Pain] -Is Patient Pain Free? Yes Musculoskeletal: No Muscle Wasting Neurological: Neuro grossly intact Psych/Mental Status: Normal Affect, Appropriate Debridement Note Post-Debridement Measurements/Treatment WC - Nurse 2 - General Ulcer CM Notes Start: 10/22/18 14:43 Freq: Status: Active Protocol: Activity Type Activity Date Activity User E-Sign Co-Sign Detail Recorded Client Recorded Date Recorded By Document 10/22/18 15:32 [id number] 10/22/18 15:33 Document 10/29/18 14:50 [id number] 10/29/18 14:52 Document 11/12/18 14:57 [id number] 11/12/18 14:58 10/22/18 10/29/18 11/12/18 15:32 14:50 14:57 Wound Center Nurse 2 #3 RIGHT ARMPIT -Time 15:33 14:51 14:57 -Correct Patient Yes Yes Yes -Correct Side, Site, Position Yes Yes Yes -Correct Procedure Yes Yes Yes -Procedure Performed Yes Yes Yes -Type of Procedure Debridement Debridement Debridement -Clinical Debridement Subcutaneous Subcutaneous Subcutaneous -Post Debridement Size (cm) - Length 1.8 2.3 0.9 -Post Debridement Size (cm) - Width 5.3 5 2.0 -Post Debridement Size (cm) - Depth 0.3 0.2 0.1 -Total Square Cm 9.54 11.5 1.80 -Wound/Ulcer Outcome Not Healed Not Healed Not Healed -Ulcer Cleansing Rinsed/ Rinsed/ Rinsed/ Irrigated with Irrigated with Irrigated with Saline Saline Saline -Foul Odor after Cleansing No No No -Bioengineered Tissue No No No -Bleeding Controlled with Pressure Pressure Pressure -Offloading No No No -Treatment Response Procedure Procedure Procedure Tolerated Well Tolerated Well Tolerated Well Pain Scale: 0-10 Numeric Is Patient Pain Free? Yes Yes Yes Wound debrided: Right axilla Laterality: Right Type of Debridement: Excisional debridement Anesthesia Used: 5% Lidocaine Gel Depth: Down to and including healthy tissue, in the subcutaneous layer Percentage of wound debrided: 100 Instrument Used: 5mm curette Tissue Removed: Subcutaneous tissue and slough Severity: Limited To Skin Breakdown Amount of bleeding with debridement: Mild Bleeding Controlled with: Pressure, Compression and gauze Patient tolerated procedure well Assessment/Plan Active Problems (Last Updated 06/12/18 @ 10:03 by Arcelia Schmidt) Open wound of right axillary region (Acute) open surgical hidradenitis wound right axilla Personal history of Methicillin resistant Staphylococcus aureus infection (Chronic) Z86.14 Hidradenitis (Chronic) right axillary hidradenitis left axillary hidradenitis hidradenitis right inguinal/upper medial thigh area hidradenitis abscess right perineal/gluteal area Assessment: 1. Right axillary hidradenitis. 2. Open surgical hidradenitis wound right axillary area. 3. History of MRSE. 4. Family history of skin cancer. 5. Smoker. 6. s/p surgical preparation right axilla with excision hidradenitis (130 cm2). Plan: Continue Silver collogen dressing changes daily to the right axilla. The hidradenitis wound is ready for skin grafting at this time. The patient will think about further surgery and let me know. Right now she wants to continue the wound care. Encourage range of motion exercises to minimize stiffness. Today she shows good range of motion of her right shoulder. But complains of pain increasing with the increased amount of movement she has been doing. Prealbumin from 09/12/18 was 23.8. Encourage nutritional supplementation with protein to help the healing process. She is finished with the Doxycycline that was taken perioperatively. Operative culture showe Coag negative. Followup one week. Renewed Percocet (#24) for pain. OARRS report reviewed with no suspicious activity. Encourged her to start taking Ibuprofen 600 mg every 6 hours and to use percocet for breakthrough pain. Instructed not to take tylenol with the percocet because she was taking too much tylenol in a 24 hour period. Encouraged the patient to stop smoking as it may have deleterious effects on wound healing. Follow up in one week. Code Visit 111xxx-113xx: [id number] [place] subq tissue 20 sq cm/<
== END 2018-11-14 23:59 ==
LOC: WC 14:15
PROVIDERS: Family Provider Student in an Organized Health Care Education/Training Program; PCP Student in an Organized Health Care Education/Training Program; Visit Provider Surgery
DX: L73.2 Hidradenitis suppurativa (principal); Z86.14 Personal history of Methicillin resistant Staphylococcus aureus infection; L98.492 Non-pressure chronic ulcer of skin of other sites with fat layer exposed; F17.200 Nicotine dependence, unspecified, uncomplicated
CPT/HCPCS: 11042

== ENCOUNTER 2018-12-10 13:30 | Outpatient (RCR) | payer MEDICAID, SELFPAY ==
[2018-11-15 01:18] VITALS: BP 126/75; PULSE 82; RESP 18; TEMP 36.6
[2018-11-19 14:13] VITALS: BP 167/100; PULSE 100; RESP 18; TEMP 36.4; BMI 52.7
--- NOTE | 2018-11-19 14:38 | PCM.WC.PN ---
(1) Open wound of right axillary region Status: Acute Current Visit: Yes Code(s): S41.101A - Unspecified open wound of right upper arm, initial encounter Comment: open surgical hidradenitis wound right axilla (2) Hidradenitis Status: Chronic Current Visit: Yes Code(s): L73.2 - Hidradenitis suppurativa Comment: right axillary hidradenitis left axillary hidradenitis hidradenitis right inguinal/upper medial thigh area hidradenitis abscess right perineal/gluteal area (3) Intertrigo Status: Chronic Current Visit: Yes Code(s): L30.4 - Erythema intertrigo Comment: abdominal wall skin crease intertrigo (4) Personal history of Methicillin resistant Staphylococcus aureus infection Status: Chronic Current Visit: Yes Code(s): Z86.14 - Personal history of Methicillin resistant Staphylococcus aureus infection Comment: Z86.14 Type of Wound Date of Service: 11/19/18 Chief Complaint: Open surgical hidradenitis wound right axilla. History of Wound: Surgery 09/11/18 - Surgical preparation right axilla with excision hidradenitis (130 cm2). Wound care - Silver. Initially after surgery she tried the VAC and couldn't tolerate it. Operative culture - Coag negative Staph. She was on Doxycycline perioperatively and has finished them. Prealbumin from 09/12/18 was 23.8. Encouraged nutritional supplementation with protein to help the healing process. Today she denies fever. Her appetite is ok. Progress of Wound: Improved. - Physical Exam Vital Signs Temp Pulse Resp BP 97.5 F L 100 18 167/100 H 11/19/18 14:13 11/19/18 14:13 11/19/18 14:13 11/19/18 14:13 General: Alert, Oriented x3, Cooperative HEENT: Atraumatic Oral: Moist Mucosa Lungs: Normal air movement Cardiovascular: Regular rate Extremities: No edema, Capillary Refill Less than 3 Seconds, Peripheral Pulses Normal Skin: Ulcer/ Wound - Right axilla wound Wound Measurements and Assessment WC - Nurse 1 - General Ulcer Measurement Start: 11/19/18 14:13 Freq: Status: Active Protocol: Activity Type Activity Date Activity User E-Sign Co-Sign Detail Recorded Client Recorded Date Recorded By Document 11/19/18 14:13 RB [id number] 11/19/18 14:18 11/19/18 14:13 Wound Center Nurse 1 [Ulcer Assessment] #3 RIGHT ARMPIT -Combined with other wound No -Current Size (cm) - Length 1.2 -Current Size (cm) - Width 0.5 -Current Size (cm) - Depth 0.1 -Total Square Cm 0.60 -Photo Taken Yes -Tunneling No -Undermining/Tunneling No -Circular Undermining No -Exudate Amt Small -Exudate Type Serosanguineous -Wound Margin Distinct, Outline Attached -Granulation Amt Large (67-100%) -Granulation Quality [place] -Slough/Fibrin Yes -Necrosis Amt Small (1-33%) -Necrotic Tissue Type Adherent Slough -Structure Exposed N/A -Texture (Clair-wound Skin Appearance) Assessed Scarring -Moisture (Clair-wound Skin Appearance Assessed ) -Color (Clair-wound Skin Appearance) Assessed -Temperature (Clair-wound Skin No Abnormality Appearance) (Pt Warm) -Tenderness on Palpation (Clair-wound No Skin Appearance) -Ulcer Cleansing Rinsed/ Irrigated with Saline -Foul Odor after Cleansing No -Anesthetic Used 5% Lidocaine Gel WC - Nurse 2 - General Ulcer CM Notes Start: 11/19/18 14:13 Freq: Status: Active Protocol: Activity Type Activity Date Activity User E-Sign Co-Sign Detail Recorded Client Recorded Date Recorded By Document 11/19/18 14:32 [id number] 11/19/18 14:33 11/19/18 14:32 Wound Center Nurse 2 [Procedure/Treatment] -Time 14:33 -Correct Patient Yes -Correct Side, Site, Position Yes -Correct Procedure Yes -Procedure Performed Yes -Type of Procedure Debridement -Clinical Debridement Subcutaneous -Post Debridement Size (cm) - Length 0.6 -Post Debridement Size (cm) - Width 0.8 -Post Debridement Size (cm) - Depth 0.2 -Total Square Cm 0.48 -Wound/Ulcer Outcome Not Healed -Ulcer Cleansing Rinsed/ Irrigated with Saline -Foul Odor after Cleansing No -Bioengineered Tissue No -Bleeding Controlled with Pressure -Offloading No -Treatment Response Procedure Tolerated Well [See Physician Procedure note for Specifics] Pain Scale: 0-10 Numeric [Pain] -Is Patient Pain Free? Yes Musculoskeletal: No Tenderness to Palpation of Joints or Extremities Neurological: Neuro grossly intact Psych/Mental Status: Normal Affect, Appropriate Debridement Note Post-Debridement Measurements/Treatment WC - Nurse 2 - General Ulcer CM Notes Start: 11/19/18 14:13 Freq: Status: Active Protocol: Activity Type Activity Date Activity User E-Sign Co-Sign Detail Recorded Client Recorded Date Recorded By Document 11/19/18 14:32 [id number] 11/19/18 14:33 11/19/18 14:32 Wound Center Nurse 2 #3 RIGHT ARMPIT -Time 14:33 -Correct Patient Yes -Correct Side, Site, Position Yes -Correct Procedure Yes -Procedure Performed Yes -Type of Procedure Debridement -Clinical Debridement Subcutaneous -Post Debridement Size (cm) - Length 0.6 -Post Debridement Size (cm) - Width 0.8 -Post Debridement Size (cm) - Depth 0.2 -Total Square Cm 0.48 -Wound/Ulcer Outcome Not Healed -Ulcer Cleansing Rinsed/ Irrigated with Saline -Foul Odor after Cleansing No -Bioengineered Tissue No -Bleeding Controlled with Pressure -Offloading No -Treatment Response Procedure Tolerated Well Pain Scale: 0-10 Numeric Is Patient Pain Free? Yes Wound debrided: Right axilla Laterality: Right Type of Debridement: Excisional debridement Anesthesia Used: 4% Lidocaine Solution Depth: Down to and including healthy tissue, in the subcutaneous layer Percentage of wound debrided: 100 Instrument Used: 3mm curette Tissue Removed: Subcutaneous tissue and slough Severity: Limited To Skin Breakdown Amount of bleeding with debridement: Mild Bleeding Controlled with: Pressure, Compression and gauze Patient tolerated procedure well Assessment/Plan Active Problems (Last Updated 06/12/18 @ 10:03 by Arcelia Schmidt) Open wound of right axillary region (Acute) open surgical hidradenitis wound right axilla Intertrigo (Chronic) abdominal wall skin crease intertrigo Personal history of Methicillin resistant Staphylococcus aureus infection (Chronic) Z86.14 Hidradenitis (Chronic) right axillary hidradenitis left axillary hidradenitis hidradenitis right inguinal/upper medial thigh area hidradenitis abscess right perineal/gluteal area Assessment: 1. Right axillary hidradenitis. 2. Open surgical hidradenitis wound right axillary area. 3. History of MRSE. 4. Family history of skin cancer. 5. Smoker. 6. s/p surgical preparation right axilla with excision hidradenitis (130 cm2). Plan: Continue Silver collogen dressing changes daily to the right axilla. The hidradenitis wound is ready for skin grafting at this time. The patient will think about further surgery and let me know. Right now she wants to continue the wound care. Encourage range of motion exercises to minimize stiffness. Today she shows good range of motion of her right shoulder. Prealbumin from 09/12/18 was 23.8. Encourage nutritional supplementation with protein to help the healing process. She is finished with the Doxycycline that was taken perioperatively. Operative culture showe Coag negative. Will use aquacel silver daily for wound care. Wound is doing well and is almost healed. Encouraged patient to gently massage scar when showering. Encouraged the patient to stop smoking as it may have deleterious effects on wound healing. Follow up in one week. Code Visit 111xxx-113xx: [id number] [place] subq tissue 20 sq cm/<
--- NOTE | 2018-11-19 14:48 | PN.PCM_ITS ---
(1) Open wound of right axillary region Status: Acute Current Visit: Yes Code(s): S41.101A - Unspecified open wound of right upper arm, initial encounter Comment: open surgical hidradenitis wound right axilla (2) Hidradenitis Status: Chronic Current Visit: Yes Code(s): L73.2 - Hidradenitis suppurativa Comment: right axillary hidradenitis left axillary hidradenitis hidradenitis right inguinal/upper medial thigh area hidradenitis abscess right perineal/gluteal area (3) Intertrigo Status: Chronic Current Visit: Yes Code(s): L30.4 - Erythema intertrigo Comment: abdominal wall skin crease intertrigo (4) Personal history of Methicillin resistant Staphylococcus aureus infection Status: Chronic Current Visit: Yes Code(s): Z86.14 - Personal history of Methicillin resistant Staphylococcus aureus infection Comment: Z86.14 Type of Wound Date of Service: 11/19/18 Chief Complaint: Open surgical hidradenitis wound right axilla. History of Wound: Surgery 09/11/18 - Surgical preparation right axilla with exc ision hidradenitis (130 cm2). Wound care - Silver. Initially after surgery she tried the VAC and couldn't tolerate it. Operative culture - Coag negative Staph. She was on Doxycycline perioperatively and has finished them. Prealbumin from 09/12/18 was 23.8. Encouraged nutritional supplementation with protein to help the healing process. Today she denies fever. Her appetite is ok. Progress of Wound: Improved. - Physical Exam Vital Signs Temp Pulse Resp BP 97.5 F L 100 18 167/100 H 11/19/18 14:13 11/19/18 14:13 11/19/18 14:13 11/19/18 14:13 General: Alert, Oriented x3, Cooperative HEENT: Atraumatic Oral: Moist Mucosa Lungs: Normal air movement Cardiovascular: Regular rate Extremities: No edema, Capillary Refill Less than 3 Seconds, Peripheral Pulses N ormal Skin: Ulcer/ Wound - Right axilla wound Wound Measurements and Assessment WC - Nurse 1 - General Ulcer Measurement Start: 11/19/18 14:13 Freq: Status: Active Protocol: Activity Type Activity Date Activity User E-Sign Co-Sign Detail Recorded Client Recorded Date Recorded By Document 11/19/18 14:13 RB [id number] 11/19/18 14:18 11/19/18 14:13 Wound Center Nurse 1 [Ulcer Assessment] #3 RIGHT ARMPIT -Combined with other wound No -Current Size (cm) - Length 1.2 -Current Size (cm) - Width 0.5 -Current Size (cm) - Depth 0.1 -Total Square Cm 0.60 -Photo Taken Yes -Tunneling No -Undermining/Tunneling No -Circular Undermining No -Exudate Amt Small -Exudate Type Serosanguineous -Wound Margin Distinct, Outline Attached -Granulation Amt Large (67-100%) -Granulation Quality [place] -Slough/Fibrin Yes -Necrosis Amt Small (1-33%) -Necrotic Tissue Type Adherent Slough -Structure Exposed N/A -Texture (Clair-wound Skin Appearance) Assessed Scarring -Moisture (Clair-wound Skin Appearance Assessed ) -Color (Clair-wound Skin Appearance) Assessed -Temperature (Clair-wound Skin No Abnormality Appearance) (Pt Warm) -Tenderness on Palpation (Clair-wound No Skin Appearance) -Ulcer Cleansing Rinsed/ Irrigated with Saline -Foul Odor after Cleansing No -Anesthetic Used 5% Lidocaine Gel WC - Nurse 2 - General Ulcer CM Notes Start: 11/19/18 14:13 Freq: Status: Active Protocol: Activity Type Activity Date Activity User E-Sign Co-Sign Detail Recorded Client Recorded Date Recorded By Document 11/19/18 14:32 [id number] 11/19/18 14:33 11/19/18 14:32 Wound Center Nurse 2 [Procedure/Treatment] -Time 14:33 -Correct Patient Yes -Correct Side, Site, Position Yes -Correct Procedure Yes -Procedure Performed Yes -Type of Procedure Debridement -Clinical Debridement Subcutaneous -Post Debridement Size (cm) - Length 0.6 -Post Debridement Size (cm) - Width 0.8 -Post Debridement Size (cm) - Depth 0.2 -Total Square Cm 0.48 -Wound/Ulcer Outcome Not Healed -Ulcer Cleansing Rinsed/ Irrigated with Saline -Foul Odor after Cleansing No -Bioengineered Tissue No -Bleeding Controlled with Pressure -Offloading No -Treatment Response Procedure Tolerated Well [See Physician Procedure note for Specifics] Pain Scale: 0-10 Numeric [Pain] -Is Patient Pain Free? Yes Musculoskeletal: No Tenderness to Palpation of Joints or Extremities Neurological: Neuro grossly intact Psych/Mental Status: Normal Affect, Appropriate Debridement Note Post-Debridement Measurements/Treatment WC - Nurse 2 - General Ulcer CM Notes Start: 11/19/18 14:13 Freq: Status: Active Protocol: Activity Type Activity Date Activity User E-Sign Co-Sign Detail Recorded Client Recorded Date Recorded By Document 11/19/18 14:32 CHRISTEN [id number] 11/19/18 14:33 CHRISTEN 11/19/18 14:32 Wound Center Nurse 2 #3 RIGHT ARMPIT -Time 14:33 -Correct Patient Yes -Correct Side, Site, Position Yes -Correct Procedure Yes -Procedure Performed Yes -Type of Procedure Debridement -Clinical Debridement Subcutaneous -Post Debridement Size (cm) - Length 0.6 -Post Debridement Size (cm) - Width 0.8 -Post Debridement Size (cm) - Depth 0.2 -Total Square Cm 0.48 -Wound/Ulcer Outcome Not Healed -Ulcer Cleansing Rinsed/ Irrigated with Saline -Foul Odor after Cleansing No -Bioengineered Tissue No -Bleeding Controlled with Pressure -Offloading No -Treatment Response Procedure Tolerated Well Pain Scale: 0-10 Numeric Is Patient Pain Free? Yes Wound debrided: Right axilla Laterality: Right Type of Debridement: Excisional debridement Anesthesia Used: 4% Lidocaine Solution Depth: Down to and including healthy tissue, in the subcutaneous layer Percentage of wound debrided: 100 Instrument Used: 3mm curette Tissue Removed: Subcutaneous tissue and slough Severity: Limited To Skin Breakdown Amount of bleeding with debridement: Mild Bleeding Controlled with: Pressure, Compression and gauze Patient tolerated procedure well Assessment/Plan Active Problems (Last Updated 06/12/18 @ 10:03 by Arcelia Schmidt) Open wound of right axillary region (Acute) open surgical hidradenitis wound right axilla Intertrigo (Chronic) abdominal wall skin crease intertrigo Personal history of Methicillin resistant Staphylococcus aureus infection (Chronic) Z86.14 Hidradenitis (Chronic) right axillary hidradenitis left axillary hidradenitis hidradenitis right inguinal/upper medial thigh area hidradenitis abscess right perineal/gluteal area Assessment: 1. Right axillary hidradenitis. 2. Open surgical hidradenitis wound right axillary area. 3. History of MRSE. 4. Family history of skin cancer. 5. Smoker. 6. s/p surgical preparation right axilla with excision hidradenitis (130 cm2). Plan: Continue Silver collogen dressing changes daily to the right axilla. The hidradenitis wound is ready for skin grafting at this time. The patient will think about further surgery and let me know. Right now she wants to continue the wound care. Encourage range of motion exercises to minimize stiffness. Today she shows good range of motion of her right shoulder. Prealbumin from 09/12/18 was 23.8. Encourage nutritional supplementation with protein to help the healing process. She is finished with the Doxycycline that was taken perioperatively. Operative culture showe Coag negative. Will use aquacel silver daily for wound care. Wound is doing well and is almost healed. Encouraged patient to gently massage scar when showering. Encouraged the patient to stop smoking as it may have deleterious effects on wound healing. Follow up in one week. Code Visit 111xxx-113xx: [id number] [place] subq tissue 20 sq cm/<
[2018-11-26 14:12] VITALS: BP 124/78; PULSE 70; RESP 18; TEMP 36.6; BMI 52.7
--- NOTE | 2018-11-26 15:19 | PN.PCM_ITS ---
(1) Open wound of right axillary region Status: Acute Current Visit: Yes Code(s): S41.101A - Unspecified open wound of right upper arm, initial encounter Comment: open surgical hidradenitis wound right axilla (2) Hidradenitis Status: Chronic Current Visit: Yes Code(s): L73.2 - Hidradenitis suppurativa Comment: right axillary hidradenitis left axillary hidradenitis hidradenitis right inguinal/upper medial thigh area hidradenitis abscess right perineal/gluteal area (3) Intertrigo Status: Chronic Current Visit: Yes Code(s): L30.4 - Erythema intertrigo Comment: abdominal wall skin crease intertrigo (4) Personal history of Methicillin resistant Staphylococcus aureus infection Status: Chronic Current Visit: Yes Code(s): Z86.14 - Personal history of Methicillin resistant Staphylococcus aureus infection Comment: Z86.14 Type of Wound Date of Service: 11/26/18 Chief Complaint: Open surgical hidradenitis wound right axilla. History of Wound: Surgery 09/11/18 - Surgical preparation right axilla with exc ision hidradenitis (130 cm2). Wound care - Silver. Initially after surgery she tried the VAC and couldn't tolerate it. Operative culture - Coag negative Staph. She was on Doxycycline perioperatively and has finished them. Prealbumin from 09/12/18 was 23.8. Encouraged nutritional supplementation with protein to help the healing process. Today she denies fever. Her appetite is ok. Progress of Wound: Improved. - Physical Exam Vital Signs Temp Pulse Resp BP 98 F 70 18 124/78 H 11/26/18 14:12 11/26/18 14:12 11/26/18 14:12 11/26/18 14:12 General: Alert, Oriented x3, Cooperative HEENT: Atraumatic Oral: Moist Mucosa Lungs: Normal air movement Cardiovascular: Regular rate Extremities: No edema, Capillary Refill Less than 3 Seconds Skin: Ulcer/ Wound - Right axillary wound almost healed Wound Measurements and Assessment WC - Nurse 1 - General Ulcer Measurement Start: 11/19/18 14:13 Freq: Status: Active Protocol: Activity Type Activity Date Activity User E-Sign Co-Sign Detail Recorded Client Recorded Date Recorded By Document 11/26/18 14:12 RB [id number] 11/26/18 14:22 RB 11/26/18 14:12 Wound Center Nurse 1 [Ulcer Assessment] #3 RIGHT ARMPIT -Combined with other wound No -Current Size (cm) - Length 0.4 -Current Size (cm) - Width 0.4 -Current Size (cm) - Depth 0.2 -Total Square Cm 0.16 -Tunneling No -Undermining/Tunneling No -Circular Undermining No -Exudate Amt Small -Exudate Type Serosanguineous -Wound Margin Distinct, Outline Attached -Granulation Amt Large (67-100%) -Granulation [employer] -Slough/Fibrin Yes -Necrosis Amt Small (1-33%) -Necrotic Tissue Type Adherent Slough -Structure Exposed N/A -Texture (Clair-wound Skin Appearance) Assessed -Moisture (Clair-wound Skin Appearance Assessed ) -Color (Clair-wound Skin Appearance) Assessed -Temperature (Clair-wound Skin No Abnormality Appearance) (Pt Warm) -Tenderness on Palpation (Clair-wound No Skin Appearance) -Ulcer Cleansing Rinsed/ Irrigated with Saline -Foul Odor after Cleansing No -Anesthetic Used 5% Lidocaine Gel WC - Nurse 2 - General Ulcer CM Notes Start: 11/19/18 14:13 Freq: Status: Active Protocol: Activity Type Activity Date Activity User E-Sign Co-Sign Detail Recorded Client Recorded Date Recorded By Document 11/26/18 15:10 AN [id number] 11/26/18 15:18 AN 11/26/18 15:10 Wound Center Nurse 2 [Procedure/Treatment] -Time 15:17 -Correct Patient Yes -Correct Side, Site, Position Yes -Correct Procedure Yes -Procedure Performed Yes -Type of Procedure Debridement -Clinical Debridement Subcutaneous -Post Debridement Size (cm) - Length 0.5 -Post Debridement Size (cm) - Width 0.7 -Post Debridement Size (cm) - Depth 0.2 -Total Square Cm 0.35 -Wound/Ulcer Outcome Not Healed -Ulcer Cleansing Rinsed/ Irrigated with Saline -Foul Odor after Cleansing No -Bleeding Controlled with Pressure -Offloading No -Treatment Response Procedure Tolerated Well [See Physician Procedure note for Specifics] Musculoskeletal: No Tenderness to Palpation of Joints or Extremities Neurological: Neuro grossly intact Psych/Mental Status: Normal Affect, Appropriate Debridement Note Post-Debridement Measurements/Treatment WC - Nurse 2 - General Ulcer CM Notes Start: 11/19/18 14:13 Freq: Status: Active Protocol: Activity Type Activity Date Activity User E-Sign Co-Sign Detail Recorded Client Recorded Date Recorded By Document 11/19/18 14:32 [id number] 11/19/18 14:33 Document 11/26/18 15:10 AN [id number] 11/26/18 15:18 AN 11/19/18 11/26/18 14:32 15:10 Wound Center Nurse 2 #3 RIGHT ARMPIT -Time 14:33 15:17 -Correct Patient Yes Yes -Correct Side, Site, Position Yes Yes -Correct Procedure Yes Yes -Procedure Performed Yes Yes -Type of Procedure Debridement Debridement -Clinical Debridement Subcutaneous Subcutaneous -Post Debridement Size (cm) - Length 0.6 0.5 -Post Debridement Size (cm) - Width 0.8 0.7 -Post Debridement Size (cm) - Depth 0.2 0.2 -Total Square Cm 0.48 0.35 -Wound/Ulcer Outcome Not Healed Not Healed -Ulcer Cleansing Rinsed/ Rinsed/ Irrigated with Irrigated with Saline Saline -Foul Odor after Cleansing No No -Bioengineered Tissue No -Bleeding Controlled with Pressure Pressure -Offloading No No -Treatment Response Procedure Procedure Tolerated Well Tolerated Well Pain Scale: 0-10 Numeric Is Patient Pain Free? Yes Wound debrided: Right axillary Laterality: Right Type of Debridement: Excisional debridement Anesthesia Used: 4% Lidocaine Solution Depth: Down to and including healthy tissue, in the subcutaneous layer Percentage of wound debrided: 100 Instrument Used: 3mm curette Tissue Removed: Subcutaneous tissue and slough Severity: Fat Layer Exposed Amount of bleeding with debridement: Mild Bleeding Controlled with: Pressure Patient tolerated procedure well Assessment/Plan Active Problems (Last Updated 06/12/18 @ 10:03 by Arcelia Schmidt) Open wound of right axillary region (Acute) open surgical hidradenitis wound right axilla Intertrigo (Chronic) abdominal wall skin crease intertrigo Personal history of Methicillin resistant Staphylococcus aureus infection (Chronic) Z86.14 Hidradenitis (Chronic) right axillary hidradenitis left axillary hidradenitis hidradenitis right inguinal/upper medial thigh area hidradenitis abscess right perineal/gluteal area Assessment: 1. Right axillary hidradenitis. 2. Open surgical hidradenitis wound right axillary area. 3. History of MRSE. 4. Family history of skin cancer. 5. Smoker. 6. s/p surgical preparation right axilla with excision hidradenitis (130 cm2). Plan: Will switch to Martínez Kollagen gel daily to the right axilla topped with gauze, due to how small the opening is. Encourage range of motion exercises to minimize stiffness. Today she shows good range of motion of her right shoulder. She has good hand strength. Prealbumin from 09/12/18 was 23.8. Encourage nutritional supplementation with protein to help the healing process. She is finished with the Doxycycline that was taken perioperatively. Operative culture showe Coag negative. Wound is doing well and is almost healed. Encouraged patient to gently massage scar when showering. Encouraged the patient to stop smoking as it may have deleterious effects on wound healing. Follow up in one week. Code Visit [id number]: [id number] [place] subq tissue 20 sq cm/<
[2018-12-10 13:54] VITALS: BP 134/79; PULSE 83; RESP 18; TEMP 36.8; BMI 52.7
--- NOTE | 2018-12-10 14:24 | PN.PCM_ITS ---
(1) Open wound of right axillary region Status: Acute Current Visit: Yes Code(s): S41.101A - Unspecified open wound of right upper arm, initial encounter Comment: open surgical hidradenitis wound right axilla (2) Hidradenitis Status: Chronic Current Visit: Yes Code(s): L73.2 - Hidradenitis suppurativa Comment: right axillary hidradenitis left axillary hidradenitis hidradenitis right inguinal/upper medial thigh area hidradenitis abscess right perineal/gluteal area (3) Intertrigo Status: Chronic Current Visit: Yes Code(s): L30.4 - Erythema intertrigo Comment: abdominal wall skin crease intertrigo (4) Personal history of Methicillin resistant Staphylococcus aureus infection Status: Chronic Current Visit: Yes Code(s): Z86.14 - Personal history of Methicillin resistant Staphylococcus aureus infection Comment: Z86.14 Type of Wound Date of Service: 12/10/18 Chief Complaint: Open surgical hidradenitis wound right axilla. History of Wound: Surgery 09/11/18 - Surgical preparation right axilla with exc ision hidradenitis (130 cm2). Wound care - Silver. Initially after surgery she tried the VAC and couldn't tolerate it. Operative culture - Coag negative Staph. She was on Doxycycline perioperatively and has finished them. Prealbumin from 09/12/18 was 23.8. Encouraged nutritional supplementation with protein to help the healing process. Today she denies fever. Her appetite is ok. Progress of Wound: She is healed today. - Physical Exam Vital Signs Temp Pulse Resp BP 98.2 F 83 18 134/79 H 12/10/18 13:54 12/10/18 13:54 12/10/18 13:54 12/10/18 13:54 General: Alert, Oriented x3, Cooperative HEENT: Atraumatic, PERRLA Oral: Moist Mucosa Lungs: Normal air movement Cardiovascular: Regular rate Extremities: No edema, Capillary Refill Less than 3 Seconds Skin: Ulcer/ Wound - Right axilla wound is healed Wound Measurements and Assessment WC - Nurse 1 - General Ulcer Measurement Start: 11/19/18 14:13 Freq: Status: Active Protocol: Activity Type Activity Date Activity User E-Sign Co-Sign Detail Recorded Client Recorded Date Recorded By Document 12/10/18 13:54 AN [id number] 12/10/18 14:03 AN 12/10/18 13:54 Wound Center Nurse 1 [Ulcer Assessment] #3 RIGHT ARMPIT -Current Size (cm) - Length 0.1 -Current Size (cm) - Width 0.1 -Current Size (cm) - Depth 0.1 -Total Square Cm 0.01 -Classification - Thickness Unclassifiable (Eschar Covered ) -Wound Margin Flat & Intact - Nurse 2 - General Ulcer CM Notes Start: 11/19/18 14:13 Freq: Status: Active Protocol: Activity Type Activity Date Activity User E-Sign Co-Sign Detail Recorded Client Recorded Date Recorded By Document 12/10/18 14:10 [id number] 12/10/18 14:10 12/10/18 14:10 Wound Center Nurse 2 [Procedure/Treatment] -Correct Patient No -Correct Side, Site, Position No -Correct Procedure No -Procedure Performed No -Post Debridement Size (cm) - Length 0 -Post Debridement Size (cm) - Width 0 -Post Debridement Size (cm) - Depth 0 -Total Square Cm 0 -Wound/Ulcer Outcome Healed- Epithelialized [See Physician Procedure note for Specifics] Pain Scale: 0-10 Numeric [Pain] -Is Patient Pain Free? Yes Musculoskeletal: No Tenderness to Palpation of Joints or Extremities Neurological: Neuro grossly intact Psych/Mental Status: Normal Affect, Appropriate Debridement Note Post-Debridement Measurements/Treatment - Nurse 2 - General Ulcer CM Notes Start: 11/19/18 14:13 Freq: Status: Active Protocol: Activity Type Activity Date Activity User E-Sign Co-Sign Detail Recorded Client Recorded Date Recorded By Document 11/19/18 14:32 [id number] 11/19/18 14:33 Document 11/26/18 15:10 AN [id number] 11/26/18 15:18 AN Document 12/10/18 14:10 [id number] 12/10/18 14:10 11/19/18 11/26/18 12/10/18 14:32 15:10 14:10 Wound Center Nurse 2 #3 RIGHT ARMPIT -Time 14:33 15:17 -Correct Patient Yes Yes No -Correct Side, Site, Position Yes Yes No -Correct Procedure Yes Yes No -Procedure Performed Yes Yes No -Type of Procedure Debridement Debridement -Clinical Debridement Subcutaneous Subcutaneous -Post Debridement Size (cm) - Length 0.6 0.5 0 -Post Debridement Size (cm) - Width 0.8 0.7 0 -Post Debridement Size (cm) - Depth 0.2 0.2 0 -Total Square Cm 0.48 0.35 0 -Wound/Ulcer Outcome Not Healed Not Healed Healed- Epithelialized -Ulcer Cleansing Rinsed/ Rinsed/ Irrigated with Irrigated with Saline Saline -Foul Odor after Cleansing No No -Bioengineered Tissue No -Bleeding Controlled with Pressure Pressure -Offloading No No -Treatment Response Procedure Procedure Tolerated Well Tolerated Well Pain Scale: 0-10 Numeric Is Patient Pain Free? Yes Yes No debridement was completed today Assessment/Plan Active Problems (Last Updated 06/12/18 @ 10:03 by Arcelia Schmidt) Open wound of right axillary region (Acute) open surgical hidradenitis wound right axilla Intertrigo (Chronic) abdominal wall skin crease intertrigo Personal history of Methicillin resistant Staphylococcus aureus infection (Chronic) Z86.14 Hidradenitis (Chronic) right axillary hidradenitis left axillary hidradenitis hidradenitis right inguinal/upper medial thigh area hidradenitis abscess right perineal/gluteal area Assessment: 1. Right axillary hidradenitis. 2. Open surgical hidradenitis wound right axillary area. 3. History of MRSE. 4. Family history of skin cancer. 5. Smoker. 6. s/p surgical preparation right axilla with excision hidradenitis (130 cm2). Plan: Wound is healed today. Encouraged patient to massage area daily to help soften scarring. She has good range of motion and hand/arm strength. Encourage her to continue to do range of motion exercises to minimize stiffness. Today she shows good range of motion of her right shoulder. She has good hand strength. Prealbumin from 09/12/18 was 23.8. Encourage nutritional supplementation with protein to help the healing process. She is finished with the Doxycycline that was taken perioperatively. Operative culture showe Coag negative. Encouraged the patient to stop smoking as it may have deleterious effects on wound healing. She is discharged today. Code Visit Office Visits / Consults: [id number] OV L3 Est
== END 2018-12-15 23:59 ==
LOC: WC 13:30
PROVIDERS: Family Provider Student in an Organized Health Care Education/Training Program; PCP Student in an Organized Health Care Education/Training Program; Visit Provider Surgery
DX: L73.2 Hidradenitis suppurativa (principal); L30.4 Erythema intertrigo; L98.492 Non-pressure chronic ulcer of skin of other sites with fat layer exposed; F17.200 Nicotine dependence, unspecified, uncomplicated
CPT/HCPCS: 11042; 99212; G0463

== ENCOUNTER → 2019-06-23 10:48 | Outpatient (CLI) | payer MEDICAID, SELFPAY ==
--- NOTE | 2019-06-23 11:14 | VDLE_ITS ---
Reason For Study: Swelling, Pain RIGHT GSV is normal. CFV is compressible, spontaneous, phasic, competent and demonstrates normal augmentation. FV is compressible, spontaneous, phasic, competent and demonstrates normal augmentation. POP V is compressible, spontaneous, phasic, competent and demonstrates normal augmentation. T/P Trunk is compressible. PTV is compressible. RT PerV is compressible. Procedure Exam performed in department. Calf veins not well visualized due to pt body habitus. A preliminary report was called and/or faxed to [facility]. Interpretation Summary Deep veins of the right lower extremity are patent and compressible segmentally. There is no evidence of right lower extremity deep vein thrombosis. Valvular competence appears intact within the proximal deep venous system on the right . The right great saphenous vein appears patent and compressible segmentally. The right calf veins were not well visualized due to the patient's body habitus. Ordering Physician: Ceasar Okeefe Referring Physician: Ceasar Okeefe Performed By: Flora Lang RVT
== END ==
PROVIDERS: Family Provider Student in an Organized Health Care Education/Training Program; PCP Student in an Organized Health Care Education/Training Program; Referring Provider Student in an Organized Health Care Education/Training Program; Visit Provider Student in an Organized Health Care Education/Training Program
DX: M79.89 Other specified soft tissue disorders (principal); M79.604 Pain in right leg; S80.11XD Contusion of right lower leg, subsequent encounter; X58.XXXD Exposure to other specified factors, subsequent encounter
CPT/HCPCS: 93971

== ENCOUNTER → 2020-12-15 20:23 | Outpatient (CLI) | payer MEDICAID, SELFPAY ==
[2020-03-03 10:22] VITALS: BMI 52.7
== END ==
PROVIDERS: PCP Student in an Organized Health Care Education/Training Program; Referring Provider Registered Nurse; Visit Provider Registered Nurse
DX: G47.33 Obstructive sleep apnea (adult) (pediatric) (principal)
CPT/HCPCS: 95811

== ENCOUNTER → 2021-02-11 09:54 | Outpatient (CLI) | payer MEDICAID, SELFPAY ==
[2020-03-03 10:22] VITALS: BMI 52.7
== END ==
PROVIDERS: PCP Student in an Organized Health Care Education/Training Program; Referring Provider Student in an Organized Health Care Education/Training Program; Visit Provider Surgery
DX: Z20.828 Contact with and (suspected) exposure to other viral communicable diseases (principal)
CPT/HCPCS: 87426; C9803

== ENCOUNTER 2021-03-01 14:59 | Observation (INO) | payer MEDICAID, SELFPAY ==
[2021-02-02 13:21] VITALS: BMI 52.4
[2021-03-01] VITALS (12 sets, daily range): BP systolic 121–146; BP diastolic 63–94; PULSE 74–113; RESP 16–18; TEMP 36.2–36.8; O2SAT 92–98; BMI 53.3
--- NOTE | 2021-03-01 00:15 | PCM.HP.BLA ---
History and Physical Date of Admission: 03/01/21 HISTORY OF PRESENT ILLNESS 46 year old woman presents with complaints of recent flare up of her left axillary hidradenitis. The other areas of hidradenitis aren't bothering her at this time (right axillary area and vulval area involving the mons pubis). She was started on Doxycycline antibiotics with some improvement, but the pain is still persistent. She is having trouble at work secondary to the pain. She denies fever. She has had intermittent drainage. She denies trauma. She has had previous excision of hidradenitis in her left inguinal area and right perineal/gluteal area and most recently her right axilla. She presents at this time for further evaluation and treatment. PAST MEDICAL HISTORY Arthritis Asthma Back problem Carpal tunnel syndrome Chronic sinus complaints Depression (emotion) Fibromyalgia Frequent headaches Hidradenitis High blood pressure Recurrent infections Rheumatoid arthritis Vision problems Vitamin deficiency PAST SURGICAL HISTORY Carpal tunnel syndrome on both sides Hidradenitis 3 sections hysterectomy tonsillectomy ALLERGIES Sulfa (Sulfonamide Antibiotics) MEDICATIONS Lisinopril/Hydrochlorothiazide [Zestoretic] cholecalciferol (vitamin D3) metoprolol tartrate montelukast Cetirizine Hcl [Zyrtec] albuterol sulfate [ProAir HFA] ascorbic acid (vitamin C) [Vitamin C] bupropion HCl duloxetine iron, carbonyl [Feosol] mometasone-formoterol [Dulera] omeprazole albuterol sulfate budesonide hydrochlorothiazide venlafaxine doxycycline hyclate neurontin oxycodone-acetaminophen FAMILY HISTORY Mother - Anxiety, Asthma, Depression (emotion), Diabetes, Heart disease, Hypertension, COPD (chronic obstructive pulmonary disease), Osteoporosis, Cancer Father - Bleeding disorder, Kidney disease, Cancer Grandmother - Ovarian cancer Sister - defect SOCIAL HISTORY Smoking Status: Current some day smoker alcohol intake: current substance use type: does not use REVIEW OF SYSTEMS General - Denies fever and weight loss. Has fatigue. Eyes - Denies cataracts and glaucoma. ENT - Denies nasal congestion and sore throat. Endocrine - Denies excessive thirst and urination. Skin - Has flare up of hidradenitis in her left axillary area. Has family history of skin cancer.. Musculoskeletal - Has joint pain, weakness of muscles and joints, back pain. Denies joint stiffness and arthritis. Neuro - Has headaches. Cardiovascular - Denies chest pain, fatigue, and shortness of breath with exertion. Psych - Denies anxiety. Has depression. Respiratory - Has chronic cough and shortness of breath. Patient is a smoker. Gastrointestinal - Denies nausea, vomiting, diarrhea, and constipation. Hematologic - Denies bleeding. Has abnormal bruising. Has history of blood clot. Genitourinary - Denies hematuria and urinary frequency. PHYSICAL EXAMINATION General - Alert and Oriented HEENT - PERRL. EOMI. Throat is clear. Neck - Supple and nontender. No cervical adenopathy. Lungs - Clear to auscultation. Heart - Regular rate and rhythm. Abdomen - Soft and nondistended. Extremities - FROM. No axillary adenopathy. There are scattered areas of erythema and induration left axillary area. Measures 10 cm. Moderate tenderness to palpation. No purulent drainage seen at this time. Radial pulses are palpable. There is a healed scar right axilla from previous excision. There is an area of hidradenits inferior to the scar that has drained. It is not bothering her at this time. Genitourinary - In the vulval area involving the mons pubis, is an area of hidradenitis that is stable at this time and not bothering her. Neuro - CN II-XII grossly intact. Psych - Normal mood and affect. ASSESSMENT 1. Left axillary hidradenitis. 2. Right axillary hidradenitis, stable. 3. Vulval hidradenitis involving the mons pubis, stable. 4. Fomer smoker. 5. History of MRSE. PLAN She has had recent flare-up of her left axillary hidradenitis. She was started on Doxycycline with some improvement, but there is persistent pain. She is having trouble at work because of the persistent pain. Recommend excision of her left axillary hidradenitis. Will send tissue to Pathology for analysis to rule out carcinoma and to Microbiology for culture. A positive culture will necessitate antibiotic therapy. Will leave the wound open and proceed with postoperative wound care with the VAC or with daily Dakin's dressing changes. After discharge, she will followup at the Wound Center. If there is a plateau in the healing process, can proceed with delayed closure with skin grafting. Surgery will be done under general anesthesia with a surgical observation overnight stay in the hospital. To help with her hidradenitis pain preop, will send a script for Percocet (14 tabs). Patient was informed of the risks and complications of the procedure including alternatives to surgery. These were discussed with the patient personally. Patient voices understanding and wishes to proceed. Some of the risks and complications were included in a form from the [employer]. Encouraged patient to stop smoking as it may have deleterious effects on wound healing. She states she has recently stopped smoking. We discussed the current risks associated with COVID-19. While it is understood that there is a community spread of COVID-19, the risk of ha COVID-19 while at [facility] ([facility]) is very low; however, the risk cannot be completely mitigated because of the community spread of the disease. We discussed in detail the risk of exposure to and/or potential harm posed by the COVID-19 virus with having a surgery/procedure at this time versus the risk of delaying the surgery/procedure. It is not possible to know either the risk of delaying the surgery or procedure or chance of getting an infection with perfect accuracy, but a joint decision was made to proceed at this time with the scheduled surgery/procedure as indicated on the consent form. Patient was notified that we will need to comply with any screening or testing [facility] wishes to perform or that surgery may be delayed for any positive results. Discussed with the patient that I was tested for COVID-19 on 03/18/20 which was negative and on 04/01/20 which was negative and on 04/15/20 which was negative and on 04/29/20 which was negative and on 05/13/20 which was negative and on 06/03/20 which was negative and on 06/24/20 which was negative and on 07/29/20 which was negative and on 08/19/20 which was negative and on 09/07/20 which was negative. My testing regimen at this time is to be COVID-19 tested every 2 weeks or so. I received the COVID-19 vaccine (Moderna) on 09/15/20 and the second vaccine dose was received on 10/13/20. When I was hospitalized on 11/15/20 I was tested for COVID-19 which was negative. I was also tested for COVID-19 on 11/30/20 which was negative and on 12/27/20 which was negative. Procedure Criteria Procedure Type: Elective COVID Risk Discussion: The surgeon/proceduralist and patient have discussed in detail the risk of exposure to and/or potential harm posed by the COVID-19 virus with having a surgery/procedure at this time versus the risk of delaying the surgery/procedure. It is not possible to know either the risk of delaying the surgery or procedure or chance of getting an infection with perfect accuracy, but a joint decision was made between the patient and the surgeon/proceduralist to proceed at this time with the scheduled surgery/procedure as indicated on the consent form.
[2021-03-01] MEDS: Lactated Ringers 1,000 ML 100 ML IV (11:36)
--- NOTE | 2021-03-01 12:30 | HID_PTH ---
PATIENT: RAVI VALDEZ LOC: MS3 U#:[id number] AGE/SX: 46/F ROOM: [facility] [place] RE03/01/[address]: Dr. Rambo Man MD : [id number] BED: 1 DIS: 03/03/2021 SPEC #: [id number] RECD: 03/01/21 13:02 STATUS: CHRISTINE REDominic #: [id number] JANKI: 03/01/21 12:[address]: Rambo Man DEPT: SURGICAL PATHOLOGY RECD BY: Blanca Rangel ENTERED: 03/02/21 10:38 SP TYPE: Hidradenit PRIYANK DR: Dr. Ceasar Okeefe DO Tissues: Axilla, NOS Procedures: Surgery Specimen Level III HEADER OPERATION: Surgical preparation axilla with excision hidradenitis PRE-OP DIAGNOSIS: Left axillary hidradenitis TISSUE SUBMITTED: Soft tissue left axilla hidradenitis MICROSCOPIC DIAGNOSIS Skin and soft tissue of left axilla, excision: Consistent with hidradenitis. AM:brendan 03/03/2021 MICROSCOPIC DESCRIPTION Slides are reviewed. GROSS DESCRIPTION Received in fixative is one container labeled with the patient's name and designated soft tissue left axilla. The specimen consists of a piece of skin with underlying tissue measuring 9 x 6.5 cm and up to 2 cm in thickness. The skin surface does not show any lesion. Sections do not reveal any mass lesion. Card Folder sections are submitted in four cassettes. / CHUCK:brendan 03/02/21 TC:2 CPT: 37088
[2021-03-01] MEDS: Lidocaine 1% /Epi 1:100 (20ml) 20 ML Vial (12:45)
--- NOTE | 2021-03-01 12:53 | PCM.OPRPT ---
Problems Associated Problem List Diagnoses (1) Hidradenitis: (2) History of staph infection: (3) Former smoker: Report of Operation Date of Procedure: 03/01/21 Pre-Operative Diagnosis: 1. Left axillary hidradenitis. 2. Right axillary hidradenitis, stable. 3. Vulval hidradenitis involving the mons pubis, stable. 4. Fomer smoker. 5. History of MRSE. Post-Operative Diagnosis: Same. Surgery/Procedure Performed:: Surgical preparation left axilla with excision hidradenitis (140 cm2). Description of Surgical Findings:: 46 year old woman presents with complaints of recent flare up of her left axillary hidradenitis. The other areas of hidradenitis aren't bothering her at this time (right axillary area and vulval area involving the mons pubis). She was started on Doxycycline antibiotics with some improvement, but the pain is still persistent. She is having trouble at work secondary to the pain. She denies fever. She has had intermittent drainage. She denies trauma. She has had previous excision of hidradenitis in her left inguinal area and right perineal/gluteal area and most recently her right axilla. Patient was informed of the risks and complications of the procedure including alternatives to surgery. These were discussed with the patient personally. Patient voices understanding and wishes to proceed. Some of the risks and complications were included in a form from the [employer]. Size of defect left axilla - 10 x 14 x 3 cm. Surgeon: Rambo Man lockstitch hemmer: None Type of Anesthesia: General Specimen's removed: Left axillary hidradenitis to Pathology and Microbiology. Drains: None. Estimated Blood Loss (mL): 50. Description of Procedure: Patient was taken to OR in supine position and was placed under general anesthesia. The left axilla was prepped and draped in the usual fashion. SCD's were placed for DVT prophylaxis. Perioperative antibiotics were given intravenously. Using xylocaine with epinephrine, the left axilla was infiltrated. After waiting 5 minutes for the anesthetic to take effect, I proceeded with surgical preparation of the left axilla with excision of her chronic hidradenitis in a circular fashion to encompass the indurated tender areas. Dissection was carried through the subcutaneous tissue until the underlying muscle was seen. A lot of fat necrosis was seen. A lot of scar tissue was seen. No gross pus was seen. Some of the tissue was sent to Microbiology for culture. A positive culture would necessitate antibiotic therapy. The rest of the tissue was sent to Pathology for analysis to rule out carcinoma. Hemostasis was obtained with electrocautery. The wound was irrigated with saline. The dimensions of the left axillary wound after excision of hidradenitis was 10 x 14 x 3 cm or 140 cm2. The left axillary wound was then dressed with Mepitel nonadherent dressing followed by Kerlix gauze and Betadine followed by dry Kerlix gauze followed by ABD pads compression dressing. This was followed by a compression zonia wrap. Patient tolerated the procedure well and was sent to PACU in satisfactory condition. Patient will be sent upstairs for continued postop care. She will have the VAC placed tomorrow. Grafts/Implants Used: None. Complications None. Admit VTE Documentation VTE Present on Admission: No VTE Mechan Device Prophylaxis: SCD's VTE Pharm Prophylaxis ordered?: No Addendum Addendum: Surgery Charges CPT - 11596 ICD-10 - L73.2, Z86.19, Z87.891
[2021-03-01] MEDS: Calcium (Elemental) 500 MG Tablet 1000 MG PO (15:29)
[2021-03-01] MEDS: Gabapentin 100 MG Capsule 200 MG PO ×2 (15:29→21:31)
[2021-03-01] MEDS: Pantoprazole Sodium 40 MG Tablet PO (15:30)
[2021-03-01] MEDS: Docusate Sodium 100 MG Capsule PO ×2 (15:30→21:31)
[2021-03-01] MEDS: oxyCODONE 5 MG Tablet 10 MG PO ×2 (17:06→21:18)
[2021-03-01] MEDS: Budesonide Respules 0.5 MG/2 ML AMPUL.NEB. INHALATION (19:31)
[2021-03-01] MEDS: Albuterol 2.5 MG/3 ML VIAL.NEB. INHALATION (19:31)
[2021-03-01] MEDS: Montelukast 10 MG Tablet PO (21:31)
[2021-03-01] MEDS: busPIRone 5 MG Tablet PO (21:31)
[2021-03-01] MEDS: Metoprolol Tartrate 50 MG Tablet PO (21:31)
[2021-03-02] VITALS (11 sets, daily range): BP systolic 116–127; BP diastolic 64–77; PULSE 72–96; RESP 18–20; TEMP 36.4–36.8; O2SAT 92–98
[2021-03-02] MEDS: Lactated Ringers 1,000 ML 100 ML IV (00:17)
[2021-03-02] MEDS: diazePAM 5 MG Tablet PO ×4 (00:25→22:02)
[2021-03-02] MEDS: Gabapentin 100 MG Capsule 200 MG PO ×3 (05:26→21:55)
[2021-03-02] MEDS: oxyCODONE 5 MG Tablet 10 MG PO ×4 (05:28→22:02)
[2021-03-02] MEDS: Budesonide Respules 0.5 MG/2 ML AMPUL.NEB. INHALATION ×2 (06:57→21:27)
[2021-03-02] MEDS: Albuterol 2.5 MG/3 ML VIAL.NEB. INHALATION ×3 (06:57→21:27)
[2021-03-02] MEDS: Calcium (Elemental) 500 MG Tablet 1000 MG PO (09:21)
[2021-03-02] MEDS: Docusate Sodium 100 MG Capsule PO ×2 (09:21→21:54)
[2021-03-02] MEDS: Venlafaxine XR 75 MG Capsule 225 MG PO (09:21)
[2021-03-02] MEDS: Ascorbic Acid 500 MG Tablet PO (09:22)
[2021-03-02] MEDS: Ferrous Sulfate 325 MG Tablet PO (09:22)
[2021-03-02] MEDS: Metoprolol Tartrate 50 MG Tablet PO ×2 (09:22→21:54)
[2021-03-02] MEDS: hydroCHLOROthiazide 25 MG Tablet PO (09:22)
[2021-03-02] MEDS: Loratadine 10 MG Tablet PO (09:22)
[2021-03-02] MEDS: Pantoprazole Sodium 40 MG Tablet PO (09:22)
[2021-03-02] MEDS: Lisinopril 20 MG Tablet PO (09:22)
[2021-03-02] MEDS: Cholecalciferol (VIT D3) 25 MCG TABLET (1,000 UNITS) PO (09:23)
--- NOTE | 2021-03-02 10:25 | CASEMGMT ---
JOSÉ MIGUEL CM in to discuss HHC for wound vac changes with patient. Patient was provided a list of HHC providers including quality and resource use data and consistent with the patient?s preferred geographic region, medical needs, and insurance network. The patient?s preferred provider is [facility]. JOSÉ MIGUEL CONNELL sent referral to [facility] and awaiting call back.
--- NOTE | 2021-03-02 10:53 | NURSING ---
wound photo: left axilla
[2021-03-02] MEDS: Lactated Ringers 1,000 ML 15 ML IV (14:14)
--- NOTE | 2021-03-02 14:38 | PCM.PN.SRG ---
Subjective Subjective Postop #1 Patient sitting up in bed. Patient stating that she has been having issues with pain control. Objective Data Objective Data Vital Signs: Vital Signs Temp Pulse Resp BP Pulse Ox 97.5 F L 77 18 116/77 97 03/02/21 15:08 03/02/21 15:08 03/02/21 15:08 03/02/21 15:08 03/02/21 15:08 Oxygen Delivery Method Room Air Weight: 282 lb 3.067 oz Body Mass Index (BMI) 53.3 Intake & Output: Intake and Output for Last 24 Hours 02/28/21 03/01/21 03/02/21 23:59 23:59 23:59 Intake Total 1560 / 1560 2020. / Output Total 250 / 250 600 / 600 Balance 1310 / 1310 1421.17 / 1420. Lab / Micro Data Micro: Microbiology 03/01/21 Unknown Tissue - Axilla, Left Gram Stain - Final 03/01/21 Unknown Tissue - Axilla, Left Wound Culture - Preliminary Gram positive organism 02/25/21 09:40 Interface Orders SARS-CoV-2 Antigen (Rapid) - Final Physical Exam Const oriented x3 and no apparent distress Resp normal respiratory effort Cardio regular rate GI normal to inspection, nondistended, normoactive bowel sounds Extremity Extremity Narrative: Left axilla wound with wound VAC in place. Wound nurse photo viewed. No active bleeding. Wound base is pink. Able to move arms and shoulders but has increased pain when moving left arm and shoulder. Assessment & Plan Assessment/Plan (1) Hidradenitis: (2) Former smoker: (3) History of staph infection: PLAN: Patient having difficulty with pain control, especially after wound VAC application. She was given the prescribed Valium and she states her pain is not has severe as it previously has been. Wound VAC was placed this morning. No active bleeding noted. VAC at 150 mmHg. Preliminary wound cultures show Gram positive organisms. She is currently on Clindamycin IV. She did not have labwork drawn today. Will order labs for tomorrow. Decrease IV fluids to KVO. Patient complaining of constipation. Ordered Mirilax and Milk of Mag. Encourage patient to ambulate with assistance. Will keep her until tomorrow to help get pain control. When she is discharged, she will follow up at the wound center on Sunday03/07/21.
[2021-03-02] MEDS: Polyethylene Glycol 3350 17 GM PACKET PO (15:05)
--- NOTE | 2021-03-02 15:54 | CASEMGMT ---
JOSÉ MIGUEL CONNELL received call back from [facility] and they are able to accept the patient. JOSÉ MIGUEL CONNELL updated the patient and wound nurse. CM will continue to follow this patient and plan for a safe discharge.
[2021-03-02] MEDS: Acetaminophen 500 MG Tablet 1000 MG PO (17:10)
[2021-03-02] MEDS: Montelukast 10 MG Tablet PO (21:54)
[2021-03-02] MEDS: busPIRone 5 MG Tablet PO (21:55)
[2021-03-03] MEDS: oxyCODONE 5 MG Tablet 10 MG PO (03:58)
[2021-03-03] MEDS: Acetaminophen 500 MG Tablet 1000 MG PO ×2 (04:51→14:53)
[2021-03-03] MEDS: Gabapentin 100 MG Capsule 200 MG PO ×2 (04:51→14:53)
[2021-03-03 04:53] VITALS: BP 117/68; PULSE 85; RESP 18; TEMP 36.8; O2SAT 94
[2021-03-03 06:00] LABS: Hematocrit 34.2 % (37-47); Mean Corp Hgb Conc 32.2 g/dL (32-36); Mean Corpuscular Hgb 29.9 pg (27.0-32.0); Mean Corpuscular Volume 92.9 fL (81-99); Mean Platelet Vol. 11.1 fl (6.2-12.0); Platelet Count 233 K/mm3 (150-450); RBC Distribution Width CV 13.2 % (11.6-14.6); RBC Distribution Width SD 45.1 fl (35.1-43.9); Red Blood Count 3.68 M/mm3 (4.2-5.4); White Blood Count 8.8 K/mm3 (4.4-11.0)
[2021-03-03 06:32] LABS: Anion Gap 6 (5-15); BUN 15 mg/dL (7-18); BUN/Creat Ratio 21.6 RATIO (10-20); Calcium,Total 8.9 mg/dL (8.5-10.1); Chloride 101 mmol/L (98-107); Creatinine, Serum 0.69 mg/dL (0.55-1.02); EST Glomerular Filtration Rate 97 mL/min (>60); Est Glom Filt Rate - Afr Amer 118 mL/min (>60); Estimated Creatinine Clearance 77.69 ml/min; Glucose 97 mg/dL (74-106); Potassium 3.2 mmol/L (3.5-5.1); Prealbumin 22.1 mg/dL (20.0-40.0); Sodium Level 136 mmol/L (136-145)
[2021-03-03 07:12] VITALS: PULSE 77; RESP 16; O2SAT 96
[2021-03-03] MEDS: Albuterol 2.5 MG/3 ML VIAL.NEB. INHALATION (07:12)
[2021-03-03] MEDS: Budesonide Respules 0.5 MG/2 ML AMPUL.NEB. INHALATION (07:12)
[2021-03-03 08:58] VITALS: BP 128/80; PULSE 90; RESP 18; TEMP 36.5; O2SAT 92
[2021-03-03] MEDS: Calcium (Elemental) 500 MG Tablet 1000 MG PO (09:00)
[2021-03-03] MEDS: Docusate Sodium 100 MG Capsule PO (09:00)
[2021-03-03] MEDS: Ferrous Sulfate 325 MG Tablet PO (09:00)
[2021-03-03] MEDS: Lisinopril 20 MG Tablet PO (09:00)
[2021-03-03] MEDS: Loratadine 10 MG Tablet PO (09:00)
[2021-03-03] MEDS: Venlafaxine XR 75 MG Capsule 225 MG PO (09:00)
[2021-03-03 09:01] VITALS: PULSE 90
[2021-03-03] MEDS: Metoprolol Tartrate 50 MG Tablet PO (09:01)
[2021-03-03] MEDS: Cholecalciferol (VIT D3) 25 MCG TABLET (1,000 UNITS) PO (09:01)
[2021-03-03] MEDS: Ascorbic Acid 500 MG Tablet PO (09:01)
[2021-03-03] MEDS: Pantoprazole Sodium 40 MG Tablet PO (09:01)
[2021-03-03] MEDS: Polyethylene Glycol 3350 17 GM PACKET PO (09:01)
[2021-03-03] MEDS: hydroCHLOROthiazide 25 MG Tablet PO (09:02)
--- NOTE | 2021-03-03 11:43 | NURSING ---
Home VAC approved. proof of delivery signed per pt and faxed back to [employer]. reviewed alarms, etc. with patient. home VAC in room ready to be switched over when patient is discharged later today. pt denies questions.
--- NOTE | 2021-03-03 13:03 | PN.SURG_ITS ---
Subjective Subjective Post op day #2 Patient resting in bed. She states her pain is better controlled today. Objective Data Objective Data Vital Signs: Vital Signs Temp Pulse Resp BP Pulse Ox 97.7 F L 90 18 128/80 H 92 03/03/21 08:58 03/03/21 09:01 03/03/21 08:58 03/03/21 08:58 03/03/21 08:58 Oxygen Delivery Method Room Air Weight: 282 lb 3.067 oz Body Mass Index (BMI) 53.3 Intake & Output: Intake and Output for Last 24 Hours 03/01/21 03/02/21 03/03/21 23:59 23:59 23:59 Intake Total 1560 / 1560 2162.92 / 2162.92 326.00 / 326.00 Output Total 250 / 250 600 / 600 Balance 1310 / 1310 1562.92 / 1562.92 326.00 / 326.00 Lab / Micro Data Result Diagrams: 03/03/21 05:41 03/03/21 05:41 Labs: Laboratory Results - last 24 hr 03/03/21 03/03/21 05:41 05:41 WBC 8.8 RBC 3.68 L Hgb 11.0 L Hct 34.2 L MCV 92.9 MCH 29.9 MCHC 32.2 RDW Std Deviation 45.1 H RDW Coeff of Geoff 13.2 Plt Count 233 MPV 11.1 Sodium 136 Potassium 3.2 L Chloride 101 Carbon Dioxide 29.0 Anion Gap 6 BUN 15 Creatinine 0.69 Estim Creat Clear Calc 77.69 Est GFR (MDRD) Af Amer 118 Est GFR (MDRD) Non-Af 97 BUN/Creatinine Ratio 21.6 H Glucose 97 Calcium 8.9 Prealbumin 22.1 Micro: Microbiology 03/01/21 Unknown Tissue - Axilla, Left Gram Stain - Final 03/01/21 Unknown Tissue - Axilla, Left Wound Culture - Preliminary Staphylococcus species Gram positive organism 03/01/21 Unknown Tissue - Axilla, Left Anaerobic Culture - Preliminary Checking for anaerobes, further studies to follow. 02/25/21 09:40 Interface Orders SARS-CoV-2 Antigen (Rapid) - Final Physical Exam Const no apparent distress Resp normal respiratory effort Cardio regular rate Extremity Extremity Narrative: Left axilla wound VAC dressing intact to 150 mmHg. No ap parent active bleeding. Assessment & Plan Assessment/Plan (1) Hidradenitis: (2) Former smoker: (3) History of staph infection: PLAN: Patient is having better pain controlled. She will be discharged today. Wound VAC was placed this morning. No active bleeding noted. VAC at 150 mmHg. Preliminary wound cultures show Staphylococcus species and Gram positive organism. She will be discharged home on oral Clindamycin. Prealbumin 22.1. Encouraged increased protein intake to help with wound healing. K+ 3.2, will start her on Kdur 20 meq bid. Will recheck in one week. Upon discharged, she will follow up at the wound center on Sunday03/07/21.
[2021-03-03 14:51] VITALS: BP 111/66; PULSE 76; RESP 18; TEMP 36.3; O2SAT 100
--- NOTE | 2021-03-03 14:53 | DCINST_ITS ---
Discharge Instructions Diet Discharge Diet: No restrictions (Increase protein intake to promote wound healing.) Activity Discharge Activity: Return to Normal Activity May resume sexual activity in: 10-14 days Lifting Restrictions: 20 lb weight lifting restriction with left arm Keep extremity elevated above heart level: Left Arm (when resting) Dressing / Incision Call your doctor if your incision/area has: Continuous Slow Oozing, Sudden Increased Bleeding, Increased Pain/ Swelling, Increased Redness, Foul Smelling Discharge and Swelling at the incision site Call your doctor if you observe: Fever of 101 or Higher, Inability to have a bowel movement, Chest pain, Calf discomfort and Uncontrolled pain Change Dressing in: 1-2 days Cleanse incision/area with: Soap & Water Additional Dressing/Incision Instructions:: Home health to change wound VAC dressing 3 times per week. Wound should be washed with soap and water at the time of dressing change. Patient may remove the wound VAC dressing before homehealth comes to change it and she may shower before dressing change. Follow Up Care Please Follow Up With: Francia Carranza CNP When: Sunday March 07, 2021 at the wound center [phone], call for an appointment Test Results: Potassium 3.2- will start on supplemental potassium and will recheck in one week. Pending Tests Upon Discharge: Preliminary wound culture shows Staphylococcus species and Gram positive organism. Final results will be discussed at follow up visit. Discharge Plan Admission Admit Date/Time: 03/01/21 14:59 Attending Provider: Rambo Man Primary Care Provider: Ceasar Okeefe Instructions Additional Instructions / Restrictions: wound VAC to the left axilla at 150mmHg low continuous suction. change 3 times a week. please cleanse wound with soap and water with each dressing change. Discharge Orders/Prescriptions Prescriptions: New clindamycin HCl 300 mg capsule 300 mg PO TID 14 Days Qty: 42 RF: 0 diazepam [Valium] 5 mg tablet 5 mg PO .QID PRN (Reason: muscle spasm) 7 Days Qty: 30 RF: 0 oxycodone-acetaminophen [Percocet] 5-325 mg tablet 1 tab PO Q4H PRN (Reason: pain (scale score 7-10)) 7 Days Qty: 40 RF: 0 potassium chloride 20 mEq tablet,ER particles/crystals 20 meq PO BID 7 Days Qty: 14 RF: 1 docusate sodium [Colace] 100 mg capsule 100 mg PO BID Qty: 60 RF: 1 Continued venlafaxine [Effexor XR] 150 mg capsule,extended release 24hr 225 mg PO DAILY RF: 0 gabapentin 100 mg capsule 200 mg PO TID RF: 0 metoprolol tartrate 50 MG tablet 50 mg PO BID RF: 0 montelukast 10 MG tablet 10 mg PO QHS RF: 0 albuterol sulfate [ProAir HFA] 1 PUFF inhaler 1 puff inhalation Q6H PRN PRN (Reason: Sob &/Or Wheezing) RF: 0 ascorbic acid (vitamin C) [Vitamin C] 500 MG tablet 500 mg PO DAILY@0800 RF: 0 omeprazole 40 MG capsule,delayed release(DR/EC) 40 mg PO DAILY RF: 0 Dulera 13 GM HFA aerosol inhaler 2 puff IH BID RF: 0 iron, carbonyl [Feosol] 45 MG capsule 65 mg PO DAILYCM RF: 0 albuterol sulfate 2.5 MG/3 ML solution for nebulization 2.5 mg inhalation Q6HWA.RT RF: 0 lisinopril-hydrochlorothiazide 20-25 mg tablet 1 tab PO DAILY RF: 0 buspirone 5 mg tablet 5 mg PO QHS RF: 0 cetirizine [Zyrtec] 10 mg Tablet 10 mg PO DAILY RF: 0 calcium carbonate [Calcium 500] 500 mg calcium (1,250 mg) Tablet 1,000 mg PO DAILY RF: 0 nystatin [Nystop] 100,000 unit/gram powder 1 applic TOPICAL QODAY RF: 0 cholecalciferol (vitamin D3) [Vitamin D3] 25 mcg (1,000 unit) Capsule 25 mcg PO DAILY RF: 0 Discontinued doxycycline hyclate 100 mg capsule 100 mg PO PRN PRN (Reason: BREAKOUT) RF: 0 Referrals / Follow Up: Ceasar Okeefe DO [Primary Care Provider] - Francia Carranza NP, MACHINE STRIPPER CUTTER-C [Nurse Practitioner] - (To be seen at the [facility] [phone]) Disposition Disposition (needs filled in before D/C Order can be placed): Home, self care
== END 2021-03-03 17:15 | disposition home or self-care (01) ==
LOC: SDC 15:03 → MS3 15:03
PROVIDERS: Admitting Provider Surgery; PCP Student in an Organized Health Care Education/Training Program; Referring Provider Surgery; Visit Provider Surgery
PROC: (CPT 11450; principal; 2021-03-01 12:15)
DX: L73.2 Hidradenitis suppurativa (principal); M19.90 Unspecified osteoarthritis, unspecified site; M79.7 Fibromyalgia; M06.9 Rheumatoid arthritis, unspecified; J45.909 Unspecified asthma, uncomplicated; F32.9 Major depressive disorder, single episode, unspecified; I10 Essential (primary) hypertension; Z79.899 Other long term (current) drug therapy; Z86.19 Personal history of other infectious and parasitic diseases; Z87.891 Personal history of nicotine dependence; K59.00 Constipation, unspecified
CPT/HCPCS: 00400; 11450; 36415; 80048; 84134; 85027; 87070; 87075; 87077; 87102; 87186; 87205; 87206; 87426; 88304; 94640; 94762; 96365; 96366; 99218; 99251; C9803; J7120; G0378; G0379; G0463; J2405

== ENCOUNTER 2021-03-07 07:47 | Outpatient (RCR) | payer MEDICAID, SELFPAY ==
[2021-03-01 14:28] VITALS: BMI 53.3
[2021-03-07 08:13] VITALS: BP 157/95; PULSE 95; RESP 18; TEMP 36.2; BMI 53.2
--- NOTE | 2021-03-07 10:07 | PCM.WC.PN ---
History of Present Illness Date of Service: 03/07/21 Chief Complaint: Open surgical wound left axilla. History of Wound: Surgery 03/01/21 - Surgical preparation left axilla with excision hidradenitis (140 cm2). Wound care - Wound VAC to 150 mmHg. Her clair wound is excoriated and has blisters. Will take a VAC holiday for a week. She will place Dakin's 0.25% moistened gauze into the wound daily and cover with ABD daily and as needed. Operative culture positive for Staphylococcus lugdunensis and Staphylococcus caprae. She was sent home on Clindamycin but it is not sensitive to both the bacteria, so will stop that and start her on Doxycycline. She states she is having issues with pain control. She denies fever and states her appetite is good. Progress of Wound: Left axilla wound is stable. It does not appear that the foam from the wound VAC is being placed into the base of the wound. Her periwound is excoriated and she is developing blisters. Objective Data Objective Data Vital Signs: Vital Signs Temp Pulse Resp BP 97.1 F L 95 18 157/95 H 03/07/21 08:13 03/07/21 08:13 03/07/21 08:13 03/07/21 08:13 Oxygen Delivery Method Room Air Weight: 282 lb Body Mass Index (BMI) 53.2 Charges/Coding Procedures Integumentary 111xxx-113xx: 77107 Global Visit Physical Exam Const alert and oriented x3 Constitutional Narrative: She appears uncomfortable and is having pain control issues, especially with palpation of the left axilla wound. General Appearance: cooperative HEENT normocephalic Head and Scalp: atraumatic Eyes PERRL Lymph Lymphatic: no lymphedema noted Resp normal respiratory effort Cardio regular rate Extremity normal capillary refill Skin Wound Narrative: Left axilla wound does not appear to have had the wound VAC foam placed into the base of the wound. Clair wound is excoriated with blisters forming. Neuro CN's II-XII intact bilaterally Psych Appearance: grossly normal Debridement Note Debridement Note Post-Debridement Measurements and Additional Note: Post-Debridement Measurements/Treatment CLARA - Nurse 1 - General Ulcer Assessment Start: 03/07/21 08:13 Freq: Status: Active Protocol: WALTER Activity Type Activity Date Activity User E-Sign Co-Sign Detail Recorded Client Recorded Date Recorded By Document 03/07/21 08:13 [facility] [id number] 03/07/21 08:34 [facility] 03/07/21 08:13 WC - Today's Visit Information Type of service Initial Visit Arrival Mode Ambulatory Transfer Assistance None Patient Identification Verified (Name & Yes ) Patient Requires Transmission-Based No Precautions Height and Weight Height 5 ft 1 in Weight 282 lb Weight in Pounds 282.0 lbs Weight Measurement Method Stated by Patient Body Mass Index (BMI) 53.2 BMI Classification Obese BSA - Ashley 2.19 Vital Signs Temperature (97.8 F-99.1 F) 97.1 F L Temperature Source Temporal Pulse Rate (60-100) 95 Pulse Location Monitor Respiratory Rate (12-18) 18 Respiratory rate source Observation Oxygen Delivery Method Room Air Blood Pressure (90/60-120/80) 157/95 H Blood Pressure Mean (mm Hg) 115 Source Monitor Position Sitting Blood Pressure Location Right Forearm History Since Last Visit- (Skip if this is Patient's initial visit) Left Footwear Regular Shoe Right Footwear Regular Shoe Pain Scale: 0-10 Numeric Is Patient Pain Free? Yes Communication Assessment Preferred language [place] Operations Trainer Required No Able to Read Yes Able to Write Yes Communication Tools None Right Hearing Abillity Normal Left Hearing Abillity Normal Visual Assistive Devices Glasses Teaching Assessment Preferences Verbal,Written, Audio/Visual, Demonstration Barriers to Learning None Readiness To Learn Excellent Willingness to Engage in Self Management High Activies Readiness to Engage in Self Management High Activities Anxiety Level Calm Cooperation Cooperative Perception Coherent Interest in Health Problem Asks Questions Education Importance Acknowledges Need Does Patient Smoke tobacco or other No substances Smoking Status Former smoker Is Patient Diabetic No Functional Assessment Recent Decline in Ability to Perform Denies Any Declines 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 Cultural/Presybeterian Needs that may affect No Treatment Plan Teaching: Wound Center *Welcome to the Wound Center -Person Taught Patient -Teaching Method Discussion -Response to teaching Verbalize understanding Welcome to the Wound Care Center [place] - Nurse 1 - General Ulcer Measurement Start: 03/07/21 08:13 Freq: Status: Active Protocol: Activity Type Activity Date Activity User E-Sign Co-Sign Detail Recorded Client Recorded Date Recorded By Document 03/07/21 08:13 [facility] [id number] 03/07/21 08:34 [facility] 03/07/21 08:13 Wound Center Nurse 1 #4- L AXILLA HIDRADENITIS POST OP -Combined with other wound No -Current Size (cm) - Length 15.5 -Current Size (cm) - Width 1.6 -Current Size (cm) - Depth 0.3 -Total Square Cm 24.80 -Date of Last Picture (Recall this 03/07/21 field) -Photo Taken Yes -Epithelialization None Present -Tunneling No -Undermining/Tunneling No -Circular Undermining No -Exudate Amt Medium -Exudate Type Serosanguineous -Wound Margin Distinct, Outline Attached -Granulation Amt Large (67-100%) -Granulation Quality Red -Slough/Fibrin Yes -Necrosis Amt Small (1-33%) -Necrotic Tissue Type Adherent Slough -Texture (Clair-wound Skin Appearance) Assessed, Excoriation, Scarring -Moisture (Clair-wound Skin Appearance) Assessed -Color (Clair-wound Skin Appearance) Assessed -Temperature (Clair-wound Skin No Abnormality Appearance) (Pt Warm) -Tenderness on Palpation (Clair-wound Yes Skin Appearance) -Ulcer Cleansing SOAPY WATER -Foul Odor after Cleansing No -Anesthetic Used 4% Lidocaine Solution WC - Nurse 2 - General Ulcer CM Notes Start: 03/07/21 08:13 Freq: Status: Active Protocol: Activity Type Activity Date Activity User E-Sign Co-Sign Detail Recorded Client Recorded Date Recorded By Document 03/07/21 09:10 [facility] [id number] 03/07/21 09:17 03/07/21 09:10 Wound Center Nurse 2 -Time 09:10 -Correct Patient No -Correct Side, Site, Position No -Correct Procedure No -Procedure Performed No -Wound/Ulcer Outcome Not Healed -Debridement - Subq, 1st 20sq cm No Pain Scale: 0-10 Numeric Is Patient Pain Free? Yes - Nurse 3 - General Ulcer D/C NN Start: 03/07/21 08:13 Freq: Status: Active Protocol: Activity Type Activity Date Activity User E-Sign Co-Sign Detail Recorded Client Recorded Date Recorded By Document 03/07/21 09:31 DL [id number] 03/07/21 09:31 DL 03/07/21 09:31 Wound Care Nurse 3 #4- L AXILLA HIDRADENITIS POST OP -Ulcer Cleansing Rinsed/ Irrigated with Saline -Foul Odor after Cleansing No -Primary Dressing Applied Aquacel AG 4x4 -Primary Dressing Covered/Secured with Dry Gauze, Secured with Tape,Other -Other Covering abd, drsg lacey winter lpn -Aquacel AG 4x4 1 Treatment Response Procedure Tolerated Well Pain Scale: 0-10 Numeric Is Patient Pain Free? Yes WC - Visit Discharge Discharge Condition Stable Ambulatory Status Ambulatory Transportation Private Auto Facility Type Home Health Wound debrided: Axilla wound Laterality: Left No debridement was completed: No debridement was completed today Assessment/Plan Assessment/Plan (1) Open wound of left axillary region with complication: CODE(S): S41.102A - Unspecified open wound of left upper arm, initial encounter (2) Hidradenitis: CODE(S): L73.2 - Hidradenitis suppurativa (3) Smoker: CODE(S): F17.200 - Nicotine dependence, unspecified, uncomplicated (4) Hypokalemia: CODE(S): E87.6 - Hypokalemia (5) Other acute postprocedural pain: CODE(S): G89.18 - Other acute postprocedural pain PLAN: Wound care - Wound VAC to 150 mmHg. Her clair wound is excoriated and has blisters. Will take a VAC holiday for a week. She will place Dakin's 0.25% moistened gauze into the wound daily and cover with ABD daily and as needed. She can wash her wound with soap and water at the time of the dressing change. Operative culture positive for Staphylococcus lugdunensis and Staphylococcus caprae. She was sent home on Clindamycin but it is not sensitive to both the bacteria, so will stop that and start her on Doxycycline. She states she is having issues with pain control. Will change her pain medication to Dilaudid. Will recheck BMP at the end of the week due to her K+ being 3.2 and her being on supplemental potassium. Encouraged her to increase her protein intake and start taking Vitamin C 1,000 mg daily to help with wound healing. She has home health that can restart the wound VAC in one week. She will have a courtesy visit with another provider in 1-2 weeks and will follow up with me in 3 weeks.
== END 2021-03-16 23:59 ==
LOC: WC 07:47
PROVIDERS: PCP Student in an Organized Health Care Education/Training Program; Visit Provider Nurse Practitioner Family
DX: L73.2 Hidradenitis suppurativa (principal); S40.822A Blister (nonthermal) of left upper arm, initial encounter; Y84.8 Other medical procedures as the cause of abnormal reaction of the patient, or of later complication, without mention of misadventure at the time of the procedure; Y92.9 Unspecified place or not applicable; Y93.9 Activity, unspecified; Y99.9 Unspecified external cause status; E87.6 Hypokalemia; F17.200 Nicotine dependence, unspecified, uncomplicated
CPT/HCPCS: 99213; G0463

== ENCOUNTER 2021-04-11 09:45 | Outpatient (RCR) | payer MEDICAID, SELFPAY ==
[2021-03-17 00:35] VITALS: BP 157/95; PULSE 95; RESP 18; TEMP 36.2
[2021-03-17 08:09] VITALS: BP 154/88; PULSE 91; RESP 18; TEMP 35.8; BMI 53.2
--- NOTE | 2021-03-17 08:53 | PN.PCM_ITS ---
History of Present Illness Date of Service: 03/17/21 Chief Complaint: Open surgical wound left axilla. History of Wound: Surgery 03/01/21 - Surgical preparation left axilla with excision hidradenitis (140 cm2). Wound care - Wound VAC to 150 mmHg. Her clair wound is excoriated and has blisters. Will take a VAC holiday for a week. She will place Dakin's 0.25% moistened gauze into the wound daily and cover with ABD daily and as needed. Operative culture positive for Staphylococcus lugdunensis and Staphylococcus caprae. She was sent home on Clindamycin but it is not sensitive to both the bacteria, so will stop that and start her on Doxycycline. She states she is having issues with pain control. She denies fever and states her appetite is good. Subjective Subjective Courtesy visit for Francia Carranza NP S/P left axillary surgery for hidradenitis. Currently has a wound VAC in place however she states that she has had a lot of pain with wound VAC changes. On Dilaudid, Oxycodone and Valium but she states that these have not been helpful. Objective Data Objective Data Vital Signs: Vital Signs Temp Pulse Resp BP 96.5 F L 91 18 154/88 H 03/17/21 08:09 03/17/21 08:09 03/17/21 08:09 03/17/21 08:09 Weight: 282 lb Body Mass Index (BMI) 53.2 Charges/Coding Procedures Integumentary 111xxx-113xx: 53321 Bronwyn subq tissue 20 sq cm/< Add On Codes: 56869 Bronwyn subq tissue add-on Physical Exam Const alert and oriented x3 Constitutional Narrative: She appears uncomfortable and is having pain control issues, especially with palpation of the left axilla wound. General Appearance: cooperative HEENT normocephalic Head and Scalp: atraumatic Eyes PERRL Lymph Lymphatic: no lymphedema noted Resp normal respiratory effort Effort and Inspection: able to speak in complete sentences Skin Wounds: wounds noted Neuro CN's II-XII intact bilaterally Psych Appearance: grossly normal Activity / Motor Behavior: appropriate eye contact Speech: normal speech Mood & Affect: euthymic mood Debridement Note Debridement Note Post-Debridement Measurements and Additional Note: Post-Debridement Measurements/Treatment WC - Nurse 1 - General Ulcer Assessment Start: 03/17/21 08:09 Freq: Status: Active Protocol: [email or web address] Activity Type Activity Date Activity User E-Sign Co-Sign Detail Recorded Client Recorded Date Recorded By Document 03/17/21 08:09 [facility] [id number] 03/17/21 08:17 DL 03/17/21 08:09 - Today's Visit Information Type of service Follow-up Visit (Physician/MANAGER FACILITY ) Arrival Mode Ambulatory Transfer Assistance None Patient Requires Transmission-Based No Precautions Height and Weight Body Mass Index (BMI) 53.2 BMI Classification Obese Vital Signs Temperature (97.8 F-99.1 F) 96.5 F L Temperature Source Temporal Pulse Rate (60-100) 91 Pulse Location Monitor Respiratory Rate (12-18) 18 Respiratory rate source Observation Blood Pressure (90/60-120/80) 154/88 H Blood Pressure Mean (mm Hg) 110 Source Monitor History Since Last Visit- (Skip if this is Patient's initial visit) Have you changed medications since your No last visit? Any new allergies or adverse reactions No Had a fall/change in ADL's that may No increase risk of falls Signs or symptoms of abuse and/or No neglect since last visit Has dressing in place as prescribed Yes Has compression in place as prescribed N/A Has offloadiing in place as prescribed N/A Experienced any changes in pain level or No management Pain Scale: 0-10 Numeric Is Patient Pain Free? Yes - Nurse 1 - General Ulcer Measurement Start: 03/17/21 08:09 Freq: Status: Active Protocol: Activity Type Activity Date Activity User E-Sign Co-Sign Detail Recorded Client Recorded Date Recorded By Document 03/17/21 08:09 DL [id number] 03/17/21 08:17 DL 03/17/21 08:09 Wound Center Nurse 1 #4- L AXILLA HYDRADENITIS POST OP -Current Size (cm) - Length 12 -Current Size (cm) - Width 3 -Current Size (cm) - Depth 2.8 -Total Square Cm 36 -Photo Taken No -Exudate Amt Medium -Exudate Type Serosanguineous -Wound Margin Fibrotic Scar, Thickened Scar -Granulation Amt Large (67-100%) -Granulation Quality Red -Necrosis Amt Small (1-33%) -Necrotic Tissue Type Adherent Slough -Structure Exposed None/Limited to Skin Breakdown -Texture (Clair-wound Skin Appearance) Excoriation, Scarring,Rash -Moisture (Clair-wound Skin Appearance) No Abnormality -Color (Clair-wound Skin Appearance) Assessed -Temperature (Clair-wound Skin No Abnormality Appearance) (Pt Warm) -Tenderness on Palpation (Clair-wound No Skin Appearance) -Ulcer Cleansing Wound Cleanser -Foul Odor after Cleansing No -Anesthetic Used 4% Lidocaine Solution WC - Nurse 2 - General Ulcer CM Notes Start: 03/17/21 08:09 Freq: Status: Active Protocol: Activity Type Activity Date Activity User E-Sign Co-Sign Detail Recorded Client Recorded Date Recorded By Document 03/17/21 08:45 PL [id number] 03/17/21 08:46 PL 03/17/21 08:45 Wound Center Nurse 2 -Time 08:35 -Correct Patient Yes -Correct Side, Site, Position Yes -Correct Procedure Yes -Procedure Performed Yes -Type of Procedure Debridement -Clinical Debridement Subcutaneous -Tissue Removed Subcutaneous -Post Debridement (cm) - Length 14.5 -Post Debridement (cm) - Width 2.5 -Post Debridement (cm) - Depth 3.0 -Total Square (Post) (cm) 36.25 -Area of Debridement (cm) - Length 14.5 -Area of Debridement (cm) - Width 2.5 -Total Square (Area) (cm) 36.25 -Tunneling No -Undermining/Tunneling No -Circular Undermining No -Wound/Ulcer Outcome Not Healed -Ulcer Cleansing Rinsed/ Irrigated with Saline -Foul Odor after Cleansing No -Bioengineered Tissue No -Debridement - Subq, 1st 20sq cm Yes -Debridement, SubQ, ea addt'l 20sq cm 1 or part thereof Pain Scale: 0-10 Numeric Is Patient Pain Free? Yes Wound debrided: Left Axilla Type of Debridement: Excisional debridement Anesthesia Used: 4% Lidocaine Solution Depth: Down to and including healthy tissue Percentage of wound debrided: 100 Instrument Used: 5mm curette Tissue Removed: Slough and devitalized tissue Severity: Fat Layer Exposed Amount of bleeding with debridement: Mild Bleeding Controlled with: Pressure Patient tolerated procedure: Patient tolerated procedure well Assessment/Plan Assessment/Plan (1) Open wound of left axillary region with complication: CODE(S): S41.102A - Unspecified open wound of left upper arm, initial enc ounter (2) Hidradenitis: CODE(S): L73.2 - Hidradenitis suppurativa (3) Smoker: CODE(S): F17.200 - Nicotine dependence, unspecified, uncomplicated (4) Other acute postprocedural pain: CODE(S): G89.18 - Other acute postprocedural pain PLAN: Debridement done as documented above, procedure was well-tolerated. Still reports a lot of pain. She was advised to add on ibuprofen as needed to her regimen. Also advised to soak area for at least 30 minutes prior to VAC change/removal. Continue wound VAC at 150 mmHg. Change every other day by home health. Follow-up with Francia Carranza NP on Sunday. Continue other wound care management. Her questions were answered and she was advised to call with any further questions or concerns. This note was generated with [employer] software. It may contain incorrect words, spelling, and punctuation that were not noted in checking the note before signing.
[2021-03-22 14:13] VITALS: BP 167/84; PULSE 85; RESP 16; TEMP 36.3; BMI 53.2
--- NOTE | 2021-03-22 14:40 | PCM.WC.PN ---
History of Present Illness Date of Service: 03/22/21 Chief Complaint: Open surgical wound left axilla. History of Wound: Surgery 03/01/21 - Surgical preparation left axilla with excision hidradenitis (140 cm2). Wound care - Will stop the wound VAC . Will start Silver alginate dressing changes daily covered by gauze and ABD. Operative culture positive for Staphylococcus lugdunensis and Staphylococcus caprae. She was sent home on Clindamycin but it is not sensitive to both the bacteria, so will stop that and start her on Doxycycline. She states she is having issues with pain control. She denies fever and states her appetite is good. Progress of Wound: Left axilla wound is decreased in wound depth. Objective Data Objective Data Vital Signs: Vital Signs Temp Pulse Resp BP 97.3 F L 85 16 167/84 H 03/22/21 14:13 03/22/21 14:13 03/22/21 14:13 03/22/21 14:13 Oxygen Delivery Method Room Air Weight: 282 lb Body Mass Index (BMI) 53.2 Charges/Coding Procedures Integumentary 111xxx-113xx: 55333 Global Visit Physical Exam Const alert and oriented x3 General Appearance: cooperative HEENT normocephalic Head and Scalp: atraumatic Eyes PERRL Lymph Lymphatic: no lymphedema noted Resp normal respiratory effort Cardio regular rate Extremity Extremity Narrative: Left arm swelling with increased pain. Right radial pulse is present. Good range of motion of left arm. Skin Wound Narrative: Left axilla wound is beefy pink. Decreased in depth. Good granulation tissue present. Neuro CN's II-XII intact bilaterally Psych Appearance: grossly normal Debridement Note Debridement Note Post-Debridement Measurements and Additional Note: Post-Debridement Measurements/Treatment WC - Nurse 1 - General Ulcer Assessment Start: 03/17/21 08:09 Freq: Status: Active Protocol: CLARA.LOWMARIN Activity Type Activity Date Activity User E-Sign Co-Sign Detail Recorded Client Recorded Date Recorded By Document 03/17/21 08:09 DL [id number] 03/17/21 08:17 DL Document 03/22/21 14:13 [facility] [id number] 03/22/21 14:22 BMF 03/17/21 03/22/21 08:09 14:13 - Today's Visit Information Type of service Follow-up Visit Follow-up Visit (Physician/CARE SERVICES MANAGER (Physician/CARE SERVICES MANAGER ) ) Arrival Mode Ambulatory Ambulatory Transfer Assistance None None Patient Identification Verified (Name & Yes ) Patient Requires Transmission-Based No No Precautions Height and Weight Body Mass Index (BMI) 53.2 53.2 BMI Classification Obese Obese Vital Signs Temperature (97.8 F-99.1 F) 96.5 F L 97.3 F L Temperature Source Temporal Temporal Pulse Rate (60-100) 91 85 Pulse Location Monitor Monitor Respiratory Rate (12-18) 18 16 Respiratory rate source Observation Observation Oxygen Delivery Method Room Air Blood Pressure (90/60-120/80) 154/88 H 167/84 H Blood Pressure Mean (mm Hg) 110 111 Source Monitor Monitor Position Sitting Blood Pressure Location Left Forearm History Since Last Visit- (Skip if this is Patient's initial visit) Have you changed medications since your No No last visit? Any new allergies or adverse reactions No No Had a fall/change in ADL's that may No No increase risk of falls Signs or symptoms of abuse and/or No No neglect since last visit Have you been in the hospital since your No last visit? Has dressing in place as prescribed Yes Yes Has compression in place as prescribed N/A N/A Has offloadiing in place as prescribed N/A N/A Experienced any changes in pain level or No No management Left Footwear Regular Shoe Right Footwear Regular Shoe Pain Scale: 0-10 Numeric Is Patient Pain Free? Yes Yes WC - Nurse 1 - General Ulcer Measurement Start: 03/17/21 08:09 Freq: Status: Active Protocol: Activity Type Activity Date Activity User E-Sign Co-Sign Detail Recorded Client Recorded Date Recorded By Document 03/17/21 08:09 DL [id number] 03/17/21 08:17 DL Document 03/22/21 14:13 [facility] [id number] 03/22/21 14:22 [facility] 03/17/21 03/22/21 08:09 14:13 Wound Center Nurse 1 #4- L AXILLA HYDRADENITIS POST OP -Combined with other wound No -Current Size (cm) - Length 12 3.4 -Current Size (cm) - Width 3 12.5 -Current Size (cm) - Depth 2.8 0.2 -Total Square Cm 36 42.50 -Photo Taken No No -Epithelialization Small 1-33% -Tunneling No -Undermining/Tunneling No -Circular Undermining No -Exudate Amt Medium Medium -Exudate Type Serosanguineous Serosanguineous -Wound Margin Fibrotic Scar, Distinct, Thickened Scar Outline Attached -Granulation Amt Large (67-100%) Large (67-100%) -Granulation Quality Red Red -Slough/Fibrin Yes -Necrosis Amt Small (1-33%) Small (1-33%) -Necrotic Tissue Type Adherent Slough Adherent Slough -Structure Exposed None/Limited to Skin Breakdown -Texture (Clair-wound Skin Appearance) Excoriation, Assessed, Scarring,Rash Scarring -Moisture (Clair-wound Skin Appearance) No Abnormality Assessed -Color (Clair-wound Skin Appearance) Assessed Assessed -Temperature (Clair-wound Skin No Abnormality No Abnormality Appearance) (Pt Warm) (Pt Warm) -Tenderness on Palpation (Clair-wound No Skin Appearance) -Ulcer Cleansing Wound Cleanser soapy water -Foul Odor after Cleansing No No -Anesthetic Used 4% Lidocaine 4% Lidocaine Solution Solution WC - Nurse 2 - General Ulcer CM Notes Start: 03/17/21 08:09 Freq: Status: Active Protocol: Activity Type Activity Date Activity User E-Sign Co-Sign Detail Recorded Client Recorded Date Recorded By Document 03/17/21 08:45 CECILIO [id number] 03/17/21 08:46 PL Document 03/22/21 14:30 [id number] 03/22/21 14:31 03/17/21 03/22/21 08:45 14:30 Wound Center Nurse 2 #4- L AXILLA HYDRADENITIS POST OP -Time 08:35 14:30 -Correct Patient Yes Yes -Correct Side, Site, Position Yes Yes -Correct Procedure Yes Yes -Procedure Performed Yes Yes -Type of Procedure Debridement Debridement -Clinical Debridement Subcutaneous Subcutaneous -Tissue Removed Subcutaneous Subcutaneous -Post Debridement (cm) - Length 14.5 12 -Post Debridement (cm) - Width 2.5 4.6 -Post Debridement (cm) - Depth 3.0 2 -Total Square (Post) (cm) 36.25 55.2 -Area of Debridement (cm) - Length 14.5 12 -Area of Debridement (cm) - Width 2.5 4.6 -Total Square (Area) (cm) 36.25 55.2 -Tunneling No No -Undermining/Tunneling No No -Circular Undermining No No -Wound/Ulcer Outcome Not Healed Not Healed -Ulcer Cleansing Rinsed/ Rinsed/ Irrigated with Irrigated with Saline Saline -Foul Odor after Cleansing No No -Bioengineered Tissue No No -Bleeding Controlled with Pressure -Offloading No -Treatment Response Procedure Tolerated Well -Debridement - Subq, 1st 20sq cm Yes Yes -Debridement, SubQ, ea addt'l 20sq cm 1 2 or part thereof Pain Scale: 0-10 Numeric Is Patient Pain Free? Yes Yes - Nurse 3 - General Ulcer D/C NN Start: 03/17/21 08:09 Freq: Status: Active Protocol: Activity Type Activity Date Activity User E-Sign Co-Sign Detail Recorded Client Recorded Date Recorded By Document 03/22/21 14:33 CHRISTEN [id number] 03/22/21 14:34 CHRISTEN 03/22/21 14:33 Wound Care Nurse 3 #4- L AXILLA HYDRADENITIS POST OP -Ulcer Cleansing Rinsed/ Irrigated with Saline -Foul Odor after Cleansing No -Primary Dressing Applied Aquacel AG 4x4 -Primary Dressing Covered/Secured with Dry Gauze,Dry Gauze & Roll Gauze,Secured with Tape -Aquacel AG 4x4 1 Pain Scale: 0-10 Numeric Is Patient Pain Free? Yes - Visit Discharge Discharge Condition Stable Ambulatory Status Ambulatory Transportation Private Auto Medication Reconcilliation completed & Yes provided to patient/care provider Clinical Summary of Care Provided Yes Assessment/Plan Assessment/Plan (1) Open wound of left axillary region with complication: CODE(S): S41.102A - Unspecified open wound of left upper arm, initial encounter (2) Hidradenitis: CODE(S): L73.2 - Hidradenitis suppurativa (3) Smoker: CODE(S): F17.200 - Nicotine dependence, unspecified, uncomplicated (4) Other acute postprocedural pain: CODE(S): G89.18 - Other acute postprocedural pain (5) Hypokalemia: CODE(S): E87.6 - Hypokalemia PLAN: Wound care - Stop wound VAC. She continues to have increased pain with vac changes and her wound has decreased in depth. Will start on daily silver alginate dressing changes covered by gauze and an ABD. She can wash her wound with soap and water at the time of the dressing change. Operative culture positive for Staphylococcus lugdunensis and Staphylococcus caprae. She was sent home on Clindamycin but it is not sensitive to both the bacteria, so will stop that and start her on Doxycycline. She states she is continuing to have issues with pain control. Hopefully stopping the wound VAC will help with the pain control. Will renew Percocet (21 tabs). PDMP reviewed. Will recheck BMP due to her K+ being 3.2 and her being on supplemental potassium. Encouraged her to increase her protein intake and start taking Vitamin C 1,000 mg daily to help with wound healing. Follow up one week.
--- NOTE | 2021-03-23 10:52 | VDUE_ITS ---
Reason For Study: Lt arm pain/swelling Right Proximal Left Proximal Right subclavian vein is spontaneous, widely Left jugular vein is spontaneous, widely patent, phasic, with no intraluminal patent, phasic, with no intraluminal echogenicity noted. echogenicity noted. Left subclavian vein is spontaneous, widely patent, phasic, with no intraluminal echogenicity noted. Left Arm Unable to visualize Lt Axillary V due to recent surgery/bandages. Left brachial vein is compressible. Left cephalic vein is compressible. Left basilic vein is compressible. Left Lower Arm Left radial vein is compressible. Left ulnar vein is compressible. VL/Venous Duplex US, Unilateral Interpretation Summary Deep veins of the left upper extremity are patent and compressible segmentally. There is no evidence of deep vein thrombosis. The superficial veins of the left upper extremity, the basilic and cephalic veins, are patent and compressible. There is no evidence of left upper extremit y superficial thrombophlebitis involving the veins imaged. The left axillary vein was not vis ualized due to the presence of bandages. Ordering Physician: Francia Carranza Referring Physician: Ceasar Okeefe Performed By: Tonya Mathews, RON, RVT ?
[2021-03-28 08:43] VITALS: BP 147/98; PULSE 90; RESP 16; TEMP 36.2; BMI 53.2
--- NOTE | 2021-03-28 09:25 | PCM.WC.PN ---
History of Present Illness Date of Service: 03/28/21 Chief Complaint: Open surgical wound left axilla. History of Wound: Surgery 03/01/21 - Surgical preparation left axilla with excision hidradenitis (140 cm2). Wound care - Silver alginate dressing changes daily covered by gauze and ABD. Operative culture positive for Staphylococcus lugdunensis and Staphylococcus caprae. She was sent home on Clindamycin but it is not sensitive to both the bacteria, so will stop that and start her on Doxycycline. She was complaining of increased left arm pain and swelling. Ultrasound done on 03/23/21, which was negative for blood clot. After surgery K+ 3.2. She was started on Potassium 20 mEq daily. Repeat K+ 2.9. She states she has a difficult time swallowing the prescribed medication, therefore she has not taken it as she should. Increased to 40mEq but in a different format so she is able to swallow it easier. She denies fever and states her appetite is good. Progress of Wound: Improved. Objective Data Objective Data Vital Signs: Vital Signs Temp Pulse Resp BP 97.1 F L 90 16 147/98 H 03/28/21 08:43 03/28/21 08:43 03/28/21 08:43 03/28/21 08:43 Oxygen Delivery Method Room Air Weight: 282 lb Body Mass Index (BMI) 53.2 Charges/Coding Procedures Integumentary 111xxx-113xx: 66241 Global Visit Physical Exam Const alert and oriented x3 General Appearance: cooperative HEENT normocephalic Eyes PERRL Lymph Lymphatic: no lymphedema noted Resp normal respiratory effort Cardio regular rate GI non-tender Extremity no clubbing, cyanosis or edema Skin Wound Narrative: Left axilla wound is beefy pink, decreasing in size. Periwound is stable. Neuro CN's II-XII intact bilaterally Psych Appearance: grossly normal Debridement Note Debridement Note Post-Debridement Measurements and Additional Note: Post-Debridement Measurements/Treatment WC - Nurse 1 - General Ulcer Assessment Start: 03/17/21 08:09 Freq: Status: Active Protocol: CLARA.LOWEXT Activity Type Activity Date Activity User E-Sign Co-Sign Detail Recorded Client Recorded Date Recorded By Document 03/17/21 08:09 DL [id number] 03/17/21 08:17 DL Document 03/22/21 14:13 BMF [id number] 03/22/21 14:22 [facility] Document 03/28/21 08:43 [facility] [id number] 03/28/21 08:48 [facility] 03/17/21 03/22/21 03/28/21 08:09 14:13 08:43 - Today's Visit Information Type of service Follow-up Visit Follow-up Visit Follow-up Visit (Physician/AUTOMATIC CORN GRINDER OPERATOR (Physician/AUTOMATIC CORN GRINDER OPERATOR (Physician/AUTOMATIC CORN GRINDER OPERATOR ) ) ) Arrival Mode Ambulatory Ambulatory Ambulatory Transfer Assistance None None None Patient Identification Verified (Name & Yes Yes ) Patient Requires Transmission-Based No No No Precautions Height and Weight Body Mass Index (BMI) 53.2 53.2 53.2 BMI Classification Obese Obese Obese Vital Signs Temperature (97.8 F-99.1 F) 96.5 F L 97.3 F L 97.1 F L Temperature Source Temporal Temporal Temporal Pulse Rate (60-100) 91 85 90 Pulse Location Monitor Monitor Monitor Respiratory Rate (12-18) 18 16 16 Respiratory rate source Observation Observation Observation Oxygen Delivery Method Room Air Room Air Blood Pressure (90/60-120/80) 154/88 H 167/84 H 147/98 H Blood Pressure Mean (mm Hg) 110 111 114 Source Monitor Monitor Monitor Position Sitting Sitting Blood Pressure Location Left Forearm Right Forearm History Since Last Visit- (Skip if this is Patient's initial visit) Have you changed medications since your No No No last visit? Any new allergies or adverse reactions No No No Had a fall/change in ADL's that may No No No increase risk of falls Signs or symptoms of abuse and/or No No No neglect since last visit Have you been in the hospital since your No No last visit? Has dressing in place as prescribed Yes Yes Yes Has compression in place as prescribed N/A N/A N/A Has offloadiing in place as prescribed N/A N/A N/A Experienced any changes in pain level or No No No management Left Footwear Regular Shoe Regular Shoe Right Footwear Regular Shoe Regular Shoe Pain Scale: 0-10 Numeric Is Patient Pain Free? Yes Yes Yes - Nurse 1 - General Ulcer Measurement Start: 03/17/21 08:09 Freq: Status: Active Protocol: Activity Type Activity Date Activity User E-Sign Co-Sign Detail Recorded Client Recorded Date Recorded By Document 03/17/21 08:09 DL [id number] 03/17/21 08:17 DL Document 03/22/21 14:13 [facility] [id number] 03/22/21 14:22 BMF Document 03/28/21 08:43 [facility] [id number] 03/28/21 08:48 [facility] 03/17/21 03/22/21 03/28/21 08:09 14:13 08:43 Wound Center Nurse 1 #4- L AXILLA HYDRADENITIS POST OP -Combined with other wound No No -Current Size (cm) - Length 12 3.4 2.3 -Current Size (cm) - Width 3 12.5 11 -Current Size (cm) - Depth 2.8 0.2 0.1 -Total Square Cm 36 42.50 25.3 -Photo Taken No No No -Epithelialization Small 1-33% Small 1-33% -Tunneling No No -Undermining/Tunneling No No -Circular Undermining No No -Exudate Amt Medium Medium Medium -Exudate Type Serosanguineous Serosanguineous Yellow/Green -Wound Margin Fibrotic Scar, Distinct, Distinct, Thickened Scar Outline Outline Attached Attached -Granulation Amt Large (67-100%) Large (67-100%) Large (67-100%) -Granulation Quality Red Red Red -Slough/Fibrin Yes Yes -Necrosis Amt Small (1-33%) Small (1-33%) Small (1-33%) -Necrotic Tissue Type Adherent Slough Adherent Slough Adherent Slough -Structure Exposed None/Limited to Skin Breakdown -Texture (Clair-wound Skin Appearance) Excoriation, Assessed, Assessed, Scarring,Rash Scarring Scarring -Moisture (Clair-wound Skin Appearance) No Abnormality Assessed Assessed -Color (Clair-wound Skin Appearance) Assessed Assessed Assessed -Temperature (Clair-wound Skin No Abnormality No Abnormality No Abnormality Appearance) (Pt Warm) (Pt Warm) (Pt Warm) -Tenderness on Palpation (Clair-wound No No Skin Appearance) -Ulcer Cleansing Wound Cleanser soapy water Rinsed/ Irrigated with Saline -Foul Odor after Cleansing No No No -Anesthetic Used 4% Lidocaine 4% Lidocaine 4% Lidocaine Solution Solution Solution WC - Nurse 2 - General Ulcer CM Notes Start: 03/17/21 08:09 Freq: Status: Active Protocol: Activity Type Activity Date Activity User E-Sign Co-Sign Detail Recorded Client Recorded Date Recorded By Document 03/17/21 08:45 PL [id number] 03/17/21 08:46 Document 03/22/21 14:30 [id number] 03/22/21 14:31 03/17/21 03/22/21 08:45 14:30 Wound Center Nurse 2 #4- L AXILLA HYDRADENITIS POST OP -Time 08:35 14:30 -Correct Patient Yes Yes -Correct Side, Site, Position Yes Yes -Correct Procedure Yes Yes -Procedure Performed Yes Yes -Type of Procedure Debridement Debridement -Clinical Debridement Subcutaneous Subcutaneous -Tissue Removed Subcutaneous Subcutaneous -Post Debridement (cm) - Length 14.5 12 -Post Debridement (cm) - Width 2.5 4.6 -Post Debridement (cm) - Depth 3.0 2 -Total Square (Post) (cm) 36.25 55.2 -Area of Debridement (cm) - Length 14.5 12 -Area of Debridement (cm) - Width 2.5 4.6 -Total Square (Area) (cm) 36.25 55.2 -Tunneling No No -Undermining/Tunneling No No -Circular Undermining No No -Wound/Ulcer Outcome Not Healed Not Healed -Ulcer Cleansing Rinsed/ Rinsed/ Irrigated with Irrigated with Saline Saline -Foul Odor after Cleansing No No -Bioengineered Tissue No No -Bleeding Controlled with Pressure -Offloading No -Treatment Response Procedure Tolerated Well -Debridement - Subq, 1st 20sq cm Yes Yes -Debridement, SubQ, ea addt'l 20sq cm 1 2 or part thereof Pain Scale: 0-10 Numeric Is Patient Pain Free? Yes Yes - Nurse 3 - General Ulcer D/C NN Start: 03/17/21 08:09 Freq: Status: Active Protocol: Activity Type Activity Date Activity User E-Sign Co-Sign Detail Recorded Client Recorded Date Recorded By Document 03/22/21 14:33 [id number] 03/22/21 14:34 Document 03/28/21 09:24 DL [id number] 03/28/21 09:24 DL 03/22/21 03/28/21 14:33 09:24 Wound Care Nurse 3 #4- L AXILLA HYDRADENITIS POST OP -Ulcer Cleansing Rinsed/ Wound Cleanser Irrigated with Saline -Foul Odor after Cleansing No No -Primary Dressing Applied Aquacel AG 4x4 Aquacel AG 4x4 -Other Dressing ABD -Primary Dressing Covered/Secured with Dry Gauze,Dry Secured with Gauze & Roll Tape Gauze,Secured with Tape -Aquacel AG 4x4 1 1 Treatment Response Procedure Tolerated Well Pain Scale: 0-10 Numeric Is Patient Pain Free? Yes Yes WC - Visit Discharge Discharge Condition Stable Stable Ambulatory Status Ambulatory Ambulatory Transportation Private Auto Private Auto Medication Reconcilliation completed & Yes provided to patient/care provider Clinical Summary of Care Provided Yes Wound debrided: Axilla wound Laterality: Left Type of Debridement: Excisional debridement Anesthesia Used: 5% Lidocaine Gel Depth: Down to and including healthy tissue and in the subcutaneous layer Percentage of wound debrided: 100 Instrument Used: 5mm curette Tissue Removed: Subcutaneous tissue and slough Severity: Fat Layer Exposed Amount of bleeding with debridement: Mild Bleeding Controlled with: Pressure Patient tolerated procedure: Patient tolerated procedure well Assessment/Plan Assessment/Plan (1) Open wound of left axillary region with complication: CODE(S): S41.102A - Unspecified open wound of left upper arm, initial encounter (2) Hidradenitis: CODE(S): L73.2 - Hidradenitis suppurativa (3) Smoker: CODE(S): F17.200 - Nicotine dependence, unspecified, uncomplicated (4) Other acute postprocedural pain: CODE(S): G89.18 - Other acute postprocedural pain (5) Hypokalemia: CODE(S): E87.6 - Hypokalemia PLAN: Wound care - Silver alginate dressing changes covered by gauze and an ABD daily. She can wash her wound with soap and water at the time of the dressing change. Operative culture positive for Staphylococcus lugdunensis and Staphylococcus caprae. Continue Doxycycline. Ultrasound done on 03/23/21, which was negative for blood clot. After surgery K+ 3.2. She was started on Potassium 20 mEq daily. Repeat K+ 2.9. She states she has a difficult time swallowing the prescribed medication, therefore she has not taken it as she should. Increased to 40mEq but in a different format so she is able to swallow it easier. Encouraged her to increase her protein intake and start taking Vitamin C 1,000 mg daily to help with wound healing. Follow up one week. Encouraged patient to stop smoking as it may have deleterious effects on wound healing. She denies fever and states her appetite is good.
[2021-04-04 08:54] VITALS: BP 122/70; PULSE 77; TEMP 35.9; BMI 53.2
--- NOTE | 2021-04-04 12:46 | PN.PCM_ITS ---
History of Present Illness Date of Service: 04/04/21 Chief Complaint: Open surgical wound left axilla. History of Wound: Surgery 03/01/21 - Surgical preparation left axilla with excision hidradenitis (140 cm2). Wound care - Silver alginate dressing changes daily covered by gauze and ABD. Operative culture positive for Staphylococcus lugdunensis and Staphylococcus caprae. She was sent home on Clindamycin but it is not sensitive to both the bacteria, so will stop that and start her on Doxycycline. She was complaining of increased left arm pain and swelling. Ultrasound done on 03/23/21, which was negative for blood clot. After surgery K+ 3.2. She was started on Potassium 20 mEq daily. Repeat K+ 2.9. She states she has a difficult time swallowing the prescribed medication, therefore she has not taken it as she should. Increased to 40mEq but in a different format so she is able to swallow it easier. She denies fever and states her appetite is good. Progress of Wound: Improved. Objective Data Objective Data Vital Signs: Vital Signs Temp Pulse Resp BP 96.6 F L 77 16 122/70 H 04/04/21 08:54 04/04/21 08:54 03/28/21 08:43 04/04/21 08:54 Oxygen Delivery Method Room Air Weight: 282 lb Body Mass Index (BMI) 53.2 Charges/Coding Procedures Integumentary 111xxx-113xx: [id number] Global Visit Physical Exam Const alert and oriented x3 General Appearance: cooperative HEENT normocephalic Head and Scalp: atraumatic Eyes PERRL Lymph Lymphatic: no lymphedema noted Resp normal respiratory effort Cardio regular rate GI non-tender Palpation: soft Extremity normal capillary refill Skin Wound Narrative: Left axilla ulcer is pink with good granulation tissue. Smaller in size. Neuro CN's II-XII intact bilaterally Psych Appearance: grossly normal Debridement Note Debridement Note Post-Debridement Measurements and Additional Note: Post-Debridement Measurements /Treatment WC - Nurse 1 - General Ulcer Assessment Start: 03/17/21 08:09 Freq: Status: Active Protocol: CLARA.LOWEXT Activity Type Activity Date Activity User E-Sign Co-Sign Detail Recorded Client Recorded Date Recorded By Document 03/17/21 08:09 DL [id number] 03/17/21 08:17 DL Document 03/22/21 14:13 BMF [id number] 03/22/21 14:22 BM Document 03/28/21 08:43 [facility] [id number] 03/28/21 08:48 [facility] Document 04/04/21 08:54 KR [id number] 04/04/21 09:02 KR 03/17/21 03/22/21 03/28/21 08:09 14:13 08:43 WC - Today's Visit Information Type of service Follow-up Visit Follow-up Visit Follow-up Visit (Physician/GRID CASTING 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 (Physician/GRID CASTING 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 HELPER (Physician/GRID CASTING 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 HELPER ) ) ) Arrival Mode Ambulatory Ambulatory Ambulatory Transfer Assistance None None None Patient Identification Verified (Name & Yes Yes ) Patient Requires Transmission-Based No No No Precautions Height and Weight Body Mass Index (BMI) 53.2 53.2 53.2 BMI Classification Obese Obese Obese Vital Signs Temperature (97.8 F-99.1 F) 96.5 F L 97.3 F L 97.1 F L Temperature Source Temporal Temporal Temporal Pulse Rate (60-100) 91 85 90 Pulse Location Monitor Monitor Monitor Respiratory Rate (12-18) 18 16 16 Respiratory rate source Observation Observation Observation Oxygen Delivery Method Room Air Room Air Blood Pressure (90/60-120/80) 154/88 H 167/84 H 147/98 H Blood Pressure Mean (mm Hg) 110 111 114 Source Monitor Monitor Monitor Position Sitting Sitting Blood Pressure Location Left Forearm Right Forearm History Since Last Visit- (Skip if this is Patient's initial visit) Have you changed medications since your No No No last visit? Any new allergies or adverse reactions No No No Had a fall/change in ADL's that may No No No increase risk of falls Signs or symptoms of abuse and/or No No No neglect since last visit Have you been in the hospital since your No No last visit? Has dressing in place as prescribed Yes Yes Yes Has compression in place as prescribed N/A N/A N/A Has offloadiing in place as prescribed N/A N/A N/A Experienced any changes in pain level or No No No management Left Footwear Regular Shoe Regular Shoe Right Footwear Regular Shoe Regular Shoe Pain Scale: 0-10 Numeric Is Patient Pain Free? 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 ) Arrival Mode Ambulatory Transfer Assistance Patient Identification Verified (Name & Yes ) Patient Requires Transmission-Based Precautions Height and Weight Body Mass Index (BMI) 53.2 BMI Classification Obese Vital Signs Temperature (97.8 F-99.1 F) 96.6 F L Temperature Source Temporal Pulse Rate (60-100) 77 Pulse Location Monitor Respiratory Rate (12-18) Respiratory rate source Oxygen Delivery Method Blood Pressure (90/60-120/80) 122/70 H Blood Pressure Mean (mm Hg) 87 Source Monitor Position Semi-Fowlers Blood Pressure Location Right Arm History Since Last Visit- (Skip if this is Patient's initial visit) Have you changed medications since your No last visit? Any new allergies or adverse reactions No Had a fall/change in ADL's that may No increase risk of falls Signs or symptoms of abuse and/or No neglect since last visit Have you been in the hospital since your No last visit? Has dressing in place as prescribed Yes Has compression in place as prescribed N/A Has offloadiing in place as prescribed N/A Experienced any changes in pain level or No management Left Footwear Regular Shoe Right Footwear Regular Shoe Pain Scale: 0-10 Numeric Is Patient Pain Free? Yes WC - Nurse 1 - General Ulcer Measurement Start: 03/17/21 08:09 Freq: Status: Active Protocol: Activity Type Activity Date Activity User E-Sign Co-Sign Detail Recorded Client Recorded Date Recorded By Document 03/17/21 08:09 DL [id number] 03/17/21 08:17 DL Document 03/22/21 14:13 [facility] [id number] 03/22/21 14:22 BMF Document 03/28/21 08:43 BMF [id number] 03/28/21 08:48 BMF Document 04/04/21 08:54 KR [id number] 04/04/21 09:02 KR 03/17/21 03/22/21 03/28/21 08:09 14:13 08:43 Wound Center Nurse 1 #4- L AXILLA HYDRADENITIS POST OP -Combined with other wound No No -Current Size (cm) - Length 12 3.4 2.3 -Current Size (cm) - Width 3 12.5 11 -Current Size (cm) - Depth 2.8 0.2 0.1 -Total Square Cm 36 42.50 25.3 -Photo Taken No No No -Epithelialization Small 1-33% Small 1-33% -Tunneling No No -Undermining/Tunneling No No -Circular Undermining No No -Exudate Amt Medium Medium Medium -Exudate Type Serosanguineous Serosanguineous Yellow/Green -Wound Margin Fibrotic Scar, Distinct, Distinct, Thickened Scar Outline Outline Attached Attached -Granulation Amt Large (67-100%) Large (67-100%) Large (67-100%) -Granulation Quality Red Red Red -Slough/Fibrin Yes Yes -Necrosis Amt Small (1-33%) Small (1-33%) Small (1-33%) -Necrotic Tissue Type Adherent Slough Adherent Slough Adherent Slough -Structure Exposed None/Limited to Skin Breakdown -Texture (Clair-wound Skin Appearance) Excoriation, Assessed, Assessed, Scarring,Rash Scarring Scarring -Moisture (Clair-wound Skin Appearance) No Abnormality Assessed Assessed -Color (Clair-wound Skin Appearance) Assessed Assessed Assessed -Temperature (Clair-wound Skin No Abnormality No Abnormality No Abnormality Appearance) (Pt Warm) (Pt Warm) (Pt Warm) -Tenderness on Palpation (Clair-wound No No Skin Appearance) -Ulcer Cleansing Wound Cleanser soapy water Rinsed/ Irrigated with Saline -Foul Odor after Cleansing No No No -Anesthetic Used 4% Lidocaine 4% Lidocaine 4% Lidocaine Solution Solution Solution 04/04/21 08:54 Wound Center Nurse 1 #4- L AXILLA HYDRADENITIS POST OP -Combined with other wound -Current Size (cm) - Length 8.5 -Current Size (cm) - Width 2.6 -Current Size (cm) - Depth 0.2 -Total Square Cm 22.10 -Photo Taken -Epithelialization -Tunneling -Undermining/Tunneling -Circular Undermining -Exudate Amt Small -Exudate Type Serosanguineous -Wound Margin Distinct, Outline Attached -Granulation Amt Large (67-100%) -Granulation Quality Red -Slough/Fibrin -Necrosis Amt None Present (0 %) -Necrotic Tissue Type -Structure Exposed -Texture (Clair-wound Skin Appearance) Assessed, Scarring -Moisture (Clair-wound Skin Appearance) No Abnormality, Assessed -Color (Clair-wound Skin Appearance) No Abnormality, Assessed -Temperature (Clair-wound Skin No Abnormality Appearance) (Pt Warm) -Tenderness on Palpation (Clair-wound No Skin Appearance) -Ulcer Cleansing Rinsed/ Irrigated with Saline -Foul Odor after Cleansing No -Anesthetic Used 5% Lidocaine Gel - Nurse 2 - General Ulcer CM Notes Start: 03/17/21 08:09 Freq: Status: Active Protocol: Activity Type Activity Date Activity User E-Sign Co-Sign Detail Recorded Client Recorded Date Recorded By Document 03/17/21 08:45 PL [id number] 03/17/21 08:46 PL Document 03/22/21 14:30 JF [id number] 03/22/21 14:31 JF Document 03/28/21 09:24 PL [id number] 03/28/21 09:26 PL 03/17/21 03/22/21 03/28/21 08:45 14:30 09:24 Wound Center Nurse 2 #4- L AXILLA HYDRADENITIS POST OP -Time 08:35 14:30 09:06 -Correct Patient Yes Yes Yes -Correct Side, Site, Position Yes Yes Yes -Correct Procedure Yes Yes Yes -Procedure Performed Yes Yes Yes -Type of Procedure Debridement Debridement Debridement -Clinical Debridement Subcutaneous Subcutaneous Subcutaneous -Tissue Removed Subcutaneous Subcutaneous Subcutaneous -Post Debridement (cm) - Length 14.5 12 10.5 -Post Debridement (cm) - Width 2.5 4.6 3.8 -Post Debridement (cm) - Depth 3.0 2 1.2 -Total Square (Post) (cm) 36.25 55.2 39.90 -Area of Debridement (cm) - Length 14.5 12 10.5 -Area of Debridement (cm) - Width 2.5 4.6 3.8 -Total Square (Area) (cm) 36.25 55.2 39.90 -Tunneling No No No -Undermining/Tunneling No No No -Circular Undermining No No No -Wound/Ulcer Outcome Not Healed Not Healed Not Healed -Ulcer Cleansing Rinsed/ Rinsed/ Rinsed/ Irrigated with Irrigated with Irrigated with Saline Saline Saline -Foul Odor after Cleansing No No No -Bioengineered Tissue No No No -Bleeding Controlled with Pressure -Offloading No -Treatment Response Procedure Tolerated Well -Debridement - Subq, 1st 20sq cm Yes Yes Yes -Debridement, SubQ, ea addt'l 20sq cm 1 2 1 or part thereof Pain Scale: 0-10 Numeric Is Patient Pain Free? Yes Yes - Nurse 3 - General Ulcer D/C NN Start: 03/17/21 08:09 Freq: Status: Active Protocol: Activity Type Activity Date Activity User E-Sign Co-Sign Detail Recorded Client Recorded Date Recorded By Document 03/22/21 14:33 [id number] 03/22/21 14:34 Document 03/28/21 09:24 DL [id number] 03/28/21 09:24 DL Document 04/04/21 10:01 [facility] [id number] 04/04/21 10:03 [facility] 03/22/21 03/28/21 04/04/21 14:33 09:24 10:01 Wound Care Nurse 3 #4- L AXILLA HYDRADENITIS POST OP -Ulcer Cleansing Rinsed/ Wound Cleanser Rinsed/ Irrigated with Irrigated with Saline Saline -Foul Odor after Cleansing No No No -Primary Dressing Applied Aquacel AG 4x4 Aquacel AG 4x4 Aquacel AG 4x4 -Other Dressing ABD -Primary Dressing Covered/Secured with Dry Gauze,Dry Secured with Secured with Gauze & Roll Tape Tape,Other Gauze,Secured with Tape -Other Covering abd -Aquacel AG 4x4 1 1 1 Treatment Response Procedure Procedure Tolerated Well Tolerated Well Pain Scale: 0-10 Numeric Is Patient Pain Free? Yes Yes Yes WC - Visit Discharge Discharge Condition Stable Stable Stable Ambulatory Status Ambulatory Ambulatory Ambulatory Transportation Private Auto Private Auto Private Auto Medication Reconcilliation completed & Yes provided to patient/care provider Clinical Summary of Care Provided Yes Facility Type Home Health Wound debrided: Axilla ulcer Laterality: Left Type of Debridement: Excisional debridement Anesthesia Used: 5% Lidocaine Gel Depth: Down to and including healthy tissue and in the subcutaneous layer Percentage of wound debrided: 100 Instrument Used: 5mm curette Tissue Removed: Subcutaneous tissue and slough Severity: Fat Layer Exposed Amount of bleeding with debridement: Mild Bleeding Controlled with: Pressure Patient tolerated procedure: Patient tolerated procedure well Assessment/Plan Assessment/Plan (1) Skin ulcer of 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 She can wash her wound with soap and water at the time of the dressing change. Operative culture positive for Staphylococcus lugdunensis and Staphylococcus caprae. Continue Doxycycline. Ultrasound done on 03/23/21, which was negative for blood clot. After surgery K+ 3.2. She was started on Potassium 20 mEq daily. Repeat K+ 2.9. She states she has a difficult time swallowing the prescribed medication, therefore she has not taken it as she should. Increased to 40mEq but in a different format so she is able to swallow it easier. Will recheck potassium level at her next appointment. Encouraged her to increase her protein intake and start taking Vitamin C 1,000 mg daily to help with wound healing. Encouraged patient to stop smoking as it may have deleterious effects on wound healing. Will renew her Percocet (14). PDMP reviewed. 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 She is not to use pain meds while at work. No lifting over 20 lbs. She may return to work on April 05, 2021. Follow up one week.
[2021-04-11 09:42] VITALS: BP 147/93; TEMP 35.9; BMI 53.2
--- NOTE | 2021-04-11 14:47 | PN.PCM_ITS ---
History of Present Illness Date of Service: 04/11/21 Chief Complaint: Open surgical wound left axilla. History of Wound: Surgery 03/01/21 - Surgical preparation left axilla with excision hidradenitis (140 cm2). Wound care - Silver alginate dressing changes daily covered by gauze and ABD. Operative culture positive for Staphylococcus lugdunensis and Staphylococcus caprae. She was sent home on Clindamycin but it is not sensitive to both the bacteria, so will stop that and start her on Doxycycline. She was complaining of increased left arm pain and swelling. Ultrasound done on 03/23/21, which was negative for blood clot. After surgery K+ 3.2. She was started on Potassium 20 mEq daily. Repeat K+ 2.9. She states she has a difficult time swallowing the prescribed medication, therefore she has not taken it as she should. Increased to 40mEq but in a different format so she is able to swallow it easier. She denies fever and states her appetite is good. Progress of Wound: Improved. Objective Data Objective Data Vital Signs: Vital Signs Temp Pulse Resp BP 96.6 F L 77 16 147/93 H 04/11/21 09:42 04/04/21 08:54 03/28/21 08:43 04/11/21 09:42 Oxygen Delivery Method Room Air Weight: 282 lb Body Mass Index (BMI) 53.2 Charges/Coding Procedures Integumentary 111xxx-113xx: 70492 Global Visit Physical Exam Const alert and oriented x3 General Appearance: cooperative HEENT normocephalic Eyes PERRL Lymph Lymphatic: no lymphedema noted Resp normal respiratory effort Cardio regular rate GI non-tender Palpation: soft Extremity normal capillary refill Skin Wound Narrative: Left axilla ulcer with hypergranulation tissue present. Range of motion of left shoulder is decreased and increases pain with shoulder movement. Neuro CN's II-XII intact bilaterally Psych Thought Process: normal thought process Debridement Note Debridement Note Post-Debridement Measurements and Additional Note: Post-Debridement Measurements/Treatment CLARA - Nurse 1 - General Ulcer Assessment Start: 03/17/21 08:09 Freq: Status: Active Protocol: [email or web address].[email or web address] Activity Type Activity Date Activity User E-Sign Co-Sign Detail Recorded Client Recorded Date Recorded By Document 03/17/21 08:09 DL [id number] 03/17/21 08:17 DL Document 03/22/21 14:13 BMF [id number] 03/22/21 14:22 BMF Document 03/28/21 08:43 BMF [id number] 03/28/21 08:48 BMF Document 04/04/21 08:54 KR [id number] 04/04/21 09:02 KR Document 04/11/21 09:42 KR [id number] 04/11/21 09:46 KR 03/17/21 03/22/21 03/28/21 08:09 14:13 08:43 WC - Today's Visit Information Type of service Follow-up Visit Follow-up Visit Follow-up Visit (Physician/WATER INSPECTOR (Physician/WATER INSPECTOR (Physician/WATER INSPECTOR ) ) ) Arrival Mode Ambulatory Ambulatory Ambulatory Transfer Assistance None None None Patient Identification Verified (Name & Yes Yes ) Patient Requires Transmission-Based No No No Precautions Height and Weight Body Mass Index (BMI) 53.2 53.2 53.2 BMI Classification Obese Obese Obese Vital Signs Temperature (97.8 F-99.1 F) 96.5 F L 97.3 F L 97.1 F L Temperature Source Temporal Temporal Temporal Pulse Rate (60-100) 91 85 90 Pulse Location Monitor Monitor Monitor Respiratory Rate (12-18) 18 16 16 Respiratory rate source Observation Observation Observation Oxygen Delivery Method Room Air Room Air Blood Pressure (90/60-120/80) 154/88 H 167/84 H 147/98 H Blood Pressure Mean (mm Hg) 110 111 114 Source Monitor Monitor Monitor Position Sitting Sitting Blood Pressure Location Left Forearm Right Forearm History Since Last Visit- (Skip if this is Patient's initial visit) Have you changed medications since your No No No last visit? Any new allergies or adverse reactions No No No Had a fall/change in ADL's that may No No No increase risk of falls Signs or symptoms of abuse and/or No No No neglect since last visit Have you been in the hospital since your No No last visit? Has dressing in place as prescribed Yes Yes Yes Has compression in place as prescribed N/A N/A N/A Has offloadiing in place as prescribed N/A N/A N/A Experienced any changes in pain level or No No No management Left Footwear Regular Shoe Regular Shoe Right Footwear Regular Shoe Regular Shoe Pain Scale: 0-10 Numeric Is Patient Pain Free? Yes Yes Yes 04/04/21 04/11/21 08:54 09:42 WC - Today's Visit Information Type of service Follow-up Visit Follow-up Visit (Physician/WATER INSPECTOR (Physician/WATER INSPECTOR ) ) Arrival Mode Ambulatory Ambulatory Transfer Assistance Patient Identification Verified (Name & Yes Yes ) Patient Requires Transmission-Based No Precautions Height and Weight Body Mass Index (BMI) 53.2 53.2 BMI Classification Obese Obese Vital Signs Temperature (97.8 F-99.1 F) 96.6 F L 96.6 F L Temperature Source Temporal Temporal Pulse Rate (60-100) 77 Pulse Location Monitor Respiratory Rate (12-18) Respiratory rate source Oxygen Delivery Method Blood Pressure (90/60-120/80) 122/70 H 147/93 H Blood Pressure Mean (mm Hg) 87 111 Source Monitor Monitor Position Semi-Fowlers Blood Pressure Location Right Arm History Since Last Visit- (Skip if this is Patient's initial visit) Have you changed medications since your No No last visit? Any new allergies or adverse reactions No No Had a fall/change in ADL's that may No No increase risk of falls Signs or symptoms of abuse and/or No No neglect since last visit Have you been in the hospital since your No No last visit? Has dressing in place as prescribed Yes Yes Has compression in place as prescribed N/A No Has offloadiing in place as prescribed N/A No Experienced any changes in pain level or No No management Left Footwear Regular Shoe Regular Shoe Right Footwear Regular Shoe Regular Shoe Pain Scale: 0-10 Numeric Is Patient Pain Free? Yes Yes - Nurse 1 - General Ulcer Measurement Start: 03/17/21 08:09 Freq: Status: Active Protocol: Activity Type Activity Date Activity User E-Sign Co-Sign Detail Recorded Client Recorded Date Recorded By Document 03/17/21 08:09 DL [id number] 03/17/21 08:17 DL Document 03/22/21 14:13 BMF [id number] 03/22/21 14:22 BMF Document 03/28/21 08:43 BMF [id number] 03/28/21 08:48 BMF Document 04/04/21 08:54 KR [id number] 04/04/21 09:02 KR Document 04/11/21 09:42 KR [id number] 04/11/21 09:46 KR 03/17/21 03/22/2121 08:09 14:13 08:43 Wound Center Nurse 1 #4- L AXILLA HYDRADENITIS POST OP -Combined with other wound No No -Current Size (cm) - Length 12 3.4 2.3 -Current Size (cm) - Width 3 12.5 11 -Current Size (cm) - Depth 2.8 0.2 0.1 -Total Square Cm 36 42.50 25.3 -Photo Taken No No No -Epithelialization Small 1-33% Small 1-33% -Tunneling No No -Undermining/Tunneling No No -Circular Undermining No No -Exudate Amt Medium Medium Medium -Exudate Type Serosanguineous Serosanguineous Yellow/Green -Wound Margin Fibrotic Scar, Distinct, Distinct, Thickened Scar Outline Outline Attached Attached -Granulation Amt Large (67-100%) Large (67-100%) Large (67-100%) -Granulation Quality Red Red Red -Slough/Fibrin Yes Yes -Necrosis Amt Small (1-33%) Small (1-33%) Small (1-33%) -Necrotic Tissue Type Adherent Slough Adherent Slough Adherent Slough -Structure Exposed None/Limited to Skin Breakdown -Texture (Clair-wound Skin Appearance) Excoriation, Assessed, Assessed, Scarring,Rash Scarring Scarring -Moisture (Clair-wound Skin Appearance) No Abnormality Assessed Assessed -Color (Clair-wound Skin Appearance) Assessed Assessed Assessed -Temperature (Clair-wound Skin No Abnormality No Abnormality No Abnormality Appearance) (Pt Warm) (Pt Warm) (Pt Warm) -Tenderness on Palpation (Clair-wound No No Skin Appearance) -Ulcer Cleansing Wound Cleanser soapy water Rinsed/ Irrigated with Saline -Foul Odor after Cleansing No No No -Anesthetic Used 4% Lidocaine 4% Lidocaine 4% Lidocaine Solution Solution Solution 04/04/21 04/11/21 08:54 09:42 Wound Center Nurse 1 #4- L AXILLA HYDRADENITIS POST OP -Combined with other wound -Current Size (cm) - Length 8.5 6.5 -Current Size (cm) - Width 2.6 2.5 -Current Size (cm) - Depth 0.2 0.1 -Total Square Cm 22.10 16.25 -Photo Taken -Epithelialization -Tunneling -Undermining/Tunneling -Circular Undermining -Exudate Amt Small Small -Exudate Type Serosanguineous Serosanguineous -Wound Margin Distinct, Outline Attached -Granulation Amt Large (67-100%) None Present (0 %) -Granulation Quality Red -Slough/Fibrin No -Necrosis Amt None Present (0 %) -Necrotic Tissue Type -Structure Exposed -Texture (Clair-wound Skin Appearance) Assessed, No Abnormality, Scarring Assessed -Moisture (Clair-wound Skin Appearance) No Abnormality, No Abnormality, Assessed Assessed -Color (Clair-wound Skin Appearance) No Abnormality, No Abnormality, Assessed Assessed -Temperature (Clair-wound Skin No Abnormality No Abnormality Appearance) (Pt Warm) (Pt Warm) -Tenderness on Palpation (Clair-wound No No Skin Appearance) -Ulcer Cleansing Rinsed/ Irrigated with Saline -Foul Odor after Cleansing No No -Anesthetic Used 5% Lidocaine 5% Lidocaine Gel Gel WC - Nurse 2 - General Ulcer CM Notes Start: 03/17/21 08:09 Freq: Status: Active Protocol: Activity Type Activity Date Activity User E-Sign Co-Sign Detail Recorded Client Recorded Date Recorded By Document 03/17/21 08:45 PL [id number] 03/17/21 08:46 PL Document 03/22/21 14:30 [id number] 03/22/21 14:31 Document 03/28/21 09:24 PL [id number] 03/28/21 09:26 PL Document 04/04/21 13:20 PL [id number] 04/04/21 13:21 PL Document 04/11/21 10:20 [id number] 04/11/21 10:21 03/17/21 03/22/21 03/28/21 08:45 14:30 09:24 Wound Center Nurse 2 #4- L AXILLA HYDRADENITIS POST OP -Time 08:35 14:30 09:06 -Correct Patient Yes Yes Yes -Correct Side, Site, Position Yes Yes Yes -Correct Procedure Yes Yes Yes -Procedure Performed Yes Yes Yes -Type of Procedure Debridement Debridement Debridement -Clinical Debridement Subcutaneous Subcutaneous Subcutaneous -Tissue Removed Subcutaneous Subcutaneous Subcutaneous -Post Debridement (cm) - Length 14.5 12 10.5 -Post Debridement (cm) - Width 2.5 4.6 3.8 -Post Debridement (cm) - Depth 3.0 2 1.2 -Total Square (Post) (cm) 36.25 55.2 39.90 -Area of Debridement (cm) - Length 14.5 12 10.5 -Area of Debridement (cm) - Width 2.5 4.6 3.8 -Total Square (Area) (cm) 36.25 55.2 39.90 -Tunneling No No No -Undermining/Tunneling No No No -Circular Undermining No No No -Wound/Ulcer Outcome Not Healed Not Healed Not Healed -Ulcer Cleansing Rinsed/ Rinsed/ Rinsed/ Irrigated with Irrigated with Irrigated with Saline Saline Saline -Foul Odor after Cleansing No No No -Bioengineered Tissue No No No -Bleeding Controlled with Pressure -Offloading No -Treatment Response Procedure Tolerated Well -Debridement - Subq, 1st 20sq cm Yes Yes Yes -Debridement, SubQ, ea addt'l 20sq cm 1 2 1 or part thereof Pain Scale: 0-10 Numeric Is Patient Pain Free? Yes Yes 04/04/21 04/11/21 13:20 10:20 Wound Center Nurse 2 #4- L AXILLA HYDRADENITIS POST OP -Time 09:50 10:20 -Correct Patient Yes Yes -Correct Side, Site, Position Yes Yes -Correct Procedure Yes Yes -Procedure Performed Yes Yes -Type of Procedure Debridement Debridement -Clinical Debridement Subcutaneous Subcutaneous -Tissue Removed Subcutaneous Subcutaneous -Post Debridement (cm) - Length 8.4 5.5 -Post Debridement (cm) - Width 3.4 1.8 -Post Debridement (cm) - Depth 0.6 0.1 -Total Square (Post) (cm) 28.56 9.90 -Area of Debridement (cm) - Length 8.4 5.5 -Area of Debridement (cm) - Width 3.4 1.8 -Total Square (Area) (cm) 28.56 9.90 -Tunneling No No -Undermining/Tunneling No No -Circular Undermining No No -Wound/Ulcer Outcome Not Healed Healed- Surgical Closure -Ulcer Cleansing Rinsed/ Irrigated with Saline -Foul Odor after Cleansing No No -Bioengineered Tissue No No -Bleeding Controlled with Pressure Pressure -Offloading No -Treatment Response Procedure Not Procedure Tolerated Well Tolerated Well -Debridement - Subq, 1st 20sq cm Yes Yes -Debridement, SubQ, ea addt'l 20sq cm 1 or part thereof Pain Scale: 0-10 Numeric Is Patient Pain Free? Yes - Nurse 3 - General Ulcer D/C NN Start: 03/17/21 08:09 Freq: Status: Active Protocol: Activity Type Activity Date Activity User E-Sign Co-Sign Detail Recorded Client Recorded Date Recorded By Document 03/22/21 14:33 JF [id number] 03/22/21 14:34 Document 03/28/21 09:24 DL [id number] 03/28/21 09:24 DL Document 04/04/21 10:01 BMF [id number] 04/04/21 10:03 BMF Document 04/11/21 10:36 AK [id number] 04/11/21 10:38 AK 03/22/21 03/28/21 04/04/21 14:33 09:24 10:01 Wound Care Nurse 3 #4- L AXILLA HYDRADENITIS POST OP -Ulcer Cleansing Rinsed/ Wound Cleanser Rinsed/ Irrigated with Irrigated with Saline Saline -Foul Odor after Cleansing No No No -Primary Dressing Applied Aquacel AG 4x4 Aquacel AG 4x4 Aquacel AG 4x4 -Other Dressing ABD -Primary Dressing Covered/Secured with Dry Gauze,Dry Secured with Secured with Gauze & Roll Tape Tape,Other Gauze,Secured with Tape -Other Covering abd -Aquacel AG 4x4 1 1 1 Treatment Response Procedure Procedure Tolerated Well Tolerated Well Pain Scale: 0-10 Numeric Is Patient Pain Free? Yes Yes Yes WC - Visit Discharge Discharge Condition Stable Stable Stable Ambulatory Status Ambulatory Ambulatory Ambulatory Transportation Private Auto Private Auto Private Auto Medication Reconcilliation completed & Yes provided to patient/care provider Clinical Summary of Care Provided Yes Facility Type Home Health 04/11/21 10:36 Wound Care Nurse 3 #4- L AXILLA HYDRADENITIS POST OP -Ulcer Cleansing Rinsed/ Irrigated with Saline -Foul Odor after Cleansing -Primary Dressing Applied Aquacel AG 4x4 -Other Dressing abd pad -Primary Dressing Covered/Secured with Dry Gauze, Secured with Tape -Other Covering -Aquacel AG 4x4 1 Treatment Response Pain Scale: 0-10 Numeric Is Patient Pain Free? Yes WC - Visit Discharge Discharge Condition Stable Ambulatory Status Ambulatory Transportation Private Auto Medication Reconcilliation completed & provided to patient/care provider Clinical Summary of Care Provided Facility Type Wound debrided: Axilla ulcer Laterality: Left Type of Debridement: Excisional debridement Anesthesia Used: 5% Lidocaine Gel Depth: Down to and including healthy tissue and in the subcutaneous layer Percentage of wound debrided: 100 Instrument Used: 5mm curette Tissue Removed: Subcutaneous tissue and slough with increased hypergranulation tissues Severity: Fat Layer Exposed Amount of bleeding with debridement: Moderate Bleeding Controlled with: Pressure and Compression and gauze Patient tolerated procedure: Patient tolerated procedure well Assessment/Plan Assessment/Plan (1) Skin ulcer of 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 She can wash her wound with soap and water at the time of the dressing change. Operative culture positive for Staphylococcus lugdunensis and Staphylococcus caprae. Continue Doxycycline. Ultrasound done on 03/23/21, which was negative for blood clot. After surgery K+ 3.2. She was started on Potassium 20 mEq daily. Repeat K+ 2.9. Continue the increased to 40mEq BID. She states she is remembering to take it only once per day. Stressed the importance of taking this medication twice daily.. Will recheck potassium level on 04/22/21. She is having decreased left shoulder movement. Will order PT evaluation for range of motion, strengthening and pain management. Encouraged her to increase her protein intake and start taking Vitamin C 1,000 mg daily to help with wound healing. Encouraged patient to stop smoking as it may have deleterious effects on wound healing. 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 She is not to use pain meds while at work. No lifting over 20 lbs. She may return to work on April 05, 2021. She is doing ok. Follow up two weeks.
== END 2021-04-16 23:59 ==
LOC: WC 09:45
PROVIDERS: PCP Student in an Organized Health Care Education/Training Program; Referring Provider Nurse Practitioner Family; Visit Provider Nurse Practitioner Family
DX: L73.2 Hidradenitis suppurativa (principal); F17.200 Nicotine dependence, unspecified, uncomplicated; G89.18 Other acute postprocedural pain; M79.602 Pain in left arm; R60.9 Edema, unspecified; E87.6 Hypokalemia
CPT/HCPCS: 11042; 11045; 93971; 99213; G0463

== ENCOUNTER 2021-05-02 09:45 | Outpatient (RCR) | payer MEDICAID, SELFPAY ==
[2021-04-17 00:34] VITALS: BP 147/93; PULSE 77; RESP 16; TEMP 35.9
[2021-05-02 09:30] VITALS: BP 147/84; PULSE 67; TEMP 36.1; BMI 53.2
--- NOTE | 2021-05-02 10:04 | PCM.WC.PN ---
History of Present Illness Date of Service: 05/02/21 Chief Complaint: Open surgical wound left axilla. History of Wound: Surgery 03/01/21 - Surgical preparation left axilla with excision hidradenitis (140 cm2). Wound care - Silver alginate dressing changes daily covered by gauze and ABD. Operative culture positive for Staphylococcus lugdunensis and Staphylococcus caprae. She was sent home on Clindamycin but it is not sensitive to both the bacteria, so will stop that and start her on Doxycycline. She was complaining of increased left arm pain and swelling. Ultrasound done on 03/23/21, which was negative for blood clot. After surgery K+ 3.2. She was started on Potassium 20 mEq daily. Repeat K+ 2.9. She states she has a difficult time swallowing the prescribed medication, therefore she has not taken it as she should. Increased to 40mEq but in a different format so she is able to swallow it easier. She denies fever and states her appetite is good. Progress of Wound: She is healed today Objective Data Objective Data Vital Signs: Vital Signs Temp Pulse Resp BP 96.9 F L 67 16 147/84 H 05/02/21 09:30 05/02/21 09:30 04/17/21 00:34 05/02/21 09:30 Weight: 282 lb Body Mass Index (BMI) 53.2 Charges/Coding Procedures Integumentary 111xxx-113xx: [id number] Global Visit Physical Exam Const alert and oriented x3 General Appearance: cooperative HEENT normocephalic Head and Scalp: atraumatic Eyes PERRL Lymph Lymphatic: no lymphedema noted Resp normal respiratory effort Cardio regular rate GI non-tender Palpation: soft Extremity normal capillary refill Extremity Narrative: ROM of left arm is good. Skin Wound Narrative: Left axilla ulcer is healed today. 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 Encouraged massage with lotion 1-2 times per day. Instructed her that daily massage of the scarring will help soften the scarring. Encouraged range of motion. Continue with therapy to work with ROM and pain management. Will recheck K+ level if one has not been drawn. Follow up as needed.
--- NOTE | 2021-05-18 16:55 | WC ---
Patient called complaining of continuous left arm pain. This is nothing new for her, she has continued to see PT and has an ultrasound recently with a negative result for a clot. Notified Francia who states if the pain is nothing new, to follow up with her PCP. If it's a new pain, she needs to report to the ER. Patient verbalized understanding, she has no open ulcer.
== END 2021-05-02 09:52 | disposition home or self-care (01) ==
LOC: WC 09:45
PROVIDERS: PCP Student in an Organized Health Care Education/Training Program; Referring Provider Nurse Practitioner Family; Visit Provider Nurse Practitioner Family
DX: Z09 Encounter for follow-up examination after completed treatment for conditions other than malignant neoplasm (principal); L73.2 Hidradenitis suppurativa; M79.602 Pain in left arm; M79.89 Other specified soft tissue disorders; E87.6 Hypokalemia; Z87.891 Personal history of nicotine dependence
CPT/HCPCS: 99213; G0463

== ENCOUNTER 2021-05-03 19:08 | Emergency (ER) | payer MEDICAID, SELFPAY ==
[2021-05-02 09:30] VITALS: BMI 53.2
[2021-05-03 19:08] VITALS: BP 173/98; PULSE 106; RESP 16; TEMP 35.9; O2SAT 98; BMI 52.3
[2021-05-03 20:08] LABS: Anion Gap 6 (5-15); BUN 10 mg/dL (7-18); BUN/Creat Ratio 14.6 RATIO (10-20); Calcium,Total 9.5 mg/dL (8.5-10.1); Chloride 102 mmol/L (98-107); Creatinine, Serum 0.68 mg/dL (0.55-1.02); EST Glomerular Filtration Rate 99 mL/min (>60); Est Glom Filt Rate - Afr Amer 119 mL/min (>60); Estimated Creatinine Clearance 78.84 ml/min; Glucose 108 mg/dL (74-106); Potassium 2.8 mmol/L (3.5-5.1); Sodium Level 139 mmol/L (136-145)
--- NOTE | 2021-05-03 20:12 | EDS_ITS ---
HPI History of Present Illness Chief Complaint: Abn Labs Informant: patient Narrative Narrative: Patient and some follow-up labs after surgery on her left axilla for hidradenitis suppurativa, showed hypokalemia patient thinks it was 2.7, she states that she was advised to come to the emergency department for recheck and possibly an IV potassium infusion. She does not have a history of kidney problems nor has she ever seen a wide load escort. She states she has felt fatigued but she denies any muscle weakness and has had no issues getting around lately. She has had issues with low potassium in the past. She states she is not on a diuretic, although it appears she is on HCTZ as part of a combination blood pressure medication. [facility] Medical History Anemia Arthritis Asthma Back pain Back problem BiPAP (biphasic positive airway pressure) dependence Carpal tunnel syndrome Chronic sinus complaints Depression (emotion) Fibromyalgia Frequent headaches Gastric reflux Hidradenitis Hidradenitis axillaris (~09/11/15) High blood pressure Migraine headache Multiple allergies Open wound of left axillary region with complication Open wound of right buttock Recurrent infections Rheumatoid arthritis Shortness of breath on exertion Sleep apnea Vision problems Vitamin deficiency Wears glasses Home Medications metoprolol tartrate 50 mg PO BID 12/10/14 [History Last Taken 03/01/21 08:00] montelukast 10 mg PO QHS 12/10/14 [History Last Taken 05/21/17 10 mg] albuterol sulfate [ProAir HFA] 1 puff INHALATION Q6H PRN PRN 11/10/15 [History Last Taken 05/22/17] ascorbic acid (vitamin C) [Vitamin C] 500 mg PO DAILY@0800 04/04/16 [History Last Taken 05/22/17] Dulera 2 puff IH BID 09/05/18 [History Last Taken 09/11/18] iron, carbonyl [Feosol] 65 mg PO DAILYCM 09/05/18 [History Last Taken Unknown] omeprazole 40 mg PO DAILY 09/05/18 [History Last Taken 03/01/21 08:00] albuterol sulfate 2.5 mg INHALATION Q6HWA.RT vial.neb. 09/12/18 [Rx Last Taken Unknown] venlafaxine 150 mg capsule,extended release 24 hr 225 mg PO DAILY 03/03/20 [History Last Taken 03/01/21 08:00] gabapentin 100 mg capsule 200 mg PO TID cap 02/02/21 [History Last Taken Unknown] buspirone 5 mg PO QHS 02/08/21 [History Last Taken Unknown] calcium carbonate [Calcium 500] 1,000 mg PO DAILY 02/08/21 [History Last Taken Unknown] cetirizine [Zyrtec] 10 mg PO DAILY 02/08/21 [History Last Taken Unknown] cholecalciferol (vitamin D3) [Vitamin D3] 25 mcg PO DAILY 02/08/21 [History Last Taken Unknown] lisinopril-hydrochlorothiazide 1 tab PO DAILY 02/08/21 [History Last Taken Unknown] nystatin [Nystop] 1 applic TOPICAL QODAY 02/08/21 [History Last Taken Unknown] clindamycin HCl 300 mg PO TID 14 Days #42 cap 03/03/21 [Rx Last Taken Unknown] diazepam [Valium] 5 mg PO .QID PRN 7 Days #30 tab 03/03/21 [Rx Last Taken Unknown] docusate sodium [Colace] 100 mg PO BID #60 cap 03/03/21 [Rx Last Taken Unknown] oxycodone-acetaminophen [Percocet] 1 tab PO Q4H PRN 7 Days #40 tab 03/03/21 [Rx Last Taken Unknown] doxycycline monohydrate 100 mg PO BID 21 Days #42 cap 03/07/21 [Rx Last Taken Unknown] oxycodone-acetaminophen [Percocet] 1 tab PO TID PRN 7 Days #21 tab 03/22/21 [Rx Last Taken Unknown] oxycodone-acetaminophen [Percocet] 1 tab PO BID PRN PRN 7 Days #14 tab 04/04/21 [Rx Last Taken Unknown] potassium chloride 20 meq PO TID 7 Days #42 cap 05/03/21 [Rx Last Taken Unknown] Allergy/AdvReac Type Severity Reaction Status Date / Time Sulfa (Sulfonamide AdvReac Nausea Verified 05/03/21 19:21 Antibiotics) TAPE AdvReac Rash Uncoded 05/03/21 19:21 Family History Mother Anxiety Asthma Depression (emotion) Diabetes Heart disease Hypertension COPD (chronic obstructive pulmonary disease) Osteoporosis Cancer Father Bleeding disorder Kidney disease Cancer Grandmother Ovarian cancer Sister defect Surgical History Carpal tunnel syndrome on both sides Hidradenitis History of 3 sections History of hysterectomy History of tonsillectomy Social History Smoking Status: Former smoker alcohol intake: current substance use type: does not use additional social history: DOES NOT USE ASPIRIN DOES NOT USE IBUPROFEN ROS ROS ED Constitutional Constitutional ED: Reports fatigue; Denies chills or fever(s) Eyes Eyes: Denies change in vision or diplopia ENT ENT ED: Denies rhinorrhea or sore throat Cardiovascular Cardiovascular: Denies chest pain or palpitations Respiratory/Chest Respiratory/Chest: Denies cough or dyspnea Gastrointestinal Gastrointestinal: Denies abdominal pain, diarrhea, nausea or vomiting Genitourinary Genitourinary ED: Denies dysuria or hematuria Musculoskeletal Musculoskeletal: Denies back pain or neck pain Integumentary Reports as per HPI and wounds; Denies abscess or rash Neurologic Neurologic: Denies headache(s), paresthesias or weakness Psychiatric Psychiatric: Denies anxiety or suicidal thoughts EXAM Physical Exam Const Vital Signs: 05/03/21 19:08 05/03/21 19:19 05/03/21 22:38 Temperature 96.6 F L Temperature Source Temporal Pulse Rate 106 H 81 Respiratory Rate 16 22 H Respiratory Effort Normal Non-Labored Respiratory Pattern Normal Blood Pressure 173/98 H 165/75 H Blood Pressure Mean 123 105 Pulse Ox 98 97 Oxygen Delivery Method Room Air Room Air Positive well nourished, well developed and obese General Appearance ED: well developed and NAD Nutritional Appearance: obese HEENT Reports moist mucous membranes normocephalic and atraumatic Eyes PERRL and EOMs intact bilaterally Neck full ROM and supple Resp normal respiratory effort and clear to auscultation bilaterally Cardio regular rate, regular rhythm and no murmurs GI non-tender and non-distended Auscultation: normoactive bowel sounds Palpation: soft Back/Spine no CVA tenderness General Back: other FROM Extremity normal to inspection General Extremety ED: Negative for edema, pulses abnormal or tenderness General Extremity: Negative for edema or pulses abnormal Neuro oriented x3, CN's II-XII intact bilaterally and no sensory deficits noted Sensorium / Orientation: awake and alert Motor Exam: strength 5/5 throughout Skin no rashes or lesions noted and no wounds MDM MDM MDM Narrative Medical decision making narrative: Chemistries confirm positions potassium is 2.8. Her renal function is normal and the rest of her electrolytes are normal. She was given an infusion of potassium, but since she is almost asymptomatic, without any muscle weakness with this, I do not think she needs necessary to be admitted to the hospital. She is not bulimic. She has not been having any vomiting, and is able to take oral intake and potassium replacement at home. She admits that she has been inconsistent in taking her potassium supplementation. Patient will be given 2 runs of potassium chloride, prescribed oral potassium, and she is advised to follow-up with her doctor to manage her chronic medications further. She is comfortable with that plan. Lab Data Attestation: I reviewed the patient's lab results. Labs: Laboratory Results - last 24 hr 05/03/21 19:48 Sodium 139 Potassium 2.8 L Chloride 102 Carbon Dioxide 31.0 Anion Gap 6 BUN 10 Creatinine 0.68 Estim Creat Clear Calc 78.84 Est GFR (MDRD) Af Amer 119 Est GFR (MDRD) Non-Af 99 BUN/Creatinine Ratio 14.6 Glucose 108 H Calcium 9.5 Discharge Plan Triage Chief Complaint: Abn Labs ED Provider: Guillaume Arango Dx/Rx/DC Orders Clinical Impression: Hypokalemia Instructions: ED Hypokalemia Prescriptions: Continued venlafaxine [Effexor XR] 150 mg capsule,extended release 24hr 225 mg PO DAILY RF: 0 gabapentin 100 mg capsule 200 mg PO TID RF: 0 metoprolol tartrate 50 MG tablet 50 mg PO BID RF: 0 montelukast 10 MG tablet 10 mg PO QHS RF: 0 albuterol sulfate [ProAir HFA] 1 PUFF inhaler 1 puff inhalation Q6H PRN PRN (Reason: Sob &/Or Wheezing) RF: 0 ascorbic acid (vitamin C) [Vitamin C] 500 MG tablet 500 mg PO DAILY@0800 RF: 0 omeprazole 40 MG capsule,delayed release(DR/EC) 40 mg PO DAILY RF: 0 Dulera 13 GM HFA aerosol inhaler 2 puff IH BID RF: 0 iron, carbonyl [Feosol] 45 MG capsule 65 mg PO DAILYCM RF: 0 albuterol sulfate 2.5 MG/3 ML solution for nebulization 2.5 mg inhalation Q6HWA.RT RF: 0 lisinopril-hydrochlorothiazide 20-25 mg tablet 1 tab PO DAILY RF: 0 buspirone 5 mg tablet 5 mg PO QHS RF: 0 cetirizine [Zyrtec] 10 mg Tablet 10 mg PO DAILY RF: 0 calcium carbonate [Calcium 500] 500 mg calcium (1,250 mg) Tablet 1,000 mg PO DAILY RF: 0 nystatin [Nystop] 100,000 unit/gram powder 1 applic TOPICAL QODAY RF: 0 cholecalciferol (vitamin D3) [Vitamin D3] 25 mcg (1,000 unit) Capsule 25 mcg PO DAILY RF: 0 clindamycin HCl 300 mg capsule 300 mg PO TID 14 Days Qty: 42 RF: 0 diazepam [Valium] 5 mg tablet 5 mg PO .QID PRN (Reason: muscle spasm) 7 Days Qty: 30 RF: 0 oxycodone-acetaminophen [Percocet] 5-325 mg tablet 1 tab PO Q4H PRN (Reason: pain (scale score 7-10)) 7 Days Qty: 40 RF: 0 docusate sodium [Colace] 100 mg capsule 100 mg PO BID Qty: 60 RF: 1 doxycycline monohydrate 100 mg capsule 100 mg PO BID 21 Days Qty: 42 RF: 1 oxycodone-acetaminophen [Percocet] 5-325 mg tablet 1 tab PO TID PRN (Reason: pain (scale score 7-10)) 7 Days Qty: 21 RF: 0 oxycodone-acetaminophen [Percocet] 5-325 mg tablet 1 tab PO BID PRN PRN (Reason: pain (scale score 7-10)) 7 Days Qty: 14 RF: 0 Changed potassium chloride 10 mEq capsule, extended release 20 meq PO TID 7 Days Qty: 42 RF: 0 Discontinued potassium chloride 20 mEq tablet,ER particles/crystals 20 meq PO BID 7 Days Qty: 14 RF: 1 Primary Care Provider: Ceasar Okeefe Referrals: Ceasar Okeefe DO [Primary Care Provider] - 3-5 Days (For recheck in medication management) Disposition Disposition: Home, Self Care
[2021-05-03] MEDS: Potassium Chloride 10mEq/100mL 10 MEQ/100 ML IV.SOLN. 100 MEQ IV BOLUS ×2 (20:20→22:36)
[2021-05-03] MEDS: Potassium Chloride Oral Tablet 20 MEQ PO (20:46)
[2021-05-03 22:38] VITALS: BP 165/75; PULSE 81; RESP 22; O2SAT 97
[2021-05-03 23:39] VITALS: PULSE 75; RESP 16; O2SAT 94
== END 2021-05-03 23:41 | disposition home or self-care (01) ==
PROVIDERS: Emergency Provider Emergency Medicine; PCP Student in an Organized Health Care Education/Training Program
DX: E87.6 Hypokalemia (principal); E66.9 Obesity, unspecified; Z68.43 Body mass index [BMI] 50.0-59.9, adult; I10 Essential (primary) hypertension; L73.2 Hidradenitis suppurativa; F32.9 Major depressive disorder, single episode, unspecified; M06.9 Rheumatoid arthritis, unspecified; K21.9 Gastro-esophageal reflux disease without esophagitis; G43.909 Migraine, unspecified, not intractable, without status migrainosus; G56.00 Carpal tunnel syndrome, unspecified upper limb; M79.7 Fibromyalgia; G47.30 Sleep apnea, unspecified; J45.909 Unspecified asthma, uncomplicated; Z86.2 Personal history of diseases of the blood and blood-forming organs and certain disorders involving the immune mechanism; Z79.899 Other long term (current) drug therapy; Z87.891 Personal history of nicotine dependence
CPT/HCPCS: 80048; 96365; 96366; 99284; J7040; A4216

== ENCOUNTER → 2021-08-06 08:44 | Outpatient (CLI) | payer MEDICAID, SELFPAY ==
--- NOTE | 2021-08-06 08:45 | MRI_ITS ---
EXAM: MR LEFT UPPER EXTREMITY WITHOUT INTRAVENOUS CONTRAST CLINICAL INDICATION: pain and swelling left arm -- had excision left axillary hidradenits in February. TECHNIQUE: Multiplanar and multisequence MR images of the left upper extremity without intravenous contrast. This report was created using [employer] report generation technology. COMPARISON: None. FINDINGS: BONES/JOINTS: Unremarkable. No fracture. No abnormal bone marrow signal. No joint effusion. MUSCLES: Unremarkable. No edema or myositis. OTHER SOFT TISSUES: Unremarkable. No solid or cystic mass. MRI/Upper Ext/No Jt/ wo IMPRESSION: Unremarkable MRI of the left upper extremity. Electronically Signed: Sheyla Montoya MD at 23:44 EST Tel , Service support ,
== END ==
PROVIDERS: PCP Student in an Organized Health Care Education/Training Program; Visit Provider Surgery
DX: M79.602 Pain in left arm (principal); M79.89 Other specified soft tissue disorders; L73.2 Hidradenitis suppurativa
CPT/HCPCS: 73218

== ENCOUNTER 2021-09-15 09:30 | Outpatient (RCR) | payer MEDICAID, SELFPAY ==
--- NOTE | 2021-08-22 09:49 | HP.OTEVAL ---
Patient's Visit Information RAVI VALDEZ is a 46 year old F, referred to Occupational Therapy by HORACE Milligan, with a diagnosis of lymphedema left UE. Date of Evaluation: 08/22/21 Occupational Therapist: Lucy Pack, CLARISSAR/L, CHT - Subjective This 46 year old female was seen for left arm swelling lymphedema and arm pain. pt states she had cyst removed from her armpit in February- pt states she had increase swelling and pain under her arm. pt states she did have a Physician therapy who ed. pt on ROM. pt states she stopped doing the exercise in Jun. pt states her did rec'd a compression sleeve and glove but pt has not bought one at this time. 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 pt states weakness and pain limit her ADls and IADls - Pain left UE 5 Pain Intensity Range: 9 - ROM Shoulder: right /left UE is WNL Elbow: right/ left WNL - Strength Road Cleaner: right 40# left 25# Lateral Pinch: right 8# left 2# Tripod Pinch: right 6# left 2# - Lymphedema (Circumferential Measure) MCP: right 19.5cm left 20.5cm Wrist: right 16.5 left 16.8 Lower forearm: right 24.5cm left 24.5cm Largest forearm: right 31.5 left 32.0 cm Elbow: right 29cm left 28.5cm Largest humerus: right 42.5cm left 43cm Axcillary: right 44cm left 44cm - Quick DASH-Disab of Arm,Shoulder& Hand Quick DASH Score: 64.2850 - Goals Demonstrate a 20% reduction in edema by d/c: Yes Demonstrate adequate knowledge of self-massage by 2nd week: Yes Demonstrate adequate knowledge skin care/prec by 2nd week: Yes Demonstrate adequate knowledge therapeutic exercises by d/c: Yes Select approp compression garment w/donning/care/wear by d/c: Yes Voice need to replace compression garment every 4-6mo by dc: Yes - Rehabilitation General Assessment: pt s/p 6 months from axillary cyst removal. pt demo with mild swelling and limited strength decreasing pts use of left UE with ADLs. pt would benefit from skilled OT services 1-2x week for 4 weeks to ed. pt on life-time mtg of lymphedema, use of compression garments along with PRE. pt demo understanding and agree to POC. Rehabilitation Potential: Good - Anticipated Interventions Strengthening, Education re Diagnosis, Manual Lymph Drainage, Education re Life-long lymphedema Management, Education re Skin Care and Precautions, Education re Self Massage Techniques, Education re Correct Donning Tech,Care&Wearing Sched Comp Garments, Home Program - Visit Plan Frequency: 1-2x /Week Duration: 3 Weeks TEXT: Thank you for the opportunity to evaluate your patient. For Medicare and Medicare HMO plans, please review the plan of care and approve it. It will need to be FAXED BACK to us at [phone] for Medicare purposes. Please let me know if there are questions or concerns regarding this plan of care. Physician Signature: Date:
--- NOTE | 2022-01-30 11:20 | HP.OT.NRP ---
RAVI VALDEZ was seen in my office for initial evaluation on 08/22/21. The following Plan of Care was established for this patient: Initial Frequency: 1-2x /Week Initial Duration: 3 Weeks Anticipated Interventions: Strengthening, Education re Diagnosis, Manual Lymph Drainage, Education re Life-long lymphedema Management, Education re Skin Care and Precautions, Education re Self Massage Techniques, Education re Correct Donning Tech,Care&Wearing Sched Comp Garments, Home Program This patient was last seen in our office 09/15/21. Pertinent comments regarding their Occupational therapy will appear below: pt was seen for 2 OT session- ed. on compression device to mtg. dx. Due to time lapse in services pt d/c at this time. At this point I will be discontinuing this patient from occupational therapy. I would be happy to see this patient again in the future if found appropriate by the physician. Thank you! Lucy Pack, OTR/L, CHT
== END 2021-09-15 19:00 | disposition home or self-care (01) ==
LOC: OT 09:30
PROVIDERS: PCP Student in an Organized Health Care Education/Training Program; Referring Provider Nurse Practitioner Family; Visit Provider Nurse Practitioner Family
DX: M79.89 Other specified soft tissue disorders (principal); M79.602 Pain in left arm; L73.2 Hidradenitis suppurativa; I89.0 Lymphedema, not elsewhere classified; F17.200 Nicotine dependence, unspecified, uncomplicated
CPT/HCPCS: 97110; 97166; 97530